=== PATIENT | female | born 1945 | race Caucasian/White ===

== ENCOUNTER → 2017-07-08 10:10 | Outpatient (CLI) | payer MEDICARE, BC, SELFPAY ==
[2017-07-08 10:52] LABS: Hemoglobin A1c 6.8 % (4.2-6.3)
[2017-07-08 10:59] LABS: Anion Gap 8 (5-15); BUN 21 mg/dL (7-18); BUN/Creat Ratio 19.8 RATIO (10-20); Calcium,Total 8.9 mg/dL (8.5-10.1); Chloride 102 mmol/L (98-107); Creatinine, Serum 1.06 mg/dL (0.55-1.02); EST Glomerular Filtration Rate 54 mL/min (>60); Est Glom Filt Rate - Afr Amer 65 mL/min (>60); Glucose 141 mg/dL (74-106); Potassium 3.8 mmol/L (3.5-5.1); Sodium Level 137 mmol/L (136-145)
== END ==
PROVIDERS: Family Provider Internal Medicine; PCP Internal Medicine; Visit Provider Internal Medicine
DX: E11.9 Type 2 diabetes mellitus without complications (principal)
CPT/HCPCS: 36415; 80048; 83036

== ENCOUNTER → 2017-08-28 11:55 | Outpatient (CLI) | payer MEDICARE, BC, SELFPAY ==
--- NOTE | 2017-08-28 11:58 | BI_ITS ---
MAMMOGRAPHY - UNILATERAL SCREENING: LEFT BREAST REASON FOR EXAM: Female, 72 years old. Routine annual screening examination (unilateral). PERTINENT HISTORY: LT STEREO BX 2006, RT MASTECTOMY 1997 WITH CHEMO TX, LT REDUCTION AND RT HX TOMOXIFEN X 5 YRS RECONSTRUCTION 7 YRS AFTER MASTECTOMY PT TO TOLERATE MUCH COMPRESSION TECHNIQUE: Digital unilateral breast leela (3D mammographic acquisition) in the CC and MLO projections. 2-D mediolateral oblique (MLO) and craniocaudad (CC) views of both breasts were obtained. CAD: Full Field Digital Mammography with Computer Added Detection was performed. COMPARISON: Aug 28 2016 1:10pm. Aug 22 2015 10:11am FINDINGS: Breast Composition: There are scattered areas of fibroglandular density. There are no dominant masses or suspicious calcifications. No other significant abnormalities are identified. BI/UNILAT LT SCRN W/CAD IMPRESSION: Stable unilateral screening mammogram. Yearly follow-up mammogram recommended. (A) ASSESSMENT CATEGORY: BIRADS Category 2: Benign. A letter regarding these results will be sent to the patient by the facility within 30 days. Approximately 10% of breast cancers are not detected by mammography. A normal mammogram should not delay biopsy of a clinically suspicious abnormality. [id number] Electronically Signed: Galina Cordon MD at 17:16 EDT Tel , Service support ,
== END ==
PROVIDERS: Family Provider Internal Medicine; PCP Internal Medicine; Visit Provider Nurse Practitioner Family
DX: Z12.31 Encounter for screening mammogram for malignant neoplasm of breast (principal)
CPT/HCPCS: 77061; 77067; G0279

== ENCOUNTER → 2017-10-16 12:22 | Outpatient (CLI) | payer MEDICARE, BC, SELFPAY ==
[2017-10-16 14:20] LABS: Hemoglobin A1c 7.2 % (4.2-6.3)
[2017-10-16 14:40] LABS: Rheumatoid Factor < 10.0 IU/mL (<15)
== END ==
PROVIDERS: Family Provider Internal Medicine; PCP Internal Medicine; Visit Provider Internal Medicine
DX: E11.9 Type 2 diabetes mellitus without complications (principal); M19.90 Unspecified osteoarthritis, unspecified site
CPT/HCPCS: 36415; 83036; 86431

== ENCOUNTER → 2018-01-06 10:36 | Outpatient (CLI) | payer MEDICARE, BC, SELFPAY ==
[2018-01-06 13:00] LABS: Hemoglobin A1c 6.6 % (4.2-6.3)
[2018-01-06 13:15] LABS: AST(SGOT) 33 U/L (15-37); Alanine Aminotransfer ALT/SGPT 59 U/L (13-56); Albumin, Serum 3.6 g/dL (3.2-5.0); Alkaline Phosphatase 106 U/L (45-117); Anion Gap 11 (5-15); BUN 21 mg/dL (7-18); BUN/Creat Ratio 20.2 RATIO (10-20); Calcium,Total 9.1 mg/dL (8.5-10.1); Chloride 104 mmol/L (98-107); Cholesterol 137 mg/dL (200); Creatinine, Serum 1.04 mg/dL (0.55-1.02); EST Glomerular Filtration Rate 55 mL/min (>60); Est Glom Filt Rate - Afr Amer 67 mL/min (>60); Globulin 3.6 g/dL (2.2-4.2); Glucose 197 mg/dL (74-106); High Density Lipoprotein 43 mg/dL; Potassium 4.1 mmol/L (3.5-5.1); Protein, Total 7.2 g/dL (6.4-8.2); Sodium Level 137 mmol/L (136-145); Triglycerides 131 mg/dL; Very Low Density Lipoprotein 26 mg/dL (5-40)
== END ==
PROVIDERS: Family Provider Internal Medicine; PCP Internal Medicine; Visit Provider Internal Medicine
DX: E11.9 Type 2 diabetes mellitus without complications (principal); E78.5 Hyperlipidemia, unspecified
CPT/HCPCS: 36415; 80053; 80061; 83036

== ENCOUNTER → 2018-01-27 15:28 | Outpatient (CLI) | payer MEDICARE, BC, SELFPAY ==
--- NOTE | 2018-01-27 15:34 | RAD_ITS ---
STUDY: X-RAY - LUMBAR SPINE REASON FOR EXAM: Female, 72 years old. Lower back pain. TECHNIQUE: 5 view(s) of the lumbar spine were obtained. COMPARISON: None FINDINGS: Normal lumbar lordosis. There is no substantial scoliosis. There is a normal alignment of the vertebrae. There is diffuse demineralization with multi-level endplate spondylosis. There is multi-level degenerative disc disease with multi-level disc space narrowing. There is atherosclerotic calcification of the abdominal aorta without a demonstrated aneurysm. RAD/L/S Spine Min 4 Views IMPRESSION: Degenerative changes of the spine, as detailed above. Atherosclerosis. Electronically Signed: Kassandra Boone MD at 16:16 EDT Tel , Service support ,
== END ==
PROVIDERS: Family Provider Internal Medicine; PCP Internal Medicine; Referring Provider Chiropractor; Visit Provider Chiropractor
DX: M51.36 Other intervertebral disc degeneration, lumbar region (principal); M48.061 Spinal stenosis, lumbar region without neurogenic claudication; M47.896 Other spondylosis, lumbar region
CPT/HCPCS: 72110

== ENCOUNTER 2018-03-13 10:14 | Emergency (ER) | payer MEDICARE, BC, SELFPAY ==
[2018-03-13 10:15] VITALS: BP 218/62; PULSE 58; RESP 16; TEMP 36.5; O2SAT 97; BMI 36.2
--- NOTE | 2018-03-13 10:31 | ED.VISSUMM ---
- ER Visit Summary Date of Service: 03/13/18 Chief Complaint: [] Slipped on ice right ankle injury History of Present Illness: The patient is a 73 F [] reports diabetes other health conditions are all stable she indicates she simply slipped on some ice today twisted her right ankle struck it against the tip of the stair has a contusion there and pain, unable to walk no other complaints specifically no head neck chest back upper or lower extremity other complaints Physical Examination: [] 160/67 General, no distress resting comfortably HEENT is generally unremarkable The neck is supple no adenopathy Cardiovascular, regular rate and rhythm Lungs, clear bilateral Abdomen, soft nontender Extremities, no clubbing cyanosis or edema, she does have a contusion over the distal right ankle, this does not appear to break the skin, she has pain and discomfort any type of dorsi or plantar flexion there is no obvious instability, the foot is not tender the toes are intact the left lower extremities unremarkable, the right tib-fib knee and hip are not tender the pelvis is stable the backs unremarkable neurologically unremarkable as below Neurologic, awake alert answering questions appropriately moving all 4 extremities Test Results: [] Emergency Department Course and Treatment: [] X-ray pain management, the x-ray shows per radiology a bimalleolar ankle fracture nondisplaced, discussed the case with the patient's orthopedic surgeon Dr. Sheriff, he has the patient placed in a long posterior splint will follow-up in his office tomorrow discussed all above with patient her family they agree, posterior splint applied a nonadherent dressing was applied over the contusion again the contusion was closely examined and again did not appear to break the skin and there is nothing to suggest this is an open fracture she understood the need to follow-up Dr. Sheriff need for surgery and other outpatient management to be determined once he seen her, Mars for pain and she will return for change in symptoms Treatment Plan: [] Disposition: [] Home stable Impression: [] Bimalleolar right ankle fracture This note was generated with SeeControl dictation software. It may contain incorrect words, spelling, and punctuation that were not noted in review of the chart prior to signing ED Disposition - Plan for ED Patient: Chief Complaint: Fall Instructions: ED Mechanical Fall Referrals: Tommy Everett MD [Primary Care Provider] -
--- NOTE | 2018-03-13 10:35 | ED.DEP ---
ED Disposition - Plan for ED Patient: Chief Complaint: Fall Instructions: ED Mechanical Fall Referrals: Tommy Everett MD [Primary Care Provider] -
--- NOTE | 2018-03-13 10:40 | RAD_ITS ---
STUDY: X-RAY - RIGHT ANKLE REASON FOR EXAM: Female, 73 years old. Pain and swelling following a fall. TECHNIQUE: 3 view(s) of the ankle. COMPARISON: None. FINDINGS: Nondisplaced oblique fracture of the distal fibula. Avulsion fracture of the medial malleolus. Asymmetry of the ankle mortise. Normal visualized talus and calcaneus. The visualized subtalar, talonavicular, calcaneocuboid and tarsal articulations are normal. Soft tissue swelling. RAD/Ankle min 3 Views IMPRESSION: Nondisplaced oblique fracture of the distal fibula as well as a nondisplaced avulsion fracture of the medial malleolus of the distal tibia with overlying soft tissue swelling. Electronically Signed: Kilo Curtis MD at 11:11 EST Tel [phone], Service support ,
--- NOTE | 2018-03-13 10:46 | RAD_ITS ---
STUDY: X-RAY - RIGHT FOOT CLINICAL: Female, 73 years old. Pain and swelling following a fall. TECHNIQUE: 3 view(s) of the foot. COMPARISON: None. FINDINGS: Nondisplaced fracture of the distal fibula with extension to the lateral malleolus as well as an avulsion fracture of the medial malleolus. There is disruption of the ankle mortise. Normal talus, calcaneus, and tarsal bones. Normal visualized subtalar, talonavicular, calcaneocuboid, tarsal and tarsometatarsal articulations. Normal metatarsi. Normal metatarsophalangeal joint of the great toe. Normal tibial and fibular sesamoid bones. Normal interphalangeal joint of the great toe. Normal phalanges of the great toe. Normal second through fifth metatarsophalangeal joints. Normal interphalangeal joints and phalanges of the lesser toes. Soft tissue swelling. RAD/Foot min 3 Views IMPRESSION: Nondisplaced avulsion fracture of the medial malleolus as well as oblique fracture of the distal fibula and lateral malleolus. Soft tissue swelling. Electronically Signed: Kilo Curtis MD at 11:13 EST Tel [phone], Service support ,
[2018-03-13] MEDS: HYDROcodone Bitartrate/Apap 5/325 Tablet PO (11:05)
--- NOTE | 2018-03-13 11:53 | ED.DEP ---
ED Disposition - Plan for ED Patient: Chief Complaint: Fall Instructions: ED Mechanical Fall, ED Fx Ankle General Prescriptions: Oxycodone HCl/Acetaminophen [Percocet 5/325] 1 tab PO Q6H PRN PRN 3 Days #12 tab PRN Reason: Pain Referrals: Tommy Everett MD [Primary Care Provider] - Jose Francisco Sheriff DO [STAFF PHYSICIAN] -
[2018-03-13 12:24] VITALS: PULSE 71; RESP 16; O2SAT 98
== END 2018-03-13 12:25 | disposition home or self-care (01) ==
LOC: ED 11:06
PROVIDERS: Emergency Provider Emergency Medicine; Family Provider Internal Medicine; PCP Internal Medicine
DX: S82.844A Nondisplaced bimalleolar fracture of right lower leg, initial encounter for closed fracture (principal); S90.01XA Contusion of right ankle, initial encounter; W00.0XXA Fall on same level due to ice and snow, initial encounter; Y93.9 Activity, unspecified; E11.9 Type 2 diabetes mellitus without complications; Z79.82 Long term (current) use of aspirin; Z79.84 Long term (current) use of oral hypoglycemic drugs; Z79.899 Other long term (current) drug therapy
CPT/HCPCS: 29505; 73610; 73630; 99283

== ENCOUNTER 2018-03-21 12:45 | Inpatient (IN) | payer MEDICARE, BC, SELFPAY ==
--- NOTE | 2018-03-14 15:30 | RAD_ITS ---
STUDY: X-RAY CHEST REASON FOR EXAM: Female, 73 years old. Preoperative clearance. TECHNIQUE: PA and lateral views of the chest. COMPARISON: [facility] upright chest x-ray May 06, 2014. FINDINGS: The lungs are clear and expanded. There is no demonstrated pleural abnormality. Normal size heart. Normal mediastinum and jeremiah. Normal visualized pulmonary arteries. There is atherosclerotic calcification of the aortic arch and descending thoracic aorta. There are stable multilevel degenerative changes of the visualized thoracic spine. There is interval mild degenerative osteoarthritis of the bilateral shoulders and acromioclavicular joints. There is no demonstrated abnormality of the visualized soft tissue structures of the upper abdomen. RAD/Chest PA and Lateral IMPRESSION: No acute cardiopulmonary disease. Electronically Signed: Juan Carlos Osborne MD at 16:31 EST , Service support ,
[2018-03-14 16:09] LABS: Absolute Lymphocyte Count 2.51 X10^3/ul (0.83-4.51); Absolute Neutrophil Count 4.3 X10^3/uL (2.0-7.7); Basophil# 0.03 X10^3/uL; Basophil% 0.4 % (0-1); Eosinophil# 0.07 X10^3/uL; Eosinophils% 0.9 % (0-5); Hematocrit 35.7 % (37-47); Hemoglobin 12.1 g/dl (12.0-15.0); Lymphocyte # 2.51 X10^3/ul (4.0); Lymphocyte % 32.4 % (19-41); Mean Corp Hgb Conc 33.9 g/gl (32-36); Mean Corpuscular Hgb 29.4 pg (27.0-32.0); Mean Corpuscular Volume 86.7 fL (81-99); Mean Platelet Vol. 11.2 fl (6.2-12.0); Monocyte# 0.83 X10^3/uL; Monocyte% 10.7 % (0-10); Neutrophil % 55.5 % (47-70); Platelet Count 295 K/mm3 (150-450); RBC Distribution Width CV 12.3 % (11.6-14.6); RBC Distribution Width SD 38.2 fl (35.1-43.9); Red Blood Count 4.12 M/mm3 (4.2-5.4); White Blood Count 7.8 K/mm3 (4.4-11.0)
[2018-03-14 16:38] LABS: ALB/GLOB Ratio 1.1 RATIO (0.9-2.4); AST(SGOT) 23 U/L (15-37); Alanine Aminotransfer ALT/SGPT 40 U/L (13-56); Albumin, Serum 3.9 g/dL (3.2-5.0); Alkaline Phosphatase 97 U/L (45-117); Anion Gap 8 (5-15); BUN 23 mg/dL (7-18); Chloride 102 mmol/L (98-107); Creatinine, Serum 1.15 mg/dL (0.55-1.02); EST Glomerular Filtration Rate 49 mL/min (>60); Est Glom Filt Rate - Afr Amer 59 mL/min (>60); Globulin 3.5 g/dL (2.2-4.2); Glucose 109 mg/dL (74-106); Potassium 3.5 mmol/L (3.5-5.1); Protein, Total 7.4 g/dL (6.4-8.2); Sodium Level 137 mmol/L (136-145)
[2018-03-14 16:40] LABS: POSITIVE COUNT NO; POSITIVE DIFFERENTIAL NO; POSITIVE MORPHOLOGY NO
[2018-03-17 11:16] LABS: Thyroid Stim Hormone (TSH) 3.78 uIU/mL (0.358-3.74)
[2018-03-21] VITALS (12 sets, daily range): BP systolic 138–190; BP diastolic 55–75; PULSE 62–82; RESP 16–20; TEMP 36.2–37.6; O2SAT 96–98; BMI 34.1
[2018-03-21] MEDS: Cefazolin 2 GM in 0.9% Normal Saline 100 ML IV (07:35)
--- NOTE | 2018-03-21 07:50 | RAD_ITS ---
STUDY: X-RAY - RIGHT ANKLE REASON FOR EXAM: Female, 73 years old. [And anatomic fixation of the fibular and tibial fractures. TECHNIQUE: 2 view(s) of the ankle were obtained intraoperatively. COMPARISON: Comparison is made with prior study dated March 13, 2018. FINDINGS: The patient is status post open reduction and internal fixation of the distal fibular fracture with screw and sideplate fixation device. There is good alignment. There is evidence of screw fixation of the medial malleolar fracture. Normal tibiotalar articulation and ankle mortise. Normal visualized talus and calcaneus. The visualized subtalar, talonavicular, calcaneocuboid and tarsal articulations are normal. The soft tissue structures are unremarkable. RAD/Ankle 2 Views IMPRESSION: Satisfactory open reduction internal fixation of the fibular and tibial fractures. Electronically Signed: Kilo Curtis MD at 10:39 EST Tel [phone], Service support ,
[2018-03-21 07:55] LABS: Bedside Glucose 161 mg/dL (70-110)
--- NOTE | 2018-03-21 10:56 | PCM.IMDPSTOP ---
Immediate Post-Op Note Date of Procedure: 03/21/18 Primary Surgeon/Physician: Janae Pierce DPM fire warden: Michelle Pandey Pre-Operative Diagnosis: Right ankle bimalleolar fx Post-Operative Diagnosis: same Surgery/Procedure Performed:: Right ankle ORIF bimalleolar fx Description of Surgical Findings:: see dictation Estimated Blood Loss: minimal Specimen's removed: none Drains: none Type of Anesthesia:: Spinal/Supplemental - Admit VTE Documentation VTE Present on Admission: No VTE Mechan Device Prophylaxis: SCD's, Knee High DANIELLE Hose VTE Pharm Prophylaxis ordered?: Yes
--- NOTE | 2018-03-21 11:01 | OP.PN_ITS ---
Immediate Post-Op Note Date of Procedure: 03/21/18 Primary Surgeon/Physician: Janae Pierce DPM slip bridge operator: Michelle Pandey Pre-Operative Diagnosis: Right ankle bimalleolar fx Post-Operative Diagnosis: same Surgery/Procedure Performed:: Right ankle ORIF bimalleolar fx Description of Surgical Findings:: see dictation Estimated Blood Loss: minimal Specimen's removed: none Drains: none Type of Anesthesia:: Spinal/Supplemental - Admit VTE Documentation VTE Present on Admission: No VTE Mechan Device Prophylaxis: SCD's, Knee High DANIELLE Hose VTE Pharm Prophylaxis ordered?: Yes
--- NOTE | 2018-03-21 11:04 | RAD_ITS ---
STUDY: X-RAY - RIGHT ANKLE REASON FOR EXAM: Female, 73 years old. Status post open reduction internal fixation. TECHNIQUE: 3 view(s) of the ankle. COMPARISON: Comparison is made with prior examination done earlier today. FINDINGS: There is satisfactory open reduction and internal fixation of the distal fibular fracture and the medial malleolar fracture. Normal tibiotalar articulation and ankle mortise. Normal visualized talus and calcaneus. The visualized subtalar, talonavicular, calcaneocuboid and tarsal articulations are normal. Postoperative soft tissue changes. RAD/Ankle min 3 Views IMPRESSION: Status post open reduction and internal fixation of distal fibula and medial malleolar fracture. There is good alignment. Postoperative soft tissue changes. Electronically Signed: Kilo Curtis MD at 11:59 EST Tel [phone], Service support ,
[2018-03-21 11:16] LABS: Bedside Glucose 168 mg/dL (70-110)
--- NOTE | 2018-03-21 12:26 | PCM.CONS.GEN ---
Reason for Consult History of Present Illness: The patient is a 73 year old F [] Past Medical History Past Medical History (Chronic Problems): Chronic Problems (Last Reviewed 01/07/18 @ 13:51 by Anna Gómez) Diverticulosis (Chronic) Anxiety (Chronic) Depression (Chronic) Hyperlipidemia (Chronic) History of colon polyps (Chronic) Gastroesophageal reflux disease (Chronic) Glaucoma (Chronic) Obesity (Chronic) History of breast cancer (Chronic) Hip pain, bilateral (Chronic) Hypersomnolence (Chronic) Hypothyroidism (Chronic) Hypertension (Chronic) Type 2 diabetes mellitus (Chronic) Osteoarthritis (Chronic) Medical History: Medical History (Last Reviewed 01/07/18 @ 13:51 by Anna Gómez) Osteoarthritis (Chronic) M19.90 Anemia D64.9 Breast cancer C50.919 Diabetes mellitus E11.9 Hearing loss H91.90 Hypothyroidism E03.9 IBS (irritable bowel syndrome) K58.9 Allergies adhesive Adverse Reaction (Severe, Verified 03/17/18 10:07) Rash sidra Allergy (Severe, Uncoded 03/17/18 10:08) Rash,itching,blisters Home Medications: Ambulatory Orders Medication Instructions Recorded Cholecalciferol (Vitamin D3) 50,000 unit PO QMONTH 07/23/16 [Decara] Latanoprost 0.005% [Xalatan 1 drp EACH EYE QHS 07/23/16 Opthalmic] brimonidine 0.1 % eye drops 1 drp OPHTHALMIC BID 04/10/17 coenzyme Q10 200 mg capsule 200 mg PO DAILY 04/10/17 dorzolamide 22.3 mg-timolol 6.8 1 drp OPHTHALMIC BID 04/10/17 mg/mL eye drops fluoxetine 20 mg capsule 20 mg PO DAILY #90 cap 05/15/17 levothyroxine 25 mcg tablet 25 mcg PO DAILY #90 tab 05/15/17 metoprolol tartrate 50 mg tablet 50 mg PO BID #180 tab 07/01/17 glimepiride 2 mg tablet 2 mg PO QAM #90 tab 10/16/17 losartan 100 1 tab PO DAILY #90 tab 01/07/18 mg-hydrochlorothiazide 12.5 mg tablet Aspirin [Aspirin, Baby] 81 mg PO DAILY@0800 03/17/18 Atorvastatin Calcium [Lipitor] 40 mg PO QHS 03/17/18 Metformin(XR) [Glucophage Xr] 1,000 mg PO QHS 03/17/18 Surgical History: Surgical History (Last Reviewed 01/07/18 @ 13:51 by Anna Gómez) H/O cervical biopsy Z98.890 H/O right mastectomy Z98.890, Z90.11 H/O tubal ligation Z98.51 History of D&C Z98.890 History of appendectomy Z98.890, Z90.49 History of carpal tunnel release Z98.890 History of carpal tunnel surgery Z92.89 History of reconstruction of right breast Z98.890 Normal colonoscopy 2013 dental implants fibroadenoma removed L breast left breast reconstruction with mastopexy right nipple reconstruction Surgical History: mastectomy, - Psychiatric History: Anxiety, Depression 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 Smoking Status: Former smoker - *Family History Maternal Family History: Family History (Last Reviewed 01/07/18 @ 13:51 by Anna Gómez) Mother Heart disease Hypertension Sister Cancer History Items: High Cholesterol, Hypertension - Physical Exam Vital Signs Temp Pulse Resp BP Pulse Ox 97.1 F L 70 18 156/55 H 96 03/21/18 12:09 03/21/18 12:09 03/21/18 12:09 03/21/18 12:09 03/21/18 12:09 Oxygen Delivery Method Room Air Weight: 186 lb 11.704 oz Body Mass Index (BMI) 34.1 Finger Stick Blood Glucose 168 Intake and Output for Last 24 Hours 03/19/18 03/20/18 03/21/18 23:59 23:59 23:59 Intake Total 1200 / 1200 Balance 1200 / 1200 POC Glucose 03/21/18 03/21/18 11:04 06:13 POC Glucose 168 H 161 H Assessment/Plan All Active Problems (Last Reviewed 01/07/18 @ 13:51 by Anna Gómez) Hypertensive urgency (Acute) Arm paresthesia, left (Acute) Hypokalemia (Acute) Breast cancer, right (Resolved) Chronic pain (Acute) Skin lesion (Acute) History of breast cancer (Resolved)
[2018-03-21] MEDS: Ketorolac 15 MG/ML Vial IV ×2 (12:30→22:10)
--- NOTE | 2018-03-21 12:43 | HP.PCM_ITS ---
History of Present Illness Date of Admission: 03/21/18 Chief Complaint: right ankle fracture The patient is a 73 year old F past medical history as listed below. She was admitted on 03/21/2018 from PACU after she came in for an elective right ankle fracture repair. She fractured her ankle about 3 weeks ago when she was out walking her dog and came in for elective surgery by podiatry. . She was admitted to be admitted to the TCU afterwards but could not be admitted there is was is been a few days on the floor before being admitted there. Hospitalist service was therefore asked to admit her for podiatry. Patient seen and examined she had no complaints and felt well. She denied any fever or chills, any cough or chest pain, any shortness of breath, abdominal pain, any diarrhea vomiting. Pain in right ankle is well controlled. Labs and vitals reviewed. Medications reviewed and reconciled. [] Past Medical History Past Medical History (Chronic Problems): Chronic Problems (Last Reviewed 01/07/18 @ 13:51 by Anna Gómez) Diverticulosis (Chronic) Anxiety (Chronic) Depression (Chronic) Hyperlipidemia (Chronic) History of colon polyps (Chronic) Gastroesophageal reflux disease (Chronic) Glaucoma (Chronic) Obesity (Chronic) History of breast cancer (Chronic) Hip pain, bilateral (Chronic) Hypersomnolence (Chronic) Hypothyroidism (Chronic) Hypertension (Chronic) Type 2 diabetes mellitus (Chronic) Osteoarthritis (Chronic) Medical History: Medical History (Last Reviewed 01/07/18 @ 13:51 by Anna Gómez) Osteoarthritis (Chronic) M19.90 Anemia D64.9 Breast cancer C50.919 Diabetes mellitus E11.9 Hearing loss H91.90 Hypothyroidism E03.9 IBS (irritable bowel syndrome) K58.9 Allergies adhesive Adverse Reaction (Severe, Verified 03/17/18 10:07) Rash sidra Allergy (Severe, Uncoded 03/17/18 10:08) Rash,itching,blisters Home Medications: Ambulatory Orders Medication Instructions Recorded Cholecalciferol (Vitamin D3) 50,000 unit PO QMONTH 07/23/16 [Decara] Latanoprost 0.005% [Xalatan 1 drp EACH EYE QHS 07/23/16 Opthalmic] brimonidine 0.1 % eye drops 1 drp OPHTHALMIC BID 04/10/17 coenzyme Q10 200 mg capsule 200 mg PO DAILY 04/10/17 dorzolamide 22.3 mg-timolol 6.8 1 drp OPHTHALMIC BID 04/10/17 mg/mL eye drops fluoxetine 20 mg capsule 20 mg PO DAILY #90 cap 05/15/17 levothyroxine 25 mcg tablet 25 mcg PO DAILY #90 tab 05/15/17 metoprolol tartrate 50 mg tablet 50 mg PO BID #180 tab 07/01/17 glimepiride 2 mg tablet 2 mg PO QAM #90 tab 10/16/17 losartan 100 1 tab PO DAILY #90 tab 01/07/18 mg-hydrochlorothiazide 12.5 mg tablet Aspirin [Aspirin, Baby] 81 mg PO DAILY@0800 03/17/18 Atorvastatin Calcium [Lipitor] 40 mg PO QHS 03/17/18 Metformin(XR) [Glucophage Xr] 1,000 mg PO QHS 03/17/18 Surgical History: Surgical History (Last Reviewed 01/07/18 @ 13:51 by Anna Gómez) H/O cervical biopsy Z98.890 H/O right mastectomy Z98.890, Z90.11 H/O tubal ligation Z98.51 History of D&C Z98.890 History of appendectomy Z98.890, Z90.49 History of carpal tunnel release Z98.890 History of carpal tunnel surgery Z92.89 History of reconstruction of right breast Z98.890 Normal colonoscopy 2013 dental implants fibroadenoma removed L breast left breast reconstruction with mastopexy right nipple reconstruction Surgical History: mastectomy, - Psychiatric History: Anxiety, Depression COUNTER HAND History: No pertinent COUNTER HAND history Smoking Status: Former smoker Tobacco Use: Non-smoker Alcohol: Occasional - *Family History Maternal Family History: Family History (Last Reviewed 01/07/18 @ 13:51 by Anna Gómez) Mother Heart disease Hypertension Sister Cancer History Items: High Cholesterol, Hypertension Review of Systems Constitutional: Denies: Chills, Fever, Weight Change Eyes: Denies: Blurred vision HEENT: Denies: Head Aches, Sinus Congestion, Sinus Drainage Cardiovascular: Denies: Chest Pain, Chest Pressure, Chest Tightness, Orthopnea, Palpitations, Paroxysmal Noc. Dyspnea Respiratory: Denies: Cough, Shortness of Breath, Shortness of breath at rest, Shortness of breath upon exertion, Sputum production Gastrointestinal: Denies: Abdominal Pain, Nausea, Vomiting Genitourinary: Denies: Dysuria Musculoskeletal: Denies: Joint Pain, Joint Tenderness Skin: Denies: Rash, Wounds Neurological: Denies: Numbness, Tingling, Focal weakness Psychiatric: Denies: Anxiety, Depression, Homicidal Ideations, Suicidal Ideations Hematologic/ Lymphatic: Denies: Easy Bruising, Easy Bleeding VTE Information - Inpt Only VTE Present on Admission: No VTE Pharm Prophylaxis ordered?: Yes - Physical Exam General: Alert, Oriented x3, Cooperative, No apparent distress HEENT: Atraumatic, PERRLA, EOMI, Normocephalic Oral: Moist Mucosa Neck: Supple, No JVD, Negative Carotid Bruits Lungs: Clear to auscultation, Normal air movement, No rhonchi, No wheeze, No rales Cardiovascular: Regular rate, Regular Rhythm, Normal S1, Normal S2, No murmurs Abdomen: Bowel Sounds Present, Soft, Non Tender Extremities: - - RLE wrapped in JARRED bandage after surgery. Skin: No rashes Musculoskeletal: No Tenderness to Palpation of Joints or Extremities Lymphatic: No Cervical, Supraclavicular, or Inguinal Adenopathy Neurological: Cranial nerves II-XII grossly intact, Neuro grossly intact Psych/Mental Status: Normal Affect, Appropriate, Alert and oriented to time, place, person, mood and affect Vital Signs Temp Pulse Resp BP Pulse Ox 97.1 F L 70 18 156/55 H 96 03/21/18 12:09 03/21/18 12:09 03/21/18 12:09 03/21/18 12:09 03/21/18 12:09 Oxygen Delivery Method Room Air Weight: 186 lb 11.704 oz Body Mass Index (BMI) 34.1 Finger Stick Blood Glucose 168 Intake and Output for Last 24 Hours 03/19/18 03/20/18 03/21/18 23:59 23:59 23:59 Intake Total 1200 / 1200 Balance 1200 / 1200 POC Glucose 03/21/18 03/21/18 11:04 06:13 POC Glucose 168 H 161 H Assessment/Plan All Active Problems (Last Reviewed 01/07/18 @ 13:51 by Anna Gómez) Hypertensive urgency (Acute) Arm paresthesia, left (Acute) Hypokalemia (Acute) Breast cancer, right (Resolved) Chronic pain (Acute) Skin lesion (Acute) History of breast cancer (Resolved) 1. Right ankle fracture s/p ORIF of bimalleolar fracture * today is POD 1 * admitted by hospitalist service because she needs to be in the hospital for a few days before she can be admitted to the TCU * pain currently well controlled * Pain management as per podiatry * will consult podiatry. * consult case management for placement * 2. hypertension * on losartan and metoprolol. Will resume. IV hydralazine prn * 3. Diabetes mellitus: on glimepiride 2mg daily and metformin 1000mg bid. Accuchecks ACHS. ISS 4. Hypothyroidism: On Synthroid. 5. Depression: On fluoxetine DVT prophylaxis: as per podiatry. SCDs for today, and to start DVT prophylaxis tomorrow, as discussed with Dr Pierce. Code Visit Inpatient E&M: 12847 Subs Hosp L2
--- NOTE | 2018-03-21 13:09 | CASEMGMT ---
Social Work Note RN, Javi Her, updated that per report the pt was wanting to go to TCU at discharge. Placed call to [facility], who confirms they have her on the list for admission on Saturday. Transfer to [facility] summary placed on chart for physician to complete. PLAN: TCU on Saturday, 03/24. SURYA iJ, DRYWALL HANGER HELPER
[2018-03-21] MEDS: hydroCHLOROthiazide 12.5mg 12.5 MG PO (14:36)
[2018-03-21] MEDS: Losartan Potassium 100 MG Tablet PO (14:36)
[2018-03-21] MEDS: HYDROcodone Bitartrate/Apap 5/325 Tablet PO ×3 (15:15→21:25)
[2018-03-21] MEDS: hydrALAZINE 20 MG/ML Vial 10 MG IV (16:23)
[2018-03-21] MEDS: 0.9% NaCl Peripheral Flush Adult/Peds IV ×2 (16:23→18:49)
[2018-03-21] MEDS: Morphine 2 MG/ML Syringe 1 MG IV (18:49)
[2018-03-21] MEDS: Latanoprost 0.005% 1 Bottle 1 DRP EACH EYE (21:29)
[2018-03-21] MEDS: Dorzolamide HCL/Timolol 10 ml Bottle 1 DRP OPHTHALMIC (21:30)
[2018-03-21] MEDS: Atorvastatin Calcium 40 MG Tablet PO (21:31)
[2018-03-21] MEDS: Metoprolol Tartrate 50 MG Tablet PO (21:32)
[2018-03-21] MEDS: Docusate Sodium 100 MG Capsule PO (21:34)
[2018-03-21] MEDS: LORazepam 2 MG/ML Syringe 0.5 MG IV (23:17)
[2018-03-22 03:25] VITALS: BP 158/70; PULSE 66; RESP 16; TEMP 36.6; O2SAT 99
[2018-03-22] MEDS: HYDROcodone Bitartrate/Apap 5/325 Tablet PO ×3 (05:27→16:37)
[2018-03-22] MEDS: Levothyroxine 25 MCG TABLET PO (05:28)
[2018-03-22] MEDS: LORazepam 2 MG/ML Syringe 0.5 MG IV ×2 (07:36→19:34)
[2018-03-22 08:08] LABS: Absolute Lymphocyte Count 1.99 X10^3/ul (0.83-4.51); Absolute Neutrophil Count 4.8 X10^3/uL (2.0-7.7); Basophil# 0.01 X10^3/uL; Basophil% 0.1 % (0-1); Eosinophil# 0.02 X10^3/uL; Eosinophils% 0.3 % (0-5); Hematocrit 30.5 % (37-47); Hemoglobin 10.2 g/dl (12.0-15.0); Lymphocyte # 1.99 X10^3/ul (4.0); Lymphocyte % 26.1 % (19-41); Mean Corp Hgb Conc 33.4 g/gl (32-36); Mean Corpuscular Hgb 29.1 pg (27.0-32.0); Mean Corpuscular Volume 86.9 fL (81-99); Mean Platelet Vol. 11.3 fl (6.2-12.0); Monocyte# 0.79 X10^3/uL; Monocyte% 10.4 % (0-10); POSITIVE COUNT NO; POSITIVE DIFFERENTIAL NO; POSITIVE MORPHOLOGY NO; Platelet Count 266 K/mm3 (150-450); RBC Distribution Width SD 36.9 fl (35.1-43.9); Red Blood Count 3.51 M/mm3 (4.2-5.4); White Blood Count 7.6 K/mm3 (4.4-11.0)
[2018-03-22 08:45] LABS: Anion Gap 8 (5-15); BUN 32 mg/dL (7-18); BUN/Creat Ratio 32.1 RATIO (10-20); Calcium,Total 8.8 mg/dL (8.5-10.1); Chloride 102 mmol/L (98-107); EST Glomerular Filtration Rate 58 mL/min (>60); Est Glom Filt Rate - Afr Amer 70 mL/min (>60); Estimated Creatinine Clearance 39.04 ml/min; Glucose 134 mg/dL (74-106); Potassium 4.2 mmol/L (3.5-5.1); Sodium Level 136 mmol/L (136-145)
[2018-03-22] MEDS: Glimepiride 2 MG Tablet PO (08:45)
[2018-03-22] MEDS: Aspirin 81 MG TAB.CHEW PO (08:45)
[2018-03-22 10:59] VITALS: BP 149/56; PULSE 66; RESP 18; TEMP 36.8; O2SAT 95
[2018-03-22] MEDS: Dorzolamide HCL/Timolol 10 ml Bottle 1 DRP OPHTHALMIC ×2 (11:01→21:58)
[2018-03-22] MEDS: Losartan Potassium 100 MG Tablet PO (11:02)
[2018-03-22 11:03] VITALS: PULSE 66
[2018-03-22] MEDS: Metoprolol Tartrate 50 MG Tablet PO ×2 (11:03→21:57)
[2018-03-22] MEDS: hydroCHLOROthiazide 12.5mg 12.5 MG PO (11:03)
[2018-03-22] MEDS: FLUoxetine 20 MG Capsule PO (11:08)
[2018-03-22] MEDS: Enoxaparin 40 MG/0.4 ML Syringe SC (11:14)
[2018-03-22 16:42] VITALS: BP 144/52; PULSE 66; RESP 18; TEMP 36.7; O2SAT 95
[2018-03-22 17:05] LABS: Bedside Glucose 113 mg/dL (70-110)
[2018-03-22] MEDS: 0.9% NaCl Peripheral Flush Adult/Peds IV ×2 (19:34→19:48)
[2018-03-22 20:31] VITALS: BP 149/55; PULSE 62; RESP 16; TEMP 36.9; O2SAT 94
[2018-03-22] MEDS: Atorvastatin Calcium 40 MG Tablet PO (21:56)
[2018-03-22 21:57] VITALS: PULSE 62
[2018-03-22] MEDS: Latanoprost 0.005% 1 Bottle 1 DRP EACH EYE (21:57)
[2018-03-22] MEDS: Docusate Sodium 100 MG Capsule PO (22:02)
[2018-03-23] VITALS (8 sets, daily range): BP systolic 151–190; BP diastolic 60–78; PULSE 62–70; RESP 16–18; TEMP 36.5–36.7; O2SAT 97–98
[2018-03-23] MEDS: HYDROcodone Bitartrate/Apap 5/325 Tablet PO ×4 (03:33→21:34)
[2018-03-23] MEDS: Levothyroxine 25 MCG TABLET PO (05:09)
[2018-03-23] MEDS: Glimepiride 2 MG Tablet PO (08:38)
[2018-03-23] MEDS: Aspirin 81 MG TAB.CHEW PO (08:38)
[2018-03-23] MEDS: Docusate Sodium 100 MG Capsule PO (08:38)
[2018-03-23] MEDS: Enoxaparin 40 MG/0.4 ML Syringe SC (08:39)
[2018-03-23] MEDS: FLUoxetine 20 MG Capsule PO (08:39)
[2018-03-23] MEDS: Losartan Potassium 100 MG Tablet PO (08:40)
[2018-03-23] MEDS: hydroCHLOROthiazide 12.5mg 12.5 MG PO (08:40)
[2018-03-23] MEDS: Dorzolamide HCL/Timolol 10 ml Bottle 1 DRP OPHTHALMIC ×2 (08:40→21:35)
[2018-03-23] MEDS: Metoprolol Tartrate 50 MG Tablet PO ×2 (08:41→21:36)
[2018-03-23] MEDS: LORazepam 2 MG/ML Syringe 0.5 MG IV (12:52)
[2018-03-23] MEDS: 0.9% NaCl Peripheral Flush Adult/Peds IV ×2 (12:52→16:49)
--- NOTE | 2018-03-23 12:52 | OP.PCM_ITS ---
Report of Operation Date of Procedure: 03/21/18 Pre-Operative Diagnosis: Right ankle bimalleolar fx Post-Operative Diagnosis: same Surgery/Procedure Performed:: Right ankle ORIF bimalleolar fx Description of Surgical Findings:: see dictation director of assisted living: Michelle Pandey Type of Anesthesia:: Spinal/Supplemental Specimen's removed: none Drains: none Estimated Blood Loss (mL): minimal Description of Procedure: Indications: Pt is a 73 yo F who fell on the ice on 03/13/2018. She was seen in the [facility] ER that day and radiographs revealed a Right bimalleolar ankle fracture. She presented the next day to my clinic for evaluation. Her daughter was present for that appointment. Given the instability of her fracture I recommended ORIF of the Right ankle. She had concerns about being able to stay NWB RLE prior to and after surgery. we discussed that she may need physical therapy and placement post operatively for her well being and safety. All risks, complications, and alternatives were discussed with the patient, and the patient signed an informed consent. No guarantees were given. Procedure: On 03/21/2018, Susan Beauchamp was visually and verbally identified in the preoperative holding area. The consent form was again reviewed with the patient, as were all risks, complications, and alternatives and the patient wished to proceed with the proposed surgery. The right ankle was marked as the correct operative extremity. The patient was brought to the operating room. Sp inal anesthesia was administered by the anesthesia team. She was then positioned on the operating room table in the normal lazy lateral position. A time out was performed and present were in agreement. a pneumatic thigh tourniquet was then placed. At this time the right lower extremity was prepped and draped in the usual sterile fashion. after exsanguination with an esmarch the tourniquet was inflated to 300 mmHg. At this time attention was directed to the right lateral distal ankle. Edema was noted to be largely resolved about the ankle from the clinical appointment. Ecchymosis was still visible with an abrasion noted proximal and anterior to the medial malleolus. Using intraoperative fluoroscopy, the distal fibula fracture was identified. Using a #15 blade a curvilinear incision was made over the the distal fibula fracture. The incision was bluntly carried deep through the subcutaneous tissues with careful attention paid to all bleeders, which were clamped and tied or bovied as necessary. All vital neurovascular structures were retracted. The peroneal tendons were retracted. The fracture of the distal fibula was noted to be oblique with a fracture fragment in the anterior medial portion of the fibula at the level of the ankle joint. Using a curette and #15 blade the fracture was debrided and all soft tissue impingements were removed. Using a series of bone reduction clamps and a 0.062 k wire the distal fibula fracture was reduced. This was confirmed both with intraoperative fluoroscopy and direct visualization. The anterior fracture fragment was reduced and a 0.045 k wire was placed to secure this piece. The 0.045 k wire was bent and cut with no sharp prominence noted. Utilizing AO technique and intraoperative fluoroscopy, an interfragmentary screw was placed nearly perpendicular to the fracture. The bone was noted to be brittle as this screw was placed. The temporary 0.062 k wire was removed. A Chester Variax lateral distal fibula plate was then placed utilizing a combination of locking and nonlocking screws for stabilization. Plate placement and screw placement and length was confirmed by intraoperative fluoroscopy. The external rotation and cotton hook tests were then performed under intraoperative fluoroscopy to examine the syndesmosis and medial clear space. They appeared stable, with no increased widening, and no syndesmotic screw fixation was placed. Attention was then turned to the medial malleolus which had an avulsion fracture. Under intraoperative fluoroscopic guidance two guide wires were placed percutaneously. Two 4.0 cannulated screws, per AO technique, were then placed percutaneously with reduction of the medial malleolar fracture noted on intraoperative fluoroscopy. Appropriate screw length and placement were confirmed on fluoroscopy. The incisions were flushed with copious amounts of normal sterile saline. Closure was initiated with 2.0 vicryl for deep layers, 3.0 vicryl for subcutaneous layers and 3.0 prolene for skin. Betadine soaked adaptic and dry sterile dressings were applied. A multi layer compression dressing and well padded posterior splint were then applied. Total tourniquet time was 120 minutes with immediate capillary refill noted to all digits upon deflation. Intra operative fluoroscopy was utilized throughout the case, > 1 hour, to aid in visualization and confirmation of fracture reduction and screw and plate fixations. Interpretation of the images was vital to my decision making process. The patient tolerated the procedure and anesthesia well. The patient was then transported to the postanesthesia care unit by a member of the anesthesia team and myself with all vital signs stable and neurovascular status of the right lower extremity equal to pre-operative levels. Anesthesia will perform a RLE lower sciatic block in the PACU. Pt will be admitted to inpatient services for physical therapy evaluation, fall risk and s/p ORIF R ankle fracture. At the end of the case all sponge, needle and instrument counts were found to be correct. Grafts/Implants Used: Mellissa Variax plate and screws - Complications none - Admit VTE Documentation VTE Present on Admission: No VTE Mechan Device Prophylaxis: SCD's, Knee High DANIELLE Hose VTE Pharm Prophylaxis ordered?: Yes
[2018-03-23] MEDS: BRIMONIDINE 0.15% 5 ML Bottle 1 DRP OPHTHALMIC ×2 (12:56→21:35)
--- NOTE | 2018-03-23 15:49 | PCM.PN.HOSP ---
Subjective: Patient seen and examined. Blood pressure noted to be running high. Pain is well controlled. She denies any fever, chills, cough, chest pain, SOB, abdominal pain, diarrhea or vomiting. Review of systems otherwise negative. Labs and vitals reviewed. Vitals/I&O's: Vital Signs Temp Pulse Resp BP Pulse Ox 97.7 F L 62 16 190/66 H 98 03/23/18 15:25 03/23/18 15:25 03/23/18 15:25 03/23/18 15:25 03/23/18 15:25 Oxygen Delivery Method Room Air Weight: 186 lb 11.704 oz Body Mass Index (BMI) 34.1 Finger Stick Blood Glucose 168 Intake and Output for Last 24 Hours 03/21/18 03/22/18 03/23/18 23:59 23:59 23:59 Intake Total 2175 / 2175 1515.8 / 1515.8 470 / 470 Output Total 700 / 700 1450 / 1450 600 / 600 Balance 1475 / 1475 65.8 / 65.8 -130 / -130 General: Alert, Oriented x3, Cooperative HEENT: Atraumatic, PERRLA, EOMI, Normocephalic Oral: Moist Mucosa Neck: Supple, No JVD, Negative Carotid Bruits Lungs: Clear to auscultation, Normal air movement, No rhonchi, No wheeze, No rales Cardiovascular: Regular rate, Regular Rhythm, Normal S1, Normal S2, No murmurs Abdomen: Bowel Sounds Present, Soft, Non Tender, Non-Distended, No Hepato-splenomegaly Extremities: No edema, Capillary Refill Less than 3 Seconds, - - RLE in bandage. able to wiggle toes Skin: No rashes, No breakdown Musculoskeletal: No Tenderness to Palpation of Joints or Extremities Lymphatic: No Cervical, Supraclavicular, or Inguinal Adenopathy Neurological: Cranial nerves II-XII grossly intact Psych/Mental Status: Normal Affect, Appropriate, Alert and oriented to time, place, person, mood and affect Laboratory Results 03/22/18 16:34: POC Glucose 113 H Current Medications Hydrocodone Bitart/Acetaminophen (Ackerman 5mg-325mg) 1 - 2 tablet PO Q4H PRN PRN PRN Reason: SEVERE PAIN (6-10) Last Admin: 03/23/18 12:52 Dose: 2 tablet Aspirin (Aspirin, Baby) 81 mg PO DAILY@0800 [facility] Last Admin: 03/23/18 08:38 Dose: 81 mg Atorvastatin Calcium (Lipitor) 40 mg PO QHS [facility] Last Admin: 03/22/18 21:56 Dose: 40 mg Brimonidine Tartrate (Alphagan P 0.15%) 1 drop OPHTHALMIC BID [facility] Last Admin: 03/23/18 12:56 Dose: 1 drop Docusate Sodium (Colace) 100 mg PO BID [facility] Last Admin: 03/23/18 08:38 Dose: 100 mg Dorzolamide/Timolol (Cosopt Opth Drops) 1 drop OPHTHALMIC BID [facility] Last Admin: 03/23/18 08:40 Dose: 1 drop Enoxaparin Sodium (Lovenox) 40 mg SC DAILY@1000 [facility] Last Admin: 03/23/18 08:39 Dose: 40 mg Ergocalciferol (Vitamin D) 50,000 unit PO QMONTH [facility] Fluoxetine HCl (Prozac) 20 mg PO DAILY [facility] Last Admin: 03/23/18 08:39 Dose: 20 mg Glimepiride (Amaryl) 2 mg PO QAM@0800 [facility] Last Admin: 03/23/18 08:38 Dose: 2 mg Hydrochlorothiazide (Hydrochlorothiazide) 12.5 mg PO DAILY [facility] Last Admin: 03/23/18 08:40 Dose: 12.5 mg Ketorolac Tromethamine (Toradol) 15 mg IV Q6H PRN PRN Reason: PAIN Stop: 03/26/18 15:45 Last Admin: 03/21/18 22:10 Dose: 15 mg Latanoprost (Xalatan Opthalmic) 1 drop EACH EYE QHS [facility] Last Admin: 03/22/18 21:57 Dose: 1 drop Levothyroxine Sodium (Synthroid) 25 mcg PO DAILY@0600 [facility] Last Admin: 03/23/18 05:09 Dose: 25 mcg Lorazepam (Ativan) 0.5 mg IV Q4H PRN PRN PRN Reason: severe muscle spasms Last Admin: 03/23/18 12:52 Dose: 0.5 mg Losartan Potassium (Cozaar) 100 mg PO DAILY [facility] Last Admin: 03/23/18 08:40 Dose: 100 mg Magnesium Hydroxide (Milk Of Magnesia) 30 ml PO DAILY PRN PRN PRN Reason: Constipation Metformin HCl (Glucophage Xr) 1,000 mg PO DAILY@1700 [facility] Last Admin: 03/22/18 16:40 Dose: 1,000 mg Metoprolol Tartrate (Lopressor (Beta Gilson)) 50 mg PO BID [facility] Last Admin: 03/23/18 08:41 Dose: 50 mg Morphine Sulfate () 1 mg IV Q4H PRN PRN PRN Reason: SEVERE PAIN (6-10/10) Last Admin: 03/21/18 18:49 Dose: 1 mg Ondansetron HCl (Zofran) 4 mg IV Q8H PRN PRN PRN Reason: Nausea Sodium Chloride () 5 - 30 ml IV UD PRN PRN Reason: SALINE FLUSH Last Admin: 03/23/18 12:52 Dose: 10 ml Medical Necessity - Tobacco Use Smoking Status: Former smoker Tobacco Use: Non-smoker Assessment/Plan All Active Problems (Last Reviewed 01/07/18 @ 13:51 by Anna Gómez) Hypertensive urgency (Acute) Arm paresthesia, left (Acute) Hypokalemia (Acute) Breast cancer, right (Resolved) Chronic pain (Acute) Skin lesion (Acute) History of breast cancer (Resolved) 1. Right ankle fracture s/p ORIF of bimalleolar fracture today is POD 3 pain well controlled. pain management as per podiatry awaiting placement in TCU 2. hypertension on losartan and metoprolol. BP in 190s systolic;IV hydalazine prn 3. Diabetes mellitus: on glimepiride 2mg daily and metformin 1000mg bid. Accuchecks ACHS. ISS 4. Hypothyroidism: On Synthroid. 5. Depression: On fluoxetine DVT prophylaxis:on SC lovenox. Disposition: awaiting placement in TCU Code Visit Inpatient E&M: 49117 Subs Hosp L2
[2018-03-23] MEDS: hydrALAZINE 20 MG/ML Vial 10 MG IV (16:49)
[2018-03-23] MEDS: Latanoprost 0.005% 1 Bottle 1 DRP EACH EYE (21:35)
[2018-03-23] MEDS: Atorvastatin Calcium 40 MG Tablet PO (21:36)
[2018-03-24 02:20] VITALS: BP 152/67; PULSE 72; RESP 18; TEMP 36.7; O2SAT 96
[2018-03-24] MEDS: Levothyroxine 25 MCG TABLET PO (05:51)
[2018-03-24 06:19] LABS: Absolute Lymphocyte Count 2.12 X10^3/ul (0.83-4.51); Absolute Neutrophil Count 3.9 X10^3/uL (2.0-7.7); Basophil# 0.04 X10^3/uL; Basophil% 0.6 % (0-1); Eosinophil# 0.14 X10^3/uL; Hematocrit 33.7 % (37-47); Hemoglobin 11.2 g/dl (12.0-15.0); Lymphocyte # 2.12 X10^3/ul (4.0); Lymphocyte % 30.2 % (19-41); Mean Corp Hgb Conc 33.2 g/gl (32-36); Mean Corpuscular Hgb 28.3 pg (27.0-32.0); Mean Corpuscular Volume 85.1 fL (81-99); Mean Platelet Vol. 10.9 fl (6.2-12.0); Monocyte# 0.78 X10^3/uL; Monocyte% 11.1 % (0-10); Neutrophil # 3.93 X10^3/uL (2.7-7.7); Platelet Count 277 K/mm3 (150-450); RBC Distribution Width CV 12.4 % (11.6-14.6); RBC Distribution Width SD 38.4 fl (35.1-43.9); Red Blood Count 3.96 M/mm3 (4.2-5.4)
[2018-03-24 06:40] LABS: POSITIVE COUNT NO; POSITIVE DIFFERENTIAL NO; POSITIVE MORPHOLOGY NO
[2018-03-24 06:43] LABS: Anion Gap 9 (5-15); BUN 21 mg/dL (7-18); BUN/Creat Ratio 27.9 RATIO (10-20); Calcium,Total 8.9 mg/dL (8.5-10.1); Chloride 104 mmol/L (98-107); Creatinine, Serum 0.75 mg/dL (0.55-1.02); EST Glomerular Filtration Rate 80 mL/min (>60); Est Glom Filt Rate - Afr Amer 97 mL/min (>60); Estimated Creatinine Clearance 39.04 ml/min; Glucose 118 mg/dL (74-106); Potassium 4.5 mmol/L (3.5-5.1); Sodium Level 135 mmol/L (136-145)
[2018-03-24] MEDS: HYDROcodone Bitartrate/Apap 5/325 Tablet PO ×2 (07:59→15:00)
[2018-03-24] MEDS: FLUoxetine 20 MG Capsule PO (08:01)
[2018-03-24] MEDS: Aspirin 81 MG TAB.CHEW PO (08:01)
[2018-03-24] MEDS: Glimepiride 2 MG Tablet PO (08:01)
[2018-03-24] MEDS: Docusate Sodium 100 MG Capsule PO (08:02)
[2018-03-24 09:45] VITALS: BP 130/39; PULSE 66; RESP 18; TEMP 36.5; O2SAT 97
--- NOTE | 2018-03-24 09:45 | CASEMGMT ---
Social Work Note SW met with pt to confirm discharge plans. SW introduced self and role at [facility]. Pt is alert and orientated x4. Pt confirms that she wishes to discharge to TCU. SW explained that TCU has a bed for pt and pt is able to discharge today. Pt states understanding. Plan: Discharge to TCU today Mercedes Veloz [employer], CLINICAL MOLECULAR GENETICIST
[2018-03-24 09:47] VITALS: PULSE 66
[2018-03-24] MEDS: BRIMONIDINE 0.15% 5 ML Bottle 1 DRP OPHTHALMIC (09:47)
[2018-03-24] MEDS: Dorzolamide HCL/Timolol 10 ml Bottle 1 DRP OPHTHALMIC (09:47)
[2018-03-24] MEDS: Metoprolol Tartrate 50 MG Tablet PO (09:47)
[2018-03-24] MEDS: Losartan Potassium 100 MG Tablet PO (09:48)
[2018-03-24] MEDS: hydroCHLOROthiazide 25 MG Tablet PO (09:49)
[2018-03-24] MEDS: Enoxaparin 40 MG/0.4 ML Syringe SC (09:56)
--- NOTE | 2018-03-24 14:45 | PCM.TXEXTCAR ---
- Diet 03/21/18 12:46 Diet: Cardiac/Low Cholesterol Food consistency:: Regular Liquid Consistency:: Regular/Thin Type of Dietary Supplement:: Glucerna Shake Is pt able to select menu?: Yes - Wound(s) RIGHT ANKLE Wound Type: Surgical Incision Dressing Change: Dry Sterile Dressing - Therapies Weight Bearing: Non weight bearing - Allergies/Procedures Done in Hospital Allergies/Adverse Reactions: Allergies adhesive Adverse Reaction (Severe, Verified 03/17/18 10:07) Rash sidra Allergy (Severe, Uncoded 03/17/18 10:08) Rash,itching,blisters - Type of Care/Length of Stay Estimated LOS: Convalescent Care Less Than 30 days Type of Care Needed: Skilled Rehab Potential: Good Prognosis: Good - Additional Orders/Day of Discharge Day of Discharge: 03/24/18 - Dietary and Speech Recommendations Dietitian Recommendations/Changes: Suggest diet change to 1800 calorie/cardiac/no added salt. Suggest d/c glucerna shake with meals as ordered due to good PO at meals & BMI 34.2. - Follow Up Care Primary Care Physician: Tommy Everett MD [Primary Care Provider] - Please follow up with your Primary Care Physician in: [place] 3-5 Days
--- NOTE | 2018-03-24 14:47 | PCM.DC.SUM ---
Discharge Date and Diagnosis Date of Admission: 03/21/18 Date of Discharge: 03/24/18 - Secondary Discharge Diagnosis Chronic Problems (Last Reviewed 01/07/18 @ 13:51 by Anna Gómez) Diverticulosis (Chronic) Anxiety (Chronic) Depression (Chronic) Hyperlipidemia (Chronic) History of colon polyps (Chronic) Gastroesophageal reflux disease (Chronic) Glaucoma (Chronic) Obesity (Chronic) History of breast cancer (Chronic) Hip pain, bilateral (Chronic) Hypersomnolence (Chronic) Hypothyroidism (Chronic) Hypertension (Chronic) Type 2 diabetes mellitus (Chronic) Osteoarthritis (Chronic) Hospital Course and Treatment Imaging Results: CXR: IMPRESSION: No acute cardiopulmonary disease. Ankle Xray: IMPRESSION: Satisfactory open reduction internal fixation of the fibular and tibial fractures. Consults: Podiatry Operations: - - ORIF Right Ankle Procedures: None Summary of Care Provided: Per HPI: The patient is a 73 year old F past medical history as listed below. She was admitted on 03/21/2018 from PACU after she came in for an elective right ankle fracture repair. She fractured her ankle about 3 weeks ago when she was out walking her dog and came in for elective surgery by podiatry. . She was admitted to be admitted to the TCU afterwards but could not be admitted there is was is been a few days on the floor before being admitted there. Hospitalist service was therefore asked to admit her for podiatry. Patient seen and examined she had no complaints and felt well. She denied any fever or chills, any cough or chest pain, any shortness of breath, abdominal pain, any diarrhea vomiting. Pain in right ankle is well controlled. Labs and vitals reviewed. Medications reviewed and reconciled. Vital Signs - 24 hr Temp Pulse Resp BP BP Pulse Ox 03/24/18 14:57 97.7 F L 63 18 154/61 H 99 03/24/18 09:47 66 03/24/18 09:45 97.7 F L 66 18 130/39 H 97 03/24/18 02:20 98.0 F 72 18 152/67 H 96 03/23/18 21:36 69 03/23/18 20:14 98.1 F 69 18 155/63 H 98 03/23/18 18:00 151/60 H 03/23/18 16:49 62 03/23/18 15:25 97.7 F L 62 16 190/66 H 98 General: Alert, Oriented x3, Cooperative, No apparent distress HEENT: Atraumatic, PERRLA, EOMI, Normocephalic Oral: Moist Mucosa Neck: Supple, No JVD Lungs: Clear to auscultation, Normal air movement, No rhonchi, No wheeze, No rales Cardiovascular: Regular rate, Regular Rhythm, Normal S1, Normal S2, No murmurs Abdomen: Soft, Non Tender, Non-Distended, No Hepato-splenomegaly Extremities: No edema, Capillary Refill Less than 3 Seconds Skin: No rashes, No breakdown Musculoskeletal: Right Ankle in cast and wrapped Hospital Course: 1. Right Ankle fracture POD 3 ORIF/HTN - She fell down the stairs at her trailer which led to this fracture. The fall was mechanical. She is continuing to have pain, but the narcotics help. Will continue her on narcotics as well as a bowel regimen. She is stable for discharge to TCU for further therapy. While here she had some difficulty with her blood pressure being high which is felt to be d/t her pain after surgery. On discharge her SBP was in the 130's. She is to continue her home medications of HCTZ/Losartan and metoprolol. 2. Her other diagnoses were evaluated and her home medications were continued where appropriate - Physical Exam Vital Signs Temp Pulse Resp BP Pulse Ox 97.7 F L 66 18 130/39 H 97 03/24/18 09:45 03/24/18 09:47 03/24/18 09:45 03/24/18 09:45 03/24/18 09:45 Oxygen Delivery Method Room Air Weight: 186 lb 11.704 oz Body Mass Index (BMI) 34.1 Finger Stick Blood Glucose 168 Intake and Output for Last 24 Hours 03/22/18 03/23/18 03/24/18 23:59 23:59 23:59 Intake Total 1515.8 / 1515.8 470 / 470 Output Total 1450 / 1450 600 / 600 1500 / 1500 Balance 65.8 / 65.8 -130 / -130 -1500 / -1500 Laboratory Tests Past 24 Hrs 03/24/18 03/24/18 05:42 05:42 WBC 7.0 RBC 3.96 L Hgb 11.2 L Hct 33.7 L MCV 85.1 MCH 28.3 MCHC 33.2 RDW 12.4 RDW Differential 38.4 Plt Count 277 MPV 10.9 Immature Gran % (Auto) 0.100 Neut % (Auto) 56.0 Lymph % (Auto) 30.2 [place] % (Auto) 11.1 H Eos % (Auto) 2.0 Baso % (Auto) 0.6 Absolute Neuts (auto) 3.9 Absolute Lymphs (auto) 2.12 Total Counted Not Reportable Sodium 135 L Potassium 4.5 Chloride 104 Carbon Dioxide 22.0 Anion Gap 9 BUN 21 H Creatinine 0.75 Estim Creat Clear Calc 39.04 Est GFR (MDRD) Af Amer 97 Est GFR (MDRD) Non-Af 80 BUN/Creatinine Ratio 27.9 H Glucose 118 H Calcium 8.9 Call your doctor if your incision/area has: Sudden Increased Bleeding, Increased Pain/ Swelling, Increased Redness, Foul Smelling Discharge, Swelling at the incision site Call your doctor if you observe: Fever of 101 or Higher, Numbness or Tingling, Shortness of breath, Chest pain Home Medications: Medications to take at Discharge Cholecalciferol (Vitamin D3) [Decara] 50,000 unit PO QMONTH 07/23/16 Latanoprost 0.005% [Xalatan Opthalmic] 1 drp EACH EYE QHS 07/23/16 brimonidine 0.1 % eye drops 1 drp OPHTHALMIC BID 04/10/17 coenzyme Q10 200 mg capsule 200 mg PO DAILY 04/10/17 dorzolamide 22.3 mg-timolol 6.8 mg/mL eye drops 1 drp OPHTHALMIC BID 04/10/17 fluoxetine 20 mg capsule 20 mg PO DAILY #90 cap 05/15/17 levothyroxine 25 mcg tablet 25 mcg PO DAILY #90 tab 05/15/17 metoprolol tartrate 50 mg tablet 50 mg PO BID #180 tab 07/01/17 glimepiride 2 mg tablet 2 mg PO QAM #90 tab 10/16/17 losartan 100 mg-hydrochlorothiazide 12.5 mg tablet 1 tab PO DAILY #90 tab 01/07/18 Aspirin [Aspirin, Baby] 81 mg PO DAILY@0800 03/17/18 Atorvastatin Calcium [Lipitor] 40 mg PO QHS 03/17/18 Metformin(XR) [Glucophage Xr] 1,000 mg PO QHS 03/17/18 Docusate Sodium [Colace] 100 mg PO BID capsule 03/24/18 Hydrocodone Bitart/Apap 5-325 [[place] 5/325] 1 - 2 tablet PO Q4H PRN PRN 3 Days #15 tablet 03/24/18 Other Amb Orders: Thyroid Stim Hormone (TSH) Time Frame: 03/17/18, Location: Laboratory Primary Care Physician: Tommy Everett MD [Primary Care Provider] - Please follow up with your Primary Care Physician in: [place] 3-5 Days Please Follow Up With: Janae Pierce DPM When: in 3-5 days Disposition: Alf facility Minutes spent on discharge:: 35 Patient Condition:: Good Medical Necessity - Tobacco Use Smoking Status: Former smoker Tobacco Use: Non-smoker Meaningful Use Info Meaningful Use Diagnoses (Choose all that apply): None applicable Code Visit Inpatient E&M: 09404 Disch Hosp
[2018-03-24 14:57] VITALS: BP 154/61; PULSE 63; RESP 18; TEMP 36.5; O2SAT 99
== END 2018-03-24 18:20 | disposition skilled nursing facility (03) | DRG 494 ==
LOC: SDC 12:52
PROVIDERS: Nurse Practitioner Family; Podiatrist Foot & Ankle Surgery; Admitting Provider Student in an Organized Health Care Education/Training Program; Family Provider Internal Medicine; PCP Internal Medicine; Referring Provider Student in an Organized Health Care Education/Training Program; Visit Provider Family Medicine
PROC: 0QSJ04Z Reposition Right Fibula with Internal Fixation Device, Open Approach (ICD-10-PCS; principal; 2018-03-21 06:55)
DX: S82.841A Displaced bimalleolar fracture of right lower leg, initial encounter for closed fracture (principal); W00.0XXA Fall on same level due to ice and snow, initial encounter; I10 Essential (primary) hypertension; E03.9 Hypothyroidism, unspecified; F32.9 Major depressive disorder, single episode, unspecified; E11.9 Type 2 diabetes mellitus without complications; Z79.899 Other long term (current) drug therapy; Z79.84 Long term (current) use of oral hypoglycemic drugs; Z85.3 Personal history of malignant neoplasm of breast; M19.90 Unspecified osteoarthritis, unspecified site; H40.9 Unspecified glaucoma; E66.9 Obesity, unspecified; F41.9 Anxiety disorder, unspecified; E78.5 Hyperlipidemia, unspecified; K57.90 Diverticulosis of intestine, part unspecified, without perforation or abscess without bleeding; K21.9 Gastro-esophageal reflux disease without esophagitis; Z86.010 Personal history of colon polyps; Z87.891 Personal history of nicotine dependence; Z90.11 Acquired absence of right breast and nipple; Z68.34 Body mass index [BMI] 34.0-34.9, adult
CPT/HCPCS: 36415; 71046; 73600; 73610; 76000; 80048; 80053; 82962; 84439; 84443; 85025; 93005; 97110; 97162; 97166; 97530; 97535; 97802; C1713; J7120; A4216; J2405

== ENCOUNTER 2018-03-24 20:22 | Inpatient (IN) | payer MEDICARE, BC, SELFPAY ==
[2018-03-21 12:09] VITALS: BMI 34.1
[2018-03-24 20:03] VITALS: BP 157/78; PULSE 64; RESP 20; TEMP 36.5; O2SAT 98; BMI 34.8
--- NOTE | 2018-03-24 20:03 | NURSING ---
Pt arrived from [facility] at 1930.
[2018-03-24 20:22] VITALS: PULSE 62
--- NOTE | 2018-03-24 20:28 | PCM.HP.STD ---
Problem List (1) Fracture of ankle, bimalleolar, right, closed Status: Acute (2) Diverticulosis Status: Chronic (3) Anxiety Status: Chronic (4) Depression Status: Chronic (5) Hyperlipidemia Status: Chronic (6) Gastroesophageal reflux disease Status: Chronic (7) Glaucoma Status: Chronic (8) Hypothyroidism Status: Chronic (9) Hypertension Status: Chronic (10) Type 2 diabetes mellitus Status: Chronic (11) Osteoarthritis Status: Chronic History of Present Illness Date of Admission: 03/24/18 Chief Complaint: Here for rehabilitation, strengthening, prior to discharge home alone. The patient is a 73 year old Female with below past medical history with followin03/21/2018 Admit to Hospital. 03/21/2018 Dr. Pierce performed right ankle ORIF bimalleolar fracture. 03/21/2018 X-ray right ankle status post ORIF distal fibula with medial malleolar fracture. Good alignment. 03/21/2018 Admit to Hospital. IV hydralazine PRN uncontrolled hypertension. SCD, DVT prophylaxis. Narcotics for pain control. Bowel regiment for presumptive constipation. Blood pressure improved. 03/24/2018 Admit to TCU with debility, here for rehabilitation, strengthening, prior to discharge home alone. Past Medical History Past Medical History (Chronic Problems): Chronic Problems (Last Reviewed 01/07/18 @ 13:51 by Anna Gmóez) Diverticulosis (Chronic) Anxiety (Chronic) Depression (Chronic) Hyperlipidemia (Chronic) History of colon polyps (Chronic) Gastroesophageal reflux disease (Chronic) Glaucoma (Chronic) Obesity (Chronic) History of breast cancer (Chronic) Hip pain, bilateral (Chronic) Hypersomnolence (Chronic) Hypothyroidism (Chronic) Hypertension (Chronic) Type 2 diabetes mellitus (Chronic) Osteoarthritis (Chronic) Medical History: Medical History (Last Reviewed 01/07/18 @ 13:51 by Anna Gómez) Osteoarthritis (Chronic) M19.90 Anemia D64.9 Breast cancer C50.919 Diabetes mellitus E11.9 Hearing loss H91.90 Hypothyroidism E03.9 IBS (irritable bowel syndrome) K58.9 Allergies adhesive Adverse Reaction (Severe, Verified 03/17/18 10:07) Rash sidra Allergy (Severe, Uncoded 03/17/18 10:08) Rash,itching,blisters Home Medications: Ambulatory Orders Medication Instructions Recorded Cholecalciferol (Vitamin D3) 50,000 unit PO QMONTH 07/23/16 [Decara] Latanoprost 0.005% [Xalatan 1 drp EACH EYE QHS 07/23/16 Opthalmic] brimonidine 0.1 % eye drops 1 drp OPHTHALMIC BID@1000,2200 04/10/17 coenzyme Q10 200 mg capsule 200 mg PO DAILY 04/10/17 dorzolamide 22.3 mg-timolol 6.8 1 drp OPHTHALMIC BID@1000,2200 04/10/17 mg/mL eye drops Aspirin [Aspirin, Baby] 81 mg PO DAILY@0800 03/17/18 Atorvastatin Calcium [Lipitor] 40 mg PO QHS 03/17/18 Metformin(XR) [Glucophage Xr] 1,000 mg PO DAILY@1800 03/17/18 Docusate Sodium [Colace] 100 mg PO BID 03/24/18 Fluoxetine [Prozac] 20 mg PO DAILY 03/24/18 Glimepiride [Amaryl] 2 mg PO DAILY@0800 03/24/18 Hydrocodone Bitart/Apap 5-325 1 - 2 tablet PO Q4H PRN PRN 3 Days 03/24/18 [Barnhart 5/325] #15 tablet Levothyroxine [Synthroid] 25 mcg PO DAILY 03/24/18 Losartan/Hydrochlorothiazide 1 tab PO DAILY 03/24/18 [Hyzaar 100-12.5 Tablet] Metoprolol Tartrate [Lopressor 50 mg PO BID 03/24/18 (beta devante)] Surgical History: Surgical History (Last Reviewed 01/07/18 @ 13:51 by Anan Gómez) H/O cervical biopsy Z98.890 H/O right mastectomy Z98.890, Z90.11 H/O tubal ligation Z98.51 History of D&C Z98.890 History of appendectomy Z98.890, Z90.49 History of carpal tunnel release Z98.890 History of carpal tunnel surgery Z92.89 History of reconstruction of right breast Z98.890 Normal colonoscopy 2013 dental implants fibroadenoma removed L breast left breast reconstruction with mastopexy right nipple reconstruction Surgical History: appendectomy, mastectomy - Right., - - Right ankle ORIF bimalleolar fracture, Tubal ligation, dilation & currettage, carpal tunnel release. 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 Lives: Alone Smoking Status: Former smoker Tobacco Use: Non-smoker Alcohol: Occasional Drugs: None - *Family History Maternal Family History: Family History (Last Reviewed 01/07/18 @ 13:51 by Anna Gómez) Mother Heart disease Hypertension Sister Cancer History Items: High Cholesterol, Hypertension Review of Systems Constitutional: Denies: Chills, Fever, Weight Change HEENT: Denies: Head Aches, Sinus Congestion, Sinus Drainage Cardiovascular: Denies: Chest Pain, Palpitations Respiratory: Denies: Cough, Shortness of breath at rest, Sputum production Gastrointestinal: Denies: Abdominal Pain, Nausea, Vomiting Genitourinary: Denies: Dysuria Musculoskeletal: Denies: Joint Pain, Joint Tenderness Skin: Denies: Rash, Wounds Neurological: Denies: Numbness, Tingling, Focal weakness Psychiatric: Denies: Anxiety, Depression, Homicidal Ideations, Suicidal Ideations Hematologic/ Lymphatic: Denies: Easy Bruising, Easy Bleeding VTE Information - Inpt Only VTE Present on Admission: No VTE Mechan Device Prophylaxis: Knee High DANIELLE Hose VTE Pharm Prophylaxis ordered?: Yes Patient Problems: Active and Suspected Problems (Last Reviewed 01/07/18 @ 13:51 by Anna Gómez) Fracture of ankle, bimalleolar, right, closed (Acute) - Physical Exam General: Alert, Oriented x3, Cooperative HEENT: Atraumatic, PERRLA, EOMI, Normocephalic Neck: Supple, No JVD, Negative Carotid Bruits Lungs: Clear to auscultation, Normal air movement Cardiovascular: Regular rate, No murmurs Abdomen: Bowel Sounds Present, Soft, Non Tender Extremities: No edema, Capillary Refill Less than 3 Seconds, - - Right lower extremity dressed. Skin: No rashes, No breakdown Musculoskeletal: No Tenderness to Palpation of Joints or Extremities Neurological: Cranial nerves II-XII grossly intact Psych/Mental Status: Normal Affect, Appropriate Vital Signs Temp Pulse Resp BP Pulse Ox 97.7 F L 64 20 H 157/78 H 98 03/24/18 20:03 03/24/18 20:03 03/24/18 20:03 03/24/18 20:03 03/24/18 20:03 Oxygen Delivery Method Room Air Weight: 86.319 kg Body Mass Index (BMI) 34.8 Finger Stick Blood Glucose 168 Assessment/Plan All Active Problems (Last Reviewed 01/07/18 @ 13:51 by Anna Gómez) Hypertensive urgency (Acute) Arm paresthesia, left (Acute) Hypokalemia (Acute) Breast cancer, right (Resolved) Chronic pain (Acute) Skin lesion (Acute) Fracture of ankle, bimalleolar, right, closed (Acute) History of breast cancer (Resolved) 73 year old female with below past medical history status post ORIF right ankle bimalleolar fracture, admitted to TCU with debility, here for rehabilitation, strengthening, prior to discharge home alone. Debility - PT/OT. Pain - Barnhart 5/325MG 2 tablets Q4H PRN moderate pain. Bowel - Miralax 17GM daily, Senna/colace 2 tablets BID, Dulcolax 10MG PO daily PRN. Pneumonia vaccination - Administer Prevnar 13 and/or Pneumovax 23 as necessary. DVT prophylaxis - Lovenox 40MG SC daily. CV prophylaxis - Aspirin 81MG daily. Hyperlipidemia - Atorvastatin 40MG QHS. Glaucoma - Brimonidine 1GTT OU BID, Cosopt 1GTT OU BID, Xalatan 1GTT OU BID. Vitamin D deficiency - D2 50,000 units per month. Depression - Fluoxetine 20MG daily, doing well with chronic assisted use, GDR clinically contraindicated. Diabetes Mellitus II - Glimepiride 2MG daily, Metformin XR 1000MG daily. Hypothyroidism - Levothyroxine 25MCG daily. Hypertension - Metoprolol 50MG BID, Losartan HCT 100/12.5MG daily. Post-operative anemia - Ferrex 150MG daily.
--- NOTE | 2018-03-24 20:32 | HP.PCM_ITS ---
Problem List (1) Fracture of ankle, bimalleolar, right, closed Status: Acute (2) Diverticulosis Status: Chronic (3) Anxiety Status: Chronic (4) Depression Status: Chronic (5) Hyperlipidemia Status: Chronic (6) Gastroesophageal reflux disease Status: Chronic (7) Glaucoma Status: Chronic (8) Hypothyroidism Status: Chronic (9) Hypertension Status: Chronic (10) Type 2 diabetes mellitus Status: Chronic (11) Osteoarthritis Status: Chronic History of Present Illness Date of Admission: 03/24/18 Chief Complaint: Here for rehabilitation, strengthening, prior to discharge home alone. The patient is a 73 year old Female with below past medical history with followin03/21/2018 Admit to Hospital. 03/21/2018 Dr. Pierce performed right ankle ORIF bimalleolar fracture. 03/21/2018 X-ray right ankle status post ORIF distal fibula with medial malleolar fracture. Good alignment. 03/21/2018 Admit to Hospital. IV hydralazine PRN uncontrolled hypertension. SCD, DVT prophylaxis. Narcotics for pain control. Bowel regiment for presumptive constipation. Blood pressure improved. 03/24/2018 Admit to TCU with debility, here for rehabilitation, strengthening, prior to discharge home alone. Past Medical History Past Medical History (Chronic Problems): Chronic Problems (Last Reviewed 01/07/18 @ 13:51 by Anna Gómez) Diverticulosis (Chronic) Anxiety (Chronic) Depression (Chronic) Hyperlipidemia (Chronic) History of colon polyps (Chronic) Gastroesophageal reflux disease (Chronic) Glaucoma (Chronic) Obesity (Chronic) History of breast cancer (Chronic) Hip pain, bilateral (Chronic) Hypersomnolence (Chronic) Hypothyroidism (Chronic) Hypertension (Chronic) Type 2 diabetes mellitus (Chronic) Osteoarthritis (Chronic) Medical History: Medical History (Last Reviewed 01/07/18 @ 13:51 by Anna Gómez) Osteoarthritis (Chronic) M19.90 Anemia D64.9 Breast cancer C50.919 Diabetes mellitus E11.9 Hearing loss H91.90 Hypothyroidism E03.9 IBS (irritable bowel syndrome) K58.9 Allergies adhesive Adverse Reaction (Severe, Verified 03/17/18 10:07) Rash sidra Allergy (Severe, Uncoded 03/17/18 10:08) Rash,itching,blisters Home Medications: Ambulatory Orders Medication Instructions Recorded Cholecalciferol (Vitamin D3) 50,000 unit PO QMONTH 07/23/16 [Decara] Latanoprost 0.005% [Xalatan 1 drp EACH EYE QHS 07/23/16 Opthalmic] brimonidine 0.1 % eye drops 1 drp OPHTHALMIC BID@1000,2200 04/10/17 coenzyme Q10 200 mg capsule 200 mg PO DAILY 04/10/17 dorzolamide 22.3 mg-timolol 6.8 1 drp OPHTHALMIC BID@1000,2200 04/10/17 mg/mL eye drops Aspirin [Aspirin, Baby] 81 mg PO DAILY@0800 03/17/18 Atorvastatin Calcium [Lipitor] 40 mg PO QHS 03/17/18 Metformin(XR) [Glucophage Xr] 1,000 mg PO DAILY@1800 03/17/18 Docusate Sodium [Colace] 100 mg PO BID 03/24/18 Fluoxetine [Prozac] 20 mg PO DAILY 03/24/18 Glimepiride [Amaryl] 2 mg PO DAILY@0800 03/24/18 Hydrocodone Bitart/Apap 5-325 1 - 2 tablet PO Q4H PRN PRN 3 Days 03/24/18 [[place]vere 5/325] #15 tablet Levothyroxine [Synthroid] 25 mcg PO DAILY 03/24/18 Losartan/Hydrochlorothiazide 1 tab PO DAILY 03/24/18 [Hyzaar 100-12.5 Tablet] Metoprolol Tartrate [Lopressor 50 mg PO BID 03/24/18 (beta devante)] Surgical History: Surgical History (Last Reviewed 01/07/18 @ 13:51 by Anna Gómez) H/O cervical biopsy Z98.890 H/O right mastectomy Z98.890, Z90.11 H/O tubal ligation Z98.51 History of D&C Z98.890 History of appendectomy Z98.890, Z90.49 History of carpal tunnel release Z98.890 History of carpal tunnel surgery Z92.89 History of reconstruction of right breast Z98.890 Normal colonoscopy 2013 dental implants fibroadenoma removed L breast left breast reconstruction with mastopexy right nipple reconstruction Surgical History: appendectomy, mastectomy - Right., - - Right ankle ORIF bimalleolar fracture, Tubal ligation, dilation & currettage, carpal tunnel release. 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 Smoking Status: Former smoker Tobacco Use: Non-smoker Alcohol: Occasional Drugs: None - *Family History Maternal Family History: Family History (Last Reviewed 01/07/18 @ 13:51 by Anna Gómez) Mother Heart disease Hypertension Sister Cancer History Items: High Cholesterol, Hypertension Review of Systems Constitutional: Denies: Chills, Fever, Weight Change HEENT: Denies: Head Aches, Sinus Congestion, Sinus Drainage Cardiovascular: Denies: Chest Pain, Palpitations Respiratory: Denies: Cough, Shortness of breath at rest, Sputum production Gastrointestinal: Denies: Abdominal Pain, Nausea, Vomiting Genitourinary: Denies: Dysuria Musculoskeletal: Denies: Joint Pain, Joint Tenderness Skin: Denies: Rash, Wounds Neurological: Denies: Numbness, Tingling, Focal weakness Psychiatric: Denies: Anxiety, Depression, Homicidal Ideations, Suicidal Pratik ations Hematologic/ Lymphatic: Denies: Easy Bruising, Easy Bleeding VTE Information - Inpt Only VTE Present on Admission: No VTE Mechan Device Prophylaxis: Knee High DANIELLE Hose VTE Pharm Prophylaxis ordered?: Yes Patient Problems: Active and Suspected Problems (Last Reviewed 01/07/18 @ 13:51 by Anna Gómez) Fracture of ankle, bimalleolar, right, closed (Acute) - Physical Exam General: Alert, Oriented x3, Cooperative HEENT: Atraumatic, PERRLA, EOMI, Normocephalic Neck: Supple, No JVD, Negative Carotid Bruits Lungs: Clear to auscultation, Normal air movement Cardiovascular: Regular rate, No murmurs Abdomen: Bowel Sounds Present, Soft, Non Tender Extremities: No edema, Capillary Refill Less than 3 Seconds, - - Right lower extremity dressed. Skin: No rashes, No breakdown Musculoskeletal: No Tenderness to Palpation of Joints or Extremities Neurological: Cranial nerves II-XII grossly intact Psych/Mental Status: Normal Affect, Appropriate Vital Signs Temp Pulse Resp BP Pulse Ox 97.7 F L 64 20 H 157/78 H 98 03/24/18 20:03 03/24/18 20:03 03/24/18 20:03 03/24/18 20:03 03/24/18 20:03 Oxygen Delivery Method Room Air Weight: 86.319 kg Body Mass Index (BMI) 34.8 Finger Stick Blood Glucose 168 Assessment/Plan All Active Problems (Last Reviewed 01/07/18 @ 13:51 by Anna Gómez) Hypertensive urgency (Acute) Arm paresthesia, left (Acute) Hypokalemia (Acute) Breast cancer, right (Resolved) Chronic pain (Acute) Skin lesion (Acute) Fracture of ankle, bimalleolar, right, closed (Acute) History of breast cancer (Resolved) 73 year old female with below past medical history status post ORIF right ankle bimalleolar fracture, admitted to TCU with debility, here for rehabilitation, strengthening, prior to discharge home alone. * Debility - PT/OT. * Pain - [place]vere 5/325MG 2 tablets Q4H PRN moderate pain. * Bowel - Miralax 17GM daily, Senna/colace 2 tablets BID, Dulcolax 10MG PO daily PRN. * Pneumonia vaccination - Administer Prevnar 13 and/or Pneumovax 23 as necessary. * DVT prophylaxis - Lovenox 40MG SC daily. * CV prophylaxis - Aspirin 81MG daily. * Hyperlipidemia - Atorvastatin 40MG QHS. * Glaucoma - Brimonidine 1GTT OU BID, Cosopt 1GTT OU BID, Xalatan 1GTT OU BID. * Vitamin D deficiency - D2 50,000 units per month. * Depression - Fluoxetine 20MG daily, doing well with chronic ferry terminal agent use, GDR clinically contraindicated. * Diabetes Mellitus II - Glimepiride 2MG daily, Metformin XR 1000MG daily. * Hypothyroidism - Levothyroxine 25MCG daily. * Hypertension - Metoprolol 50MG BID, Losartan HCT 100/12.5MG daily. * Post-operative anemia - Ferrex 150MG daily.
[2018-03-24 21:20] LABS: Bedside Glucose 95 mg/dL (70-110)
[2018-03-24] MEDS: oxyCODONE 5 MG Tablet PO (22:26)
[2018-03-24] MEDS: Acetaminophen 500 MG Tablet 1000 MG PO (22:27)
[2018-03-24] MEDS: Atorvastatin Calcium 40 MG Tablet PO (22:28)
[2018-03-24 22:35] VITALS: BP 142/69; PULSE 65
[2018-03-24] MEDS: Metoprolol Tartrate 50 MG Tablet PO (22:35)
[2018-03-24] MEDS: Latanoprost 0.005% 1 Bottle 1 DRP EACH EYE (22:38)
[2018-03-24] MEDS: Dorzolamide HCL/Timolol 10 ml Bottle 1 DRP OPHTHALMIC (22:40)
[2018-03-24] MEDS: BRIMONIDINE 0.15% 5 ML Bottle 1 DRP OPHTHALMIC (22:42)
[2018-03-25 06:10] LABS: Absolute Lymphocyte Count 1.89 X10^3/ul (0.83-4.51); Basophil# 0.02 X10^3/uL; Basophil% 0.4 % (0-1); Eosinophil# 0.12 X10^3/uL; Eosinophils% 2.2 % (0-5); Hematocrit 30.8 % (37-47); Hemoglobin 10.5 g/dl (12.0-15.0); Lymphocyte # 1.89 X10^3/ul (4.0); Lymphocyte % 33.9 % (19-41); Mean Corp Hgb Conc 34.1 g/gl (32-36); Mean Corpuscular Hgb 29.4 pg (27.0-32.0); Mean Corpuscular Volume 86.3 fL (81-99); Mean Platelet Vol. 11.3 fl (6.2-12.0); Monocyte# 0.56 X10^3/uL; Monocyte% 10.1 % (0-10); Neutrophil # 2.97 X10^3/uL (2.7-7.7); Neutrophil % 53.2 % (47-70); Platelet Count 303 K/mm3 (150-450); RBC Distribution Width CV 12.1 % (11.6-14.6); RBC Distribution Width SD 36.6 fl (35.1-43.9); Red Blood Count 3.57 M/mm3 (4.2-5.4); White Blood Count 5.6 K/mm3 (4.4-11.0)
[2018-03-25 06:17] LABS: POSITIVE COUNT NO; POSITIVE DIFFERENTIAL NO; POSITIVE MORPHOLOGY NO
[2018-03-25 06:29] LABS: Anion Gap 12 (5-15); BUN 23 mg/dL (7-18); BUN/Creat Ratio 28.8 RATIO (10-20); Calcium,Total 9.3 mg/dL (8.5-10.1); Chloride 102 mmol/L (98-107); EST Glomerular Filtration Rate 75 mL/min (>60); Est Glom Filt Rate - Afr Amer 90 mL/min (>60); Glucose 129 mg/dL (74-106); Potassium 4.3 mmol/L (3.5-5.1); Sodium Level 138 mmol/L (136-145)
[2018-03-25 06:31] LABS: Bedside Glucose 128 mg/dL (70-110)
[2018-03-25] MEDS: Nystatin Powder 15gm Bottle 1 APPLIC TOPICAL ×2 (07:12→20:04)
[2018-03-25] MEDS: FLUoxetine 20 MG Capsule PO (07:14)
[2018-03-25] MEDS: Levothyroxine 25 MCG TABLET PO (07:14)
[2018-03-25] MEDS: hydroCHLOROthiazide 12.5mg 12.5 MG PO (07:14)
[2018-03-25] MEDS: Losartan Potassium 100 MG Tablet PO (07:14)
[2018-03-25 07:15] VITALS: BP 142/69; PULSE 65
[2018-03-25] MEDS: Metoprolol Tartrate 50 MG Tablet PO ×2 (07:15→17:16)
[2018-03-25] MEDS: Enoxaparin 40 MG/0.4 ML Syringe SC (07:23)
[2018-03-25] MEDS: Aspirin 81 MG TAB.CHEW PO (08:19)
[2018-03-25] MEDS: Glimepiride 2 MG Tablet PO (08:19)
[2018-03-25] MEDS: HYDROcodone Bitartrate/Apap 5/325 Tablet PO ×3 (08:32→23:43)
[2018-03-25] MEDS: BRIMONIDINE 0.15% 5 ML Bottle 1 DRP OPHTHALMIC ×2 (10:45→21:01)
[2018-03-25] MEDS: Dorzolamide HCL/Timolol 10 ml Bottle 1 DRP OPHTHALMIC ×2 (10:47→21:48)
[2018-03-25 11:26] LABS: Bedside Glucose 102 mg/dL (70-110)
[2018-03-25] MEDS: Tuberculin,Purif.prot.deriv. 50 TU/ML Vial 5 ML ID (12:43)
[2018-03-25 15:35] VITALS: BP 128/47; PULSE 61; RESP 14; TEMP 36.3; O2SAT 96
[2018-03-25 17:15] LABS: Bedside Glucose 66 mg/dL (70-110)
[2018-03-25 17:16] VITALS: BP 128/47; PULSE 61
[2018-03-25] MEDS: Senna/Docusate Sodium 1 Tablet 2 TABLET PO (17:17)
--- NOTE | 2018-03-25 18:10 | PCM.PN.ORT ---
Patient Problems: Active and Suspected Problems (Last Reviewed 01/07/18 @ 13:51 by Anna Gómez) Fracture of ankle, bimalleolar, right, closed (Acute) Subjective: Pt is s/p R ORIF bimalleloar fx, DOS 03/21/2018. Pt evaluated at bedside. Feeling well. Some pain, especially after physical therapy. Feels she is doing well with physical therapy however is concerned about remaining NWB RLE if she has to go home. Fears she wont do well with stairs and with being able to take her dog outside. Denies f/c/n/v/cp/sob/calf pain. Objective: RLE exam: Vasc: crf < 3 seconds Neuro: light touch sensation intact Ms: posterior splint in place, no strikethrough noted Derm: deferred 2/2 surgical dressings intact Radiographs: 3 views of the right ankle good surgical corrections with hardware intact and appropriate alignment noted - Physical Exam General: Alert, Cooperative Vital Signs Temp Pulse Resp BP Pulse Ox 97.4 F L 61 14 128/47 H 96 03/25/18 15:35 03/25/18 17:16 03/25/18 15:35 03/25/18 17:16 03/25/18 15:35 Oxygen Delivery Method Room Air Weight: 187 lb 9.602 oz Body Mass Index (BMI) 34.8 Finger Stick Blood Glucose 168 Intake and Output for Last 24 Hours 03/23/18 03/24/18 03/25/18 23:59 23:59 23:59 Intake Total 120 / 120 960 / 960 Balance 120 / 120 960 / 960 Laboratory Tests Past 24 Hrs 03/25/18 03/25/18 05:05 05:05 WBC 5.6 RBC 3.57 L Hgb 10.5 L Hct 30.8 L MCV 86.3 MCH 29.4 MCHC 34.1 RDW 12.1 RDW Differential 36.6 Plt Count 303 MPV 11.3 Immature Gran % (Auto) 0.200 Neut % (Auto) 53.2 Lymph % (Auto) 33.9 [place] % (Auto) 10.1 H Eos % (Auto) 2.2 Baso % (Auto) 0.4 Absolute Neuts (auto) 3.0 Absolute Lymphs (auto) 1.89 Total Counted Not Reportable Sodium 138 Potassium 4.3 Chloride 102 Carbon Dioxide 24.0 Anion Gap 12 BUN 23 H Creatinine 0.80 Estim Creat Clear Calc 48.80 Est GFR (MDRD) Af Amer 90 Est GFR (MDRD) Non-Af 75 BUN/Creatinine Ratio 28.8 H Glucose 129 H Calcium 9.3 POC Glucose 03/25/18 03/25/18 03/25/18 16:57 11:17 06:27 POC Glucose 66 L 102 128 H 03/24/18 21:13 POC Glucose 95 Medical Necessity - Tobacco Use Smoking Status: Former smoker Tobacco Use: Non-smoker Assessment/Plan All Active Problems (Last Reviewed 01/07/18 @ 13:51 by Anna Gómez) Hypertensive urgency (Acute) Arm paresthesia, left (Acute) Hypokalemia (Acute) Breast cancer, right (Resolved) Chronic pain (Acute) Skin lesion (Acute) Fracture of ankle, bimalleolar, right, closed (Acute) History of breast cancer (Resolved) 73 yo F s/p ORIF R bimalleolar fx DOS 03/21/2018 -Pt evaluated at bedside -labs and studies reviewed -Continue strict NWB RLE, keep dressing and posterior splint c/d/i -Continue dvt prophylaxis per medicine while immobilized -Continue physical therapy -Elevate RLE when in bed/recliner -pain and home meds per medicine -Please call with questions. If patient is here Saturday/this I will see her to exam incision. If she is d/c or goes to another SNF I can see her in in 1-2 weeks from DOS in my office. She will need to move her appointment that is scheduled for this coming Saturday.
[2018-03-25 19:30] VITALS: PULSE 64; RESP 18; O2SAT 93
[2018-03-25] MEDS: Latanoprost 0.005% 1 Bottle 1 DRP EACH EYE (20:02)
[2018-03-25] MEDS: Menthol/Lanolin/Calamine/Znox 113 GM Tube 1 APPLIC TOPICAL (20:05)
[2018-03-25] MEDS: Atorvastatin Calcium 40 MG Tablet PO (20:07)
[2018-03-25 21:00] LABS: Bedside Glucose 104 mg/dL (70-110)
--- NOTE | 2018-03-26 05:38 | PCM.PN.RX ---
<LaurentPetar coughlin D - Last Filed: 03/26/18 05:38> Progress Note - Pharmacy Subjective: TCU Admission Objective: Allergies adhesive Adverse Reaction (Severe, Verified 03/17/18 10:07) Rash sidra Allergy (Severe, Uncoded 03/17/18 10:08) Rash,itching,blisters Current Medications Generic Name Dose Route Start Last Admin Trade Name Freq PRN Reason Stop Dose Admin Hydrocodone Bitart/Acetaminophen 2 tablet 03/25/18 08:12 03/25/18 23:43 Patterson 5mg-325mg PO 2 tablet Q4H PRN PRN Administration MILD PAIN (1-310) Aspirin 81 mg 03/25/18 08:00 03/25/18 08:19 Aspirin, Baby PO 81 mg DAILY@0800 [facility] Administration Atorvastatin Calcium 40 mg 03/24/18 22:00 03/25/18 20:07 Lipitor PO 40 mg QHS [facility] Administration Bisacodyl 10 mg 03/24/18 20:43 Dulcolax PO DAILY PRN Constipation Brimonidine Tartrate 1 drop 03/24/18 22:00 03/25/18 21:01 Alphagan P 0.15% OPHTHALMIC 1 drop BID@1000,2200 [facility] Administration Calamine/Phenol 1 applic 03/25/18 06:00 03/25/18 20:05 Calmoseptine Ointment TOPICAL 1 applicatio 0600,2200 [facility] Administration Protocol Dorzolamide/Timolol 1 drop 03/24/18 22:00 03/25/18 21:48 Cosopt Opth Drops OPHTHALMIC 1 drop BID@1000,2200 [facility] Administration Enoxaparin Sodium 40 mg 03/25/18 06:00 03/25/18 07:23 Lovenox SC 40 mg DAILY@0600 [facility] Administration Ergocalciferol 50,000 unit 03/31/18 10:00 Vitamin D PO QMONTH [facility] Fluoxetine HCl 20 mg 03/25/18 06:00 03/25/18 07:14 Prozac PO 20 mg DAILY [facility] Administration Glimepiride 2 mg 03/25/18 08:00 03/25/18 08:19 Amaryl PO 2 mg DAILY@0800 [facility] Administration Hydrochlorothiazide 12.5 mg 03/25/18 06:00 03/25/18 07:14 Hydrochlorothiazide PO 12.5 mg DAILY [facility] Administration Latanoprost 1 drop 03/24/18 22:00 03/25/18 20:02 Xalatan Opthalmic EACH EYE 1 drop QHS [facility] Administration Levothyroxine Sodium 25 mcg 03/25/18 06:00 03/25/18 07:14 Synthroid PO 25 mcg DAILY@0600 [facility] Administration Losartan Potassium 100 mg 03/25/18 06:00 03/25/18 07:14 Cozaar PO 100 mg DAILY [facility] Administration Metformin HCl 1,000 mg 03/25/18 18:00 03/25/18 17:16 Glucophage Xr PO 1,000 mg DAILY@1800 [facility] Administration Metoprolol Tartrate 50 mg 03/24/18 22:00 03/25/18 17:16 Lopressor (Beta Gilson) PO 50 mg BID [facility] Administration Multi-Ingredient Cream 1 applic 03/25/18 22:00 03/25/18 21:52 Eucerin TOPICAL Not Given 2199 [facility] Protocol Nutritional Formula (Lactose Free) 120 ml 03/25/18 07:45 03/25/18 17:16 Glucerna Shake PO Not Given TIDCM [facility] Nystatin 1 applic 03/25/18 06:00 03/25/18 20:04 Mycostatin Powder TOPICAL 1 applicatio 0600,2200 [facility] Administration Protocol Polyethylene Glycol 17 gm 03/25/18 06:00 03/25/18 07:15 Miralax PO Not Given DAILY [facility] Polysaccharide Iron Complex 150 mg 03/26/18 08:00 [facility] Senna/Docusate Sodium 2 tablet 03/25/18 06:00 03/25/18 17:17 Senokot-S, Emiliana-Colace PO 1 tablet BID [facility] Administration Tuberculin PPD 5 tu 04/01/18 10:00 Tubersol, Aplisol, Ppd ID 04/01/18 10:01 X1 ONE Problem List (Last Reviewed 01/07/18 @ 13:51 by Anna Gómez) Fracture of ankle, bimalleolar, right, closed (Acute) Vital Signs Temp Pulse Resp BP Pulse Ox 97.4 F L 64 18 128/47 H 93 03/25/18 15:35 03/25/18 19:30 03/25/18 19:30 03/25/18 17:16 03/25/18 19:30 Oxygen Delivery Method Room Air Weight: 85.094 kg Body Mass Index (BMI) 34.8 Finger Stick Blood Glucose 168 Sodium 138 mmol/L (136-145) 03/25/18 05:05 Potassium 4.3 mmol/L (3.5-5.1) 03/25/18 05:05 Chloride 102 mmol/L (98-107) 03/25/18 05:05 Carbon Dioxide 24.0 mmol/L (21.0-32.0) 03/25/18 05:05 Anion Gap 12 (5-15) 03/25/18 05:05 BUN 23 mg/dL (7-18) H 03/25/18 05:05 Creatinine 0.80 mg/dL (0.55-1.02) 03/25/18 05:05 Est GFR (MDRD) Af Amer 90 mL/min (>60) 03/25/18 05:05 Est GFR (MDRD) Non-Af 75 mL/min (>60) 03/25/18 05:05 BUN/Creatinine Ratio 28.8 RATIO (10-20) H 03/25/18 05:05 Glucose 129 mg/dL (74-106) H 03/25/18 05:05 Assessment/Plan: 1) Pain Hydrocodone/APAP for mild pain. Continue to monitor daily pain scores, prn medication use. 2) HTN Metoprolol, HCTZ, losartan. Continue to monitor BP/HR, renal function, electrolytes. 3) Hypothyroidism Levothyroxine daily. Continue to monitor s/s hyper/hypoglycemia. 4) DM2 Metformin, glimepiride, ASA, atorvastatin. Continue to monitor BGT, s/s hyper/hypoglycemia, lipids. 5) DVT PPx Enoxaparin daily. Continue to monitor for bleeding/clot Psychotropic Medications: 6) Depression Fluoxetine daily. Continue to monitor for depression. GDR addressed by primary physician. Unnecessary Medications: None Bowel Regimen: 7) Senna/s, PEG, prn bisacodyl. Continue to monitor prn medication use, for constipation/diarrhea. Date of Note:: 03/26/18 - Provider Comments Provider responsibility: Provider responsible to enter orders to implement recommendations <Rafiq Galdamez Chi - Last Filed: 03/26/18 08:08> Progress Note - Pharmacy Subjective: [] Objective: Allergies adhesive Adverse Reaction (Severe, Verified 03/17/18 10:07) Rash sidra Allergy (Severe, Uncoded 03/17/18 10:08) Rash,itching,blisters Current Medications Generic Name Dose Route Start Last Admin Trade Name Carlos PRN Reason Stop Dose Admin Hydrocodone Bitart/Acetaminophen 2 tablet 03/25/18 08:12 03/26/18 06:45 Patterson 5mg-325mg PO 2 tablet Q4H PRN PRN Administration MILD PAIN (1-3/10) Aspirin 81 mg 03/25/18 08:00 03/26/18 07:47 Aspirin, Baby PO 81 mg DAILY@0800 [facility] Administration Atorvastatin Calcium 40 mg 03/24/18 22:00 03/25/18 20:07 Lipitor PO 40 mg QHS [facility] Administration Bisacodyl 10 mg 03/24/18 20:43 Dulcolax PO DAILY PRN Constipation Brimonidine Tartrate 1 drop 03/24/18 22:00 03/25/18 21:01 Alphagan P 0.15% OPHTHALMIC 1 drop BID@1000,2200 [facility] Administration Calamine/Phenol 1 applic 03/25/18 06:00 03/26/18 06:48 Calmoseptine Ointment TOPICAL 1 applicatio 0600,2200 [facility] Administration Protocol Dorzolamide/Timolol 1 drop 03/24/18 22:00 03/25/18 21:48 Cosopt Opth Drops OPHTHALMIC 1 drop BID@1000,2200 [facility] Administration Enoxaparin Sodium 40 mg 03/25/18 06:00 03/26/18 06:56 Lovenox SC 40 mg DAILY@0600 [facility] Administration Ergocalciferol 50,000 unit 03/31/18 10:00 Vitamin D PO QMONTH [facility] Fluoxetine HCl 20 mg 03/25/18 06:00 03/26/18 06:47 Prozac PO 20 mg DAILY [facility] Administration Glimepiride 2 mg 03/25/18 08:00 03/26/18 07:48 Amaryl PO 2 mg DAILY@0800 [facility] Administration Hydrochlorothiazide 12.5 mg 03/25/18 06:00 03/26/18 06:47 Hydrochlorothiazide PO 12.5 mg DAILY [facility] Administration Latanoprost 1 drop 03/24/18 22:00 03/25/18 20:02 Xalatan Opthalmic EACH EYE 1 drop QHS [facility] Administration Levothyroxine Sodium 25 mcg 03/25/18 06:00 03/26/18 06:47 Synthroid PO 25 mcg DAILY@0600 [facility] Administration Losartan Potassium 100 mg 03/25/18 06:00 03/26/18 06:46 Cozaar PO 100 mg DAILY [facility] Administration Metformin HCl 1,000 mg 03/25/18 18:00 03/25/18 17:16 Glucophage Xr PO 1,000 mg DAILY@1800 [facility] Administration Metoprolol Tartrate 50 mg 03/24/18 22:00 03/26/18 06:47 Lopressor (Beta Gilson) PO 50 mg BID [facility] Administration Multi-Ingredient Cream 1 applic 03/25/18 22:00 03/25/18 21:52 Eucerin TOPICAL Not Given 2199 [facility] Protocol Nystatin 1 applic 03/25/18 06:00 03/26/18 06:48 Mycostatin Powder TOPICAL 1 applicatio 0600,2200 [facility] Administration Protocol Polyethylene Glycol 17 gm 03/25/18 06:00 03/26/18 06:48 Miralax PO Not Given DAILY [facility] Polysaccharide Iron Complex 150 mg 03/26/18 08:00 03/26/18 07:48 [facility] Senna/Docusate Sodium 2 tablet 03/25/18 06:00 03/26/18 06:49 Senokot-S, Emiliana-Colace PO Not Given BID [facility] Tuberculin PPD 5 tu 04/01/18 10:00 Tubersol, Aplisol, Ppd ID 04/01/18 10:01 X1 ONE Problem List (Last Reviewed 01/07/18 @ 13:51 by Anna Gómez) Fracture of ankle, bimalleolar, right, closed (Acute) Vital Signs Temp Pulse Resp BP Pulse Ox 97.4 F L 64 18 156/57 H 93 03/25/18 15:35 03/26/18 06:47 03/25/18 19:30 03/26/18 06:47 03/25/18 19:30 Oxygen Delivery Method Room Air Weight: 85.094 kg Body Mass Index (BMI) 34.8 Finger Stick Blood Glucose 168 Sodium 138 mmol/L (136-145) 03/25/18 05:05 Potassium 4.3 mmol/L (3.5-5.1) 03/25/18 05:05 Chloride 102 mmol/L (98-107) 03/25/18 05:05 Carbon Dioxide 24.0 mmol/L (21.0-32.0) 03/25/18 05:05 Anion Gap 12 (5-15) 03/25/18 05:05 BUN 23 mg/dL (7-18) H 03/25/18 05:05 Creatinine 0.80 mg/dL (0.55-1.02) 03/25/18 05:05 Est GFR (MDRD) Af Amer 90 mL/min (>60) 03/25/18 05:05 Est GFR (MDRD) Non-Af 75 mL/min (>60) 03/25/18 05:05 BUN/Creatinine Ratio 28.8 RATIO (10-20) H 03/25/18 05:05 Glucose 129 mg/dL (74-106) H 03/25/18 05:05 Assessment/Plan: Psychotropic Medications: Unnecessary Medications: Bowel Regimen: - Provider Comments Provider responsibility: Provider responsible to enter orders to implement recommendations Provider Comments to Recommendations by Pharmacy: Agree
--- NOTE | 2018-03-26 05:43 | PHA.CONS_ITS ---
<LaurentPetar coughlin D - Last Filed: 03/26/18 05:38> Progress Note - Pharmacy Subjective: TCU Admission Objective: Allergies adhesive Adverse Reaction (Severe, Verified 03/17/18 10:07) Rash sidra Allergy (Severe, Uncoded 03/17/18 10:08) Rash,itching,blisters Current Medications Generic Name Dose Route Start Last Admin Trade Name Freq PRN Reason Stop Dose Admin Hydrocodone Bitart/Acetaminophen 2 tablet 03/25/18 08:12 03/25/18 23:43 [place] 5mg-325mg PO 2 tablet Q4H PRN PRN Administration MILD PAIN (1-310) Aspirin 81 mg 03/25/18 08:00 03/25/18 08:19 Aspirin, Baby PO 81 mg DAILY@0800 [facility] Administration Atorvastatin Calcium 40 mg 03/24/18 22:00 03/25/18 20:07 Lipitor PO 40 mg QHS [facility] Administration Bisacodyl 10 mg 03/24/18 20:43 Dulcolax PO DAILY PRN Constipation Brimonidine Tartrate 1 drop 03/24/18 22:00 03/25/18 21:01 Alphagan P 0.15% OPHTHALMIC 1 drop BID@1000,2200 [facility] Administration Calamine/Phenol 1 applic 03/25/18 06:00 03/25/18 20:05 Calmoseptine Ointment TOPICAL 1 applicatio 0600,2200 [facility] Administration Protocol Dorzolamide/Timolol 1 drop 03/24/18 22:00 03/25/18 21:48 Cosopt Opth Drops OPHTHALMIC 1 drop BID@1000,2200 [facility] Administration Enoxaparin Sodium 40 mg 03/25/18 06:00 03/25/18 07:23 Lovenox SC 40 mg DAILY@0600 [facility] Administration Ergocalciferol 50,000 unit 03/31/18 10:00 Vitamin D PO QMONTH [facility] Fluoxetine HCl 20 mg 03/25/18 06:00 03/25/18 07:14 Prozac PO 20 mg DAILY [facility] Administration Glimepiride 2 mg 03/25/18 08:00 03/25/18 08:19 Amaryl PO 2 mg DAILY@0800 [facility] Administration Hydrochlorothiazide 12.5 mg 03/25/18 06:00 03/25/18 07:14 Hydrochlorothiazide PO 12.5 mg DAILY [facility] Administration Latanoprost 1 drop 03/24/18 22:00 03/25/18 20:02 Xalatan Opthalmic EACH EYE 1 drop QHS [facility] Administration Levothyroxine Sodium 25 mcg 03/25/18 06:00 03/25/18 07:14 Synthroid PO 25 mcg DAILY@0600 [facility] Administration Losartan Potassium 100 mg 03/25/18 06:00 03/25/18 07:14 Cozaar PO 100 mg DAILY [facility] Administration Metformin HCl 1,000 mg 03/25/18 18:00 03/25/18 17:16 Glucophage Xr PO 1,000 mg DAILY@1800 [facility] Administration Metoprolol Tartrate 50 mg 03/24/18 22:00 03/25/18 17:16 Lopressor (Beta Gilson) PO 50 mg BID [facility] Administration Multi-Ingredient Cream 1 applic 03/25/18 22:00 03/25/18 21:52 Eucerin TOPICAL Not Given 2199 [facility] Protocol Nutritional Formula (Lactose Free) 120 ml 03/25/18 07:45 03/25/18 17:16 Glucerna Shake PO Not Given TIDCM [facility] Nystatin 1 applic 03/25/18 06:00 03/25/18 20:04 Mycostatin Powder TOPICAL 1 applicatio 0600,2200 [facility] Administration Protocol Polyethylene Glycol 17 gm 03/25/18 06:00 03/25/18 07:15 Miralax PO Not Given DAILY [facility] Polysaccharide Iron Complex 150 mg 03/26/18 08:00 [facility] Senna/Docusate Sodium 2 tablet 03/25/18 06:00 03/25/18 17:17 Senokot-S, Emiliana-Colace PO 1 tablet BID [facility] Administration Tuberculin PPD 5 tu 04/01/18 10:00 Tubersol, Aplisol, Ppd ID 04/01/18 10:01 X1 ONE Problem List (Last Reviewed 01/07/18 @ 13:51 by Anna Gómez) Fracture of ankle, bimalleolar, right, closed (Acute) Vital Signs Temp Pulse Resp BP Pulse Ox 97.4 F L 64 18 128/47 H 93 03/25/18 15:35 03/25/18 19:30 03/25/18 19:30 03/25/18 17:16 03/25/18 19:30 Oxygen Delivery Method Room Air Weight: 85.094 kg Body Mass Index (BMI) 34.8 Finger Stick Blood Glucose 168 Sodium 138 mmol/L (136-145) 03/25/18 05:05 Potassium 4.3 mmol/L (3.5-5.1) 03/25/18 05:05 Chloride 102 mmol/L (98-107) 03/25/18 05:05 Carbon Dioxide 24.0 mmol/L (21.0-32.0) 03/25/18 05:05 Anion Gap 12 (5-15) 03/25/18 05:05 BUN 23 mg/dL (7-18) H 03/25/18 05:05 Creatinine 0.80 mg/dL (0.55-1.02) 03/25/18 05:05 Est GFR (MDRD) Af Amer 90 mL/min (>60) 03/25/18 05:05 Est GFR (MDRD) Non-Af 75 mL/min (>60) 03/25/18 05:05 BUN/Creatinine Ratio 28.8 RATIO (10-20) H 03/25/18 05:05 Glucose 129 mg/dL (74-106) H 03/25/18 05:05 Assessment/Plan: 1) Pain Hydrocodone/APAP for mild pain. Continue to monitor daily pain scores, prn medication use. 2) HTN Metoprolol, HCTZ, losartan. Continue to monitor BP/HR, renal function, electrolytes. 3) Hypothyroidism Levothyroxine daily. Continue to monitor s/s hyper/hypoglycemia. 4) DM2 Metformin, glimepiride, ASA, atorvastatin. Continue to monitor BGT, s/s hyper/hypoglycemia, lipids. 5) DVT PPx Enoxaparin daily. Continue to monitor for bleeding/clot Psychotropic Medications: 6) Depression Fluoxetine daily. Continue to monitor for depression. GDR addressed by primary physician. Unnecessary Medications: None Bowel Regimen: 7) Senna/s, PEG, prn bisacodyl. Continue to monitor prn medication use, for constipation/diarrhea. Date of Note:: 03/26/18 - Provider Comments Provider responsibility: Provider responsible to enter orders to implement recommendations <Rafiq Galdamez Chi - Last Filed: 03/26/18 08:08> Progress Note - Pharmacy Subjective: [] Objective: Allergies adhesive Adverse Reaction (Severe, Verified 03/17/18 10:07) Rash sidra Allergy (Severe, Uncoded 03/17/18 10:08) Rash,itching,blisters Current Medications Generic Name Dose Route Start Last Admin Trade Name Carlos PRN Reason Stop Dose Admin Hydrocodone Bitart/Acetaminophen 2 tablet 03/25/18 08:12 03/26/18 06:45 [place] 5mg-325mg PO 2 tablet Q4H PRN PRN Administration MILD PAIN (1-3/10) Aspirin 81 mg 03/25/18 08:00 03/26/18 07:47 Aspirin, Baby PO 81 mg DAILY@0800 [facility] Administration Atorvastatin Calcium 40 mg 03/24/18 22:00 03/25/18 20:07 Lipitor PO 40 mg QHS [facility] Administration Bisacodyl 10 mg 03/24/18 20:43 Dulcolax PO DAILY PRN Constipation Brimonidine Tartrate 1 drop 03/24/18 22:00 03/25/18 21:01 Alphagan P 0.15% OPHTHALMIC 1 drop BID@1000,2200 [facility] Administration Calamine/Phenol 1 applic 03/25/18 06:00 03/26/18 06:48 Calmoseptine Ointment TOPICAL 1 applicatio 0600,2200 [facility] Administration Protocol Dorzolamide/Timolol 1 drop 03/24/18 22:00 03/25/18 21:48 Cosopt Opth Drops OPHTHALMIC 1 drop BID@1000,2200 [facility] Administration Enoxaparin Sodium 40 mg 03/25/18 06:00 03/26/18 06:56 Lovenox SC 40 mg DAILY@0600 [facility] Administration Ergocalciferol 50,000 unit 03/31/18 10:00 Vitamin D PO QMONTH [facility] Fluoxetine HCl 20 mg 03/25/18 06:00 03/26/18 06:47 Prozac PO 20 mg DAILY [facility] Administration Glimepiride 2 mg 03/25/18 08:00 03/26/18 07:48 Amaryl PO 2 mg DAILY@0800 [facility] Administration Hydrochlorothiazide 12.5 mg 03/25/18 06:00 03/26/18 06:47 Hydrochlorothiazide PO 12.5 mg DAILY [facility] Administration Latanoprost 1 drop 03/24/18 22:00 03/25/18 20:02 Xalatan Opthalmic EACH EYE 1 drop QHS [facility] Administration Levothyroxine Sodium 25 mcg 03/25/18 06:00 03/26/18 06:47 Synthroid PO 25 mcg DAILY@0600 [facility] Administration Losartan Potassium 100 mg 03/25/18 06:00 03/26/18 06:46 Cozaar PO 100 mg DAILY [facility] Administration Metformin HCl 1,000 mg 03/25/18 18:00 03/25/18 17:16 Glucophage Xr PO 1,000 mg DAILY@1800 [facility] Administration Metoprolol Tartrate 50 mg 03/24/18 22:00 03/26/18 06:47 Lopressor (Beta Gilson) PO 50 mg BID [facility] Administration Multi-Ingredient Cream 1 applic 03/25/18 22:00 03/25/18 21:52 Eucerin TOPICAL Not Given 2199 [facility] Protocol Nystatin 1 applic 03/25/18 06:00 03/26/18 06:48 Mycostatin Powder TOPICAL 1 applicatio 0600,2200 [facility] Administration Protocol Polyethylene Glycol 17 gm 03/25/18 06:00 03/26/18 06:48 Miralax PO Not Given DAILY [facility] Polysaccharide Iron Complex 150 mg 03/26/18 08:00 03/26/18 07:48 Ferrex 150 [facility] Administration Senna/Docusate Sodium 2 tablet 03/25/18 06:00 03/26/18 06:49 Senokot-S, Emiliana-Colace PO Not Given BID [facility] Tuberculin PPD 5 tu 04/01/18 10:00 Tubersol, Aplisol, Ppd ID 04/01/18 10:01 X1 ONE Problem List (Last Reviewed 01/07/18 @ 13:51 by Anna Gómez) Fracture of ankle, bimalleolar, right, closed (Acute) Vital Signs Temp Pulse Resp BP Pulse Ox 97.4 F L 64 18 156/57 H 93 03/25/18 15:35 03/26/18 06:47 03/25/18 19:30 03/26/18 06:47 03/25/18 19:30 Oxygen Delivery Method Room Air Weight: 85.094 kg Body Mass Index (BMI) 34.8 Finger Stick Blood Glucose 168 Sodium 138 mmol/L (136-145) 03/25/18 05:05 Potassium 4.3 mmol/L (3.5-5.1) 03/25/18 05:05 Chloride 102 mmol/L (98-107) 03/25/18 05:05 Carbon Dioxide 24.0 mmol/L (21.0-32.0) 03/25/18 05:05 Anion Gap 12 (5-15) 03/25/18 05:05 BUN 23 mg/dL (7-18) H 03/25/18 05:05 Creatinine 0.80 mg/dL (0.55-1.02) 03/25/18 05:05 Est GFR (MDRD) Af Amer 90 mL/min (>60) 03/25/18 05:05 Est GFR (MDRD) Non-Af 75 mL/min (>60) 03/25/18 05:05 BUN/Creatinine Ratio 28.8 RATIO (10-20) H 03/25/18 05:05 Glucose 129 mg/dL (74-106) H 03/25/18 05:05 Assessment/Plan: Psychotropic Medications: Unnecessary Medications: Bowel Regimen: - Provider Comments Provider responsibility: Provider responsible to enter orders to implement recommendations Provider Comments to Recommendations by Pharmacy: Agree
[2018-03-26] MEDS: HYDROcodone Bitartrate/Apap 5/325 Tablet PO ×3 (06:45→15:19)
[2018-03-26] MEDS: Losartan Potassium 100 MG Tablet PO (06:46)
[2018-03-26 06:47] VITALS: BP 156/57; PULSE 64
[2018-03-26] MEDS: Levothyroxine 25 MCG TABLET PO (06:47)
[2018-03-26] MEDS: hydroCHLOROthiazide 12.5mg 12.5 MG PO (06:47)
[2018-03-26] MEDS: Metoprolol Tartrate 50 MG Tablet PO ×2 (06:47→17:06)
[2018-03-26] MEDS: FLUoxetine 20 MG Capsule PO (06:47)
[2018-03-26] MEDS: Menthol/Lanolin/Calamine/Znox 113 GM Tube 1 APPLIC TOPICAL ×2 (06:48→20:44)
[2018-03-26] MEDS: Nystatin Powder 15gm Bottle 1 APPLIC TOPICAL ×2 (06:48→20:44)
[2018-03-26] MEDS: Enoxaparin 40 MG/0.4 ML Syringe SC (06:56)
[2018-03-26 07:01] LABS: Bedside Glucose 128 mg/dL (70-110)
[2018-03-26] MEDS: Aspirin 81 MG TAB.CHEW PO (07:47)
[2018-03-26] MEDS: Iron Polysaccharide Complex 150 MG CAPSULE PO (07:48)
[2018-03-26] MEDS: Glimepiride 2 MG Tablet PO (07:48)
[2018-03-26] MEDS: Dorzolamide HCL/Timolol 10 ml Bottle 1 DRP OPHTHALMIC ×2 (09:33→20:44)
[2018-03-26] MEDS: BRIMONIDINE 0.15% 5 ML Bottle 1 DRP OPHTHALMIC ×2 (09:33→20:45)
[2018-03-26 10:15] VITALS: PULSE 58; RESP 18; O2SAT 97
[2018-03-26 11:56] LABS: Bedside Glucose 80 mg/dL (70-110)
[2018-03-26 16:00] VITALS: BP 146/56; PULSE 60; RESP 20; TEMP 35.7; O2SAT 99
[2018-03-26 17:06] VITALS: BP 146/56; PULSE 60
[2018-03-26 17:10] LABS: Bedside Glucose 79 mg/dL (70-110)
--- NOTE | 2018-03-26 18:46 | NURSING ---
NO for hydrocort cream 2.5% to nose BID.
[2018-03-26] MEDS: Latanoprost 0.005% 1 Bottle 1 DRP EACH EYE ×2 (20:43→20:45)
[2018-03-26] MEDS: Atorvastatin Calcium 40 MG Tablet PO (20:49)
[2018-03-26 21:31] LABS: Bedside Glucose 130 mg/dL (70-110)
[2018-03-27] MEDS: HYDROcodone Bitartrate/Apap 5/325 Tablet PO ×4 (00:49→21:43)
[2018-03-27] MEDS: Losartan Potassium 100 MG Tablet PO (06:37)
[2018-03-27] MEDS: hydroCHLOROthiazide 12.5mg 12.5 MG PO (06:37)
[2018-03-27] MEDS: Menthol/Lanolin/Calamine/Znox 113 GM Tube 1 APPLIC TOPICAL ×2 (06:37→19:58)
[2018-03-27] MEDS: Levothyroxine 25 MCG TABLET PO (06:38)
[2018-03-27 06:39] VITALS: PULSE 87
[2018-03-27] MEDS: Nystatin Powder 15gm Bottle 1 APPLIC TOPICAL ×2 (06:39→19:58)
[2018-03-27] MEDS: Senna/Docusate Sodium 1 Tablet 2 TABLET PO (06:39)
[2018-03-27] MEDS: Metoprolol Tartrate 50 MG Tablet PO ×2 (06:39→17:49)
[2018-03-27] MEDS: Enoxaparin 40 MG/0.4 ML Syringe SC (06:40)
[2018-03-27] MEDS: FLUoxetine 20 MG Capsule PO (06:41)
[2018-03-27 06:51] LABS: Bedside Glucose 117 mg/dL (70-110)
[2018-03-27] MEDS: Aspirin 81 MG TAB.CHEW PO (07:45)
[2018-03-27] MEDS: Glimepiride 2 MG Tablet PO (07:45)
[2018-03-27] MEDS: Iron Polysaccharide Complex 150 MG CAPSULE PO (07:45)
[2018-03-27] MEDS: BRIMONIDINE 0.15% 5 ML Bottle 1 DRP OPHTHALMIC ×2 (07:45→20:05)
[2018-03-27] MEDS: Dorzolamide HCL/Timolol 10 ml Bottle 1 DRP OPHTHALMIC ×2 (07:46→20:00)
[2018-03-27 10:46] LABS: Bedside Glucose 101 mg/dL (70-110)
--- NOTE | 2018-03-27 10:52 | CASEMGMT ---
Brief interview for mental status (BIMS) and resident mood interview (PHQ-9) completed on this day. BIMS score 13/15. PHQ-9 score 08/23
--- NOTE | 2018-03-27 10:52 | CASEMGMT ---
Social Work Collaborating with resident in room on discharge plan and possible supports. Resident reporting to have a friend that has a ramp that resident might be able to use and is currently working on finding someone to set up the ramp for resident. Resident also reporting to possibly need more assistance within the home. This social director exploring the option of private duty aides to assist resident within the home. Resident voicing to be agreeable to having aides in the home and is interested in this social director providing resident with a list of clerical aide teacher agencies within the area, list provided. Resident thanked this social director. Resident plans to discharge to home alone at time of discharge. Support given. Will continue to follow. Vanessa Frias, [employer], [employer]
[2018-03-27] MEDS: Hydrocortisone 2.5% Crm 1 APPLIC TOPICAL (14:21)
[2018-03-27 14:51] VITALS: BP 136/44; PULSE 58; RESP 18; TEMP 36.5; O2SAT 98
[2018-03-27 16:51] LABS: Bedside Glucose 95 mg/dL (70-110)
[2018-03-27 17:49] VITALS: BP 136/44; PULSE 68
[2018-03-27] MEDS: Atorvastatin Calcium 40 MG Tablet PO (19:54)
[2018-03-27 21:16] LABS: Bedside Glucose 131 mg/dL (70-110)
[2018-03-27] MEDS: Latanoprost 0.005% 1 Bottle 1 DRP EACH EYE (22:10)
[2018-03-28] MEDS: Enoxaparin 40 MG/0.4 ML Syringe SC (06:42)
[2018-03-28] MEDS: hydroCHLOROthiazide 12.5mg 12.5 MG PO (06:43)
[2018-03-28] MEDS: Losartan Potassium 100 MG Tablet PO (06:43)
[2018-03-28] MEDS: FLUoxetine 20 MG Capsule PO (06:43)
[2018-03-28] MEDS: Levothyroxine 25 MCG TABLET PO (06:43)
[2018-03-28 06:46] VITALS: BP 131/65; PULSE 62
[2018-03-28] MEDS: Metoprolol Tartrate 50 MG Tablet PO ×2 (06:46→17:20)
[2018-03-28] MEDS: Nystatin Powder 15gm Bottle 1 APPLIC TOPICAL ×2 (06:48→20:13)
[2018-03-28] MEDS: Menthol/Lanolin/Calamine/Znox 113 GM Tube 1 APPLIC TOPICAL ×2 (06:48→20:13)
[2018-03-28 06:55] LABS: Bedside Glucose 127 mg/dL (70-110)
[2018-03-28] MEDS: Aspirin 81 MG TAB.CHEW PO (08:11)
[2018-03-28] MEDS: Hydrocortisone 2.5% Crm 1 APPLIC TOPICAL (08:11)
[2018-03-28] MEDS: Glimepiride 2 MG Tablet PO (08:11)
[2018-03-28] MEDS: BRIMONIDINE 0.15% 5 ML Bottle 1 DRP OPHTHALMIC ×2 (08:12→20:15)
[2018-03-28] MEDS: Dorzolamide HCL/Timolol 10 ml Bottle 1 DRP OPHTHALMIC ×2 (08:13→20:49)
[2018-03-28] MEDS: HYDROcodone Bitartrate/Apap 5/325 Tablet PO ×2 (08:16→20:12)
--- NOTE | 2018-03-28 11:08 | NURSING ---
offered prevnar 13 per orders. per pt she has already had. states that she had one and then at pcp recieved a second one.
--- NOTE | 2018-03-28 14:55 | RAD_ITS ---
STUDY: X-RAY - RIGHT SHOULDER REASON FOR EXAM: Female, 73 years old. Pain. TECHNIQUE: 3 view(s) of the shoulder. COMPARISON: None. FINDINGS: There is moderate degenerative arthrosis of the glenohumeral articulation. There is hypertrophic osteoarthrosis of the acromioclavicular joint with inferior osseous spur formation. Normal acromion. Normal humeral head and visualized proximal humerus. The soft tissue structures are unremarkable. Normal visualized pulmonary apex. RAD/Shoulder min 2 Views IMPRESSION: Degenerative changes. Electronically Signed: Kilo Curtis MD at 15:28 EST Tel [phone], Service support ,
[2018-03-28 15:41] VITALS: BP 134/60; PULSE 58; RESP 14; TEMP 36.8; O2SAT 98
[2018-03-28 16:55] LABS: Bedside Glucose 65 mg/dL (70-110)
[2018-03-28 17:20] VITALS: BP 134/60; PULSE 57
[2018-03-28 17:45] LABS: Bedside Glucose 93 mg/dL (70-110)
[2018-03-28] MEDS: Atorvastatin Calcium 40 MG Tablet PO (20:13)
[2018-03-28 20:25] VITALS: PULSE 63; RESP 18; O2SAT 98
[2018-03-28] MEDS: Latanoprost 0.005% 1 Bottle 1 DRP EACH EYE (20:54)
[2018-03-28 20:56] LABS: Bedside Glucose 122 mg/dL (70-110)
[2018-03-29 06:37] VITALS: BP 164/74; PULSE 68
[2018-03-29] MEDS: Menthol/Lanolin/Calamine/Znox 113 GM Tube 1 APPLIC TOPICAL ×2 (06:37→20:52)
[2018-03-29] MEDS: FLUoxetine 20 MG Capsule PO (06:37)
[2018-03-29] MEDS: Metoprolol Tartrate 50 MG Tablet PO ×2 (06:37→17:38)
[2018-03-29] MEDS: Losartan Potassium 100 MG Tablet PO (06:39)
[2018-03-29] MEDS: Levothyroxine 25 MCG TABLET PO (06:39)
[2018-03-29] MEDS: Enoxaparin 40 MG/0.4 ML Syringe SC (06:40)
[2018-03-29] MEDS: Nystatin Powder 15gm Bottle 1 APPLIC TOPICAL ×2 (06:40→20:55)
[2018-03-29] MEDS: hydroCHLOROthiazide 12.5mg 12.5 MG PO (06:41)
[2018-03-29 07:00] VITALS: PULSE 68; RESP 18; O2SAT 97
[2018-03-29] MEDS: HYDROcodone Bitartrate/Apap 5/325 Tablet PO ×3 (07:00→20:58)
[2018-03-29 07:06] LABS: Bedside Glucose 111 mg/dL (70-110)
[2018-03-29] MEDS: Aspirin 81 MG TAB.CHEW PO (08:53)
[2018-03-29] MEDS: Glimepiride 2 MG Tablet PO (08:53)
[2018-03-29] MEDS: Dorzolamide HCL/Timolol 10 ml Bottle 1 DRP OPHTHALMIC ×2 (11:38→20:51)
[2018-03-29] MEDS: BRIMONIDINE 0.15% 5 ML Bottle 1 DRP OPHTHALMIC ×2 (11:38→20:51)
[2018-03-29 11:56] LABS: Bedside Glucose 74 mg/dL (70-110)
[2018-03-29 15:39] VITALS: BP 143/44; PULSE 59; RESP 16; TEMP 36.3; O2SAT 98
[2018-03-29 17:11] LABS: Bedside Glucose 75 mg/dL (70-110)
[2018-03-29 17:38] VITALS: BP 143/44; PULSE 59
--- NOTE | 2018-03-29 17:41 | PN.ORTHO_ITS ---
Patient Problems: Active and Suspected Problems (Last Reviewed 01/07/18 @ 13:51 by Anna Gómez) Fracture of ankle, bimalleolar, right, closed (Acute) Localized edema (Acute) Other specified noninfective disorders of lymphatic vessels and lymph nodes (Acute) Subjective: Pt evaluated at bedside with family in room. She reports she is feeling well, she has been doing well with the walker in physical therapy to remain NWB RLE. States she will need to have a ramp placed if she is to return to her home safely. Has been elevating while in bed or the recliner. denies f/c/n/v/cp/sob/calf pain. Objective: RLE Exam: Vasc: CRF < 3 seconds, moderate edema of ankle, nontender with calf compression, warm to warm Neuro: light touch sensation intact MS: able to wiggle digits Derm: sutures intact with skin edges well approximated, no SOI. Medial anterior ankle abrasion still present from fall with no SOI, stable - Physical Exam General: Alert, Cooperative Vital Signs Temp Pulse Resp BP Pulse Ox 97.4 F L 59 L 16 143/44 H 98 03/29/18 15:39 03/29/18 15:39 03/29/18 15:39 03/29/18 15:39 03/29/18 15:39 Oxygen Delivery Method Room Air Weight: 187 lb 9.602 oz Body Mass Index (BMI) 34.8 Finger Stick Blood Glucose 168 Intake and Output for Last 24 Hours 03/27/18 03/28/18 03/29/18 23:59 23:59 23:59 Intake Total 840 / 840 763 / 763 460 / 460 Balance 840 / 840 763 / 763 460 / 460 POC Glucose 03/29/18 03/29/18 03/29/18 16:57 11:52 06:38 POC Glucose 75 74 111 H 03/28/18 03/28/18 20:42 17:38 POC Glucose 122 H 93 Medical Necessity - Tobacco Use Smoking Status: Former smoker Tobacco Use: Non-smoker Assessment/Plan All Active Problems (Last Reviewed 01/07/18 @ 13:51 by Anna Gómez) Hypertensive urgency (Acute) Arm paresthesia, left (Acute) Hypokalemia (Acute) Breast cancer, right (Resolved) Chronic pain (Acute) Skin lesion (Acute) Fracture of ankle, bimalleolar, right, closed (Acute) Localized edema (Acute) Other specified noninfective disorders of lymphatic vessels and lymph nodes (Acute) History of breast cancer (Resolved) 73 yo F s/p R ORIF ankle fx DOS 03/21/18 -Pt evaluated in her recliner -labs, studies and notes reviewed -Adaptic, DSD applied to surgical sites, a multi layer compression dressing was then applied to aid in stability and edema reduction, a well padded posterior splint was then reapplied -Continue PT for NWB RLE -pain medication, dvt prophylaxis and bowel regimen per medicine -Plan for new xrays and suture removal in 3 weeks, if patient is still here will see her on floor, if not she will need a f/u appt with me at [facility]. Will likely start ROM exercises pending those radiographs -please call with questions or concerns.
--- NOTE | 2018-03-29 19:35 | NURSING ---
Dr. Pierce in to see patient today, dressing changed.
[2018-03-29] MEDS: Atorvastatin Calcium 40 MG Tablet PO (20:55)
[2018-03-29] MEDS: Latanoprost 0.005% 1 Bottle 1 DRP EACH EYE (20:55)
[2018-03-29 21:21] LABS: Bedside Glucose 128 mg/dL (70-110)
--- NOTE | 2018-03-30 01:32 | NURSING ---
Pt not wanting to get washed up evening of 03/29/18.
[2018-03-30] MEDS: HYDROcodone Bitartrate/Apap 5/325 Tablet PO ×3 (06:47→22:00)
[2018-03-30] MEDS: Nystatin Powder 15gm Bottle 1 APPLIC TOPICAL ×2 (06:48→20:36)
[2018-03-30] MEDS: Enoxaparin 40 MG/0.4 ML Syringe SC (06:48)
[2018-03-30] MEDS: FLUoxetine 20 MG Capsule PO (06:48)
[2018-03-30 06:49] VITALS: PULSE 70
[2018-03-30] MEDS: Metoprolol Tartrate 50 MG Tablet PO ×2 (06:49→17:45)
[2018-03-30] MEDS: Menthol/Lanolin/Calamine/Znox 113 GM Tube 1 APPLIC TOPICAL ×2 (06:49→20:35)
[2018-03-30] MEDS: Losartan Potassium 100 MG Tablet PO (06:49)
[2018-03-30] MEDS: hydroCHLOROthiazide 12.5mg 12.5 MG PO (06:49)
[2018-03-30] MEDS: Levothyroxine 25 MCG TABLET PO (06:50)
[2018-03-30] MEDS: Hydrocortisone 2.5% Crm 1 APPLIC TOPICAL (06:53)
[2018-03-30 07:56] LABS: Bedside Glucose 143 mg/dL (70-110)
[2018-03-30] MEDS: Aspirin 81 MG TAB.CHEW PO (08:23)
[2018-03-30] MEDS: Glimepiride 2 MG Tablet PO (08:23)
[2018-03-30] MEDS: BRIMONIDINE 0.15% 5 ML Bottle 1 DRP OPHTHALMIC ×2 (11:25→20:37)
[2018-03-30] MEDS: Dorzolamide HCL/Timolol 10 ml Bottle 1 DRP OPHTHALMIC ×2 (11:26→20:37)
[2018-03-30 11:55] LABS: Bedside Glucose 122 mg/dL (70-110)
[2018-03-30 15:42] VITALS: BP 134/41; PULSE 54; RESP 16; TEMP 36.4; O2SAT 97
[2018-03-30 16:55] LABS: Bedside Glucose 73 mg/dL (70-110)
[2018-03-30 17:45] VITALS: BP 134/41; PULSE 54
[2018-03-30 20:00] VITALS: PULSE 78; RESP 18; O2SAT 95
[2018-03-30] MEDS: Latanoprost 0.005% 1 Bottle 1 DRP EACH EYE (20:36)
[2018-03-30] MEDS: Atorvastatin Calcium 40 MG Tablet PO (20:37)
[2018-03-30 21:15] LABS: Bedside Glucose 163 mg/dL (70-110)
[2018-03-31] MEDS: HYDROcodone Bitartrate/Apap 5/325 Tablet PO ×4 (02:08→21:51)
[2018-03-31] MEDS: Menthol/Lanolin/Calamine/Znox 113 GM Tube 1 APPLIC TOPICAL ×2 (06:19→21:52)
[2018-03-31] MEDS: hydroCHLOROthiazide 12.5mg 12.5 MG PO (06:20)
[2018-03-31] MEDS: Losartan Potassium 100 MG Tablet PO (06:20)
[2018-03-31 06:21] VITALS: PULSE 78
[2018-03-31] MEDS: Nystatin Powder 15gm Bottle 1 APPLIC TOPICAL ×2 (06:21→21:54)
[2018-03-31] MEDS: FLUoxetine 20 MG Capsule PO (06:21)
[2018-03-31] MEDS: Enoxaparin 40 MG/0.4 ML Syringe SC (06:21)
[2018-03-31] MEDS: Metoprolol Tartrate 50 MG Tablet PO ×2 (06:21→17:58)
[2018-03-31] MEDS: Levothyroxine 25 MCG TABLET PO (06:22)
[2018-03-31 06:46] LABS: Bedside Glucose 128 mg/dL (70-110)
[2018-03-31] MEDS: Aspirin 81 MG TAB.CHEW PO (07:54)
[2018-03-31] MEDS: Glimepiride 2 MG Tablet PO (07:54)
[2018-03-31] MEDS: BRIMONIDINE 0.15% 5 ML Bottle 1 DRP OPHTHALMIC ×2 (09:31→21:47)
[2018-03-31] MEDS: Dorzolamide HCL/Timolol 10 ml Bottle 1 DRP OPHTHALMIC ×2 (09:32→21:48)
[2018-03-31 10:51] LABS: Bedside Glucose 137 mg/dL (70-110)
[2018-03-31 15:29] VITALS: BP 136/46; PULSE 54; RESP 16; TEMP 36.7; O2SAT 95
[2018-03-31 17:07] LABS: Bedside Glucose 103 mg/dL (70-110)
[2018-03-31 17:58] VITALS: PULSE 54
--- NOTE | 2018-03-31 17:59 | NURSING ---
reviewed blood sugars with dr bustamante, new order to decrease amaryl to 1mg and glucophage to 500mg. pt updated on all.
[2018-03-31 21:15] LABS: Bedside Glucose 134 mg/dL (70-110)
[2018-03-31] MEDS: Atorvastatin Calcium 40 MG Tablet PO (21:45)
[2018-03-31] MEDS: Latanoprost 0.005% 1 Bottle 1 DRP EACH EYE (21:46)
[2018-03-31 21:57] VITALS: PULSE 57; RESP 16; O2SAT 97
[2018-04-01] MEDS: hydroCHLOROthiazide 12.5mg 12.5 MG PO (05:19)
[2018-04-01] MEDS: Menthol/Lanolin/Calamine/Znox 113 GM Tube 1 APPLIC TOPICAL ×2 (05:19→20:06)
[2018-04-01] MEDS: FLUoxetine 20 MG Capsule PO (05:20)
[2018-04-01] MEDS: Levothyroxine 25 MCG TABLET PO (05:20)
[2018-04-01] MEDS: Losartan Potassium 100 MG Tablet PO (05:20)
[2018-04-01] MEDS: Nystatin Powder 15gm Bottle 1 APPLIC TOPICAL ×2 (05:22→20:06)
[2018-04-01] MEDS: Enoxaparin 40 MG/0.4 ML Syringe SC (05:23)
[2018-04-01 05:57] LABS: Absolute Lymphocyte Count 1.96 X10^3/ul (0.83-4.51); Absolute Neutrophil Count 2.7 X10^3/uL (2.0-7.7); Basophil# 0.03 X10^3/uL; Basophil% 0.6 % (0-1); Eosinophil# 0.13 X10^3/uL; Eosinophils% 2.4 % (0-5); Hemoglobin 10.8 g/dl (12.0-15.0); Lymphocyte # 1.96 X10^3/ul (4.0); Lymphocyte % 36.4 % (19-41); Mean Corp Hgb Conc 33.8 g/gl (32-36); Mean Corpuscular Hgb 29.3 pg (27.0-32.0); Mean Platelet Vol. 10.8 fl (6.2-12.0); Monocyte% 11.1 % (0-10); Neutrophil # 2.67 X10^3/uL (2.7-7.7); Neutrophil % 49.5 % (47-70); Platelet Count 383 K/mm3 (150-450); RBC Distribution Width CV 12.2 % (11.6-14.6); RBC Distribution Width SD 37.3 fl (35.1-43.9); Red Blood Count 3.68 M/mm3 (4.2-5.4); White Blood Count 5.4 K/mm3 (4.4-11.0)
[2018-04-01 06:07] LABS: POSITIVE COUNT NO; POSITIVE DIFFERENTIAL NO; POSITIVE MORPHOLOGY NO
[2018-04-01 06:11] LABS: Anion Gap 11 (5-15); BUN 24 mg/dL (7-18); BUN/Creat Ratio 26.3 RATIO (10-20); Calcium,Total 9.3 mg/dL (8.5-10.1); Chloride 104 mmol/L (98-107); Creatinine, Serum 0.91 mg/dL (0.55-1.02); EST Glomerular Filtration Rate 64 mL/min (>60); Est Glom Filt Rate - Afr Amer 77 mL/min (>60); Glucose 108 mg/dL (74-106); Potassium 4.4 mmol/L (3.5-5.1); Sodium Level 139 mmol/L (136-145)
[2018-04-01 06:46] LABS: Bedside Glucose 129 mg/dL (70-110)
[2018-04-01 07:15] VITALS: BP 145/65; PULSE 70
[2018-04-01] MEDS: Metoprolol Tartrate 50 MG Tablet PO ×2 (07:15→17:10)
[2018-04-01] MEDS: Glimepiride 1 MG Tablet PO (07:45)
[2018-04-01] MEDS: Aspirin 81 MG TAB.CHEW PO (07:45)
[2018-04-01] MEDS: Dorzolamide HCL/Timolol 10 ml Bottle 1 DRP OPHTHALMIC ×2 (09:16→20:08)
[2018-04-01] MEDS: BRIMONIDINE 0.15% 5 ML Bottle 1 DRP OPHTHALMIC ×2 (09:17→20:05)
[2018-04-01] MEDS: Tuberculin,Purif.prot.deriv. 50 TU/ML Vial 5 ML ID (10:19)
[2018-04-01] MEDS: HYDROcodone Bitartrate/Apap 5/325 Tablet PO ×2 (10:32→21:47)
[2018-04-01 11:40] LABS: Bedside Glucose 94 mg/dL (70-110)
[2018-04-01 16:00] VITALS: BP 179/54; PULSE 62; RESP 16; TEMP 36.4; O2SAT 97
[2018-04-01 16:46] LABS: Bedside Glucose 90 mg/dL (70-110)
[2018-04-01 17:10] VITALS: PULSE 62
[2018-04-01] MEDS: Senna/Docusate Sodium 1 Tablet 2 TABLET PO (17:11)
[2018-04-01] MEDS: Atorvastatin Calcium 40 MG Tablet PO (20:05)
[2018-04-01] MEDS: Latanoprost 0.005% 1 Bottle 1 DRP EACH EYE (20:09)
[2018-04-01 20:40] LABS: Bedside Glucose 122 mg/dL (70-110)
[2018-04-02] MEDS: Nystatin Powder 15gm Bottle 1 APPLIC TOPICAL ×2 (06:41→20:20)
[2018-04-02] MEDS: Levothyroxine 25 MCG TABLET PO (06:41)
[2018-04-02] MEDS: Menthol/Lanolin/Calamine/Znox 113 GM Tube 1 APPLIC TOPICAL ×2 (06:41→20:18)
[2018-04-02 06:42] VITALS: BP 156/61; PULSE 60
[2018-04-02] MEDS: Metoprolol Tartrate 50 MG Tablet PO ×2 (06:42→17:21)
[2018-04-02] MEDS: FLUoxetine 20 MG Capsule PO (06:42)
[2018-04-02] MEDS: Losartan Potassium 100 MG Tablet PO (06:42)
[2018-04-02] MEDS: hydroCHLOROthiazide 12.5mg 12.5 MG PO (06:43)
[2018-04-02] MEDS: Enoxaparin 40 MG/0.4 ML Syringe SC (06:44)
[2018-04-02 06:55] LABS: Bedside Glucose 115 mg/dL (70-110)
[2018-04-02] MEDS: Glimepiride 1 MG Tablet PO (08:13)
[2018-04-02] MEDS: Aspirin 81 MG TAB.CHEW PO (08:13)
[2018-04-02] MEDS: HYDROcodone Bitartrate/Apap 5/325 Tablet PO (10:32)
[2018-04-02] MEDS: BRIMONIDINE 0.15% 5 ML Bottle 1 DRP OPHTHALMIC ×2 (10:33→20:16)
[2018-04-02] MEDS: Dorzolamide HCL/Timolol 10 ml Bottle 1 DRP OPHTHALMIC ×2 (10:33→20:30)
[2018-04-02 11:30] LABS: Bedside Glucose 87 mg/dL (70-110)
[2018-04-02 16:00] VITALS: BP 153/62; PULSE 65; RESP 18; TEMP 36.7; O2SAT 98
--- NOTE | 2018-04-02 16:21 | CASEMGMT ---
Team meeting held with pt in attendance. Pt is progressing with therapy. No d/c date set at this time. Pt will be returning to her home at time of d/c however needs a ramp into trailer before she can return there. Pt is currently working on obtaining a ramp. She is in contact with a contractor to build one and will notify staff as soon as ramp is installed. Therapy is recommending home PT for and environmental survey as pt will be d/c to a new home she has not lived in yet. Pt will need wheeled walker upon d/c. Treatment plan will continue at this time. LISETTE Foote
--- NOTE | 2018-04-02 16:22 | CHAPLAIN ---
Type of Pastoral Visit _x__ Initial Visit ___ Follow-up Visit ___ On-call Visit ___ General Patient Visit ___ Spiritual Assessment ___ Family Conference ___ Bereavement ___ Rapid Response ___ Code Blue ___ Other (describe below) Pastoral Care Referral From _x__ Patient ___ Family ___ Nurse ___ Physician ___ Spot Worker ___ Load Out Person ___ Other (describe below) Sacrament/Intervention _x__ Active listening ___ Anointing ___ Anabaptist ___ Bereavement ___ Communion ___ Suki exploration ___ ___ Life review ___ Prayer ___ Reconciliation ___ Sacrament of Sick ___ Supportive presence ___ Wedding ___ Other (describe below) Pastoral Comments patient expresses concern about getting a ramp built for her home and is not confident that [employer] will follow through with her requests to build one; pt is missing her dog and she is anxious to go home; pt lives alone and apparently does not have much support
[2018-04-02 16:50] LABS: Bedside Glucose 106 mg/dL (70-110)
[2018-04-02 17:21] VITALS: PULSE 66
[2018-04-02 20:00] VITALS: PULSE 60; RESP 15; O2SAT 96
[2018-04-02] MEDS: Atorvastatin Calcium 40 MG Tablet PO (20:19)
[2018-04-02] MEDS: Latanoprost 0.005% 1 Bottle 1 DRP EACH EYE (20:44)
[2018-04-03 06:44] VITALS: BP 128/54; PULSE 56
[2018-04-03] MEDS: FLUoxetine 20 MG Capsule PO (06:44)
[2018-04-03] MEDS: Losartan Potassium 100 MG Tablet PO (06:44)
[2018-04-03] MEDS: Metoprolol Tartrate 50 MG Tablet PO ×2 (06:44→17:28)
[2018-04-03] MEDS: Senna/Docusate Sodium 1 Tablet 2 TABLET PO (06:45)
[2018-04-03] MEDS: Levothyroxine 25 MCG TABLET PO (06:45)
[2018-04-03 06:46] LABS: Bedside Glucose 136 mg/dL (70-110)
[2018-04-03] MEDS: Enoxaparin 40 MG/0.4 ML Syringe SC (06:46)
[2018-04-03] MEDS: hydroCHLOROthiazide 12.5mg 12.5 MG PO (06:47)
[2018-04-03] MEDS: Glimepiride 1 MG Tablet PO (08:54)
[2018-04-03] MEDS: Aspirin 81 MG TAB.CHEW PO (08:54)
[2018-04-03] MEDS: BRIMONIDINE 0.15% 5 ML Bottle 1 DRP OPHTHALMIC ×2 (08:55→21:28)
[2018-04-03] MEDS: Dorzolamide HCL/Timolol 10 ml Bottle 1 DRP OPHTHALMIC ×2 (08:55→21:29)
[2018-04-03 10:00] VITALS: PULSE 55; RESP 18; O2SAT 92
[2018-04-03] MEDS: HYDROcodone Bitartrate/Apap 5/325 Tablet PO ×2 (10:00→21:27)
--- NOTE | 2018-04-03 10:08 | MDS.RN ---
Information for the mds was obtained from review of the clinical record, interview of resident, staff, and direct observation of resident's care.
[2018-04-03 16:00] VITALS: BP 137/73; PULSE 57; RESP 18; TEMP 36.3; O2SAT 97
[2018-04-03 17:28] VITALS: BP 137/73; PULSE 57
[2018-04-03] MEDS: Hydrocortisone 2.5% Crm 1 APPLIC TOPICAL (17:28)
[2018-04-03] MEDS: Latanoprost 0.005% 1 Bottle 1 DRP EACH EYE (21:27)
[2018-04-03] MEDS: Nystatin Powder 15gm Bottle 1 APPLIC TOPICAL (21:27)
[2018-04-03] MEDS: Menthol/Lanolin/Calamine/Znox 113 GM Tube 1 APPLIC TOPICAL (21:28)
[2018-04-03] MEDS: Atorvastatin Calcium 40 MG Tablet PO (21:29)
[2018-04-04] MEDS: HYDROcodone Bitartrate/Apap 5/325 Tablet PO ×2 (03:48→08:02)
[2018-04-04] MEDS: Menthol/Lanolin/Calamine/Znox 113 GM Tube 1 APPLIC TOPICAL ×2 (06:45→20:18)
[2018-04-04 06:46] VITALS: PULSE 78
[2018-04-04] MEDS: Metoprolol Tartrate 50 MG Tablet PO ×2 (06:46→17:10)
[2018-04-04] MEDS: hydroCHLOROthiazide 12.5mg 12.5 MG PO (06:46)
[2018-04-04] MEDS: Losartan Potassium 100 MG Tablet PO (06:46)
[2018-04-04] MEDS: Enoxaparin 40 MG/0.4 ML Syringe SC (06:46)
[2018-04-04] MEDS: Polyethylene Glycol 3350 17 GM PACKET PO (06:46)
[2018-04-04] MEDS: FLUoxetine 20 MG Capsule PO (06:47)
[2018-04-04] MEDS: Nystatin Powder 15gm Bottle 1 APPLIC TOPICAL ×2 (06:47→20:21)
[2018-04-04] MEDS: Levothyroxine 25 MCG TABLET PO (06:47)
[2018-04-04 07:00] LABS: Bedside Glucose 112 mg/dL (70-110)
[2018-04-04] MEDS: Glimepiride 1 MG Tablet PO (08:03)
[2018-04-04] MEDS: Aspirin 81 MG TAB.CHEW PO (08:03)
[2018-04-04] MEDS: BRIMONIDINE 0.15% 5 ML Bottle 1 DRP OPHTHALMIC ×2 (09:58→20:18)
[2018-04-04] MEDS: Dorzolamide HCL/Timolol 10 ml Bottle 1 DRP OPHTHALMIC ×2 (09:59→20:18)
--- NOTE | 2018-04-04 13:53 | CASEMGMT ---
Social Work Pt met with pt in room. Pt states that she has found a ramp and someone to install it. Ramp will be installed on Saturday and pt dgt will plan on picking pt up for d/c on Saturday04/07/18. Pt will need a wheeled walker. SW inquired about a wheelchair and she states if she feels she needs one when she gets home her dgt will rent one for her. Pt discussed option of home health PT in light of pt being d/c to her new home in which she has not lived previously. Home PT to assess home situation. Pt declining at this time as she does not feel necessary. Phone call to [place]atta at [facility] and wheeled walker ordered. [place] will fax order when obtained and [facility] to deliver today. No other needs at this time. Plan: d/c Saturday04/07/18 to her home. LISETTE Foote
--- NOTE | 2018-04-04 14:24 | PCM.DC ---
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 Call your doctor if you observe: Fever of 101 or Higher, Inability to urinate, Inability to have a bowel movement, Shortness of breath, Chest pain, Uncontrolled pain Allergies/Adverse Reactions: Allergies adhesive Adverse Reaction (Severe, Verified 03/17/18 10:07) Rash sidra Allergy (Severe, Uncoded 03/17/18 10:08) Rash,itching,blisters Medications to take at Discharge Cholecalciferol (Vitamin D3) [Decara] 50,000 unit PO QMONTH 07/23/16 Latanoprost 0.005% [Xalatan Opthalmic] 1 drp EACH EYE QHS 07/23/16 brimonidine 0.1 % eye drops 1 drp OPHTHALMIC BID@1000,2200 04/10/17 coenzyme Q10 200 mg capsule 200 mg PO DAILY 04/10/17 dorzolamide 22.3 mg-timolol 6.8 mg/mL eye drops 1 drp OPHTHALMIC BID@1000,2200 04/10/17 Aspirin [Aspirin, Baby] 81 mg PO DAILY@0800 03/17/18 Atorvastatin Calcium [Lipitor] 40 mg PO QHS 03/17/18 Metformin(XR) [Glucophage Xr] 1,000 mg PO DAILY@1800 03/17/18 Fluoxetine [Prozac] 20 mg PO DAILY 03/24/18 Glimepiride [Amaryl] 2 mg PO DAILY@0800 03/24/18 Levothyroxine [Synthroid] 25 mcg PO DAILY 03/24/18 Losartan/Hydrochlorothiazide [Hyzaar 100-12.5 Tablet] 1 tab PO DAILY 03/24/18 Metoprolol Tartrate [Lopressor (beta devante)] 50 mg PO BID 03/24/18 Baclofen [Lioresal] 10 mg PO TID PRN #30 tablet 04/04/18 Hydrocodone Bitart/Apap 5-325 [[place] 5/325] 2 tab PO Q4H PRN PRN 5 Days #30 tab 04/04/18 Hydrocortisone 2.5% Crm [Hytone] 1 applic TOPICAL BID PRN #1 tube 04/04/18 Menthol/Lanolin/Calamine/Znox [Calmoseptine Ointment] 1 applic TOPICAL 0600,2200 tube 04/04/18 Mineral Oil/Petrolatum,White [Eucerin] 1 applic TOPICAL 2200 jar 04/04/18 Nystatin Powder [Mycostatin Powder] 1 applic TOPICAL 0600,2200 bottle 04/04/18 Polyethylene Glycol 3350 [Miralax] 17 gm PO DAILY #30 packet 04/04/18 Senna/Docusate Sodium [Senokot-S] 2 tablet PO BID #60 tablet 04/04/18 The following prescriptions were given: Hydrocodone Bitart/Apap 5-325 [[place] 5/325] 2 tab PO Q4H PRN PRN 5 Days #30 tab PRN Reason: Mild Pain (1-07/06) Hydrocortisone 2.5% Crm [Hytone] 1 applic TOPICAL BID PRN #1 tube Polyethylene Glycol 3350 [Miralax] 17 gm PO DAILY #30 packet Senna/Docusate Sodium [Senokot-S] 2 tablet PO BID #60 tablet Baclofen [Lioresal] 10 mg PO TID PRN #30 tablet PRN Reason: SPASMS Primary Care Physician: Tommy Everett MD [Primary Care Provider] - Please follow up with your Primary Care Physician in: 1 week. Test Results: Test results from this visit will be discussed in further detail at your follow-up appointment, if applicable. Please Follow Up With: Janae Pierce DPM When: 1 week. Proposed Discharge Date: 04/07/18
--- NOTE | 2018-04-04 14:28 | DCINST_ITS ---
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 Call your doctor if you observe: Fever of 101 or Higher, Inability to urinate, Inability to have a bowel movement, Shortness of breath, Chest pain, Uncontrolled pain Allergies/Adverse Reactions: Allergies adhesive Adverse Reaction (Severe, Verified 03/17/18 10:07) Rash sidra Allergy (Severe, Uncoded 03/17/18 10:08) Rash,itching,blisters Medications to take at Discharge Cholecalciferol (Vitamin D3) [Decara] 50,000 unit PO QMONTH 07/23/16 Latanoprost 0.005% [Xalatan Opthalmic] 1 drp EACH EYE QHS 07/23/16 brimonidine 0.1 % eye drops 1 drp OPHTHALMIC BID@1000,2200 04/10/17 coenzyme Q10 200 mg capsule 200 mg PO DAILY 04/10/17 dorzolamide 22.3 mg-timolol 6.8 mg/mL eye drops 1 drp OPHTHALMIC BID@1000,2200 04/10/17 Aspirin [Aspirin, Baby] 81 mg PO DAILY@0800 03/17/18 Atorvastatin Calcium [Lipitor] 40 mg PO QHS 03/17/18 Metformin(XR) [Glucophage Xr] 1,000 mg PO DAILY@1800 03/17/18 Fluoxetine [Prozac] 20 mg PO DAILY 03/24/18 Glimepiride [Amaryl] 2 mg PO DAILY@0800 03/24/18 Levothyroxine [Synthroid] 25 mcg PO DAILY 03/24/18 Losartan/Hydrochlorothiazide [Hyzaar 100-12.5 Tablet] 1 tab PO DAILY 03/24/18 Metoprolol Tartrate [Lopressor (beta devante)] 50 mg PO BID 03/24/18 Baclofen [Lioresal] 10 mg PO TID PRN #30 tablet 04/04/18 Hydrocodone Bitart/Apap 5-325 [[place] 5/325] 2 tab PO Q4H PRN PRN 5 Days #30 tab 04/04/18 Hydrocortisone 2.5% Crm [Hytone] 1 applic TOPICAL BID PRN #1 tube 04/04/18 Menthol/Lanolin/Calamine/Znox [Calmoseptine Ointment] 1 applic TOPICAL 0600,2200 tube 04/04/18 Mineral Oil/Petrolatum,White [Eucerin] 1 applic TOPICAL 2200 jar 04/04/18 Nystatin Powder [Mycostatin Powder] 1 applic TOPICAL 0600,2200 bottle 04/04/18 Polyethylene Glycol 3350 [Miralax] 17 gm PO DAILY #30 packet 04/04/18 Senna/Docusate Sodium [Senokot-S] 2 tablet PO BID #60 tablet 04/04/18 The following prescriptions were given: Hydrocodone Bitart/Apap 5-325 [[place] 5/325] 2 tab PO Q4H PRN PRN 5 Days #30 tab PRN Reason: Mild Pain (1-07/06) Hydrocortisone 2.5% Crm [Hytone] 1 applic TOPICAL BID PRN #1 tube Polyethylene Glycol 3350 [Miralax] 17 gm PO DAILY #30 packet Senna/Docusate Sodium [Senokot-S] 2 tablet PO BID #60 tablet Baclofen [Lioresal] 10 mg PO TID PRN #30 tablet PRN Reason: SPASMS Primary Care Physician: Tommy Everett MD [Primary Care Provider] - Please follow up with your Primary Care Physician in: 1 week. Test Results: Test results from this visit will be discussed in further detail at your follow- up appointment, if applicable. Please Follow Up With: Janae Pierce DPM When: 1 week. Proposed Discharge Date: 04/07/18
--- NOTE | 2018-04-04 14:30 | DS.PCM_ITS ---
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 (Acute) Localized edema (Acute) Fracture of ankle, bimalleolar, right, closed (Acute) - Secondary Discharge Diagnosis Chronic Problems (Last Reviewed 01/07/18 @ 13:51 by Anna Gómez) Diverticulosis (Chronic) Anxiety (Chronic) Depression (Chronic) Hyperlipidemia (Chronic) History of colon polyps (Chronic) Gastroesophageal reflux disease (Chronic) Glaucoma (Chronic) Obesity (Chronic) History of breast cancer (Chronic) Hip pain, bilateral (Chronic) Hypersomnolence (Chronic) Hypothyroidism (Chronic) Hypertension (Chronic) Type 2 diabetes mellitus (Chronic) Osteoarthritis (Chronic) Hospital Course and Treatment Imaging Results: 03/25/18 11:31 Diet: Cardiac: Calorie-Controlled Type of Dietary Supplement:: Glucerna Shake Is pt able to select menu?: Yes Diet Comments: no added salt How many daily calories?: 1800 calorie Clinical Impression(s) from Imaging Studies Shoulder X-Ray 03/28/18 14:55 IMPRESSION: Degenerative changes. Electronically Signed: Kilo Curtis MD at 15:28 EST Tel [phone], Service support , Labs (Last 48 Hours) 04/02/18 04/03/18 04/04/18 16:46 06:24 06:44 POC Glucose 106 136 H 112 H Operations: None, - - ORIF Right Ankle Procedures: None Summary of Care Provided: The patient is a 73 year old Female with below past medical history status post ORIF right ankle bimalleolar fracture, admitted to TCU with debility, here for rehabilitation, strengthening, prior to discharge home alone. Discharge home alone. 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 (Acute) Localized edema (Acute) Fracture of ankle, bimalleolar, right, closed (Acute) - Physical Exam Vital Signs Temp Pulse Resp BP Pulse Ox 97.3 F L 78 18 137/73 H 97 04/03/18 16:00 04/04/18 06:46 04/03/18 16:00 04/03/18 17:28 04/03/18 16:00 Oxygen Delivery Method Room Air Weight: 84.822 kg Body Mass Index (BMI) 34.8 Finger Stick Blood Glucose 168 Intake and Output for Last 24 Hours 04/02/18 04/03/18 04/04/18 23:59 23:59 23:59 Intake Total 1260 / 1260 720 / 720 480 / 480 Balance 1260 / 1260 720 / 720 480 / 480 POC Glucose 04/04/18 06:44 POC Glucose 112 H Discharge Diet: No Restrictions Discharge Activity: Return to Normal Activity Weight Bearing Status: No weight bearing - Right lower extremity. Call your doctor if you observe: Fever of 101 or Higher, Inability to urinate, Inability to have a bowel movement, Shortness of breath, Chest pain, Uncontrolled pain Home Medications: Medications to take at Discharge Cholecalciferol (Vitamin D3) [Decara] 50,000 unit PO QMONTH 07/23/16 Latanoprost 0.005% [Xalatan Opthalmic] 1 drp EACH EYE QHS 07/23/16 brimonidine 0.1 % eye drops 1 drp OPHTHALMIC BID@1000,2200 04/10/17 coenzyme Q10 200 mg capsule 200 mg PO DAILY 04/10/17 dorzolamide 22.3 mg-timolol 6.8 mg/mL eye drops 1 drp OPHTHALMIC BID@1000,2200 04/10/17 Aspirin [Aspirin, Baby] 81 mg PO DAILY@0800 03/17/18 Atorvastatin Calcium [Lipitor] 40 mg PO QHS 03/17/18 Metformin(XR) [Glucophage Xr] 1,000 mg PO DAILY@1800 03/17/18 Fluoxetine [Prozac] 20 mg PO DAILY 03/24/18 Glimepiride [Amaryl] 2 mg PO DAILY@0800 03/24/18 Levothyroxine [Synthroid] 25 mcg PO DAILY 03/24/18 Losartan/Hydrochlorothiazide [Hyzaar 100-12.5 Tablet] 1 tab PO DAILY 03/24/18 Metoprolol Tartrate [Lopressor (beta devante)] 50 mg PO BID 03/24/18 Baclofen [Lioresal] 10 mg PO TID PRN #30 tablet 04/04/18 Hydrocodone Bitart/Apap 5-325 [[place] 5/325] 2 tab PO Q4H PRN PRN 5 Days #30 tab 04/04/18 Hydrocortisone 2.5% Crm [Hytone] 1 applic TOPICAL BID PRN #1 tube 04/04/18 Menthol/Lanolin/Calamine/Znox [Calmoseptine Ointment] 1 applic TOPICAL 0600,2200 tube 04/04/18 Mineral Oil/Petrolatum,White [Eucerin] 1 applic TOPICAL 2200 jar 04/04/18 Nystatin Powder [Mycostatin Powder] 1 applic TOPICAL 0600,2200 bottle 04/04/18 Polyethylene Glycol 3350 [Miralax] 17 gm PO DAILY #30 packet 04/04/18 Senna/Docusate Sodium [Senokot-S] 2 tablet PO BID #60 tablet 04/04/18 Following Prescrptions Were Given to Patient: Hydrocodone Bitart/Apap 5-325 [[place] 5/325] 2 tab PO Q4H PRN PRN 5 Days #30 tab PRN Reason: Mild Pain (1-310) Hydrocortisone 2.5% Crm [Hytone] 1 applic TOPICAL BID PRN #1 tube Polyethylene Glycol 3350 [Miralax] 17 gm PO DAILY #30 packet Senna/Docusate Sodium [Senokot-S] 2 tablet PO BID #60 tablet Baclofen [Lioresal] 10 mg PO TID PRN #30 tablet PRN Reason: SPASMS Primary Care Physician: Tommy Everett MD [Primary Care Provider] - Please follow up with your Primary Care Physician in: 1 week. Please Follow Up With: Janae Pierce DPM When: 1 week. Disposition: Home Minutes spent on discharge:: 30 Patient Condition:: Stable Medical Necessity - Tobacco Use Smoking Status: Former smoker Tobacco Use: Non-smoker Meaningful Use Info Meaningful Use Diagnoses (Choose all that apply): None applicable
--- NOTE | 2018-04-04 14:51 | CASEMGMT ---
BIMS and PHQ9 interview completed on this date for MDS assessment. BIMS score , PHQ9 score 11/22. LISETTE Foote
[2018-04-04 16:00] VITALS: BP 141/68; PULSE 65; RESP 16; TEMP 36.7; O2SAT 96
[2018-04-04 17:10] VITALS: BP 141/68; PULSE 65
[2018-04-04] MEDS: Latanoprost 0.005% 1 Bottle 1 DRP EACH EYE (20:19)
[2018-04-04] MEDS: Atorvastatin Calcium 40 MG Tablet PO (20:19)
[2018-04-04 22:23] VITALS: PULSE 72; RESP 22; O2SAT 96
[2018-04-05 06:28] VITALS: BP 144/42; PULSE 63
[2018-04-05] MEDS: Levothyroxine 25 MCG TABLET PO (06:28)
[2018-04-05] MEDS: Metoprolol Tartrate 50 MG Tablet PO ×2 (06:28→16:22)
[2018-04-05] MEDS: hydroCHLOROthiazide 12.5mg 12.5 MG PO (06:29)
[2018-04-05] MEDS: Losartan Potassium 100 MG Tablet PO (06:29)
[2018-04-05] MEDS: Nystatin Powder 15gm Bottle 1 APPLIC TOPICAL (06:30)
[2018-04-05] MEDS: Menthol/Lanolin/Calamine/Znox 113 GM Tube 1 APPLIC TOPICAL (06:30)
[2018-04-05] MEDS: FLUoxetine 20 MG Capsule PO (06:31)
[2018-04-05 06:37] VITALS: BP 144/42; PULSE 63; RESP 22; O2SAT 97
[2018-04-05] MEDS: HYDROcodone Bitartrate/Apap 5/325 Tablet PO ×2 (06:40→20:32)
[2018-04-05 06:51] LABS: Bedside Glucose 125 mg/dL (70-110)
[2018-04-05] MEDS: Dorzolamide HCL/Timolol 10 ml Bottle 1 DRP OPHTHALMIC ×2 (08:20→19:57)
[2018-04-05] MEDS: BRIMONIDINE 0.15% 5 ML Bottle 1 DRP OPHTHALMIC ×2 (08:20→20:10)
[2018-04-05] MEDS: Glimepiride 1 MG Tablet PO (08:21)
[2018-04-05] MEDS: Aspirin 81 MG TAB.CHEW PO (08:21)
[2018-04-05 15:14] VITALS: BP 148/58; PULSE 58; RESP 16; TEMP 36.7; O2SAT 98
[2018-04-05 16:22] VITALS: BP 148/58; PULSE 83
[2018-04-05] MEDS: Atorvastatin Calcium 40 MG Tablet PO (20:00)
[2018-04-05] MEDS: Latanoprost 0.005% 1 Bottle 1 DRP EACH EYE (20:33)
[2018-04-05 20:35] VITALS: PULSE 76; RESP 18; O2SAT 93
[2018-04-06] MEDS: HYDROcodone Bitartrate/Apap 5/325 Tablet PO ×3 (01:10→21:39)
[2018-04-06 06:39] VITALS: BP 141/70; PULSE 73
[2018-04-06] MEDS: hydroCHLOROthiazide 12.5mg 12.5 MG PO (06:39)
[2018-04-06] MEDS: Levothyroxine 25 MCG TABLET PO (06:39)
[2018-04-06] MEDS: Metoprolol Tartrate 50 MG Tablet PO (06:39)
[2018-04-06] MEDS: FLUoxetine 20 MG Capsule PO (06:39)
[2018-04-06] MEDS: Losartan Potassium 100 MG Tablet PO (06:41)
[2018-04-06 06:50] VITALS: PULSE 73; RESP 16; O2SAT 93
[2018-04-06 06:51] LABS: Bedside Glucose 102 mg/dL (70-110)
[2018-04-06] MEDS: Dorzolamide HCL/Timolol 10 ml Bottle 1 DRP OPHTHALMIC ×2 (07:59→20:08)
[2018-04-06] MEDS: BRIMONIDINE 0.15% 5 ML Bottle 1 DRP OPHTHALMIC ×2 (07:59→20:04)
[2018-04-06] MEDS: Aspirin 81 MG TAB.CHEW PO (07:59)
[2018-04-06] MEDS: Glimepiride 1 MG Tablet PO (07:59)
[2018-04-06 15:32] VITALS: BP 133/47; PULSE 53; RESP 18; TEMP 36.8; O2SAT 97
[2018-04-06] MEDS: Senna/Docusate Sodium 1 Tablet 2 TABLET PO (16:15)
[2018-04-06] MEDS: Atorvastatin Calcium 40 MG Tablet PO (20:06)
[2018-04-06] MEDS: Latanoprost 0.005% 1 Bottle 1 DRP EACH EYE (20:12)
[2018-04-07 06:46] LABS: Bedside Glucose 105 mg/dL (70-110)
[2018-04-07] MEDS: hydroCHLOROthiazide 12.5mg 12.5 MG PO (06:47)
[2018-04-07] MEDS: FLUoxetine 20 MG Capsule PO (06:48)
[2018-04-07] MEDS: Levothyroxine 25 MCG TABLET PO (06:49)
[2018-04-07 07:00] VITALS: PULSE 60; RESP 18; O2SAT 95
[2018-04-07 07:30] VITALS: BP 132/53; PULSE 60
[2018-04-07] MEDS: Metoprolol Tartrate 50 MG Tablet PO (07:30)
[2018-04-07] MEDS: Losartan Potassium 100 MG Tablet PO (07:31)
[2018-04-07] MEDS: Glimepiride 1 MG Tablet PO (08:28)
[2018-04-07] MEDS: Aspirin 81 MG TAB.CHEW PO (08:28)
[2018-04-07] MEDS: BRIMONIDINE 0.15% 5 ML Bottle 1 DRP OPHTHALMIC (08:31)
[2018-04-07] MEDS: Dorzolamide HCL/Timolol 10 ml Bottle 1 DRP OPHTHALMIC (08:31)
[2018-04-07 10:45] VITALS: BP 135/62; PULSE 82; RESP 18; TEMP 36.4
--- OUTSIDE RECORDS SUMMARY | 2018-05-06 17:03 | XMS RPT_ITS ---
:1945 Author Organization [place] Support Name Relationship Address Phone GASSBARE, BRIGITTE Unavailable [address] + [place] [address] R Unavailable Unavailable Unavailable GASSBARE, BRIGITET Unavailable [address] + [place] [address] R Unavailable Unavailable Unavailable GASSBARE, BRIGITTE Unavailable [address] + [place] [address] R Unavailable Unavailable Unavailable GASSBARE, BRIGITTE Unavailable [address] + [place] [address] R Unavailable Unavailable Unavailable GASSBARE, BRIGITTE Unavailable [address] + [place] [address] R Unavailable Unavailable Unavailable GASSBARE, BRIGITTE Unavailable [address] + [place] [address] R Unavailable Unavailable Unavailable GASSBARE, BRIGITTE Unavailable [address] + [place] [address] R Unavailable Unavailable Unavailable GASSBARE, BRIGITTE Unavailable [address] + [place] [address] R Unavailable Unavailable Unavailable GASSBARE, BRIGITTE Unavailable [address] + [place] [address] R Unavailable Unavailable Unavailable GASSBARE, BRIGITTE Unavailable [address] [place] [address] RD + [place] [address] R Unavailable Unavailable Unavailable GASSBARE, BRIGITTE Unavailable [address] [place] [address] RD + [place] [address] R Unavailable Unavailable Unavailable GASSBARE, BRIGITTE Unavailable [address] [place] [address] RD + [place] [address] R Unavailable Unavailable Unavailable GASSBARE, BRIGITTE Unavailable Unavailable + R Unavailable Unavailable Unavailable GASSBARE, BRIGITTE Unavailable [address] + [place] [address] R Unavailable Unavailable Unavailable GASSBARE, BRIGITTE Unavailable [address] + [place] [address] R Unavailable Unavailable Unavailable GASSBARE, BRIGITTE Unavailable Unavailable + R Unavailable Unavailable Unavailable R Unavailable Unavailable Unavailable GASSBARE, BRIGITTE Unavailable Unavailable + R Unavailable Unavailable Unavailable GASSBARE, BRIGITTE Unavailable Unavailable + R Unavailable Unavailable Unavailable R Unavailable Unavailable Unavailable R Unavailable Unavailable Unavailable R Unavailable Unavailable Unavailable R Unavailable Unavailable Unavailable Care Team Providers Name Role Phone Shu Garcia Attending Unavailable Rudolph, Rafiq Chi Referring Unavailable Oleghe, Efewongbe Primary Care Unavailable Oleghe, Efewongbe Attending Unavailable Oleghe, Efewongbe Primary Care Unavailable Deepika Devries Attending Unavailable Oleghe, Efewongbe Referring Unavailable Oleghe, Efewongbe Attending Unavailable Oleghe, Efewongbe Referring Unavailable Oleghe, Efewongbe Primary Care Unavailable Oleghe, Efewongbe Attending Unavailable Oleghe, Efewongbe Referring Unavailable Oleghe, Efewongbe Primary Care Unavailable Oleghe, Efewongbe Attending Unavailable Oleghe, Efewongbe Referring Unavailable Radha, Tyra Attending Unavailable Oleghe, Efewongbe Primary Care Unavailable Shu Garcia Attending Unavailable Rudolph, Rafiq Chi Referring Unavailable Oleghe, Efewongbe Primary Care Unavailable Radha, Shu Consulting Unavailable Oleghe, Efewongbe Attending Unavailable Oleghe, Efewongbe Referring Unavailable Oleghe, Efewongbe Primary Care Unavailable Oleghe, Efewongbe Attending Unavailable Oleghe, Efewongbe Referring Unavailable Oleghe, Efewongbe Primary Care Unavailable Monique Medina Attending Unavailable Oleghe, Efewongbe Referring Unavailable Oleghe, Efewongbe Attending Unavailable Oleghe, Efewongbe Referring Unavailable Oleghe, Efewongbe Primary Care Unavailable Oleghe, Efewongbe Attending Unavailable Oleghe, Efewongbe Referring Unavailable Oleghe, Efewongbe Primary Care Unavailable Richard, Edward Attending Unavailable Richard, Edward Referring Unavailable Oleghe, Efewongbe Primary Care Unavailable Oleghe, Efewongbe Primary Care Unavailable Sita Webster Attending Unavailable Soto Ann MEDICAL DOCTOR MD/MEDICAL DIRECTOR-C Attending Unavailable Oleghe, Efewongbe Referring Unavailable Oleghe, Efewongbe Primary Care Unavailable Soto Ann MEDICAL DOCTOR MD/MEDICAL DIRECTOR-C Consulting Unavailable Koram, Rachel Jeanette Admitting Unavailable Koram, Rachel Jeanette Referring Unavailable [place]on Del [place] Attending Unavailable Mychak, Janae Consulting Unavailable Mychak, Janae Admitting Unavailable Koram, Rachel Jeanette Attending Unavailable Mychak, Janae Referring Unavailable Oleghe, Efewongbe Primary Care Unavailable [place] Ann MEDICAL DOCTOR MD/MEDICAL DIRECTOR-C Consulting Unavailable Mychak, Janae Consulting Unavailable Koram, Rachel Jeanette Admitting Unavailable Koram, Rachel Jeanette Attending Unavailable Koram, Rachel Jeanette Referring Unavailable Oleghe, Efewongbe Primary Care Unavailable [place] Ann MEDICAL DOCTOR MD/MEDICAL DIRECTOR-C Consulting Unavailable Mychak, Janae Consulting Unavailable Koram, Rachel Jeanette Consulting Unavailable Koram, Rachel Jeanette Admitting Unavailable [place]on Del [place] Attending Unavailable Koram, Rachel Jeanette Referring Unavailable Oleghe, Efewongbe Primary Care Unavailable [place] Ann MEDICAL DOCTOR MD/MEDICAL DIRECTOR-C Consulting Unavailable Mychak, Janae Consulting Unavailable Trenton Del Rio F Consulting Unavailable Rudolph, Rafiq Chi Admitting Unavailable Rudolph, Rafiq Chi Attending Unavailable Oleghe, Efewongbe Primary Care Unavailable Mychak, Janae Consulting Unavailable Sherri, Vikas Attending Unavailable Mychak, Janae Referring Unavailable PROBLEMS PROBLEMS DATE TYPE CONDITION / CODE ATTENDING STATUS SOURCE 04/07/2018 Unknown S82.841D - Displaced Rudolph, Rafiq Chi Active [place] bimalleolar fracture Community of right lower leg, Hospital subsequent encounter Repository for closed fracture with routine healing / S82.841D(ICD-10) 04/07/2018 Unknown S82.841A - Displaced Rudolph, Rafiq Chi Active [place] bimalleolar fracture Community of right lower leg, Hospital initial encounter for Repository closed fracture / S82.841A(ICD-10) 03/24/2018 Unknown I16.0 - Hypertensive Kotsonis, Active [place] urgency / [place] [facility] I16.0(ICD-10) Hospital Repository 03/24/2018 Unknown Z01.818 - Encounter Kotsonis, Active [place] for other [place] preprocedural Hospital examination / Repository Z01.818(ICD-10) 03/24/2018 Unknown R79.89 - Other Kotsonis, Active [place] specified abnormal [facility] findings of blood Hospital chemistry / Repository R79.89(ICD-10) 03/31/2018 Unknown R94.31 - Abnormal Sherri, Vikas Active [place] electrocardiogram Community [ECG] [EKG] / Hospital R94.31(ICD-10) Repository 03/31/2018 Unknown R00.1 - Bradycardia, Sherri, Vikas Active [place] unspecified / Community R00.1(ICD-10) Hospital Repository 03/13/2018 Unknown R52 - Pain, Jwayyed, Active [place] unspecified / [facility] R52(ICD-10) Hospital Repository 01/27/2018 Unknown M51.36 - Other Richard, Nelson Active [place]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, lumbar Hospital region / Repository M51.36(ICD-10) 01/07/2018 Unknown E11.9 - Type 2 Oleghe, Active [place] diabetes mellitus [facility] without complications Hospital / E11.9(ICD-10) Repository 01/07/2018 Unknown E03.9 - Oleghe, Active [place] Hypothyroidism, [facility] unspecified / Hospital E03.9(ICD-10) Repository 01/07/2018 Unknown I10 - Essential Oleghe, Active [place] (primary) hypertension [facility] / I10(ICD-10) Hospital Repository 01/07/2018 Unknown M16.0 - Bilateral Oleghe, Active [place] primary osteoarthritis [facility] of hip / M16.0(ICD-10) Hospital Repository 10/16/2017 Unknown M19.90 - Unspecified Oleghe, Active [place] osteoarthritis, [facility] unspecified site / Hospital M19.90(ICD-10) Repository 10/09/2017 Unknown E78.5 - Oleghe, Active [place] Hyperlipidemia, [place] Community unspecified / Hospital E78.5(ICD-10) Repository 09/03/2017 Unknown Z85.3 - Personal Shu Garcia Active [place] history of malignant Community neoplasm of breast / Hospital Z85.3(ICD-10) Repository 08/28/2017 Unknown Z12.31 - Encounter for Shu Garcia Active [place] screening mammogram Community for malignant neoplasm Hospital of breast / Repository Z12.31(ICD-10) 04/25/2017 Unknown G47.10 - Hypersomnia, Oleghe, Active [place] unspecified / [place] Community G47.10(ICD-10) Hospital Repository PROCEDURES PROCEDURES No Procedure Records FoundRESULTS RESULTS BEDSIDE GLUCOSE Collected: 04/07/2018 Status: F Source: [place] 6:17 AM [facility] REPOSITORY TYPE CODE TESTS RESULT OUT OF RANGE REFERENCE UNITS LAB L501.080 70-110 mg/dL Normal BEDSIDE GLU 105 Result Comment: MANAGEMENT OF PATIENT CARE PER NURSING PROTOCOL Performed By: #### L501.080 #### [facility] Laboratory Point of Care [address] [place] [address] BEDSIDE GLUCOSE Collected: 04/06/2018 Status: F Source: [place] 6:17 AM [facility] REPOSITORY TYPE CODE TESTS RESULT OUT OF RANGE REFERENCE UNITS LAB L501.080 70-110 mg/dL Normal BEDSIDE GLU 102 Result Comment: MANAGEMENT OF PATIENT CARE PER NURSING PROTOCOL Performed By: #### L501.080 #### [facility] Laboratory Point of Care [address] [place] [address] BEDSIDE GLUCOSE Collected: 04/05/2018 Status: F Source: [place] 6:27 AM [facility] REPOSITORY TYPE CODE TESTS RESULT OUT OF REFERENCE UNITS RANGE LAB L501.080 70-110 mg/dL High BEDSIDE GLU 125 Result Comment: MANAGEMENT OF PATIENT CARE PER NURSING PROTOCOL Performed By: #### L501.080 #### [facility] Point of Care [address] [place] [address] DISCHARGE SUMMARY Observed: 04/04/2018 Status: F Source: [place] 2:30 PM [facility] REPOSITORY [facility] Medical Records Department [address] [place] [address] Discharge Summary 04/04/18 1428 MR#: [id number] Acct: [id number] Name: SUSAN SEGURA Rep #: [id number] : 1945 73 From: Rafiq Galdamez MD PCP: Tommy Everett MD Status: ADM IN Y Location: [place] [address] 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 (Acute) Localized edema (Acute) Fracture of ankle, bimalleolar, right, closed (Acute) - Secondary Discharge Diagnosis Chronic Problems (Last Reviewed 01/07/18 @ 13:51 by Anna Gómez) Diverticulosis (Chronic) Anxiety (Chronic) Depression (Chronic) Hyperlipidemia (Chronic) History of colon polyps (Chronic) Gastroesophageal reflux disease (Chronic) Glaucoma (Chronic) Obesity (Chronic) History of breast cancer (Chronic) Hip pain, bilateral (Chronic) Hypersomnolence (Chronic) Hypothyroidism (Chronic) Hypertension (Chronic) Type 2 diabetes mellitus (Chronic) Osteoarthritis (Chronic) Hospital Course and Treatment Imaging Results: 03/25/18 11:31 Diet: Cardiac: Calorie-Controlled Type of Dietary Supplement:: Glucerna Shake Is pt able to select menu?: Yes Diet Comments: no added salt How many daily calories?: 1800 calorie Clinical Impression(s) from Imaging Studies Shoulder X-Ray 03/28/18 14:55 IMPRESSION: Degenerative changes. Electronically Signed: Kilo Curtis MD at 15:28 EST Tel [phone], Service support , Labs (Last 48 Hours) POC Glucose 106 136 H 112 H Operations: None, - - ORIF Right Ankle Procedures: None Summary of Care Provided: The patient is a 73 year old Female with below past medical history status post ORIF right ankle bimalleolar fracture, admitted to TCU with debility, here for rehabilitation, strengthening, prior to discharge home alone. Discharge home alone. 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 (Acute) Localized edema (Acute) Fracture of ankle, bimalleolar, right, closed (Acute) - Physical Exam Vital Signs Temp Pulse Resp BP Pulse Ox 97.3 F L 78 18 137/73 H 97 04/03/18 16:00 04/04/18 06:46 04/03/18 16:00 04/03/18 17:28 04/03/18 16:00 Oxygen Delivery Method Room Air Weight: 84.822 kg Body Mass Index (BMI) 34.8 Finger Stick Blood Glucose 168 Intake and Output for Last 24 Hours Intake Total 1260 / 1260 720 / 720 480 / 480 Balance 1260 / 1260 720 / 720 480 / 480 POC Glucose POC Glucose 112 H Discharge Diet: No Restrictions Discharge Activity: Return to Normal Activity Weight Bearing Status: No weight bearing - Right lower extremity. Call your doctor if you observe: Fever of 101 or Higher, Inability to urinate, Inability to have a bowel movement, Shortness of breath, Chest pain, Uncontrolled pain Home Medications: Medications to take at Discharge Cholecalciferol (Vitamin D3) [Decara] 50,000 unit PO QMONTH 07/23/16 Latanoprost 0.005% [Xalatan Opthalmic] 1 drp EACH EYE QHS 07/23/16 brimonidine 0.1 % eye drops 1 drp OPHTHALMIC BID@1000,2200 04/10/17 coenzyme Q10 200 mg capsule 200 mg PO DAILY 04/10/17 dorzolamide 22.3 mg-timolol 6.8 mg/mL eye drops 1 drp OPHTHALMIC BID@1000,2200 04/10/17 Aspirin [Aspirin, Baby] 81 mg PO DAILY@0800 03/17/18 Atorvastatin Calcium [Lipitor] 40 mg PO QHS 03/17/18 Metformin(XR) [Glucophage Xr] 1,000 mg PO DAILY@1800 03/17/18 Fluoxetine [Prozac] 20 mg PO DAILY 03/24/18 Glimepiride [Amaryl] 2 mg PO DAILY@0800 03/24/18 Levothyroxine [Synthroid] 25 mcg PO DAILY 03/24/18 Losartan/Hydrochlorothiazide [Hyzaar 100-12.5 Tablet] 1 tab PO DAILY 03/24/18 Metoprolol Tartrate [Lopressor (beta devante)] 50 mg PO BID 03/24/18 Baclofen [Lioresal] 10 mg PO TID PRN #30 tablet 04/04/18 Hydrocodone Bitart/Apap 5-325 [Pheba 5/325] 2 tab PO Q4H PRN PRN 5 Days #30 tab 04/04/18 Hydrocortisone 2.5% Crm [Hytone] 1 applic TOPICAL BID PRN #1 tube 04/04/18 Menthol/Lanolin/Calamine/Znox [Calmoseptine Ointment] 1 applic TOPICAL 0600,2200 tube 04/04/18 Mineral Oil/Petrolatum,White [Eucerin] 1 applic TOPICAL 2200 jar 04/04/18 Nystatin Powder [Mycostatin Powder] 1 applic TOPICAL 0600,2200 bottle 04/04/18 Polyethylene Glycol 3350 [Miralax] 17 gm PO DAILY #30 packet 04/04/18 Senna/Docusate Sodium [Senokot-S] 2 tablet PO BID #60 tablet 04/04/18 Following Prescrptions Were Given to Patient: Hydrocodone Bitart/Apap 5-325 [Pheba 5/325] 2 tab PO Q4H PRN PRN 5 Days #30 tab PRN Reason: Mild Pain (1-3/10) Hydrocortisone 2.5% Crm [Hytone] 1 applic TOPICAL BID PRN #1 tube Polyethylene Glycol 3350 [Miralax] 17 gm PO DAILY #30 packet Senna/Docusate Sodium [Senokot-S] 2 tablet PO BID #60 tablet Baclofen [Lioresal] 10 mg PO TID PRN #30 tablet PRN Reason: SPASMS Primary Care Physician: Tommy Everett MD [Primary Care Provider] - Please follow up with your Primary Care Physician in: 1 week. Please Follow Up With: Janae Pierce DPM When: 1 week. Disposition: Home Minutes spent on discharge:: 30 Patient Condition:: Stable Medical Necessity - Tobacco Use Smoking Status: Former smoker Tobacco Use: Non-smoker Meaningful Use Info Meaningful Use Diagnoses (Choose all that apply): None applicable 04/04/18 1430 <Electronically signed by Rafiq Galdamez MD> Date Rafiq Galdamez MD Cosigner Signature (if applicable): Date CC: Tommy Everett MD; Rafiq Galdamez MD Signed DISCHARGE INSTRUCTION Observed: 04/04/2018 Status: F Source: [place] 2:28 PM [facility] REPOSITORY [facility] Medical Records Department [address] [place] [address] Instructions for Home/Discharge Instructions 04/04/18 1424 MR#: [id number] Acct: [id number] Name: SUSAN SEGURA Rep #: [id number] : 1945 73 From: Rafiq Galdamez MD PCP: Tommy Everett MD Status: ADM IN - Discharge Diagnoses Current Active Problems: Current Active and Chronic Problems (Last Reviewed 01/07/18 @ 13:51 by Anna Gómez) Other specified noninfective disorders of lymphatic vessels and lymph nodes (Acute) Localized edema (Acute) Fracture of ankle, bimalleolar, right, closed (Acute) You will use the following diet at home:: No restrictions, Regular Your food should be the consistency of: Regular Your liquids should be the consistency of: Regular/Thin Discharge Activity: Return to Normal Activity Weight Bearing Status: No weight bearing - Right lower extremity. Call your doctor if you observe: Fever of 101 or Higher, Inability to urinate, Inability to have a bowel movement, Shortness of breath, Chest pain, Uncontrolled pain Allergies/Adverse Reactions: Allergies adhesive Adverse Reaction (Severe, Verified 03/17/18 10:07) Rash sidra Allergy (Severe, Uncoded 03/17/18 10:08) Rash,itching,blisters Medications to take at Discharge Cholecalciferol (Vitamin D3) [Decara] 50,000 unit PO QMONTH 07/23/16 Latanoprost 0.005% [Xalatan Opthalmic] 1 drp EACH EYE QHS 07/23/16 brimonidine 0.1 % eye drops 1 drp OPHTHALMIC BID@1000,2200 04/10/17 coenzyme Q10 200 mg capsule 200 mg PO DAILY 04/10/17 dorzolamide 22.3 mg-timolol 6.8 mg/mL eye drops 1 drp OPHTHALMIC BID@1000,2200 04/10/17 Aspirin [Aspirin, Baby] 81 mg PO DAILY@0800 03/17/18 Atorvastatin Calcium [Lipitor] 40 mg PO QHS 03/17/18 Metformin(XR) [Glucophage Xr] 1,000 mg PO DAILY@1800 03/17/18 Fluoxetine [Prozac] 20 mg PO DAILY 03/24/18 Glimepiride [Amaryl] 2 mg PO DAILY@0800 03/24/18 Levothyroxine [Synthroid] 25 mcg PO DAILY 03/24/18 Losartan/Hydrochlorothiazide [Hyzaar 100-12.5 Tablet] 1 tab PO DAILY 03/24/18 Metoprolol Tartrate [Lopressor (beta devante)] 50 mg PO BID 03/24/18 Baclofen [Lioresal] 10 mg PO TID PRN #30 tablet 04/04/18 Hydrocodone Bitart/Apap 5-325 [Pheba 5/325] 2 tab PO Q4H PRN PRN 5 Days #30 tab 04/04/18 Hydrocortisone 2.5% Crm [Hytone] 1 applic TOPICAL BID PRN #1 tube 04/04/18 Menthol/Lanolin/Calamine/Znox [Calmoseptine Ointment] 1 applic TOPICAL 0600,2200 tube 04/04/18 Mineral Oil/Petrolatum,White [Eucerin] 1 applic TOPICAL 2200 jar 04/04/18 Nystatin Powder [Mycostatin Powder] 1 applic TOPICAL 0600,2200 bottle 04/04/18 Polyethylene Glycol 3350 [Miralax] 17 gm PO DAILY #30 packet 04/04/18 Senna/Docusate Sodium [Senokot-S] 2 tablet PO BID #60 tablet 04/04/18 The following prescriptions were given: Hydrocodone Bitart/Apap 5-325 [Pheba 5/325] 2 tab PO Q4H PRN PRN 5 Days #30 tab PRN Reason: Mild Pain (-07/06) Hydrocortisone 2.5% Crm [Hytone] 1 applic TOPICAL BID PRN #1 tube Polyethylene Glycol 3350 [Miralax] 17 gm PO DAILY #30 packet Senna/Docusate Sodium [Senokot-S] 2 tablet PO BID #60 tablet Baclofen [Lioresal] 10 mg PO TID PRN #30 tablet PRN Reason: SPASMS Primary Care Physician: Tommy Everett MD [Primary Care Provider] - Please follow up with your Primary Care Physician in: 1 week. Test Results: Test results from this visit will be discussed in further detail at your follow-up appointment, if applicable. Please Follow Up With: Janae Pierce DPM When: 1 week. Proposed Discharge Date: 04/07/18 04/04/18 1428 <Electronically signed by Rafiq Galdamez MD> Date Rafiq Galdamez MD CC: VAHID Pierce; Tommy Everett MD BEDSIDE GLUCOSE Collected: 04/04/2018 Status: F Source: [place] 6:44 AM [facility] REPOSITORY TYPE CODE TESTS RESULT OUT OF REFERENCE UNITS RANGE LAB L501.080 70-110 mg/dL High BEDSIDE GLU 112 Result Comment: MANAGEMENT OF PATIENT CARE PER NURSING PROTOCOL Performed By: #### L501.080 #### [facility] Laboratory Point of Care [address] [place], [place] [address] BEDSIDE GLUCOSE Collected: 04/03/2018 Status: F Source: [place] 6:24 AM [facility] REPOSITORY TYPE CODE TESTS RESULT OUT OF REFERENCE UNITS RANGE LAB L501.080 70-110 mg/dL High BEDSIDE GLU 136 Result Comment: MANAGEMENT OF PATIENT CARE PER NURSING PROTOCOL Performed By: #### L501.080 #### [facility] Point of Care [address] [place] [address] BEDSIDE GLUCOSE Collected: 04/02/2018 Status: F Source: [place] 4:46 PM [facility] REPOSITORY TYPE CODE TESTS RESULT OUT OF RANGE REFERENCE UNITS LAB L501.080 70-110 mg/dL Normal BEDSIDE GLU 106 Result Comment: MANAGEMENT OF PATIENT CARE PER NURSING PROTOCOL Performed By: #### L501.080 #### [facility] Point of Care [address] [place] [address] BEDSIDE GLUCOSE Collected: 04/02/2018 Status: F Source: [place] 11:22 AM [facility] REPOSITORY TYPE CODE TESTS RESULT OUT OF RANGE REFERENCE UNITS LAB L501.080 70-110 mg/dL Normal BEDSIDE GLU 87 Result Comment: MANAGEMENT OF PATIENT CARE PER NURSING PROTOCOL Performed By: #### L501.080 #### [facility] Point of Care [address] [place] [address] BEDSIDE GLUCOSE Collected: 04/02/2018 Status: F Source: [place] 6:42 AM [facility] REPOSITORY TYPE CODE TESTS RESULT OUT OF REFERENCE UNITS RANGE LAB L501.080 70-110 mg/dL High BEDSIDE GLU 115 Result Comment: MANAGEMENT OF PATIENT CARE PER NURSING PROTOCOL Performed By: #### L501.080 #### [facility] Point of Care [address] [place] [address] BEDSIDE GLUCOSE Collected: 04/01/2018 Status: F Source: [place] 8:35 PM [facility] REPOSITORY TYPE CODE TESTS RESULT OUT OF REFERENCE UNITS RANGE LAB L501.080 70-110 mg/dL High BEDSIDE GLU 122 Result Comment: MANAGEMENT OF PATIENT CARE PER NURSING PROTOCOL Performed By: #### L501.080 #### [facility] Point of Care [address] [place] [address] BEDSIDE GLUCOSE Collected: 04/01/2018 Status: F Source: [place] 4:36 PM [facility] REPOSITORY TYPE CODE TESTS RESULT OUT OF RANGE REFERENCE UNITS LAB L501.080 70-110 mg/dL Normal BEDSIDE GLU 90 Result Comment: MANAGEMENT OF PATIENT CARE PER NURSING PROTOCOL Performed By: #### L501.080 #### [facility] Point of Care [address] [place] [address] BEDSIDE GLUCOSE Collected: 04/01/2018 Status: F Source: [place] 11:34 AM [facility] REPOSITORY TYPE CODE TESTS RESULT OUT OF RANGE REFERENCE UNITS LAB L501.080 70-110 mg/dL Normal BEDSIDE GLU 94 Result Comment: MANAGEMENT OF PATIENT CARE PER NURSING PROTOCOL Performed By: #### L501.080 #### [facility] Point of Care [address] [place] [address] BEDSIDE GLUCOSE Collected: 04/01/2018 Status: F Source: [place] 6:20 AM [facility] REPOSITORY TYPE CODE TESTS RESULT OUT OF REFERENCE UNITS RANGE LAB L501.080 70-110 mg/dL High BEDSIDE GLU 129 Result Comment: MANAGEMENT OF PATIENT CARE PER NURSING PROTOCOL Performed By: #### L501.080 #### [place] [facility] Point of Care [address] [place] [address] BASIC METABOLIC Collected: 04/01/2018 Status: F Source: [place] PROFILE (BMP) 5:05 AM [facility] REPOSITORY TYPE CODE TESTS RESULT OUT OF RANGE REFERENCE UNITS LAB L501.0100 74-106 mg/dL High GLU 108 Result Comment: Fasting Glucose result from 100 to 125 mg/dL suggests IMPAIRED HOMEOSTASIS per A.D.A. criteria. Please note revised GLUCOSE reference range effective 2017. LAB L501.1000 7-18 mg/dL High BUN 24 LAB L501.1100 0.55-1.02 mg/dL Normal CREAT,SERUM 0.91 Result Comment: The validity of the calculated GFR AND GFRAA in patients over 70 years has not been determined. Clinical correlation is essential. LAB L501.1110 >60 mL/min Normal EST GFR 64 Result Comment: Non- GFR Calc LAB L501.1115 >60 mL/min Normal EST GFR - AA 77 Result Comment: GFR Calc LAB L501.1255 ml/min Normal Estimated CRCL 42.90 LAB L501.1300 10-20 RATIO High BUN/CRE 26.3 LAB L501.2200 8.5-10 mg/dL Normal .1 CA 9.3 LAB L501.5300 136-14 mmol/L Normal 5 NA 139 LAB L501.5600 3.5-5. mmol/L Normal 1 K 4.4 LAB L501.5900 98-107 mmol/L Normal CL 104 LAB L501.6100 21.0-3 mmol/L Normal 2.0 CO2 24.0 LAB L501.6200 5-15 Normal GAP 11 Performed By: #### L500.2500 #### [facility] [address]ian [address] [place], [place], [id number] CBC W/DIFF, AUTOMATED Collected: 04/01/2018 Status: F Source: [place] 5:05 AM [facility] REPOSITORY TYPE CODE TESTS RESULT OUT OF RANGE REFERENCE UNITS LAB L100.1000 4.4-11.0 K/mm3 Normal WBC 5.4 LAB L100.1200 4.2-5.4 M/mm3 Low RBC 3.68 LAB L100.1300 12.0-15.0 g/dl Low HGB 10.8 LAB L100.1400 37-47 % Low HCT 32.0 LAB L100.1500 81-99 fL Normal MCV 87.0 LAB L100.1600 27.0-32.0 pg Normal MCH 29.3 LAB L100.1700 32-36 g/gl Normal MCHC 33.8 LAB L100.1810 11.6-14.6 % Normal RDW CV 12.2 LAB L100.1820 35.1-43.9 fl Normal RDW SD 37.3 LAB L100.1900 150-450 K/mm3 Normal PLT 383 LAB L100.2000 6.2-12.0 fl Normal MPV 10.8 LAB L100.2100 47-70 % Normal NEUT% 49.5 LAB L100.2200 19-41 % Normal LY% 36.4 LAB L100.2300 0-10 % High MONO% 11.1 LAB L100.2400 0-5 % Normal EO% 2.4 LAB L100.2500 0-1 % Normal BASO% 0.6 LAB L100.2550 0.0-0.9 % Normal IM GRAN % 0.000 Result Comment: IG% - Immature Granulocytes (promyelocytes, myelocytes and metamyelocytes) > 1% indicates that a LEFT SHIFT is Present. LAB L100.2620 2.0-7.7 X10 3/uL Normal Absolute Neut 2.7 LAB L100.2720 0.83-4.51 X10 3/ul Normal Absolute Lymph 1.96 Performed By: #### L100.0100 #### [facility] [address] [place], [address] BEDSIDE GLUCOSE Collected: 03/31/2018 Status: F Source: [place] 9:04 PM [facility] REPOSITORY TYPE CODE TESTS RESULT OUT OF REFERENCE UNITS RANGE LAB L501.080 70-110 mg/dL High BEDSIDE GLU 134 Result Comment: MANAGEMENT OF PATIENT CARE PER NURSING PROTOCOL Performed By: #### L501.080 #### [facility] Point of Care [address] [place] [address] BEDSIDE GLUCOSE Collected: 03/31/2018 Status: F Source: [place] 5:01 PM [facility] REPOSITORY TYPE CODE TESTS RESULT OUT OF RANGE REFERENCE UNITS LAB L501.080 70-110 mg/dL Normal BEDSIDE GLU 103 Result Comment: Dr Young Followed MANAGEMENT OF PATIENT CARE PER NURSING PROTOCOL Performed By: #### L501.080 #### [facility] Point of Care [address] [place] [address] BEDSIDE GLUCOSE Collected: 03/31/2018 Status: F Source: [place] 10:41 AM [facility] REPOSITORY TYPE CODE TESTS RESULT OUT OF REFERENCE UNITS RANGE LAB L501.080 70-110 mg/dL High BEDSIDE GLU 137 Result Comment: MANAGEMENT OF PATIENT CARE PER NURSING PROTOCOL Performed By: #### L501.080 #### [facility] Point of Care [address] [place] [address] BEDSIDE GLUCOSE Collected: 03/31/2018 Status: F Source: [place] 6:17 AM [facility] REPOSITORY TYPE CODE TESTS RESULT OUT OF REFERENCE UNITS RANGE LAB L501.080 70-110 mg/dL High BEDSIDE GLU 128 Result Comment: MANAGEMENT OF PATIENT CARE PER NURSING PROTOCOL Performed By: #### L501.080 #### [facility] Point of Care [address] [place] [address] BEDSIDE GLUCOSE Collected: 03/30/2018 Status: F Source: [place] 9:07 PM [facility] REPOSITORY TYPE CODE TESTS RESULT OUT OF REFERENCE UNITS RANGE LAB L501.080 70-110 mg/dL High BEDSIDE GLU 163 Result Comment: Dr Orders Followed MANAGEMENT OF PATIENT CARE PER NURSING PROTOCOL Performed By: #### L501.080 #### [facility] Point of Care [address] [place] [address] BEDSIDE GLUCOSE Collected: 03/30/2018 Status: F Source: [place] 4:39 PM [facility] REPOSITORY TYPE CODE TESTS RESULT OUT OF RANGE REFERENCE UNITS LAB L501.080 70-110 mg/dL Normal BEDSIDE GLU 73 Result Comment: MANAGEMENT OF PATIENT CARE PER NURSING PROTOCOL Performed By: #### L501.080 #### [facility] Point of Care [address] [place] [address] BEDSIDE GLUCOSE Collected: 03/30/2018 Status: F Source: [place] 11:38 AM [facility] REPOSITORY TYPE CODE TESTS RESULT OUT OF REFERENCE UNITS RANGE LAB L501.080 70-110 mg/dL High BEDSIDE GLU 122 Result Comment: Dr Orders Followed MANAGEMENT OF PATIENT CARE PER NURSING PROTOCOL Performed By: #### L501.080 #### [facility] Point of Care [address] [place] [address] BEDSIDE GLUCOSE Collected: 03/30/2018 Status: F Source: [place] 7:18 AM [facility] REPOSITORY TYPE CODE TESTS RESULT OUT OF REFERENCE UNITS RANGE LAB L501.080 70-110 mg/dL High BEDSIDE GLU 143 Result Comment: MANAGEMENT OF PATIENT CARE PER NURSING PROTOCOL Performed By: #### L501.080 #### [facility] Point of Care [address] [place] [address] BEDSIDE GLUCOSE Collected: 03/29/2018 Status: F Source: [place] 9:10 PM [facility] REPOSITORY TYPE CODE TESTS RESULT OUT OF REFERENCE UNITS RANGE LAB L501.080 70-110 mg/dL High BEDSIDE GLU 128 Result Comment: MANAGEMENT OF PATIENT CARE PER NURSING PROTOCOL Performed By: #### L501.080 #### [facility] Point of Care [address] [place] [address] BEDSIDE GLUCOSE Collected: 03/29/2018 Status: F Source: [place] 4:57 PM [facility] REPOSITORY TYPE CODE TESTS RESULT OUT OF RANGE REFERENCE UNITS LAB L501.080 70-110 mg/dL Normal BEDSIDE GLU 75 Result Comment: MANAGEMENT OF PATIENT CARE PER NURSING PROTOCOL Performed By: #### L501.080 #### [facility] Point of Care [address] [place] [address] BEDSIDE GLUCOSE Collected: 03/29/2018 Status: F Source: [place] 11:52 AM [facility] REPOSITORY TYPE CODE TESTS RESULT OUT OF RANGE REFERENCE UNITS LAB L501.080 70-110 mg/dL Normal BEDSIDE GLU 74 Result Comment: MANAGEMENT OF PATIENT CARE PER NURSING PROTOCOL Performed By: #### L501.080 #### [facility] Point of Care [address] [place] [address] BEDSIDE GLUCOSE Collected: 03/29/2018 Status: F Source: [place] 6:38 AM [facility] REPOSITORY TYPE CODE TESTS RESULT OUT OF REFERENCE UNITS RANGE LAB L501.080 70-110 mg/dL High BEDSIDE GLU 111 Result Comment: MANAGEMENT OF PATIENT CARE PER NURSING PROTOCOL Performed By: #### L501.080 #### [facility] Point of Care [address] [place] [address] BEDSIDE GLUCOSE Collected: 03/28/2018 Status: F Source: [place] 8:42 PM [facility] REPOSITORY TYPE CODE TESTS RESULT OUT OF REFERENCE UNITS RANGE LAB L501.080 70-110 mg/dL High BEDSIDE GLU 122 Result Comment: MANAGEMENT OF PATIENT CARE PER NURSING PROTOCOL Performed By: #### L501.080 #### [facility] Point of Care [address] [place] [address] BEDSIDE GLUCOSE Collected: 03/28/2018 Status: F Source: [place] 5:38 PM [facility] REPOSITORY TYPE CODE TESTS RESULT OUT OF RANGE REFERENCE UNITS LAB L501.080 70-110 mg/dL Normal BEDSIDE GLU 93 Result Comment: MANAGEMENT OF PATIENT CARE PER NURSING PROTOCOL Performed By: #### L501.080 #### [facility] Point of Care [address] [place] [address] BEDSIDE GLUCOSE Collected: 03/28/2018 Status: F Source: [place] 4:44 PM [facility] REPOSITORY TYPE CODE TESTS RESULT OUT OF REFERENCE UNITS RANGE LAB L501.080 70-110 mg/dL Low BEDSIDE GLU 65 Result Comment: MANAGEMENT OF PATIENT CARE PER NURSING PROTOCOL Performed By: #### L501.080 #### [facility] Point of Care [address] [place] [address] SHOULDER MIN 2 VIEWS Observed: 03/28/2018 Status: F Source: [place] 2:16 PM [facility] REPOSITORY [facility] Imaging Services [address] [place] [address] Shoulder min 2 Views MR#: [id number] Acct: [id number] Name: SUSAN SEGURA Rep #: [id number] : 1945 F 73 From: Kilo Curtis MD PCP: Tommy Everett MD Status: ADM IN Study: Shoulder min 2 Views Date of Exam: 03/28/18 Exam# [id number] Ordering Dr: Rafiq Galdamez MD STUDY: X-RAY - RIGHT SHOULDER REASON FOR EXAM: Female, 73 years old. Pain. TECHNIQUE: 3 view(s) of the shoulder. COMPARISON: None. FINDINGS: There is moderate degenerative arthrosis of the glenohumeral articulation. There is hypertrophic osteoarthrosis of the acromioclavicular joint with inferior osseous spur formation. Normal acromion. Normal humeral head and visualized proximal humerus. The soft tissue structures are unremarkable. Normal visualized pulmonary apex. RAD/Shoulder min 2 Views IMPRESSION: Degenerative changes. Electronically Signed: Kilo Curtis MD at 15:28 EST Tel [phone], Service support , CC: Tommy Everett MD; Rafiq Galdamez MD Heading And Priming Operator: Signed BEDSIDE GLUCOSE Collected: 03/28/2018 Status: F Source: [place] 6:35 AM [facility] REPOSITORY TYPE CODE TESTS RESULT OUT OF REFERENCE UNITS RANGE LAB L501.080 70-110 mg/dL High BEDSIDE GLU 127 Result Comment: MANAGEMENT OF PATIENT CARE PER NURSING PROTOCOL Performed By: #### L501.080 #### [facility] Point of Care [address] [place] [address] BEDSIDE GLUCOSE Collected: 03/27/2018 Status: F Source: [place] 9:03 PM [facility] REPOSITORY TYPE CODE TESTS RESULT OUT OF REFERENCE UNITS RANGE LAB L501.080 70-110 mg/dL High BEDSIDE GLU 131 Result Comment: MANAGEMENT OF PATIENT CARE PER NURSING PROTOCOL Performed By: #### L501.080 #### [facility] Point of Care [address] [place] [address] BEDSIDE GLUCOSE Collected: 03/27/2018 Status: F Source: [place] 4:39 PM [facility] REPOSITORY TYPE CODE TESTS RESULT OUT OF RANGE REFERENCE UNITS LAB L501.080 70-110 mg/dL Normal BEDSIDE GLU 95 Result Comment: MANAGEMENT OF PATIENT CARE PER NURSING PROTOCOL Performed By: #### L501.080 #### [facility] Point of Care [address] [place] [address] BEDSIDE GLUCOSE Collected: 03/27/2018 Status: F Source: [place] 10:42 AM [facility] REPOSITORY TYPE CODE TESTS RESULT OUT OF RANGE REFERENCE UNITS LAB L501.080 70-110 mg/dL Normal BEDSIDE GLU 101 Result Comment: MANAGEMENT OF PATIENT CARE PER NURSING PROTOCOL Performed By: #### L501.080 #### [facility] Point of Care [address] [place] [address] BEDSIDE GLUCOSE Collected: 03/27/2018 Status: F Source: [place] 6:44 AM [facility] REPOSITORY TYPE CODE TESTS RESULT OUT OF REFERENCE UNITS RANGE LAB L501.080 70-110 mg/dL High BEDSIDE GLU 117 Result Comment: MANAGEMENT OF PATIENT CARE PER NURSING PROTOCOL Performed By: #### L501.080 #### [facility] Point of Care [address] [place] [address] BEDSIDE GLUCOSE Collected: 03/26/2018 Status: F Source: [place] 9:10 PM [facility] REPOSITORY TYPE CODE TESTS RESULT OUT OF REFERENCE UNITS RANGE LAB L501.080 70-110 mg/dL High BEDSIDE GLU 130 Result Comment: MANAGEMENT OF PATIENT CARE PER NURSING PROTOCOL Performed By: #### L501.080 #### [facility] Point of Care [address] [place] [address] BEDSIDE GLUCOSE Collected: 03/26/2018 Status: F Source: [place] 4:59 PM [facility] REPOSITORY TYPE CODE TESTS RESULT OUT OF RANGE REFERENCE UNITS LAB L501.080 70-110 mg/dL Normal BEDSIDE GLU 79 Result Comment: MANAGEMENT OF PATIENT CARE PER NURSING PROTOCOL Performed By: #### L501.080 #### [facility] Point of Care [address] [place] [address] BEDSIDE GLUCOSE Collected: 03/26/2018 Status: F Source: [place] 11:37 AM [facility] REPOSITORY TYPE CODE TESTS RESULT OUT OF RANGE REFERENCE UNITS LAB L501.080 70-110 mg/dL Normal BEDSIDE GLU 80 Result Comment: MANAGEMENT OF PATIENT CARE PER NURSING PROTOCOL Performed By: #### L501.080 #### [facility] Point of Care [address] [place] [address] BEDSIDE GLUCOSE Collected: 03/26/2018 Status: F Source: [place] 6:42 AM [facility] REPOSITORY TYPE CODE TESTS RESULT OUT OF REFERENCE UNITS RANGE LAB L501.080 70-110 mg/dL High BEDSIDE GLU 128 Result Comment: MANAGEMENT OF PATIENT CARE PER NURSING PROTOCOL Performed By: #### L501.080 #### [facility] Point of Care [address] [place] [address] BEDSIDE GLUCOSE Collected: 03/25/2018 Status: F Source: [place] 8:48 PM [facility] REPOSITORY TYPE CODE TESTS RESULT OUT OF RANGE REFERENCE UNITS LAB L501.080 70-110 mg/dL Normal BEDSIDE GLU 104 Result Comment: MANAGEMENT OF PATIENT CARE PER NURSING PROTOCOL Performed By: #### L501.080 #### [facility] Point of Care [address] [place] [address] HISTORY AND PHYSICAL Observed: 03/25/2018 Status: F Source: [place] EXAM 5:30 PM [facility] REPOSITORY [facility] Medical Records Department [address] [place] [address] History and Physical 03/24/182027 MR#: [id number] Acct: [id number] Name: SUSAN SEGURA Rep #: [id number] : 1945 73 From: Rafiq Galdamez MD PCP: Tommy Everett MD Status: ADM IN Location: [id number] ADDENDUM by Rafiq Galdamez MD on 03/25/18 at 1730 Code Visit Right ankle bimalleolar fracture - Resident fractured right ankle after slipping on ice, and striking right ankle on step. 03/25/18 1730 <Electronically signed by Rafiq Galdamez MD> Date Rafiq Galdamez MD cc: Tommy Everett MD; Rafiq Galdamez MD * Signed Problem List (1) Fracture of ankle, bimalleolar, right, closed Status: Acute (2) Diverticulosis Status: Chronic (3) Anxiety Status: Chronic (4) Depression Status: Chronic (5) Hyperlipidemia Status: Chronic (6) Gastroesophageal reflux disease Status: Chronic (7) Glaucoma Status: Chronic (8) Hypothyroidism Status: Chronic (9) Hypertension Status: Chronic (10) Type 2 diabetes mellitus Status: Chronic (11) Osteoarthritis Status: Chronic History of Present Illness Date of Admission: 03/24/18 Chief Complaint: Here for rehabilitation, strengthening, prior to discharge home alone. The patient is a 73 year old Female with below past medical history with followin03/21/2018 Admit to Hospital. 03/21/2018 Dr. Pierce performed right ankle ORIF bimalleolar fracture. 03/21/2018 X-ray right ankle status post ORIF distal fibula with medial malleolar fracture. Good alignment. 03/21/2018 Admit to Hospital. IV hydralazine PRN uncontrolled hypertension. SCD, DVT prophylaxis. Narcotics for pain control. Bowel regiment for presumptive constipation. Blood pressure improved. 03/24/2018 Admit to TCU with debility, here for rehabilitation, strengthening, prior to discharge home alone. Past Medical History Past Medical History (Chronic Problems): Chronic Problems (Last Reviewed 01/07/18 @ 13:51 by Anna Gómez) Diverticulosis (Chronic) Anxiety (Chronic) Depression (Chronic) Hyperlipidemia (Chronic) History of colon polyps (Chronic) Gastroesophageal reflux disease (Chronic) Glaucoma (Chronic) Obesity (Chronic) History of breast cancer (Chronic) Hip pain, bilateral (Chronic) Hypersomnolence (Chronic) Hypothyroidism (Chronic) Hypertension (Chronic) Type 2 diabetes mellitus (Chronic) Osteoarthritis (Chronic) Medical History: Medical History (Last Reviewed 01/07/18 @ 13:51 by Anna Gómez) Osteoarthritis (Chronic) M19.90 Anemia D64.9 Breast cancer C50.919 Diabetes mellitus E11.9 Hearing loss H91.90 Hypothyroidism E03.9 IBS (irritable bowel syndrome) K58.9 Allergies adhesive Adverse Reaction (Severe, Verified 03/17/18 10:07) Rash sidra Allergy (Severe, Uncoded 03/17/18 10:08) Rash,itching,blisters Home Medications: Ambulatory Orders Medication Instructions Recorded Surgical History: Surgical History (Last Reviewed 01/07/18 @ 13:51 by Anna Gómez) H/O cervical biopsy Z98.890 H/O right mastectomy Z98.890, Z90.11 H/O tubal ligation Z98.51 History of D AND C Z98.890 History of appendectomy Z98.890, Z90.49 History of carpal tunnel release Z98.890 History of carpal tunnel surgery Z92.89 History of reconstruction of right breast Z98.890 Normal colonoscopy 2013 dental implants fibroadenoma removed L breast left breast reconstruction with mastopexy right nipple reconstruction Surgical History: appendectomy, mastectomy - Right., - - Right ankle ORIF bimalleolar fracture, Tubal ligation, dilation AND currettage, carpal tunnel release. Psychiatric History: Anxiety, Depression [employer] History: No pertinent [employer] history Lives: Alone Smoking Status: Former smoker Tobacco Use: Non-smoker Alcohol: Occasional Drugs: None - *Family History Maternal Family History: Family History (Last Reviewed 01/07/18 @ 13:51 by Anna Gómez) Mother Heart disease Hypertension Sister Cancer History Items: High Cholesterol, Hypertension Review of Systems Constitutional: Denies: Chills, Fever, Weight Change HEENT: Denies: Head Aches, Sinus Congestion, Sinus Drainage Cardiovascular: Denies: Chest Pain, Palpitations Respiratory: Denies: Cough, Shortness of breath at rest, Sputum production Gastrointestinal: Denies: Abdominal Pain, Nausea, Vomiting Genitourinary: Denies: Dysuria Musculoskeletal: Denies: Joint Pain, Joint Tenderness Skin: Denies: Rash, Wounds Neurological: Denies: Numbness, Tingling, Focal weakness Psychiatric: Denies: Anxiety, Depression, Homicidal Ideations, Suicidal Ideations Hematologic/ Lymphatic: Denies: Easy Bruising, Easy Bleeding VTE Information - Inpt Only VTE Present on Admission: No VTE Mechan Device Prophylaxis: Knee High DANIELLE Hose VTE Pharm Prophylaxis ordered?: Yes Patient Problems: Active and Suspected Problems (Last Reviewed 01/07/18 @ 13:51 by Anna Gómez) Fracture of ankle, bimalleolar, right, closed (Acute) - Physical Exam General: Alert, Oriented x3, Cooperative HEENT: Atraumatic, PERRLA, EOMI, Normocephalic Neck: Supple, No JVD, Negative Carotid Bruits Lungs: Clear to auscultation, Normal air movement Cardiovascular: Regular rate, No murmurs Abdomen: Bowel Sounds Present, Soft, Non Tender Extremities: No edema, Capillary Refill Less than 3 Seconds, - - Right lower extremity dressed. Skin: No rashes, No breakdown Musculoskeletal: No Tenderness to Palpation of Joints or Extremities Neurological: Cranial nerves II-XII grossly intact Psych/Mental Status: Normal Affect, Appropriate Vital Signs Temp Pulse Resp BP Pulse Ox 97.7 F L 64 20 H 157/78 H 98 03/24/18 20:03 03/24/18 20:03 03/24/18 20:03 03/24/18 20:03 03/24/18 20:03 Oxygen Delivery Method Room Air Weight: 86.319 kg Body Mass Index (BMI) 34.8 Finger Stick Blood Glucose 168 Assessment/Plan All Active Problems (Last Reviewed 01/07/18 @ 13:51 by Anna Gómez) Hypertensive urgency (Acute) Arm paresthesia, left (Acute) Hypokalemia (Acute) Breast cancer, right (Resolved) Chronic pain (Acute) Skin lesion (Acute) Fracture of ankle, bimalleolar, right, closed (Acute) History of breast cancer (Resolved) 73 year old female with below past medical history status post ORIF right ankle bimalleolar fracture, admitted to TCU with debility, here for rehabilitation, strengthening, prior to discharge home alone. * Debility - PT/OT. * Pain - Pheba 5/325MG 2 tablets Q4H PRN moderate pain. * Bowel - Miralax 17GM daily, Senna/colace 2 tablets BID, Dulcolax 10MG PO daily PRN. * Pneumonia vaccination - Administer Prevnar 13 and/or Pneumovax 23 as necessary. * DVT prophylaxis - Lovenox 40MG SC daily. * CV prophylaxis - Aspirin 81MG daily. * Hyperlipidemia - Atorvastatin 40MG QHS. * Glaucoma - Brimonidine 1GTT OU BID, Cosopt 1GTT OU BID, Xalatan 1GTT OU BID. * Vitamin D deficiency - D2 50,000 units per month. * Depression - Fluoxetine 20MG daily, doing well with chronic terminal gauger use, GDR clinically contraindicated. * Diabetes Mellitus II - Glimepiride 2MG daily, Metformin XR 1000MG daily. * Hypothyroidism - Levothyroxine 25MCG daily. * Hypertension - Metoprolol 50MG BID, Losartan HCT 100/12.5MG daily. * Post-operative anemia - Ferrex 150MG daily. 03/25/18 0826 <Electronically signed by Rafiq Galdamez MD> Date Rafiq Galdamez MD Cosign Signature: Date (if applicable) CC: Tommy Everett MD; Rafiq Galdamez MD Signed BEDSIDE GLUCOSE Collected: 03/25/2018 Status: F Source: [place] 4:57 PM [facility] REPOSITORY TYPE CODE TESTS RESULT OUT OF REFERENCE UNITS RANGE LAB L501.080 70-110 mg/dL Low BEDSIDE GLU 66 Result Comment: Dr Orders Followed MANAGEMENT OF PATIENT CARE PER NURSING PROTOCOL Performed By: #### L501.080 #### [facility] Laboratory Point of Care [address] [place] [address] BEDSIDE GLUCOSE Collected: 03/25/2018 Status: F Source: [place] 11:17 AM [facility] REPOSITORY TYPE CODE TESTS RESULT OUT OF RANGE REFERENCE UNITS LAB L501.080 70-110 mg/dL Normal BEDSIDE GLU 102 Result Comment: MANAGEMENT OF PATIENT CARE PER NURSING PROTOCOL Performed By: #### L501.080 #### [facility] Point of Care [address] [place] [address] BEDSIDE GLUCOSE Collected: 03/25/2018 Status: F Source: [place] 6:27 AM [facility] REPOSITORY TYPE CODE TESTS RESULT OUT OF REFERENCE UNITS RANGE LAB L501.080 70-110 mg/dL High BEDSIDE GLU 128 Result Comment: MANAGEMENT OF PATIENT CARE PER NURSING PROTOCOL Performed By: #### L501.080 #### [facility] Point of Care [address] [place] [address] CBC W/DIFF, AUTOMATED Collected: 03/25/2018 Status: F Source: [place] 5:05 AM [facility] REPOSITORY TYPE CODE TESTS RESULT OUT OF RANGE REFERENCE UNITS LAB L100.1000 4.4-11.0 K/mm3 Normal WBC 5.6 LAB L100.1200 4.2-5.4 M/mm3 Low RBC 3.57 LAB L100.1300 12.0-15.0 g/dl Low HGB 10.5 LAB L100.1400 37-47 % Low HCT 30.8 LAB L100.1500 81-99 fL Normal MCV 86.3 LAB L100.1600 27.0-32.0 pg Normal MCH 29.4 LAB L100.1700 32-36 g/gl Normal MCHC 34.1 LAB L100.1810 11.6-14.6 % Normal RDW CV 12.1 LAB L100.1820 35.1-43.9 fl Normal RDW SD 36.6 LAB L100.1900 150-450 K/mm3 Normal PLT 303 LAB L100.2000 6.2-12.0 fl Normal MPV 11.3 LAB L100.2100 47-70 % Normal NEUT% 53.2 LAB L100.2200 19-41 % Normal LY% 33.9 LAB L100.2300 0-10 % High MONO% 10.1 LAB L100.2400 0-5 % Normal EO% 2.2 LAB L100.2500 0-1 % Normal BASO% 0.4 LAB L100.2550 0.0-0.9 % Normal IM GRAN % 0.200 Result Comment: IG% - Immature Granulocytes (promyelocytes, myelocytes and metamyelocytes) > 1% indicates that a LEFT SHIFT is Present. LAB L100.2620 2.0-7.7 X10 3/uL Normal Absolute Neut 3.0 LAB L100.2720 0.83-4.51 X10 3/ul Normal Absolute Lymph 1.89 Performed By: #### L100.0100 #### [facility] [address] [place], [address] BEDSIDE GLUCOSE Collected: 03/24/2018 Status: F Source: [place] 9:13 PM [facility] REPOSITORY TYPE CODE TESTS RESULT OUT OF RANGE REFERENCE UNITS LAB L501.080 70-110 mg/dL Normal BEDSIDE GLU 95 Result Comment: Dr Young Followed MANAGEMENT OF PATIENT CARE PER NURSING PROTOCOL Performed By: #### L501.080 #### [facility] Laboratory Point of Care [address] [facility] [place] [address] DISCHARGE SUMMARY Observed: 03/24/2018 Status: F Source: [place] 3:09 PM [facility] REPOSITORY [facility] Medical Records Department [address] [place] [address] Discharge Summary 03/24/18 1447 MR#: [id number] Acct: [id number] Name: SUSAN SEGURA Rep #: [id number] : 1945 73 From: Trenton Del Rio MD PCP: Tommy Everett MD Status: ADM IN Y Location: [facility] [id number] Discharge Date and Diagnosis Date of Admission: 03/21/18 Date of Discharge: 03/24/18 - Secondary Discharge Diagnosis Chronic Problems (Last Reviewed 01/07/18 @ 13:51 by Anna Gómez) Diverticulosis (Chronic) Anxiety (Chronic) Depression (Chronic) Hyperlipidemia (Chronic) History of colon polyps (Chronic) Gastroesophageal reflux disease (Chronic) Glaucoma (Chronic) Obesity (Chronic) History of breast cancer (Chronic) Hip pain, bilateral (Chronic) Hypersomnolence (Chronic) Hypothyroidism (Chronic) Hypertension (Chronic) Type 2 diabetes mellitus (Chronic) Osteoarthritis (Chronic) Hospital Course and Treatment Imaging Results: CXR: IMPRESSION: No acute cardiopulmonary disease. Ankle Xray: IMPRESSION: Satisfactory open reduction internal fixation of the fibular and tibial fractures. Consults: Podiatry Operations: - - ORIF Right Ankle Procedures: None Summary of Care Provided: Per HPI: The patient is a 73 year old F past medical history as listed below. She was admitted on 03/21/2018 from PACU after she came in for an elective right ankle fracture repair. She fractured her ankle about 3 weeks ago when she was out walking her dog and came in for elective surgery by podiatry. . She was admitted to be admitted to the TCU afterwards but could not be admitted there is was is been a few days on the floor before being admitted there. Hospitalist service was therefore asked to admit her for podiatry. Patient seen and examined she had no complaints and felt well. She denied any fever or chills, any cough or chest pain, any shortness of breath, abdominal pain, any diarrhea vomiting. Pain in right ankle is well controlled. Labs and vitals reviewed. Medications reviewed and reconciled. Vital Signs - 24 hr 03/24/18 14:57 97.7 F L 63 18 154/61 H 99 03/24/18 09:47 66 03/24/18 09:45 97.7 F L 66 18 130/39 H 97 03/24/18 02:20 98.0 F 72 18 152/67 H 96 General: Alert, Oriented x3, Cooperative, No apparent distress HEENT: Atraumatic, PERRLA, EOMI, Normocephalic Oral: Moist Mucosa Neck: Supple, No JVD Lungs: Clear to auscultation, Normal air movement, No rhonchi, No wheeze, No rales Cardiovascular: Regular rate, Regular Rhythm, Normal S1, Normal S2, No murmurs Abdomen: Soft, Non Tender, Non-Distended, No Hepato-splenomegaly Extremities: No edema, Capillary Refill Less than 3 Seconds Skin: No rashes, No breakdown Musculoskeletal: Right Ankle in cast and wrapped Hospital Course: 1. Right Ankle fracture POD 3 ORIF/HTN - She fell down the stairs at her trailer which led to this fracture. The fall was mechanical. She is continuing to have pain, but the narcotics help. Will continue her on narcotics as well as a bowel regimen. She is stable for discharge to TCU for further therapy. While here she had some difficulty with her blood pressure being high which is felt to be d/t her pain after surgery. On discharge her SBP was in the 130's. She is to continue her home medications of HCTZ/Losartan and metoprolol. 2. Her other diagnoses were evaluated and her home medications were continued where appropriate - Physical Exam Vital Signs Temp Pulse Resp BP Pulse Ox 97.7 F L 66 18 130/39 H 97 03/24/18 09:45 03/24/18 09:47 03/24/18 09:45 03/24/18 09:45 03/24/18 09:45 Oxygen Delivery Method Room Air Weight: 186 lb 11.704 oz Body Mass Index (BMI) 34.1 Finger Stick Blood Glucose 168 Intake and Output for Last 24 Hours Intake Total 1515.8 / 1515.8 470 / 470 Output Total 1450 / 1450 600 / 600 1500 / 1500 Balance 65.8 / 65.8 -130 / -130 -1500 / -1500 Laboratory Tests Past 24 Hrs WBC 7.0 RBC 3.96 L Hgb 11.2 L Hct 33.7 L MCV 85.1 MCH 28.3 MCHC 33.2 Call your doctor if your incision/area has: Sudden Increased Bleeding, Increased Pain/ Swelling, Increased Redness, Foul Smelling Discharge, Swelling at the incision site Call your doctor if you observe: Fever of 101 or Higher, Numbness or Tingling, Shortness of breath, Chest pain Home Medications: Medications to take at Discharge Cholecalciferol (Vitamin D3) [Decara] 50,000 unit PO QMONTH 07/23/16 Latanoprost 0.005% [Xalatan Opthalmic] 1 drp EACH EYE QHS 07/23/16 brimonidine 0.1 % eye drops 1 drp OPHTHALMIC BID 04/10/17 coenzyme Q10 200 mg capsule 200 mg PO DAILY 04/10/17 dorzolamide 22.3 mg-timolol 6.8 mg/mL eye drops 1 drp OPHTHALMIC BID 04/10/17 fluoxetine 20 mg capsule 20 mg PO DAILY #90 cap 05/15/17 levothyroxine 25 mcg tablet 25 mcg PO DAILY #90 tab 05/15/17 metoprolol tartrate 50 mg tablet 50 mg PO BID #180 tab 07/01/17 glimepiride 2 mg tablet 2 mg PO QAM #90 tab 10/16/17 losartan 100 mg-hydrochlorothiazide 12.5 mg tablet 1 tab PO DAILY #90 tab 01/07/18 Aspirin [Aspirin, Baby] 81 mg PO DAILY@0800 03/17/18 Atorvastatin Calcium [Lipitor] 40 mg PO QHS 03/17/18 Metformin(XR) [Glucophage Xr] 1,000 mg PO QHS 03/17/18 Docusate Sodium [Colace] 100 mg PO BID capsule 03/24/18 Hydrocodone Bitart/Apap 5-325 [Pheba 5/325] 1 - 2 tablet PO Q4H PRN PRN 3 Days #15 tablet 03/24/18 Other Amb Orders: Thyroid Stim Hormone (TSH) Time Frame: 03/17/18, Location: Laboratory Primary Care Physician: Tommy Everett MD [Primary Care Provider] - Please follow up with your Primary Care Physician in: [place] 3- 5 Days Please Follow Up With: Janae Pierce DPM When: in 3-5 days Disposition: Correction facility Minutes spent on discharge:: 35 Patient Condition:: Good Medical Necessity - Tobacco Use Smoking Status: Former smoker Tobacco Use: Non-smoker Meaningful Use Info Meaningful Use Diagnoses (Choose all that apply): None applicable Code Visit Inpatient E AND M: 42509 Disch Hosp 03/24/18 1509 <Electronically signed by Trenton Del Rio MD> Date Trenton Del Rio MD Cosigner Signature (if applicable): Date CC: Tommy Everett MD; Trenton Del Rio MD Signed TRANSFER TO [facility] Observed: 03/24/2018 Status: F Source: [facility] 2:47 PM [facility] REPOSITORY [facility] Medical Records Department [address] [place] [address] Transfer to Extended Care MR#: [id number] Acct: [id number] Name: SUSAN SEGURA Rep #: [id number] : 1945 73 From: Trenton Del Rio MD PCP: Tommy Everett MD Status: ADM IN SUSAN SEGURA (Patient) (Health Ins. Claim No.) (Day of Discharge to Facility) Certification of patient admission REQUIRED AT TIME OF ADMISSION. I CERTIFY THAT POST-HOSPITAL ECF SERVICES ARE REQUIRED TO BE GIVEN ON AN IN-PATIENT BASIS BECAUSE OF THE ABOVE NAMED PATIENT'S NEED FOR USP CARE ON A CONTINUING BASIS FOR THE CONDITION(S) FOR WHICH HE/SHE WAS RECEIVING IN-PATIENT HOSPITAL SERVICES PRIOR TO HIS/HER TRANSFER TO THE F. 03/24/18 1447 <Electronically signed by Trenton Del Rio MD> Date Trenton Del Rio MD - Diet 03/21/18 12:46 Diet: Cardiac/Low Cholesterol Food consistency:: Regular Liquid Consistency:: Regular/Thin Type of Dietary Supplement:: Glucerna Shake Is pt able to select menu?: Yes - Wound(s) RIGHT ANKLE Wound Type: Surgical Incision Dressing Change: Dry Sterile Dressing - Therapies Weight Bearing: Non weight bearing - Allergies/Procedures Done in Hospital Allergies/Adverse Reactions: Allergies adhesive Adverse Reaction (Severe, Verified 03/17/18 10:07) Rash sidra Allergy (Severe, Uncoded 03/17/18 10:08) Rash,itching,blisters - Type of Care/Length of Stay Estimated LOS: Convalescent Care Less Than 30 days Type of Care Needed: Skilled Rehab Potential: Good Prognosis: Good - Additional Orders/Day of Discharge Day of Discharge: 03/24/18 - Dietary and Speech Recommendations Dietitian Recommendations/Changes: Suggest diet change to 1800 calorie/cardiac/no added salt. Suggest d/c glucerna shake with meals as ordered due to good PO at meals AND BMI 34.2. - Follow Up Care Primary Care Physician: Tommy Everett MD [Primary Care Provider] - Please follow up with your Primary Care Physician in: [place] 3- 5 Days 03/24/18 1447 <Electronically signed by Trenton Del Rio MD> Date Trenton Del Rio MD CC: VAHID Pierce; Tommy Everett MD; Soto Ann NP Signed CBC W/DIFF, AUTOMATED Collected: 03/24/2018 Status: F Source: [place] 5:42 AM [facility] REPOSITORY TYPE CODE TESTS RESULT OUT OF RANGE REFERENCE UNITS LAB L100.1000 4.4-11.0 K/mm3 Normal WBC 7.0 LAB L100.1200 4.2-5.4 M/mm3 Low RBC 3.96 LAB L100.1300 12.0-15.0 g/dl Low HGB 11.2 LAB L100.1400 37-47 % Low HCT 33.7 LAB L100.1500 81-99 fL Normal MCV 85.1 LAB L100.1600 27.0-32.0 pg Normal MCH 28.3 LAB L100.1700 32-36 g/gl Normal MCHC 33.2 LAB L100.1810 11.6-14.6 % Normal RDW CV 12.4 LAB L100.1820 35.1-43.9 fl Normal RDW SD 38.4 LAB L100.1900 150-450 K/mm3 Normal PLT 277 LAB L100.2000 6.2-12.0 fl Normal MPV 10.9 LAB L100.2100 47-70 % Normal NEUT% 56.0 LAB L100.2200 19-41 % Normal LY% 30.2 LAB L100.2300 0-10 % High MONO% 11.1 LAB L100.2400 0-5 % Normal EO% 2.0 LAB L100.2500 0-1 % Normal BASO% 0.6 LAB L100.2550 0.0-0.9 % Normal IM GRAN % 0.100 Result Comment: IG% - Immature Granulocytes (promyelocytes, myelocytes and metamyelocytes) > 1% indicates that a LEFT SHIFT is Present. LAB L100.2620 2.0-7.7 X10 3/uL Normal Absolute Neut 3.9 LAB L100.2720 0.83-4.51 X10 3/ul Normal Absolute Lymph 2.12 Performed By: #### L100.0100 #### [facility] [address] [place], [address] BASIC METABOLIC Collected: 03/24/2018 Status: F Source: [place] PROFILE ([facility]) 5:42 AM [facility] REPOSITORY TYPE CODE TESTS RESULT OUT OF RANGE REFERENCE UNITS LAB L501.0100 74-106 mg/dL High GLU 118 Result Comment: Fasting Glucose result from 100 to 125 mg/dL suggests IMPAIRED HOMEOSTASIS per A.D.A. criteria. Please note revised GLUCOSE reference range effective 2017. LAB L501.1000 7-18 mg/dL High BUN 21 LAB L501.1100 0.55-1.02 mg/dL Normal CREAT,SERUM 0.75 Result Comment: The validity of the calculated GFR AND GFRAA in patients over 70 years has not been determined. Clinical correlation is essential. LAB L501.1110 >60 mL/min Normal EST GFR 80 Result Comment: Non- GFR Calc LAB L501.1115 >60 mL/min Normal EST GFR - AA 97 Result Comment: GFR Calc LAB L501.1255 ml/min Normal Estimated CRCL 39.04 LAB L501.1300 10-20 RATIO High BUN/CRE 27.9 LAB L501.2200 8.5-10 mg/dL Normal .1 CA 8.9 LAB L501.5300 136-14 mmol/L Low 5 NA 135 LAB L501.5600 3.5-5. mmol/L Normal 1 K 4.5 LAB L501.5900 98-107 mmol/L Normal CL 104 LAB L501.6100 21.0-3 mmol/L Normal 2.0 CO2 22.0 LAB L501.6200 5-15 Normal GAP 9 Performed By: #### L500.2500 #### [facility] [address] [place], [address] OPERATIVE REPORT Observed: 03/23/2018 Status: F Source: [place] 12:53 PM [facility] REPOSITORY [facility] Medical Records Department [address] [place] [address] Operative Report 03/23/18 1229 MR#: [id number] Acct: [id number] Name: SUSAN SEGURA Rep #: [id number] : 1945 73 From: Janae Pierce DPM PCP: Tommy Everett MD Status: ADM IN Y Location: [place] [address] Report of Operation Date of Procedure: 03/21/18 Pre-Operative Diagnosis: Right ankle bimalleolar fx Post-Operative Diagnosis: same Surgery/Procedure Performed:: Right ankle ORIF bimalleolar fx Description of Surgical Findings:: see dictation agriculturist: Michelle Pandey Type of Anesthesia:: Spinal/Supplemental Specimen's removed: none Drains: none Estimated Blood Loss (mL): minimal Description of Procedure: Indications: Pt is a 73 yo F who fell on the ice on 03/13/2018. She was seen in the [facility] ER that day and radiographs revealed a Right bimalleolar ankle fracture. She presented the next day to my clinic for evaluation. Her daughter was present for that appointment. Given the instability of her fracture I recommended ORIF of the Right ankle. She had concerns about being able to stay NWB RLE prior to and after surgery. we discussed that she may need physical therapy and placement post operatively for her well being and safety. All risks, complications, and alternatives were discussed with the patient, and the patient signed an informed consent. No guarantees were given. Procedure: On 03/21/2018, Susan Segura was visually and verbally identified in the preoperative holding area. The consent form was again reviewed with the patient, as were all risks, complications, and alternatives and the patient wished to proceed with the proposed surgery. The right ankle was marked as the correct operative extremity. The patient was brought to the operating room. Spinal anesthesia was administered by the anesthesia team. She was then positioned on the operating room table in the normal lazy lateral position. A time out was performed and present were in agreement. a pneumatic thigh tourniquet was then placed. At this time the right lower extremity was prepped and draped in the usual sterile fashion. after exsanguination with an esmarch the tourniquet was inflated to 300 mmHg. At this time attention was directed to the right lateral distal ankle. Edema was noted to be largely resolved about the ankle from the clinical appointment. Ecchymosis was still visible with an abrasion noted proximal and anterior to the medial malleolus. Using intraoperative fluoroscopy, the distal fibula fracture was identified. Using a #15 blade a curvilinear incision was made over the the distal fibula fracture. The incision was bluntly carried deep through the subcutaneous tissues with careful attention paid to all bleeders, which were clamped and tied or bovied as necessary. All vital neurovascular structures were retracted. The peroneal tendons were retracted. The fracture of the distal fibula was noted to be oblique with a fracture fragment in the anterior medial portion of the fibula at the level of the ankle joint. Using a curette and #15 blade the fracture was debrided and all soft tissue impingements were removed. Using a series of bone reduction clamps and a 0.062 k wire the distal fibula fracture was reduced. This was confirmed both with intraoperative fluoroscopy and direct visualization. The anterior fracture fragment was reduced and a 0.045 k wire was placed to secure this piece. The 0.045 k wire was bent and cut with no sharp prominence noted. Utilizing AO technique and intraoperative fluoroscopy, an interfragmentary screw was placed nearly perpendicular to the fracture. The bone was noted to be brittle as this screw was placed. The temporary 0.062 k wire was removed. A Catharpin Variax lateral distal fibula plate was then placed utilizing a combination of locking and nonlocking screws for stabilization. Plate placement and screw placement and length was confirmed by intraoperative fluoroscopy. The external rotation and cotton hook tests were then performed under intraoperative fluoroscopy to examine the syndesmosis and medial clear space. They appeared stable, with no increased widening, and no syndesmotic screw fixation was placed. Attention was then turned to the medial malleolus which had an avulsion fracture. Under intraoperative fluoroscopic guidance two guide wires were placed percutaneously. Two 4.0 cannulated screws, per AO technique, were then placed percutaneously with reduction of the medial malleolar fracture noted on intraoperative fluoroscopy. Appropriate screw length and placement were confirmed on fluoroscopy. The incisions were flushed with copious amounts of normal sterile saline. Closure was initiated with 2.0 vicryl for deep layers, 3.0 vicryl for subcutaneous layers and 3.0 prolene for skin. Betadine soaked adaptic and dry sterile dressings were applied. A multi layer compression dressing and well padded posterior splint were then applied. Total tourniquet time was 120 minutes with immediate capillary refill noted to all digits upon deflation. Intra operative fluoroscopy was utilized throughout the case, > 1 hour, to aid in visualization and confirmation of fracture reduction and screw and plate fixations. Interpretation of the images was vital to my decision making process. The patient tolerated the procedure and anesthesia well. The patient was then transported to the postanesthesia care unit by a member of the anesthesia team and myself with all vital signs stable and neurovascular status of the right lower extremity equal to pre-operative levels. Anesthesia will perform a RLE lower sciatic block in the PACU. Pt will be admitted to inpatient services for physical therapy evaluation, fall risk and s/p ORIF R ankle fracture. At the end of the case all sponge, needle and instrument counts were found to be correct. Grafts/Implants Used: Mellissa Variax plate and screws - Complications none - Admit VTE Documentation VTE Present on Admission: No VTE Mechan Device Prophylaxis: SCD's, Knee High DANIELLE Hose VTE Pharm Prophylaxis ordered?: Yes 03/23/18 1253 <Electronically signed by Janae Pierce DPM> Date Janae Pierce DPM CC: VAHID Pierce; Tommy Everett MD; Soto Ann NP Signed BEDSIDE GLUCOSE Collected: 03/22/2018 Status: F Source: [place] 4:34 PM [facility] REPOSITORY TYPE CODE TESTS RESULT OUT OF REFERENCE UNITS RANGE LAB L501.080 70-110 mg/dL High BEDSIDE GLU 113 Result Comment: MANAGEMENT OF PATIENT CARE PER NURSING PROTOCOL Performed By: #### L501.080 #### [facility] [place] [address] CBC W/DIFF, AUTOMATED Collected: 03/22/2018 Status: F Source: [place] 7:42 AM [facility] REPOSITORY TYPE CODE TESTS RESULT OUT OF RANGE REFERENCE UNITS LAB L100.1000 4.4-11.0 K/mm3 Normal WBC 7.6 LAB L100.1200 4.2-5.4 M/mm3 Low RBC 3.51 LAB L100.1300 12.0-15.0 g/dl Low HGB 10.2 LAB L100.1400 37-47 % Low HCT 30.5 LAB L100.1500 81-99 fL Normal MCV 86.9 LAB L100.1600 27.0-32.0 pg Normal MCH 29.1 LAB L100.1700 32-36 g/gl Normal MCHC 33.4 LAB L100.1810 11.6-14.6 % Normal RDW CV 12.0 LAB L100.1820 35.1-43.9 fl Normal RDW SD 36.9 LAB L100.1900 150-450 K/mm3 Normal PLT 266 LAB L100.2000 6.2-12.0 fl Normal MPV 11.3 LAB L100.2100 47-70 % Normal NEUT% 63.0 LAB L100.2200 19-41 % Normal LY% 26.1 LAB L100.2300 0-10 % High MONO% 10.4 LAB L100.2400 0-5 % Normal EO% 0.3 LAB L100.2500 0-1 % Normal BASO% 0.1 LAB L100.2550 0.0-0.9 % Normal IM GRAN % 0.100 Result Comment: IG% - Immature Granulocytes (promyelocytes, myelocytes and metamyelocytes) > 1% indicates that a LEFT SHIFT is Present. LAB L100.2620 2.0-7.7 X10 3/uL Normal Absolute Neut 4.8 LAB L100.2720 0.83-4.51 X10 3/ul Normal Absolute Lymph 1.99 Performed By: #### L100.0100 #### [facility] [address] [place], [address] BASIC METABOLIC Collected: 03/22/2018 Status: F Source: [place] PROFILE ([place]) 7:42 AM [facility] REPOSITORY TYPE CODE TESTS RESULT OUT OF RANGE REFERENCE UNITS LAB L501.0100 74-106 mg/dL High GLU 134 Result Comment: Fasting Glucose result greater than or equal to 126 mg/dL suggests DIABETES MELLITUS per A.D.A. criteria. Please note revised GLUCOSE reference range effective 2017. LAB L501.1000 7-18 mg/dL High BUN 32 LAB L501.1100 0.55-1.02 mg/dL Normal CREAT,SERUM 1.00 Result Comment: The validity of the calculated GFR AND GFRAA in patients over 70 years has not been determined. Clinical correlation is essential. LAB L501.1110 >60 mL/min Low EST GFR 58 Result Comment: Non- GFR Calc LAB L501.1115 >60 mL/min Normal EST GFR - AA 70 Result Comment: GFR Calc LAB L501.1255 ml/min Normal Estimated CRCL 39.04 LAB L501.1300 10-20 RATIO High BUN/CRE 32.1 LAB L501.2200 8.5-10 mg/dL Normal .1 CA 8.8 LAB L501.5300 136-14 mmol/L Normal 5 NA 136 LAB L501.5600 3.5-5. mmol/L Normal 1 K 4.2 LAB L501.5900 98-107 mmol/L Normal CL 102 LAB L501.6100 21.0-3 mmol/L Normal 2.0 CO2 26.0 LAB L501.6200 5-15 Normal GAP 8 Performed By: #### L500.2500 #### [facility] [address] [place], [address] HISTORY AND PHYSICAL Observed: 03/21/2018 Status: F Source: [place] EXAM 2:46 PM [facility] REPOSITORY [facility] Medical Records Department [address] [place] [address] History and Physical 03/21/18 1243 MR#: [id number] Acct: [id number] Name: SUSAN SEGURA J Rep #: [id number] : 1945 73 From: Rachel Mendes MD PCP: Tommy Everett MD Status: ADM IN Y Location: [facility]3 [id number] History of Present Illness Date of Admission: 03/21/18 Chief Complaint: right ankle fracture The patient is a 73 year old F past medical history as listed below. She was admitted on 03/21/2018 from PACU after she came in for an elective right ankle fracture repair. She fractured her ankle about 3 weeks ago when she was out walking her dog and came in for elective surgery by podiatry. . She was admitted to be admitted to the TCU afterwards but could not be admitted there is was is been a few days on the floor before being admitted there. Hospitalist service was therefore asked to admit her for podiatry. Patient seen and examined she had no complaints and felt well. She denied any fever or chills, any cough or chest pain, any shortness of breath, abdominal pain, any diarrhea vomiting. Pain in right ankle is well controlled. Labs and vitals reviewed. Medications reviewed and reconciled. [] Past Medical History Past Medical History (Chronic Problems): Chronic Problems (Last Reviewed 01/07/18 @ 13:51 by Anna Gómez) Diverticulosis (Chronic) Anxiety (Chronic) Depression (Chronic) Hyperlipidemia (Chronic) History of colon polyps (Chronic) Gastroesophageal reflux disease (Chronic) Glaucoma (Chronic) Obesity (Chronic) History of breast cancer (Chronic) Hip pain, bilateral (Chronic) Hypersomnolence (Chronic) Hypothyroidism (Chronic) Hypertension (Chronic) Type 2 diabetes mellitus (Chronic) Osteoarthritis (Chronic) Medical History: Medical History (Last Reviewed 01/07/18 @ 13:51 by Anna Gómez) Osteoarthritis (Chronic) M19.90 Anemia D64.9 Breast cancer C50.919 Diabetes mellitus E11.9 Hearing loss H91.90 Hypothyroidism E03.9 IBS (irritable bowel syndrome) K58.9 Allergies adhesive Adverse Reaction (Severe, Verified 03/17/18 10:07) Rash sidra Allergy (Severe, Uncoded 03/17/18 10:08) Rash,itching,blisters Home Medications: Ambulatory Orders Medication Instructions Recorded Cholecalciferol (Vitamin D3) 50,000 unit PO QMONTH 07/23/16 Surgical History: Surgical History (Last Reviewed 01/07/18 @ 13:51 by Anna Gómez) H/O cervical biopsy Z98.890 H/O right mastectomy Z98.890, Z90.11 H/O tubal ligation Z98.51 History of D AND C Z98.890 History of appendectomy Z98.890, Z90.49 History of carpal tunnel release Z98.890 History of carpal tunnel surgery Z92.89 History of reconstruction of right breast Z98.890 Normal colonoscopy 2013 dental implants fibroadenoma removed L breast left breast reconstruction with mastopexy right nipple reconstruction Surgical History: mastectomy, - Psychiatric History: Anxiety, Depression [employer] History: No pertinent [employer] history Smoking Status: Former smoker Tobacco Use: Non-smoker Alcohol: Occasional - *Family History Maternal Family History: Family History (Last Reviewed 01/07/18 @ 13:51 by Anna Gómez) Mother Heart disease Hypertension Sister Cancer History Items: High Cholesterol, Hypertension Review of Systems Constitutional: Denies: Chills, Fever, Weight Change Eyes: Denies: Blurred vision HEENT: Denies: Head Aches, Sinus Congestion, Sinus Drainage Cardiovascular: Denies: Chest Pain, Chest Pressure, Chest Tightness, Orthopnea, Palpitations, Paroxysmal Noc. Dyspnea Respiratory: Denies: Cough, Shortness of Breath, Shortness of breath at rest, Shortness of breath upon exertion, Sputum production Gastrointestinal: Denies: Abdominal Pain, Nausea, Vomiting Genitourinary: Denies: Dysuria Musculoskeletal: Denies: Joint Pain, Joint Tenderness Skin: Denies: Rash, Wounds Neurological: Denies: Numbness, Tingling, Focal weakness Psychiatric: Denies: Anxiety, Depression, Homicidal Ideations, Suicidal Ideations Hematologic/ Lymphatic: Denies: Easy Bruising, Easy Bleeding VTE Information - Inpt Only VTE Present on Admission: No VTE Pharm Prophylaxis ordered?: Yes - Physical Exam General: Alert, Oriented x3, Cooperative, No apparent distress HEENT: Atraumatic, PERRLA, EOMI, Normocephalic Oral: Moist Mucosa Neck: Supple, No JVD, Negative Carotid Bruits Lungs: Clear to auscultation, Normal air movement, No rhonchi, No wheeze, No rales Cardiovascular: Regular rate, Regular Rhythm, Normal S1, Normal S2, No murmurs Abdomen: Bowel Sounds Present, Soft, Non Tender Extremities: - - RLE wrapped in JARRED bandage after surgery. Skin: No rashes Musculoskeletal: No Tenderness to Palpation of Joints or Extremities Lymphatic: No Cervical, Supraclavicular, or Inguinal Adenopathy Neurological: Cranial nerves II-XII grossly intact, Neuro grossly intact Psych/Mental Status: Normal Affect, Appropriate, Alert and oriented to time, place, person, mood and affect Vital Signs Temp Pulse Resp BP Pulse Ox 97.1 F L 70 18 156/55 H 96 03/21/18 12:09 03/21/18 12:09 03/21/18 12:09 03/21/18 12:09 03/21/18 12:09 Oxygen Delivery Method Room Air Weight: 186 lb 11.704 oz Body Mass Index (BMI) 34.1 Finger Stick Blood Glucose 168 Intake and Output for Last 24 Hours Intake Total 1200 / 1200 Balance 1200 / 1200 POC Glucose POC Glucose 168 H 161 H Assessment/Plan All Active Problems (Last Reviewed 01/07/18 @ 13:51 by Anna Gómez) Hypertensive urgency (Acute) Arm paresthesia, left (Acute) Hypokalemia (Acute) Breast cancer, right (Resolved) Chronic pain (Acute) Skin lesion (Acute) History of breast cancer (Resolved) 1. Right ankle fracture s/p ORIF of bimalleolar fracture * today is POD 1 * admitted by hospitalist service because she needs to be in the hospital for a few days before she can be admitted to the TCU * pain currently well controlled * Pain management as per podiatry * will consult podiatry. * consult case management for placement * 2. hypertension * on losartan and metoprolol. Will resume. IV hydralazine prn * 3. Diabetes mellitus: on glimepiride 2mg daily and metformin 1000mg bid. Accuchecks ACHS. ISS 4. Hypothyroidism: On Synthroid. 5. Depression: On fluoxetine DVT prophylaxis: as per podiatry. SCDs for today, and to start DVT prophylaxis tomorrow, as discussed with Dr Pierce. Code Visit Inpatient E AND M: 18377 Subs Hosp L2 03/21/18 3094 <Electronically signed by Rachel Mendes MD> Date [facility] Signature: Date (if applicable) CC: Tommy Everett MD; Rachel Mendes MD Signed ANKLE MIN 3 VIEWS Observed: 03/21/2018 Status: F Source: [place] 11:05 AM [facility] REPOSITORY [facility] Imaging Services [address] [place] [address] Ankle min 3 Views MR#: [id number] Acct: [id number] Name: SUSAN SEGURA Rep #: [id number] : 1945 F 73 From: Kilo Curtis MD PCP: Tommy Everett MD Status: [facility] [place] Study: Ankle min 3 Views Date of Exam: 03/21/18 Exam# [id number] Ordering Dr: Janae Pierce DPM STUDY: X-RAY - RIGHT ANKLE REASON FOR EXAM: Female, 73 years old. Status post open reduction internal fixation. TECHNIQUE: 3 view(s) of the ankle. COMPARISON: Comparison is made with prior examination done earlier today. FINDINGS: There is satisfactory open reduction and internal fixation of the distal fibular fracture and the medial malleolar fracture. Normal tibiotalar articulation and ankle mortise. Normal visualized talus and calcaneus. The visualized subtalar, talonavicular, calcaneocuboid and tarsal articulations are normal. Postoperative soft tissue changes. RAD/Ankle min 3 Views IMPRESSION: Status post open reduction and internal fixation of distal fibula and medial malleolar fracture. There is good alignment. Postoperative soft tissue changes. Electronically Signed: Kilo Curtis MD at 11:59 EST Tel [phone], Service support , CC: VAHID Pierce; Tommy Everett MD Heading And Priming Operator: Signed BEDSIDE GLUCOSE Collected: 03/21/2018 Status: F Source: [place] 11:04 AM [facility] REPOSITORY TYPE CODE TESTS RESULT OUT OF REFERENCE UNITS RANGE LAB L501.080 70-110 mg/dL High BEDSIDE GLU 168 Result Comment: MANAGEMENT OF PATIENT CARE PER NURSING PROTOCOL Performed By: #### L501.080 #### [facility] Point of Care Rian Enciso [place], [place] [address] COMPREHENSIVE METABOLIC Collected: 03/21/2018 Status: F Source: [place] [facility] 10:30 AM [facility] REPOSITORY Order Comment: PLEASE ADD TSH TO BLOOD FROM 03-14-18 FG4 2 L Has Patient had X-rays with Contrast this admission? N TYPE CODE TESTS RESULT OUT OF RANGE REFERENCE UNITS LAB L501.0100 74-106 mg/dL High GLU 109 Result Comment: Fasting Glucose result from 100 to 125 mg/dL suggests IMPAIRED HOMEOSTASIS per A.D.A. criteria. Please note revised GLUCOSE reference range effective 2017. LAB L501.1000 7-18 mg/dL High BUN 23 LAB L501.1100 0.55-1.02 mg/dL High CREAT,SERUM 1.15 Result Comment: The validity of the calculated GFR AND GFRAA in patients over 70 years has not been determined. Clinical correlation is essential. LAB L501.1110 >60 mL/min Low EST GFR 49 Result Comment: Non- GFR Calc LAB L501.1115 >60 mL/min Low EST GFR - AA 59 Result Comment: GFR Calc LAB L501.1300 10-20 RATIO Normal BUN/CRE 20.0 LAB L501.1500 6.4-8.2 g/dL T Normal PROT 7.4 LAB L501.1800 3.2-5.0 g/dL Normal ALB 3.9 LAB L501.1950 2.2-4.2 g/dL Normal GLOB 3.5 LAB L501.2000 0.9-2.4 RATIO Normal A/G 1.1 LAB L501.2200 8.5-10.1 mg/dL CA Normal 9.0 LAB L501.4100 15-37 U/L Normal AST 23 LAB L501.4305 45-117 U/L Normal ALK P 97 LAB L501.4405 13-56 U/L Normal ALT 40 LAB L501.4600 0.20-1.00 mg/dL T Normal BILI 0.50 LAB L501.5300 136-145 mmol/L NA Normal 137 LAB L501.5600 3.5-5.1 mmol/L K Normal 3.5 LAB L501.5900 98-107 mmol/L CL Normal 102 LAB L501.6100 21.0-32.0 mmol/L Normal CO2 27.0 LAB L501.6200 5-15 Normal GAP 8 Performed By: #### L500.4050, L501.9520, L506.0400 #### [facility] [address] [place], [place], [id number] THYROID STIM HORMONE Collected: 03/21/2018 Status: F Source: [place] (TSH) 10:30 AM [facility] REPOSITORY Order Comment: PLEASE ADD TSH TO BLOOD FROM 03-14-18 FG4 2 L Has Patient had X-rays with Contrast this admission? N TYPE CODE TESTS RESULT OUT OF RANGE REFERENCE UNITS LAB L501.9520 0.358-3.74 uIU/mL High TSH 3.78 Performed By: #### L500.4050, L501.9520, L506.0400 #### [facility] [address] [place], [place], [address] T4 FREE DIRECT Collected: 03/21/2018 Status: F Source: [place] 10:30 AM [facility] REPOSITORY Order Comment: PLEASE ADD TSH TO BLOOD FROM 03-14-18 FG4 2 L Has Patient had X-rays with Contrast this admission? N TYPE CODE TESTS RESULT OUT OF RANGE REFERENCE UNITS LAB L506.0400 0.76-1.46 ng/dL Normal T4 FREE 1.10 DIRECT Performed By: #### L500.4050, L501.9520, L506.0400 #### [facility] [address] [place], [address] CBC W/DIFF, AUTOMATED Collected: 03/21/2018 Status: F Source: [place] 10:30 AM [facility] REPOSITORY TYPE CODE TESTS RESULT OUT OF RANGE REFERENCE UNITS LAB L100.1000 4.4-11.0 K/mm3 Normal WBC 7.8 LAB L100.1200 4.2-5.4 M/mm3 Low RBC 4.12 LAB L100.1300 12.0-15.0 g/dl Normal HGB 12.1 LAB L100.1400 37-47 % Low HCT 35.7 LAB L100.1500 81-99 fL Normal MCV 86.7 LAB L100.1600 27.0-32.0 pg Normal MCH 29.4 LAB L100.1700 32-36 g/gl Normal MCHC 33.9 LAB L100.1810 11.6-14.6 % Normal RDW CV 12.3 LAB L100.1820 35.1-43.9 fl Normal RDW SD 38.2 LAB L100.1900 150-450 K/mm3 Normal PLT 295 LAB L100.2000 6.2-12.0 fl Normal MPV 11.2 LAB L100.2100 47-70 % Normal NEUT% 55.5 LAB L100.2200 19-41 % Normal LY% 32.4 LAB L100.2300 0-10 % High MONO% 10.7 LAB L100.2400 0-5 % Normal EO% 0.9 LAB L100.2500 0-1 % Normal BASO% 0.4 LAB L100.2550 0.0-0.9 % Normal IM GRAN % 0.100 Result Comment: IG% - Immature Granulocytes (promyelocytes, myelocytes and metamyelocytes) > 1% indicates that a LEFT SHIFT is Present. LAB L100.2620 2.0-7.7 X10 3/uL Normal Absolute Neut 4.3 LAB L100.2720 0.83-4.51 X10 3/ul Normal Absolute Lymph 2.51 Performed By: #### L100.0100 #### [facility] [place], [address] BEDSIDE GLUCOSE Collected: 03/21/2018 Status: F Source: [place] 6:13 AM [facility] REPOSITORY TYPE CODE TESTS RESULT OUT OF REFERENCE UNITS RANGE LAB L501.080 70-110 mg/dL High BEDSIDE GLU 161 Result Comment: MANAGEMENT OF PATIENT CARE PER NURSING PROTOCOL Performed By: #### L501.080 #### [facility] Point of Care [address] [place] [address] ANKLE 2 VIEWS Observed: 03/21/2018 Status: F Source: [place] 1:33 AM [facility] REPOSITORY [facility] Imaging Services [address] [place] [address] Ankle 2 Views MR#: [id number] Acct: [id number] Name: SUSAN SEGURA Rep #: [id number] : 1945 F 73 From: Kilo Curtis MD PCP: Tommy Everett MD Status: [place] [facility] [place] Study: Ankle 2 Views Date of Exam: 03/21/18 Exam# [id number] Ordering Dr: Janae Pierce DPIsabel STUDY: X-RAY - RIGHT ANKLE REASON FOR EXAM: Female, 73 years old. [And anatomic fixation of the fibular and tibial fractures. TECHNIQUE: 2 view(s) of the ankle were obtained intraoperatively. COMPARISON: Comparison is made with prior study dated March 13, 2018. FINDINGS: The patient is status post open reduction and internal fixation of the distal fibular fracture with screw and sideplate fixation device. There is good alignment. There is evidence of screw fixation of the medial malleolar fracture. Normal tibiotalar articulation and ankle mortise. Normal visualized talus and calcaneus. The visualized subtalar, talonavicular, calcaneocuboid and tarsal articulations are normal. The soft tissue structures are unremarkable. RAD/Ankle 2 Views IMPRESSION: Satisfactory open reduction internal fixation of the fibular and tibial fractures. Electronically Signed: Kilo Curtis MD at 10:39 EST Tel [phone], Service support , CC: VAHID Pierce; Tommy Everett MD Heading And Priming Operator: Signed INTERNAL MEDICINE Observed: 03/17/2018 Status: F Source: [place] OFFICE VISIT 4:01 PM [facility] [address] [place] [address] OFFICE VISIT Date of Service: 03/14/18 MR#: [id number] Acct: [id number] Name: SUSAN SEGURA Rep #: [id number] : 1945 Provider: Soto Ann NP Age/Sex: 73/F Location: [facility] [place] Status: Signed Intake Intake Visit Reasons: SURGERY CLEARANCE Chief Complaint: presurgical clearance Allergies adhesive Adverse Reaction (Severe, Verified 03/17/18 10:07) Rash sidra Allergy (Severe, Uncoded 03/17/18 10:08) Rash,itching,blisters Medications Cholecalciferol (Vitamin D3) [Decara] 50,000 unit PO QMONTH 07/23/16 [History Confirmed 03/17/18] Latanoprost 0.005% [Xalatan Opthalmic] 1 drp EACH EYE QHS 07/23/16 [History Confirmed 03/17/18] brimonidine 0.1 % eye drops 1 drp OPHTHALMIC BID 04/10/17 [History Confirmed 03/17/18] coenzyme Q10 200 mg capsule 200 mg PO DAILY 04/10/17 [History Confirmed 03/17/18] dorzolamide 22.3 mg-timolol 6.8 mg/mL eye drops 1 drp OPHTHALMIC BID 04/10/17 [History Confirmed 03/17/18] fluoxetine 20 mg capsule 20 mg PO DAILY #90 cap 05/15/17 [Rx Confirmed 03/17/18] levothyroxine 25 mcg tablet 25 mcg PO DAILY #90 tab 05/15/17 [Rx Confirmed 03/17/18] metoprolol tartrate 50 mg tablet 50 mg PO BID #180 tab 07/01/17 [Rx Confirmed 03/17/18] glimepiride 2 mg tablet 2 mg PO QAM #90 tab 10/16/17 [Rx Confirmed 03/17/18] losartan 100 mg-hydrochlorothiazide 12.5 mg tablet 1 tab PO DAILY #90 tab 01/07/18 [Rx Confirmed 03/17/18] Aspirin [Aspirin, Baby] 81 mg PO DAILY@0800 03/17/18 [History Confirmed 03/17/18] Atorvastatin Calcium [Lipitor] 40 mg PO QHS 03/17/18 [History Confirmed 03/17/18] Metformin(XR) [Glucophage Xr] 1,000 mg PO QHS 03/17/18 [History Confirmed 03/17/18] PFSH Medical History Osteoarthritis (Chronic) Anemia (Acute) Breast cancer (Acute) Diabetes mellitus (Acute) Hearing loss (Acute) Hypothyroidism (Chronic) IBS (irritable bowel syndrome) (Chronic) Surgical History H/O cervical biopsy (Acute) H/O right mastectomy (Acute) H/O tubal ligation (Acute) History of D AND C (Acute) History of appendectomy (Acute) History of carpal tunnel release (Acute) History of carpal tunnel surgery (Acute) History of reconstruction of right breast (Acute) Normal colonoscopy (Acute) dental implants (Acute) fibroadenoma removed L breast (Acute) left breast reconstruction with mastopexy (Acute) right nipple reconstruction (Acute) Family History Mother Heart disease Hypertension Sister Cancer leukemia Social History Smoking Status: Former smoker alcohol intake: current alcohol intake frequency: a few times a month Alcohol type: hard liquor, beer substance use type: does not use what type of physical activity do you participate in: none HPI HPI Chief Complaint: presurgical clearance Details: See attached scanned nursing documentation SUSAN SEGURA, is a 73 F who presents to the office today for medical clearance for surgery. On 03/13/2018 she was walking downstairs slipped and felt for pop in her right ankle with swelling and unable to bear weight. She states she had to crawl back into her house and someone help to go to the emergency department. There, an x-ray was performed which showed a bimalleolar fracture to the right ankle. She to [facility] and was seen by Dr. Pierce and agreed to undergo an open reduction internal fixation of the right ankle due to the displacement of her fracture . Regarding the right ankle presently she is using wheelchair and is unable to bear weight on that extremity and at this time it is splinted. She denies any numbness or tingling to the affected extremity. The patient otherwise denies any fever, chills, nausea, vomiting, shortness of breath, chest pain or pressure, palpitations, orthopnea, lower extremity edema, syncope or presyncopal episodes. ROS Const Constitutional: No fever(s), chills, weakness, change in appetite, sleep problems, fatigue, malaise or frequent falls Eyes Eyes: No blurry vision, change in vision, double vision or discharge ENT ENT: No abnormal hearing, ear pain, ear pressure or dizziness/vertigo Resp Respiratory: No cough, wheezing or shortness of breath Cardio Cardiology: No chest pain at rest, chest pain with exertion, shortness of breath, dyspnea on exertion, lightheadedness, irregular heart rhythm, fast heart rate, palpitations, orthopnea or generalized swelling Gastro GI: No abdominal pain, change in bowel habits, constipation, diarrhea, vomiting or nausea/dyspepsia Musc Musculoskeletal: Positive for other (Right ankle pain see HPI); no joint pain, back pain, limited range of motion, joint swelling, muscle weakness, tingling or numbness Skin Skin: No change in skin color, wounds, rash or itching Neuro Neurology: No weakness, frequent falls, abnormal hearing, tingling, numbness, unsteady gait/balance, dizziness, loss of vision or memory loss Psych Psychiatric: No change in appetite, No memory loss, No anxiety, No depression, No Thoughts of harming yourself/Others Endo Endocrine: No fatigue, increased thirst/drinking, increased urination, increased hunger or heat intolerance Aller/Imm Allergy/Immunologic: No wheezing, itchy eyes or seasonal allergy symptoms Will/Lymp Hematologic/Lymphatic: No easy bleeding, easy bruising or enlarged lymph nodes Exam Const General: cooperative, comfortable, no acute distress Nutritional Appearance: average body habitus, well nourished Orientation: alert, oriented x3 Limitations: mental status not altered [facility] Head: normal to inspection Ears: hearing grossly normal bilaterally Nose: external nose normal Eyes General: appearance normal, both eyes and all related structures Resp Effort AND Inspection: normal respiratory effort, able to speak in complete sentences, normal respiratory pattern, symmetric chest movement, no audible wheezes, no cough Auscultation: Bilateral: Clear to Auscultation Cardio Palpation: normal PMI Rate: regular rate Heart Sounds: S1 normal, S2 normal, normal S1 and S2, no click, no gallops, no murmurs, no rubs GI Inspection: normal to inspection Auscultation: normal bowel sounds, no hyperactive bowel sounds, no hypoactive bowel sounds Palpation: soft, no hepatosplenomegaly Musc Musculoskeletal: Yes joint tenderness; no muscle weakness Cervical Spine: normal cervical lordosis Thoracic/Lumbar Spine: thoracic and lumbar spine normal to inspection Skin General: no rashes or lesions noted, elasticity normal, turgor normal Lesions: no lesions Rashes: no rashes Neuro General: alert, awake, oriented x3, CN's II-XI intact bilaterally Speech: speech normal Gait: normal gait Motor: muscle tone normal throughout Extrem General: normal exam except as noted (Right ankle fracture) Other: Right ankle unable to be examined, is currently in splint, distal sensation to the right toes are intact at this time, toes are warm to touch with full sensation. No swelling noted. Psych Appearance: grossly normal Mental Status: mental status grossly normal Affect: normal affect Attitude: cooperative Thought Process: normal Assessment AND Plan Problems 1. Closed bimalleolar fracture of right ankle, initial encounter S82.281Q 2. Preoperative clearance Z01.818 Plan Patient presents the office today for surgical clearance for bimalleolar fracture of the right ankle ORIF. She admits to pain in right lower extremity unable to bear weight and is using a wheelchair for movement. She is under the impression that this is going to be done under general anesthesia and states that she has tolerated general anesthesia in the past before for a right shoulder surgery. Will send for blood chemistries CBC, CMP, EKG and chest x-ray. Pending these results, will clear for surgery which she has scheduled on 03/19/2018 Orders Orders: Medications Discontinued: atorvastatin Discontinued Reason: Order edited - Dis40 mg PO QHS #90 3RF Lo Chadwick continuing original order Plan Detail Follow Up As scheduled or sooner if needed Coding Level of Care Code Off vis,est,level 3 Diagnoses Closed bimalleolar fracture of right ankle, initial encounter S82.437F Encounter type: initial encounter Laterality: right Preoperative clearance Z01.818 03/17/18 1601 <Electronically signed by Soto ARTEAGA> Date Soto Ann MEDICAL DOCTOR MD/MEDICAL DIRECTOR-C Cosigner Signature: Date (if applicable) CC: CHEST PA AND LATERAL Observed: 03/14/2018 Status: F Source: [place] 3:52 PM [facility] REPOSITORY [facility] Imaging Services [address] [place] [address] Chest PA and Lateral MR#: [id number] Acct: [id number] Name: SUSAN SEGURA Rep #: [id number] : 1945 F 73 From: Angel Osborne MD PCP: Tommy Everett MD Status: [facility] [place] Study: Chest PA and Lateral Date of Exam: 03/14/18 Exam# [id number] Ordering Dr: Soto Ann STUDY: X-RAY CHEST REASON FOR EXAM: Female, 73 years old. Preoperative clearance. TECHNIQUE: PA and lateral views of the chest. COMPARISON: [facility] upright chest x-ray May 06, 2014. FINDINGS: The lungs are clear and expanded. There is no demonstrated pleural abnormality. Normal size heart. Normal mediastinum and jeremiah. Normal visualized pulmonary arteries. There is atherosclerotic calcification of the aortic arch and descending thoracic aorta. There are stable multilevel degenerative changes of the visualized thoracic spine. There is interval mild degenerative osteoarthritis of the bilateral shoulders and acromioclavicular joints. There is no demonstrated abnormality of the visualized soft tissue structures of the upper abdomen. RAD/Chest PA and Lateral IMPRESSION: No acute cardiopulmonary disease. Electronically Signed: Juan Carlos Osborne MD at 16:31 EST , Service support , CC: Tommy Everett MD; Soto Ann NP Heading And Priming Operator: Signed EMERGENCY DEPARTMENT Observed: 03/13/2018 Status: F Source: [place] SUMMARY 4:17 PM [facility] REPOSITORY [facility] Medical Records Department [address] [place] [address] Emergency Department Summary 03/13/18 1031 MR#: [id number] Acct: [id number] Name: SUSAN SEGURA Rep #: [id number] : 1945 73 From: Sita Webster MD PCP: Tommy Everett MD Status: DEP ER - ER Visit Summary Date of Service: 03/13/18 Chief Complaint: [] Slipped on ice right ankle injury History of Present Illness: The patient is a 73 F [] reports diabetes other health conditions are all stable she indicates she simply slipped on some ice today twisted her right ankle struck it against the tip of the stair has a contusion there and pain, unable to walk no other complaints specifically no head neck chest back upper or lower extremity other complaints Physical Examination: [] 160/67 General, no distress resting comfortably HEENT is generally unremarkable The neck is supple no adenopathy Cardiovascular, regular rate and rhythm Lungs, clear bilateral Abdomen, soft nontender Extremities, no clubbing cyanosis or edema, she does have a contusion over the distal right ankle, this does not appear to break the skin, she has pain and discomfort any type of dorsi or plantar flexion there is no obvious instability, the foot is not tender the toes are intact the left lower extremities unremarkable, the right tib-fib knee and hip are not tender the pelvis is stable the backs unremarkable neurologically unremarkable as below Neurologic, awake alert answering questions appropriately moving all 4 extremities Test Results: [] Emergency Department Course and Treatment: [] X-ray pain management, the x-ray shows per radiology a bimalleolar ankle fracture nondisplaced, discussed the case with the patient's orthopedic surgeon Dr. Sheriff, he has the patient placed in a long posterior splint will follow-up in his office tomorrow discussed all above with patient her family they agree, posterior splint applied a nonadherent dressing was applied over the contusion again the contusion was closely examined and again did not appear to break the skin and there is nothing to suggest this is an open fracture she understood the need to follow-up Dr. Sheriff need for surgery and other outpatient management to be determined once he seen her, Percocet for pain and she will return for change in symptoms Treatment Plan: [] Disposition: [] Home stable Impression: [] Bimalleolar right ankle fracture This note was generated with [employer] dictation software. It may contain incorrect words, spelling, and punctuation that were not noted in review of the chart prior to signing ED Disposition - Plan for ED Patient: Chief Complaint: Fall Instructions: ED Mechanical Fall Referrals: Tommy Everett MD [Primary Care Provider] - What to do if you have Problems For any increased pain, shortness of breath, bleeding, nausea or vomiting, chest pain, or any unexpected problems, contact your Primary Care Provider. Call [facility] ([phone]) or report to the closest Emergency Room. Call 911 if necessary. 03/13/18 1617 <Electronically signed by Sita Webster MD> Date Sita Webster MD Cosigner Signature (If Indicated): Date CC: Tommy Everett MD DISCHARGE INSTRUCTION Observed: 03/13/2018 Status: F Source: [place] 11:55 AM [facility] Medical Records Department [address] [place] [address] Discharge Instruction 03/13/18 1153 MR#: [id number] Acct: [id number] Name: SUSAN SEGURA Rep #: [id number] : 1945 73 From: Sita Webster MD PCP: Tommy Everett MD Status: REG ER ED Disposition - Plan for ED Patient: Chief Complaint: Fall Instructions: ED Mechanical Fall, ED Fx Ankle General Prescriptions: Oxycodone HCl/Acetaminophen [Percocet 5/325] 1 tab PO Q6H PRN PRN 3 Days #12 tab PRN Reason: Pain Referrals: Tommy Everett MD [Primary Care Provider] - Jose Francisco Sheriff DO [STAFF PHYSICIAN] - What to do if you have Problems For any increased pain, shortness of breath, bleeding, nausea or vomiting, chest pain, or any unexpected problems, contact your Primary Care Provider. Call [facility] ([phone]) or report to the closest Emergency Room. Call 911 if necessary. 03/13/18 1155 <Electronically signed by Sita Webster MD> Date Sita Webster MD Cosigner Signature (If Indicated): Date CC: Tommy Everett MD DISCHARGE INSTRUCTION Observed: 03/13/2018 Status: F Source: [place] 10:35 AM [facility] REPOSITORY [facility] Medical Records Department [address] [place] [address] Discharge Instruction 03/13/18 103 MR#: [id number] Acct: [id number] Name: SUSAN SEGURA Rep #: [id number] : 1945 73 From: Sita Webster MD PCP: Tommy Everett MD Status: PRE ER ED Disposition - Plan for ED Patient: Chief Complaint: Fall Instructions: ED Mechanical Fall Referrals: Tommy Everett MD [Primary Care Provider] - What to do if you have Problems For any increased pain, shortness of breath, bleeding, nausea or vomiting, chest pain, or any unexpected problems, contact your Primary Care Provider. Call [facility] ([phone]) or report to the closest Emergency Room. Call 911 if necessary. 03/13/18 1035 <Electronically signed by Sita Webster MD> Date Sita Webster MD Cosigner Signature (If Indicated): Date CC: Tommy Everett MD FOOT MIN 3 VIEWS Observed: 03/13/2018 Status: F Source: [place] 10:33 AM [facility] REPOSITORY [facility] Imaging Services [address] [place] [address] Foot min 3 Views MR#: [id number] Acct: [id number] Name: SUSAN SEGURA Rep #: [id number] : 1945 F 73 From: Kilo Curtis MD PCP: Tommy Everett MD Status: REG ER Study: Foot min 3 Views Date of Exam: 03/13/18 Exam# [id number] Ordering Dr: Sita Webster MD STUDY: X-RAY - RIGHT FOOT CLINICAL: Female, 73 years old. Pain and swelling following a fall. TECHNIQUE: 3 view(s) of the foot. COMPARISON: None. FINDINGS: Nondisplaced fracture of the distal fibula with extension to the lateral malleolus as well as an avulsion fracture of the medial malleolus. There is disruption of the ankle mortise. Normal talus, calcaneus, and tarsal bones. Normal visualized subtalar, talonavicular, calcaneocuboid, tarsal and tarsometatarsal articulations. Normal metatarsi. Normal metatarsophalangeal joint of the great toe. Normal tibial and fibular sesamoid bones. Normal interphalangeal joint of the great toe. Normal phalanges of the great toe. Normal second through fifth metatarsophalangeal joints. Normal interphalangeal joints and phalanges of the lesser toes. Soft tissue swelling. RAD/Foot min 3 Views IMPRESSION: Nondisplaced avulsion fracture of the medial malleolus as well as oblique fracture of the distal fibula and lateral malleolus. Soft tissue swelling. Electronically Signed: Kilo Curtis MD at 11:13 EST Tel [phone], Service support , CC: MD Elsa Webster; Tommy Everett MD Heading And Priming Operator: Signed ANKLE MIN 3 VIEWS Observed: 03/13/2018 Status: F Source: [place] 10:30 AM [facility] REPOSITORY [facility] Imaging Services [address] [place] [address] Ankle min 3 Views MR#: [id number] Acct: [id number] Name: SUSAN SEGURA Rep #: [id number] : 1945 F 73 From: Kilo Curtis MD PCP: Tommy Everett MD Status: REG ER Study: Ankle min 3 Views Date of Exam: 03/13/18 Exam# [id number] Ordering Dr: Sita Webster MD STUDY: X-RAY - RIGHT ANKLE REASON FOR EXAM: Female, 73 years old. Pain and swelling following a fall. TECHNIQUE: 3 view(s) of the ankle. COMPARISON: None. FINDINGS: Nondisplaced oblique fracture of the distal fibula. Avulsion fracture of the medial malleolus. Asymmetry of the ankle mortise. Normal visualized talus and calcaneus. The visualized subtalar, talonavicular, calcaneocuboid and tarsal articulations are normal. Soft tissue swelling. RAD/Ankle min 3 Views IMPRESSION: Nondisplaced oblique fracture of the distal fibula as well as a nondisplaced avulsion fracture of the medial malleolus of the distal tibia with overlying soft tissue swelling. Electronically Signed: Kilo Curtis MD at 11:11 EST Tel [phone], Service support , CC: MD Elas Webster; Tommy Everett MD Heading And Priming Operator: Signed L/S SPINE MIN 4 Observed: 01/27/2018 Status: F Source: [place] VIEWS 3:34 PM [facility] REPOSITORY [facility] Imaging Services [address] [place] [id number] L/S Spine Min 4 Views MR#: [id number] Acct: [id number] Name: SUSAN SEGURA Rep #: [id number] : 1945 F 72 From: Kassandra Boone MD PCP: Tommy Everett MD Status: REG CLI Study: L/S Spine Min 4 Views Date of Exam: 01/27/18 Exam# [id number] Ordering Dr: Neslon Ramos STUDY: X-RAY - LUMBAR SPINE REASON FOR EXAM: Female, 72 years old. Lower back pain. TECHNIQUE: 5 view(s) of the lumbar spine were obtained. COMPARISON: None FINDINGS: Normal lumbar lordosis. There is no substantial scoliosis. There is a normal alignment of the vertebrae. There is diffuse demineralization with multi-level endplate spondylosis. There is multi-level degenerative disc disease with multi- level disc space narrowing. There is atherosclerotic calcification of the abdominal aorta without a demonstrated aneurysm. RAD/L/S Spine Min 4 Views IMPRESSION: Degenerative changes of the spine, as detailed above. Atherosclerosis. Electronically Signed: Kassandra Boone MD at 16:16 EDT Tel , Service support , CC: Nelson Ramos; Tommy Everett MD Heading And Priming Operator: Signed INTERNAL MEDICINE Observed: 01/07/2018 Status: F Source: [place] OFFICE VISIT 3:56 PM [facility] REPOSITORY [facility] [address] [place] [address] OFFICE VISIT Date of Service: 01/07/18 MR#: [id number] Acct: [id number] Name: SUSAN SEGURA Rep #: [id number] : 1945 Provider: Tommy Everett MD Age/Sex: 72/F Location: [facility] Status: Signed Intake Vital Signs01/07/18 Height 5 ft 2 in Intake Visit Reasons: 3 MO FU Chief Complaint: 3 mo F/U Is patient in pain?: Yes (Rt. hip) Allergies adhesive Adverse Reaction (Severe, Verified 10/09/17 16:53) Rash sidra Adverse Reaction (Severe, Uncoded 10/09/17 16:53) Rash Medications Vitamin E Mixed [Vitamin E] 400 unit PO DAILY 05/06/14 [History Confirmed 10/09/17] Aspirin [Aspirin, Baby] 81 mg PO DAILY@0800 #30 tab.chew 05/07/14 [Rx Confirmed 10/09/17] Cholecalciferol (Vitamin D3) [Decara] 50,000 unit PO QMONTH 07/23/16 [History Confirmed 10/09/17] Latanoprost 0.005% [Xalatan Opthalmic] 1 drp EACH EYE QHS 07/23/16 [History Confirmed 10/09/17] brimonidine 0.1 % eye drops 1 drp OPHTHALMIC ONCE 04/10/17 [History Confirmed 10/09/17] coenzyme Q10 200 mg capsule 200 mg PO ONCE 04/10/17 [History Confirmed 10/09/17] dorzolamide 22.3 mg-timolol 6.8 mg/mL eye drops 1 drp OPHTHALMIC BID 04/10/17 [History Confirmed 10/09/17] omeprazole 40 mg capsule,delayed release 20 mg PO DAILY cap 04/10/17 [History Confirmed 10/09/17] atorvastatin 40 mg tablet 40 mg PO QHS #90 tab 01/17/18 [Rx Confirmed 10/09/17] fluoxetine 20 mg capsule 20 mg PO DAILY #90 cap 05/15/17 [Rx Confirmed 10/09/17] levothyroxine 25 mcg tablet 25 mcg PO DAILY #90 tab 05/15/17 [Rx Confirmed 10/09/17] metoprolol tartrate 50 mg tablet 50 mg PO BID #180 tab 07/01/17 [Rx Confirmed 10/09/17] blood sugar diagnostic strips See Dose Instructions .ROUTE .MEDSUPPLY #100 ea 07/09/17 [Rx Confirmed 10/09/17] metformin ER 500 mg tablet,extended release 24 hr 1,000 mg PO QPM #180 tab 07/09/17 [Rx Confirmed 10/09/17] omega 3 PO 07/09/17 [History Confirmed 10/09/17] glimepiride 2 mg tablet 2 mg PO QAM #90 tab 10/16/17 [Rx] Handicap Placard #1 ea 01/07/18 [Rx Confirmed 01/07/18] losartan 100 mg-hydrochlorothiazide 12.5 mg tablet 1 tab PO DAILY #90 tab 01/07/18 [Rx Confirmed 01/07/18] Post menopausal: Yes PFSH Medical History Osteoarthritis (Chronic) Anemia (Acute) Breast cancer (Acute) Diabetes mellitus (Acute) Hearing loss (Acute) Hypothyroidism (Chronic) IBS (irritable bowel syndrome) (Chronic) Surgical History H/O cervical biopsy (Acute) H/O right mastectomy (Acute) H/O tubal ligation (Acute) History of D AND C (Acute) History of appendectomy (Acute) History of carpal tunnel release (Acute) History of carpal tunnel surgery (Acute) History of reconstruction of right breast (Acute) Normal colonoscopy (Acute) dental implants (Acute) fibroadenoma removed L breast (Acute) left breast reconstruction with mastopexy (Acute) right nipple reconstruction (Acute) Family History Mother Heart disease Hypertension Sister Cancer leukemia Social History Smoking Status: Former smoker alcohol intake: current alcohol intake frequency: a few times a month Alcohol type: hard liquor, beer substance use type: does not use what type of physical activity do you participate in: none HPI HPI Chief Complaint: 3 mo F/U Details: SUSAN SEGURA, is a 72yo F who presents to the office today for follow-up of her chronic medical conditions. She has no acute complaints at this time. Blood pressure noted to be elevated at this time. Repeat blood pressure also elevated. Patient reports compliance with her medications and dietary modifications. A1c down from 7.2-6.6. Recently had her medications adjusted. ROS Const Constitutional: No weight change, body ache, chills, fatigue, sleep problems, fever(s), change in appetite, snoring, weakness, frequent falls, headache(s) or excessive sweating Eyes Eyes: No change in vision, eye pain, light sensitivity or blurry vision ENT ENT: No headache(s), abnormal hearing, ear pain, tinnitus, nasal congestion, sore throat or neck pain Resp Respiratory: No snoring, cough, shortness of breath or wheezing Cardio Cardiology: No excessive sweating, chest pain at rest, chest pain with exertion, shortness of breath, dyspnea on exertion, palpitations, orthopnea or lightheadedness Gastro GI: No abdominal pain, change in bowel habits, constipation, diarrhea, vomiting, nausea/dyspepsia or cramping Genitourinary-Female: No burning urination, painful urination, urinary incontinence, urinary frequency, abnormal vaginal bleeding, pelvic pain or other Musc Musculoskeletal: Positive for other (Rt. hip pain ); no neck pain, abnormal walking, joint pain, back pain, limited range of motion, numbness or tingling Skin Skin: No redness, dry skin, itching, lesions, wounds or rash Neuro Neurology: No weakness, frequent falls, headache(s), abnormal hearing, abnormal walking, numbness, tingling, abnormal speech, dizziness or memory loss Psych Psychiatric: No change in appetite, No memory loss, No anxiety, No depression, No Thoughts of harming yourself/Others Endo Endocrine: No fatigue, excessive sweating, cold intolerance, increased thirst/drinking, heat intolerance, flushing or increased hunger Aller/Imm Allergy/Immunologic: No wheezing, itchy eyes, hives or seasonal allergy symptoms Will/Lymp Hematologic/Lymphatic: No easy bleeding, easy bruising or enlarged lymph nodes Exam Const General: cooperative, comfortable, no acute distress Orientation: alert, awake, oriented x3 HENMT Head: normocephalic, atraumatic Eyes EOM: EOM intact bilaterally, No nystagmus Resp Effort AND Inspection: normal respiratory effort, able to speak in complete sentences Auscultation: Bilateral: Clear to Auscultation Cardio Rate: regular rate Rhythm: regular rhythm Heart Sounds: S1 normal GI Palpation: soft, no hepatosplenomegaly Neuro General: CN's II-XI intact bilaterally, moves all extremities, no focal motor deficits, alert, awake, oriented x3 Cranial Nerves: no nystagmus Cognition: normal cognition Speech: speech normal Extrem General: no clubbing, cyanosis or edema Psych Mood: congruent mood Attitude: cooperative Assessment AND Plan 1. Hypertension I10 Plan Still not optimally controlled. Increase losartan to 100 mg daily. Continue hydrochlorothiazide 12.5 mg daily. Continue dietary and lifestyle modifications. Follow-up in 3 months. Orders Orders: 2. Type 2 diabetes mellitus E11.9 Plan Better controlled. A1c down from 7.2-6.6. Continue current medication and lifestyle modifications. Repeat A1c and urine microalbumin test in 3 months. Orders Orders: 3. Hypothyroidism E03.9 Plan Stable. No concerns for over or under correction at this time. Thyroid function studies ordered. Continue current medications. Orders Orders: 4. History of breast cancer Z85.3 Plan Stable. Continues to follow-up with oncology on a yearly basis. Will follow 5. Osteoarthritis M19.90 Plan Osteoarthritis/degenerative disease. Predominantly of the hips. Referred to Ortho however patient is here to. Advised to schedule her appointment. 6. Healthcare maintenance Z00.00 Plan No further colon cancer screening recommended. Last mammogram within normal. Next due next year. Discuss shingles vaccine at her next visit. This note was generated with [employer] dictation software. It may contain incorrect words, spelling, and punctuation that were not noted in checking the note before signing. Plan Detail Other Medications New: Discontinued: losartan-hydrochlorothiazide 50-12.5 mg Discontinued Reason: Order Chan1 tab PO QDAY ged Coding Level of Care Code Off vis,est,level 4 Diagnoses Hypertension I10 Hypertension type: essential hypertension Type 2 diabetes mellitus E11.9 Hypothyroidism E03.9 History of breast cancer Z85.3 Osteoarthritis M19.90 Healthcare maintenance Z00.00 01/07/18 0496 <Electronically signed by Tommy Everett MD> Date Tommy Everett MD Cosigner Signature: Date (if applicable) CC: HEMOGLOBIN A1C Collected: 01/06/2018 Status: F Source: [place] 10:43 AM [facility] REPOSITORY TYPE CODE TESTS RESULT OUT OF RANGE REFERENCE UNITS LAB L501.9985 4.2-6.3 % High HGB A1C 6.6 Performed By: #### L501.9985 #### [facility] [address] [place], [place], [address] COMPREHENSIVE METABOLIC Collected: 01/06/2018 Status: F Source: [facility] 10:43 AM [facility] REPOSITORY TYPE CODE TESTS RESULT OUT OF RANGE REFERENCE UNITS LAB L501.0100 74-106 mg/dL High GLU 197 Result Comment: Fasting Glucose result greater than or equal to 126 mg/dL suggests DIABETES MELLITUS per A.D.A. criteria. Please note revised GLUCOSE reference range effective 2017. LAB L501.1000 7-18 mg/dL High BUN 21 LAB L501.1100 0.55-1.02 mg/dL High CREAT,SERUM 1.04 Result Comment: The validity of the calculated GFR AND GFRAA in patients over 70 years has not been determined. Clinical correlation is essential. LAB L501.1110 >60 mL/min Low EST GFR 55 Result Comment: Non- GFR Calc LAB L501.1115 >60 mL/min Normal EST GFR - AA 67 Result Comment: GFR Calc LAB L501.1300 10-20 RATIO High BUN/CRE 20.2 LAB L501.1500 6.4-8.2 g/dL T Normal PROT 7.2 LAB L501.1800 3.2-5.0 g/dL Normal ALB 3.6 LAB L501.1950 2.2-4.2 g/dL Normal GLOB 3.6 LAB L501.2000 0.9-2.4 RATIO Normal A/G 1.0 LAB L501.2200 8.5-10.1 mg/dL CA Normal 9.1 LAB L501.4100 15-37 U/L Normal AST 33 LAB L501.4305 45-117 U/L Normal ALK P 106 LAB L501.4405 13-56 U/L High ALT 59 LAB L501.4600 0.20-1.00 mg/dL T Normal BILI 0.30 LAB L501.5300 136-145 mmol/L NA Normal 137 LAB L501.5600 3.5-5.1 mmol/L K Normal 4.1 LAB L501.5900 98-107 mmol/L CL Normal 104 LAB L501.6100 21.0-32.0 mmol/L Normal CO2 22.0 LAB L501.6200 5-15 Normal GAP 11 Performed By: #### L500.4050, L500.4100 #### [facility] [address] [place], [place], [address] LIPID PROFILE Collected: 01/06/2018 Status: F Source: [place] 10:43 AM [facility] REPOSITORY TYPE CODE TESTS RESULT OUT OF RANGE REFERENCE UNITS LAB L501.4900 200 mg/dL Normal CHOL 137 Result Comment: <200 mg/dL Desirable 200-240 mg/dL Borderline >240 mg/dL High Risk LAB L501.5000 mg/dL Normal TRIG 131 Result Comment: The drugs N-Acetylcysteine and Metamizole may falsely depress this assay. Serum Triglycerides Reference Interval Normal <150 mg/dL Borderline high 150 - 199 mg/dL High 200 - 499 mg/dL Very High > or = 500 mg/dL LAB L501.6400 mg/dL Normal HDL 43 Result Comment: The drugs N-Acetylcysteine and Metamizole may falsely depress this assay. Reference Range HDL <40 mg/dL Low HDL Cholesterol HDL >or= 60 mg/dL High HDL Cholesterol LAB L501.6500 0-130 mg/dL Normal LDL 68 LAB L501.6600 5-40 mg/dL Normal VLDL 26 Performed By: #### L500.4050, L500.4100 #### [facility] [address] [place], [address] HEMOGLOBIN A1C Collected: 10/16/2017 Status: F Source: [place] 12:37 PM [facility] REPOSITORY TYPE CODE TESTS RESULT OUT OF RANGE REFERENCE UNITS LAB L501.9985 4.2-6.3 % High HGB A1C 7.2 Performed By: #### L501.9985 #### [facility] [address] [place], [address] RHEUMATOID FACTOR Collected: 10/16/2017 Status: F Source: [place] 12:37 PM [facility] REPOSITORY TYPE CODE TESTS RESULT OUT OF RANGE REFERENCE UNITS LAB L505.7010 <15 IU/mL Normal RHEUMATOID FAC < 10.0 Performed By: #### L505.7010 #### [place] [facility] [address] [place], [address] INTERNAL MEDICINE Observed: 10/10/2017 Status: F Source: [place] OFFICE VISIT 7:03 PM [facility] REPOSITORY [facility] [address] [place] [address] [place] [address] OFFICE VISIT Date of Service: 10/09/17 MR#: [id number] Acct: [id number] Name: SUSAN SEGURA Rep #: [id number] : 1945 Provider: Tommy Everett MD Age/Sex: 72/F Location: [facility] Status: Signed Intake Vital Signs10/09/17 Height 5 ft 2 in 10/09/17 Weight: 194 lb 10/09/17 Body Mass Index (BMI) 35.4 10/09/17 Blood Pressure 155/78 Intake Visit Reasons: 3 mo f/u Chief Complaint: 3 mo F/U Diabetes Is patient in pain?: No Allergies adhesive Adverse Reaction (Severe, Verified 10/09/17 16:53) Rash sidra Adverse Reaction (Severe, Uncoded 10/09/17 16:53) Rash Medications Vitamin E Mixed [Vitamin E] 400 unit PO DAILY 05/06/14 [History Confirmed 10/09/17] Aspirin [Aspirin, Baby] 81 mg PO DAILY@0800 #30 tab.chew 05/07/14 [Rx Confirmed 10/09/17] Cholecalciferol (Vitamin D3) [Decara] 50,000 unit PO QMONTH 07/23/16 [History Confirmed 10/09/17] Latanoprost 0.005% [Xalatan Opthalmic] 1 drp EACH EYE QHS 07/23/16 [History Confirmed 10/09/17] brimonidine 0.1 % eye drops 1 drp OPHTHALMIC ONCE 04/10/17 [History Confirmed 10/09/17] coenzyme Q10 200 mg capsule 200 mg PO ONCE 04/10/17 [History Confirmed 10/09/17] dorzolamide 22.3 mg-timolol 6.8 mg/mL eye drops 1 drp OPHTHALMIC BID 04/10/17 [History Confirmed 10/09/17] omeprazole 40 mg capsule,delayed release 20 mg PO DAILY cap 04/10/17 [History Confirmed 10/09/17] atorvastatin 40 mg tablet 40 mg PO QHS #90 tab 05/15/17 [Rx Confirmed 10/09/17] fluoxetine 20 mg capsule 20 mg PO DAILY #90 cap 05/15/17 [Rx Confirmed 10/09/17] levothyroxine 25 mcg tablet 25 mcg PO DAILY #90 tab 05/15/17 [Rx Confirmed 10/09/17] losartan 50 mg-hydrochlorothiazide 12.5 mg tablet 1 tab PO QDAY #90 tab 05/15/17 [Rx Confirmed 10/09/17] glimepiride 1 mg tablet 1 mg PO QAM #90 tab 06/28/17 [Rx Confirmed 10/09/17] metoprolol tartrate 50 mg tablet 50 mg PO BID #180 tab 07/01/17 [Rx Confirmed 10/09/17] blood sugar diagnostic strips See Dose Instructions .ROUTE .MEDSUPPLY #100 ea 07/09/17 [Rx Confirmed 10/09/17] metformin ER 500 mg tablet,extended release 24 hr 1,000 mg PO QPM #180 tab 07/09/17 [Rx Confirmed 10/09/17] omega 3 PO 07/09/17 [History Confirmed 10/09/17] [facility] Medical History Osteoarthritis (Chronic) Anemia (Acute) Breast cancer (Acute) Diabetes mellitus (Acute) Hearing loss (Acute) Hypothyroidism (Chronic) IBS (irritable bowel syndrome) (Chronic) Surgical History H/O cervical biopsy (Acute) H/O right mastectomy (Acute) H/O tubal ligation (Acute) History of D AND C (Acute) History of appendectomy (Acute) History of carpal tunnel release (Acute) History of carpal tunnel surgery (Acute) History of reconstruction of right breast (Acute) Normal colonoscopy (Acute) dental implants (Acute) fibroadenoma removed L breast (Acute) left breast reconstruction with mastopexy (Acute) right nipple reconstruction (Acute) Family History Mother Heart disease Hypertension Sister Cancer leukemia Social History Smoking Status: Former smoker alcohol intake: current alcohol intake frequency: a few times a month Alcohol type: hard liquor, beer substance use type: does not use what type of physical activity do you participate in: none HPI HPI Chief Complaint: 3 mo F/U Diabetes Details: SUSAN SEGURA, is a 72yo F who presents to the office today for follow-up of her chronic medical conditions. She brings along a blood sugar log which is not very well controlled blood sugars. Is currently on metformin and glimepiride which she reports compliance with. Blood pressure also mildly elevated. Patient states that she has a low salt however does not completely watch her total sodium intake. She is also concerned about bilateral hip pain. Recent x- ray done by her oncologist the patient was suggestive of osteoarthritis. She is open to an Ortho referral ROS Const Constitutional: No chills, fatigue, fever(s), frequent falls, malaise, weakness, sleep problems or change in appetite Eyes Eyes: No blurry vision, change in vision, double vision, discharge or visual disturbances ENT ENT: No abnormal hearing, ear pain, ear pressure, tinnitus or dizziness/vertigo Resp Respiratory: No cough, shortness of breath or wheezing Cardio Cardiology: No chest pain at rest, chest pain with exertion, shortness of breath, dyspnea on exertion, generalized swelling, irregular heart rhythm, lightheadedness, orthopnea, fast heart rate or palpitations Gastro GI: No abdominal pain, change in bowel habits, constipation, diarrhea, nausea/dyspepsia or vomiting Genitourinary-Female: No difficulty urinating, burning urination, painful urination, urinary incontinence, urinary frequency, urinary urgency, urinary hesitancy, urinary retention, Frequent nighttime urination/ nocturia, sexual problems, genital lesions, abnormal vaginal bleeding, pelvic pain, vaginal dryness, vaginal odor or Vaginal Itching Musc Musculoskeletal: Positive for joint pain (Rt hip); no back pain, joint swelling, limited range of motion, numbness or tingling Skin Skin: No change in skin color, itching or wounds Breast Breast: No breast lump or breast pain Neuro Neurology: No frequent falls, weakness, abnormal hearing, numbness, tingling, unsteady gait/balance, dizziness, loss of vision, memory loss or visual disturbances Psych Psychiatric: No memory loss, No anxiety, No change in appetite, No depression, No Thoughts of harming yourself/Others Endo Endocrine: No fatigue, heat intolerance, increased thirst/drinking, increased hunger or increased urination Aller/Imm Allergy/Immunologic: No wheezing, itchy eyes or seasonal allergy symptoms Will/Lymp Hematologic/Lymphatic: No easy bleeding, easy bruising or enlarged lymph nodes Exam Const General: cooperative, comfortable, no acute distress Orientation: alert, awake, oriented x3 [facility] Head: normocephalic, atraumatic Eyes EOM: EOM intact bilaterally, No nystagmus Resp Effort AND Inspection: normal respiratory effort, able to speak in complete sentences Auscultation: Bilateral: Clear to Auscultation Cardio Rate: regular rate Rhythm: regular rhythm Heart Sounds: S1 normal GI Palpation: soft, no hepatosplenomegaly Neuro General: CN's II-XI intact bilaterally, moves all extremities, no focal motor deficits, alert, awake, oriented x3 Cranial Nerves: no nystagmus Cognition: normal cognition Speech: speech normal Extrem General: no clubbing, cyanosis or edema Psych Mood: congruent mood Attitude: cooperative Assessment AND Plan 1. Type 2 diabetes mellitus E11.9 Plan Blood sugar log show not very good control. A1c ordered. Possibly increase glimepiride after review. Follow-up with results. Orders Orders: 2. Hypertension I10 Plan Not optimally controlled. Lifestyle modifications discussed including strict sodium restriction. Continue current medications. Advised to keep a blood pressure log. Follow-up at next visit. 3. Osteoarthritis M19.90 Plan Patient not open to NSAIDs or joint injections. Referred to orthopedics surgery. This note was generated with [employer] software. It may contain incorrect words, spelling, and punctuation that were not noted in checking the note before signing. Orders Orders: Referrals: Plan Detail Other Orders Orders: Coding Level of Care Code Off vis,est,level 3 Diagnoses Type 2 diabetes mellitus E11.9 Hypertension I10 Osteoarthritis M19.90 10/10/17 1903 <Electronically signed by Tommy Everett MD> Date Tommy Everett MD Cosigner Signature: Date (if applicable) CC: ONCOLOGY VISIT REPORT Observed: 09/03/2017 Status: F Source: [place] 2:26 PM [facility] REPOSITORY [facility] [address] [place], [place] [address] [address] OFFICE VISIT Date of Service: 09/03/17 1311 MR#: [id number] Acct: [id number] Name: SUSAN SEGURA Rep #: [id number] : 1945 From: Shu ARTEAGA Age/Sex: 72/F Location: OMD Status: Signed Subjective - Date of Service Date of Service:: 09/03/17 - Chief Complaint Follow up- breast cancer - History of Present Illness Ms. 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 S/P right modified radical mastectomy and breast implant. CMF chemotherapy x6 months, completed 01/20/1998, followed by tamoxifen x5 years completed January 2003 and Femara 07/28/2003-07/25/2004. - Interval History The patient is presenting to clinic for routine annual follow up. Underwent yearly mammogram 08/28/17. States I don't and I will not when asked if she performs breast self examinations but denies any lumps/bumps or skin abnormalities she may have noticed while bathing. Further denies headaches, weight loss, SOB, cough, abd pain, changes in her bowel habits, swelling pain of extremities. Chronic back, shoulder, bilateral hip and feet pain continue to the same degree. Patient underwent bone scan 09/2016 witch revealed wide spread degenerative arthritis in the aforementioned locations. - Past Medical/Social History Past Medical History Past Medical History: Anemia,Diabetes mellitus,Glaucoma,Hyperlipidemia ,Hypertension Cancer: Breast cancer Past Surgical History Surgical: Appendectomy,Breast,Carpal tunnel,Mastectomy Other Surgical History: D AND C CERVISAL BIPOPSY TUBAL LIGATION DENTAL IMPLANTS Family History Paternal Past Medical History: Unknown Maternal Past Medical History: Heart disease,Hypertension Social History Social History: No changes Smoking Status Former smoker Review of Systems Constitutional:: Denies: Fever, Sweats, Weight loss, Appetite change, Chills Cardiovascular:: Denies: Chest pain, Palpitations, Dyspnea on exertion, Orthopnea, PND, Shortness of breath Respiratory: Denies: Cough, Hemoptysis, Shortness of Breath, Wheezing Gastrointestinal:: Denies: Abdominal pain, Nausea, Vomiting, Diarrhea, Constipation, Hematochezia Genitourinary: Denies: Dysuria, Hematuria, 15, Flank pain Musculoskeletal:: Reports: Back pain, Arthralgia. Denies: Myalgia Skin: Denies: Rash, Skin Changes, Wounds Neurological:: Denies: Headache, Dizziness, Numbness, Tingling, Frequent falls, Visual changes, Tinnitus, Hearing loss Psychiatric: Denies: Anxiety, Depression, Homicidal Ideations, Suicidal Ideations Vital Signs Height 5 ft 2 in Weight: 195 lb Weight in Pounds 195.0 lbs Pulse Ox 96 - Physical Exam General: Alert, Oriented x3, No apparent distress HEENT: Atraumatic, Normocephalic Oropharynx:: Negative for: Dry mucosa, Ulcerated lesions Neck:: Supple, Trachea midline. Negative for: JVD, bilateral Cardiac:: Regular rate, Regular rhythm, Normal S1, Normal S2. Negative for: Murmur Lungs: Clear to auscultation, Excusion symmetrical. Negative for: Rhonchi, Wheezes Abdomen:: Bowel sounds x 4, Soft, Non-tender, Non-distended. Negative for: Hepatosplenomegaly Extremities:: Negative for: Cyanosis, Edema Neurological: Neuro grossly intact Skin:: - - Pin point area of dark integument left medial knee, flush with the skin. surrounding integument intact. Appears as small foreign body.. Negative for: Lesions, Rash, Petechiae, Nevus, Ecchymosis Psychiatric:: Agitated, Appropriate affect Lymphatics:: Negative for: Cervical lymphadenopathy, Supraclavicular lymphadenopathy, Axillary lymphadenopathy Breast:: - - Left breast shows well healed scar, no palpable masses, skin abnormalities, nippe discharge/retraction. Right breast implant in place, no palpable masses, skin abnormalities. No axillary lymphadenopathy bilat. Diagnostic Data: 08/28/17 Unilateral left screening mammogram reviewed, stable. BI RADS Category 2: Benign. Assessment and Plan 1. H/o stage IIB right breast cancer- Now 19 yrs out from her original date of diagnosis. Left breast mammogram from 08/28/17 reviewed, BI RADS category 2. Clinical breast exam unchanged. Blood work was not complete. Will get CBC/CMP today and patient will be called with those results. Otherwise she is not endorsing any signs or symptoms of recurrence or late effects from chemotherapy. Left breast screening mammogram due August 2018. Patient educated on importance of breast self exam monthly. 2. Chronic pain unrelated to cancer- Chronic back, shoulder, bilateral hip and feet pain continue to the same degree. Patient underwent bone scan 09/2016 which revealed wide spread degenerative arthritis in the aforementioned locations. Recommended follow up with pcp. 3. Skin lesion-left lateral knee. Appears to be small foreign body, flush with skin. Regardless patient has family history positive for melanoma and given she herself is cancer survivor recommend full body dermatologic evaluation at least annually. Offered patient referral to two different local biomathematician, patient declined. Patient is encouraged to begin monthly breast self exams and encouraged to promptly report any changes. Otherwise may return to office in 1 year 1 week after mammogram to review results, CBC and CMP prior. Shu Garcia, MSN, CARDIOLOGY PHYSICIAN ASSISTANT-C, AOCNP Medications: Prescriptions This Visit Medication Instructions Recorded Cholecalciferol (Vitamin D3) 50,000 unit PO QMONTH 07/23/16 [Decara] Latanoprost 0.005% [Xalatan 1 drp EACH EYE QHS 07/23/16 Opthalmic] Primary Care Provider: Tommy Everett MD Referring Provider: Rafiq Galdamez - Problem List (1) History of breast cancer Status: Chronic (2) Chronic pain Status: Acute Qualifiers: Chronic pain type: other chronic pain Qualified Code(s): G89.29 - Other chronic pain (3) Skin lesion Status: Acute 09/03/17 1426 <Electronically signed by Shu ARTEAGA> Date Shu ARTEAGA Cosigner Signature: Date (if applicable) CC: CBC W/DIFF, AUTOMATED Collected: 09/03/2017 Status: F Source: [place] 2:03 PM [facility] REPOSITORY Order Comment: Reason for Laboratory Test . TYPE CODE TESTS RESULT OUT OF RANGE REFERENCE UNITS LAB L100.1000 4.4-11.0 K/mm3 Normal WBC 6.0 LAB L100.1200 4.2-5.4 M/mm3 Normal RBC 4.53 LAB L100.1300 12.0-15.0 g/dl Normal HGB 12.7 LAB L100.1400 37-47 % Normal HCT 37.1 LAB L100.1500 81-99 fL Normal MCV 81.9 LAB L100.1600 27.0-32.0 pg Normal MCH 28.0 LAB L100.1700 32-36 g/gl Normal MCHC 34.2 LAB L100.1810 11.6-14.6 % Normal RDW CV 13.3 LAB L100.1820 35.1-43.9 fl Normal RDW SD 39.9 LAB L100.1900 150-450 K/mm3 Normal PLT 330 LAB L100.2000 6.2-12.0 fl Normal MPV 10.6 LAB L100.2100 47-70 % Low NEUT% 42.7 LAB L100.2200 19-41 % High LY% 46.8 LAB L100.2300 0-10 % Normal MONO% 6.8 LAB L100.2400 0-5 % Normal EO% 3.0 LAB L100.2500 0-1 % Normal BASO% 0.5 LAB L100.2550 0.0-0.9 % Normal IM GRAN % 0.200 Result Comment: IG% - Immature Granulocytes (promyelocytes, myelocytes and metamyelocytes) > 1% indicates that a LEFT SHIFT is Present. LAB L100.2620 2.0-7.7 X10 3/uL Normal Absolute Neut 2.6 LAB L100.2720 0.83-4.51 X10 3/ul Normal Absolute Lymph 2.82 Performed By: #### L100.0100, L500.4050 #### [facility] [address] [place], [address] COMPREHENSIVE METABOLIC Collected: 09/03/2017 Status: F Source: [facility] 2:03 PM [facility] REPOSITORY Order Comment: Reason for Laboratory Test . TYPE CODE TESTS RESULT OUT OF RANGE REFERENCE UNITS LAB L501.0100 74-106 mg/dL High GLU 117 Result Comment: Fasting Glucose result from 100 to 125 mg/dL suggests IMPAIRED HOMEOSTASIS per A.D.A. criteria. Please note revised GLUCOSE reference range effective 2017. LAB L501.1000 7-18 mg/dL High BUN 22 LAB L501.1100 0.55-1.02 mg/dL Normal CREAT,SERUM 1.00 Result Comment: The validity of the calculated GFR AND GFRAA in patients over 70 years has not been determined. Clinical correlation is essential. LAB L501.1110 >60 mL/min Low EST GFR 58 Result Comment: Non- GFR Calc LAB L501.1115 >60 mL/min Normal EST GFR - AA 70 Result Comment: GFR Calc LAB L501.1255 ml/min Normal Estimated CRCL 39.63 LAB L501.1300 10-20 RATIO High BUN/CRE 22.0 LAB L501.1500 6.4-8. g/dL Normal 2 T PROT 7.7 LAB L501.1800 3.2-5. g/dL Normal 0 ALB 3.9 LAB L501.1950 2.2-4. g/dL Normal 2 GLOB 3.8 LAB L501.2000 0.9-2. RATIO Normal 4 A/G 1.0 LAB L501.2200 8.5-10 mg/dL Normal .1 CA 9.2 LAB L501.4100 15-37 U/L Normal AST 31 LAB L501.4305 45-117 U/L Normal ALK P 106 LAB L501.4405 13-56 U/L High ALT 65 LAB L501.4600 0.20-1 mg/dL Normal .00 T BILI 0.40 LAB L501.5300 136-14 mmol/L Normal 5 NA 137 LAB L501.5600 3.5-5. mmol/L Normal 1 K 4.1 LAB L501.5900 98-107 mmol/L Normal CL 104 LAB L501.6100 21.0-3 mmol/L Normal 2.0 CO2 24.0 LAB L501.6200 5-15 Normal GAP 9 Performed By: #### L100.0100, L500.4050 #### [facility] [address] [place], [address] UNILAT LT SCRN Observed: 08/28/2017 Status: F Source: [place] W/CAD 11:58 AM [facility] REPOSITORY [facility] Imaging Services [address] [place] [address] UNILAT LT SCRN W/CAD MR#: [id number] Acct: [id number] Name: SUSAN SEGURA Rep #: [id number] : 1945 F 72 From: Galina Cordon MD PCP: Tommy Everett MD Status: REG CLI Study: UNILAT LT SCRN W/CAD Date of Exam: 08/28/17 Exam# [id number] Ordering Dr: Shu Garcia MEDICAL DOCTOR MD/MEDICAL DIRECTOR-C MAMMOGRAPHY - UNILATERAL SCREENING: LEFT BREAST REASON FOR EXAM: Female, 72 years old. Routine annual screening examination (unilateral). PERTINENT HISTORY: LT STEREO BX 2006, RT MASTECTOMY 1997 WITH CHEMO TX, LT REDUCTION AND RT HX TOMOXIFEN X 5 YRS RECONSTRUCTION 7 YRS AFTER MASTECTOMY PT TO TOLERATE MUCH COMPRESSION TECHNIQUE: Digital unilateral breast leela (3D mammographic acquisition) in the CC and MLO projections. 2-D mediolateral oblique (MLO) and craniocaudad (CC) views of both breasts were obtained. CAD: Full Field Digital Mammography with Computer Added Detection was performed. COMPARISON: Aug 28 2016 1:10pm. Aug 22 2015 10:11am FINDINGS: Breast Composition: There are scattered areas of fibroglandular density. There are no dominant masses or suspicious calcifications. No other significant abnormalities are identified. BI/UNILAT LT SCRN W/CAD IMPRESSION: Stable unilateral screening mammogram. Yearly follow-up mammogram recommended. (A) ASSESSMENT CATEGORY: BIRADS Category 2: Benign. A letter regarding these results will be sent to the patient by the facility within 30 days. Approximately 10% of breast cancers are not detected by mammography. A normal mammogram should not delay biopsy of a clinically suspicious abnormality. [id number] Electronically Signed: Galina Cordon MD at 17:16 EDT Tel , Service support , CC: Tommy Everett MD; Shu Garcia NP Heading And Priming Operator: Signed INTERNAL MEDICINE Observed: 07/12/2017 Status: F Source: [place] OFFICE VISIT 4:58 PM [facility] [address] [place] [address] [place] [address] OFFICE VISIT Date of Service: 07/09/17 MR#: [id number] Acct: [id number] Name: SUSAN SEGURA Rep #: [id number] : 1945 Provider: Tommy Everett MD Age/Sex: 72/F Location: [facility] Status: Signed Intake Vital Signs07/09/17 Height 5 ft 2 in Intake Visit Reasons: 3 MO Chief Complaint: follow-up visit Is patient in pain?: No Allergies adhesive Adverse Reaction (Severe, Verified 10/31/16 13:20) Rash sidra Adverse Reaction (Uncoded 10/31/16 13:20) Unknown Medications Vitamin E Mixed [Vitamin E] 400 unit PO DAILY 05/06/14 [History Confirmed 10/31/16] Aspirin [Aspirin, Baby] 81 mg PO DAILY@0800 #30 tab.chew 05/07/14 [Rx Confirmed 04/10/17] Cholecalciferol (Vitamin D3) [Decara] 50,000 unit PO QMONTH 07/23/16 [History Confirmed 04/10/17] Latanoprost 0.005% [Xalatan Opthalmic] 1 drp EACH EYE QHS 07/23/16 [History Confirmed 04/10/17] brimonidine 0.1 % eye drops 1 drp OPHTHALMIC ONCE 04/10/17 [History Confirmed 04/10/17] coenzyme Q10 200 mg capsule 200 mg PO ONCE 04/10/17 [History Confirmed 04/10/17] dorzolamide 22.3 mg-timolol 6.8 mg/mL eye drops 1 drp OPHTHALMIC BID 04/10/17 [History Confirmed 04/10/17] fexofenadine 180 mg tablet 180 mg PO Q24H 04/10/17 [History Confirmed 04/10/17] omeprazole 40 mg capsule,delayed release 20 mg PO DAILY cap 04/10/17 [History Confirmed 04/10/17] atorvastatin 40 mg tablet 40 mg PO QHS #90 tab 05/15/17 [Rx] fluoxetine 20 mg capsule 20 mg PO DAILY #90 cap 05/15/17 [Rx] levothyroxine 25 mcg tablet 25 mcg PO DAILY #90 tab 05/15/17 [Rx] losartan 50 mg-hydrochlorothiazide 12.5 mg tablet 1 tab PO QDAY #90 tab 05/15/17 [Rx] glimepiride 1 mg tablet 1 mg PO QAM #90 tab 06/28/17 [Rx] metoprolol tartrate 50 mg tablet 50 mg PO BID #180 tab 07/01/17 [Rx] blood sugar diagnostic strips See Dose Instructions .ROUTE .MEDSUPPLY #100 ea 07/09/17 [Rx Confirmed 07/09/17] metformin ER 500 mg tablet,extended release 24 hr 1,000 mg PO QPM #180 tab 07/09/17 [Rx Confirmed 07/09/17] omega 3 PO 07/09/17 [History Confirmed 07/09/17] PFSH Medical History Osteoarthritis (Chronic) Hearing loss (Acute) Hypothyroidism (Chronic) IBS (irritable bowel syndrome) (Chronic) Surgical History H/O cervical biopsy (Acute) H/O right mastectomy (Acute) H/O tubal ligation (Acute) History of D AND C (Acute) History of appendectomy (Acute) History of carpal tunnel release (Acute) History of reconstruction of right breast (Acute) Normal colonoscopy (Acute) dental implants (Acute) fibroadenoma removed L breast (Acute) left breast reconstruction with mastopexy (Acute) right nipple reconstruction (Acute) Family History Mother Heart disease Sister Cancer leukemia Social History Smoking Status: Former smoker alcohol intake: current alcohol intake frequency: a few times a month Alcohol type: hard liquor, beer substance use type: does not use what type of physical activity do you participate in: none HPI HPI Chief Complaint: follow-up visit Details: SUSAN SEGURA, is a 72yo F who presents to the office today for follow up. She has no acute complaints at this time. She was restarted on glimepiride however on the low-dose due to concerns about cost of Januvia. She is currently taking 1 mg of glimepiride twice daily. She reports compliance with her medication and states that her blood sugars have been stable. Last A1c done was down to 6.8 from 6.9. At her last visit she was referred for sleep study due to a history of fatigue and hypersomnolence. Patient however is yet to get this done due to concerns about study itself. She has a 1 and incentive sleep study due concerns over care of her dogs and she is concerned about having it done at home. She otherwise feels well denies chest pain, shortness of breath or leg swelling. ROS Const Constitutional: No body ache, chills, headache(s), weakness, fever(s), change in appetite, fatigue or excessive sweating Eyes Eyes: No blurry vision, change in vision, eye pain or discharge ENT ENT: No headache(s), abnormal hearing, ear pain, ear pressure, tinnitus, dizziness/vertigo, balance problems or neck pain Resp Respiratory: No cough, shortness of breath or wheezing Cardio Cardiology: No chest pain at rest, shortness of breath, dyspnea on exertion, palpitations or excessive sweating Gastro GI: No abdominal pain or bloating Musc Musculoskeletal: Positive for other (right hip pain. Chronic); no abnormal walking, joint pain, back pain, limited range of motion, neck pain, numbness or tingling Skin Skin: No redness, dry skin, itching, lesions, wounds or rash Neuro Neurology: No headache(s), weakness, abnormal hearing, abnormal walking, numbness, tingling or memory loss Psych Psychiatric: No change in appetite, No anxiety, No depression, No memory loss, No Thoughts of harming yourself/Others Endo Endocrine: No fatigue, cold intolerance, excessive sweating, increased thirst/drinking, heat intolerance, flushing or increased hunger Aller/Imm Allergy/Immunologic: No wheezing or itchy eyes Will/Lymp Hematologic/Lymphatic: No easy bleeding, easy bruising or enlarged lymph nodes Exam Const General: cooperative, comfortable, no acute distress Nutritional Appearance: not malnourished Orientation: alert, awake, oriented x3 HENNY Head: normocephalic, atraumatic Nose: no nasal discharge, external nose normal Mouth: oral mucosae normal, tongue normal, moist mucous membranes Eyes EOM: EOM intact bilaterally, No nystagmus Resp Effort AND Inspection: normal respiratory effort, able to speak in complete sentences Auscultation: Bilateral: Clear to Auscultation Cardio Rate: regular rate Rhythm: regular rhythm Heart Sounds: S1 normal, no gallops, no murmurs, no rubs GI Palpation: soft, no hepatosplenomegaly Neuro General: CN's II-XI intact bilaterally, moves all extremities, no focal motor deficits, alert, awake, oriented x3 Cranial Nerves: no nystagmus Cognition: normal cognition Speech: speech normal Extrem General: no clubbing, cyanosis or edema Psych Mood: congruent mood Attitude: cooperative Assessment AND Plan 1. Diabetes mellitus, type II E11.9 Plan Stable. Continue current medications. Continue lifestyle modifications. Follow-up in 3 months. Repeat A1c in 3 months. 2. Hypersomnolence G47.10 Plan Persistent. Also associated with fatigue. Patient is concerned about in-home sleep study. Advised patient to call sleep lab to have her questions answered. Follow-up at next visit. 3. Essential hypertension I10 Plan Optimally controlled. Continue current medications. Continue lifestyle modifications. Follow-up at next visit. 4. Hyperlipidemia E78.5 Plan Stable. Last lipid profile in December was within normal. Lifestyle modifications discussed including dietary management. Repeat lipid profile at next visit. This note was generated with Dragon dictation software. It may contain incorrect words, spelling, and punctuation that were not noted in checking the note before signing. Plan Detail Other Medications New: blood sugar diagnostic strips (True Metrix Glucose Test StripAs directed ) Discontinued: metformin ER administer with evening meal Discontinued 1,000 mg (2 x 500 mg) PO QPM Reason: Order Changed Coding Level of Care Code Off vis,est,level 3 Diagnoses Diabetes mellitus, type II E11.9 Hypersomnolence G47.10 Essential hypertension I10 Hypertension type: essential hypertension Hyperlipidemia E78.5 07/12/17 1658 <Electronically signed by Tommy Everett MD> Date Tommy Everett MD Cosigner Signature: Date (if applicable) CC: HEMOGLOBIN A1C Collected: 07/08/2017 Status: F Source: [place] 10:18 AM [facility] REPOSITORY TYPE CODE TESTS RESULT OUT OF RANGE REFERENCE UNITS LAB L501.9985 4.2-6.3 % High HGB A1C 6.8 Performed By: #### L501.9985, L500.2500 #### [facility] [address] [place], [address] BASIC METABOLIC Collected: 07/08/2017 Status: F Source: [place] PROFILE (BMP) 10:18 AM [facility] REPOSITORY TYPE CODE TESTS RESULT OUT OF RANGE REFERENCE UNITS LAB L501.0100 74-106 mg/dL High GLU 141 Result Comment: Fasting Glucose result greater than or equal to 126 mg/dL suggests DIABETES MELLITUS per A.D.A. criteria. Please note revised GLUCOSE reference range effective 2017. LAB L501.1000 7-18 mg/dL High BUN 21 LAB L501.1100 0.55-1.02 mg/dL High CREAT,SERUM 1.06 Result Comment: The validity of the calculated GFR AND GFRAA in patients over 70 years has not been determined. Clinical correlation is essential. LAB L501.1110 >60 mL/min Low EST GFR 54 Result Comment: Non- GFR Calc LAB L501.1115 >60 mL/min Normal EST GFR - AA 65 Result Comment: GFR Calc LAB L501.1300 10-20 RATIO Normal BUN/CRE 19.8 LAB L501.2200 8.5-10.1 mg/dL CA Normal 8.9 LAB L501.5300 136-145 mmol/L NA Normal 137 LAB L501.5600 3.5-5.1 mmol/L K Normal 3.8 LAB L501.5900 98-107 mmol/L CL Normal 102 LAB L501.6100 21.0-32.0 mmol/L Normal CO2 27.0 LAB L501.6200 5-15 Normal GAP 8 Performed By: #### L501.9985, L500.2500 #### [facility] [address] [facility]. [place], [place], [address] ALLERGIES ALLERGIES DATE TYPE / CODE NAME / CODE REACTION SEVERITY SOURCE 03/17/2018 Drug adhesive/F00 Rash [place] Allergy/[id number](S [id number]([facility]) ) Hospital Repository 03/17/2018 Miscellaneous sidra Rash,itching,b SV [place] Allergy/[id number](S [facility]) Hospital Repository ENCOUNTERS ENCOUNTERS ADMIT/DISCHARGE ACCOUNT ADMITTING ENCOUNTER LOCATION SOURCE NUMBER CLASS 03/24/2018/ [id number] Rudolph, Rafiq Chi Inpatient [place] 5 Encounter [facility] ing:TCURoom: Repository [id number]: 1 03/21/2018/ [id number] Rachel Mendes Inpatient [place] 5 Jean[place] Encounter [facility] ing:LE3Acfo: Repository [id number]: 1 03/21/2018 [id number] Mychak, Ambulatory BMSBuilding:B [place] 9 Janae MS.[facility] Repository 03/21/2018 [id number] Rachel Mendes Ambulatory BMSBuilding:B [place] 6 Jeanette MS.[facility] Repository 03/21/2018 [id number] Rachel Mendes Ambulatory BMSBuilding:B [place] 4 Jeanette MS.WIP [facility] Hospital Repository 03/14/2018/ [id number] Ambulatory BMSBuilding:B [place] 8 2 MS.BIM [facility] Repository 03/14/2018 [id number] Ambulatory BMSBuilding:W [place] 6 [facility] Hospital Repository 03/13/2018/ [id number] Emergency [place] 8 7 [facility] Hospital ing:ED Repository 01/27/2018 [id number] Ambulatory Andrea [place] 2 [facility] Hospital ing:RAD Repository 01/07/2018/ [id number] Ambulatory BMSBuilding:B [place] 8 6 MS.BIM [facility] Repository 01/06/2018 [id number] Ambulatory Andrea [place] 7 [facility] Hospital ing:MTLAB Repository 12/10/2017 [id number] Ambulatory BMSBuilding:B Andrea 6 MS.SMO [facility] Repository 11/01/2017 [id number] Ambulatory BMSBuilding:B [place] 3 MS.BIM [facility] Repository 10/16/2017 [id number] Ambulatory Andrea Andrea 4 [facility] ing:LAB Repository 10/09/2017/ [id number] Ambulatory BMSBuilding:B [place] 8 2 MS.BIM [facility] Repository 09/03/2017 [id number] Ambulatory [place] 9 [facility] ing:OMD Repository 09/03/2017 [id number] Ambulatory BMSBuilding:B Andrea 7 MS.WMO [facility] Repository 08/28/2017 [id number] Ambulatory Andrea Andrea 3 [facility] ing:OPBI Repository 07/09/2017/ [id number] Ambulatory BMSBuilding:B [place] 8 8 MS.BIM [facility] Repository 07/08/2017 [id number] Ambulatory [place] 0 [facility] ing:LAB Repository 05/15/2017 [id number] Ambulatory BMSBuilding:B [place] 6 MS.PMW [facility] Repository 04/30/2017 [id number] Ambulatory [place] 5 [facility] ing[facility]SL Repository PAYERS PAYERS ENCOUNTER GUARANTOR PAYER SUBSCRIBER SOURCE 03/24/2018 MARCELLO Primary MARCELLO [place] [id number] Insurance:MEDICARE KITTINGERDOB: [place] [id number] Number: Repository [id number]: 330 [id number] [phone] (HP) Date:2018-03-24 03/24/2018 Secondary MAR[place]LLO [place] Insurance:ANTHEMPolic KITTINGERDOB: Community y Number: [id number] [id number] Repository Date:[id number] [address] [place] [address]LB: 03/24/2018 Tertiary NOT GIVENUNK [place] Insurance:SELF PAY [facility] Number: Effective Repository Date:2018-03-24 03/21/2018 MARCELLO Primary MARCELLO [place] [id number] Insurance:MEDICARE KITTINGERDOB: [place] [id number] Number: Repository [id number]: 330 [id number] [phone] () Date:2018-03-14 03/21/2018 Secondary MARCELLO [place] Insurance:ANTHEMPolic KITTINGERDOB: Community y Number: [id number] [id number] Repository Date:3897-40-02[address], [place] [address]CR: 03/21/2018 Tertiary NOT GIVENUNK [place] Insurance:SELF PAY [facility] Number: Effective Repository Date:2018-03-14 03/21/2018 MARCELLO Primary MARCELLO [place] [id number] Insurance:MEDICARE KITTINGERDOB: [place] [id number] Number: Repository [id number]: 330 [id number] [phone] (HP) Date:2018-03-14 03/21/2018 Secondary MARCELLO [place] Insurance:ANTHEMPolic KITTINGERDOB: Community y Number: [id number] [id number] Repository Date:5293-91-21[address], [place] [address]GK: 03/21/2018 Tertiary NOT GIVENUNK [place] Insurance:SELF PAY [facility] Number: Effective Repository Date:2018-03-21 03/21/2018 MARCELLO Primary MARCELLO [place] [id number] Insurance:MEDICARE KITTINGERDOB: [facility] [id number] Number: Repository [id number]: 330 [id number] [phone] () Date:2018-03-14 03/21/2018 Secondary MARCELLO [place] Insurance:ANTHEMPolic KITTINGERDOB: Community [place] Number: [id number] [id number] Repository Date:8410-10-15[address], [place] [address]KL: 03/21/2018 Tertiary NOT GIVENUNK [place] Insurance:SELF PAY [facility] Number: Effective Repository Date:2018-03-21 03/21/2018 MARCELLO Primary MARCELLO [place] [id number] Insurance:MEDICARE KITTINGERDOB: [place] [id number] Number: Repository [id number]: 330 [id number] [phone] () Date:2018-03-14 03/21/2018 Secondary MARCELLO [place] Insurance:ANTHEMPolic KITTINGERDOB: Community [place] Number: [id number] [id number] Repository Date:7851-73-66[address], [place] [address]OW: 03/21/2018 Tertiary NOT GIVENUNK [place] Insurance:SELF PAY [facility] Number: Effective Repository Date:2018-03-21 03/14/2018 MARCELLO Primary MARCELLO [place] [id number] Insurance:MEDICARE KITTINGERDOB: [place] [id number] Number: Repository [id number]: 330 [id number] [phone] (HP) Date:2018-03-14 03/14/2018 Secondary MARCELLO [place] Insurance:ANTHEMPolic KITTINGERDOB: [place] Number: [id number] [id number] Repository Date:7485-06-61[address] [place] [address]HV: 03/14/2018 Tertiary NOT GIVENUNK [place] Insurance:SELF PAY [facility] Number: Effective Repository Date:2018-03-14 03/14/2018 MARCELLO Primary MARCELLO [place] [id number] Insurance:MEDICARE KITTINGERDOB: [facility] [id number] Number: Repository [id number]: 330 [id number] [phone] () Date:2018-03-14 03/14/2018 Secondary MARCELLO [place] Insurance:ANTHEMPolic KITTINGERDOB: [place] Number: [id number] [id number] Repository Date:6267-25-14Jg [address] [place] [address]RN: 03/14/2018 Tertiary NOT GIVENUNK [place] Insurance:SELF PAY [facility] Number: Effective Repository Date:2018-03-14 03/13/2018 MARCELLO Primary MARCELLO [place] [id number] Insurance:MEDICARE KITTINGERDOB: [facility] [id number] Number: Repository [id number]: 330 [id number] [phone] () Date:2018-03-13 03/13/2018 Secondary MARCELLO [place] Insurance:ANTHEMPolic KITTINGERDOB: [place] Number: [id number] St. [facility] [id number] Repository Date:4728-45-33[address], [place] [address]TL: 03/13/2018 Tertiary NOT GIVENUNK [place] Insurance:SELF PAY [facility] Number: Effective Repository Date:2018-03-13 01/27/2018 MARCELLO Primary MARCELLO [place] [id number] Insurance:MEDICARE KITTINGERDOB: [facility] [id number] Number: Repository [address]Jbf: 330 [id number] [phone] (HP) Date:2018-01-27 01/27/2018 Secondary MARCELLO [place] Insurance:ANTHEMPolic KITTINGERDOB: [place] Number: [id number] St. [facility] Medical [id number] Repository Date:7687-10-43Wm [address] [place] [address]AP: 01/27/2018 Tertiary NOT GIVENUNK [place] Insurance:SELF PAY [facility] Number: Effective Repository Date:2018-01-27 01/07/2018 MARCELLO Primary MARCELLO [place] [id number] Insurance:MEDICARE KITTINGERDOB: [facility] [id number] Number: Repository [address]Djm: 330 [id number] [phone] (HP) Date:2017-10-09 01/07/2018 Secondary MARCELLO [place] Insurance:ANTHEMPolic KITTINGERDOB: [place] Number: [id number] [id number] Repository Date:1285-25-59[address], [place] [address]TF: 01/07/2018 Tertiary NOT GIVENUNK [place] Insurance:SELF PAY [facility] Number: Effective Repository Date:2018-01-07 01/06/2018 MARCELLO Primary MARCELLO [place] [id number] Insurance:MEDICARE KITTINGERDOB: [facility] [id number] Number: Repository [address]Kwg: 330 [id number] [phone] (HP) Date:2018-01-06 01/06/2018 Secondary MARCELLO [place] Insurance:ANTHEMPolic KITTINGERDOB: [place] Number: [id number] [facility] [id number] Repository Date:0032-43-97[address], [place] [address]MT: 01/06/2018 Tertiary NOT GIVENUNK [place] Insurance:SELF PAY [facility] Number: Effective Repository Date:2018-01-06 12/10/2017 MARCELLO Primary MARCELLO [place] [id number] Insurance:MEDICARE KITTINGERDOB: [facility] [id number] Number: Repository [address]Amb: 330 [id number] [phone] () Date:2017-11-13 12/10/2017 Secondary MARCELLO [place] Insurance:ANTHEMPolic KITTINGERDOB: [place] Number: [id number] [id number] Repository Date:4347-94-66[address], [place] [address]UL: 12/10/2017 Tertiary NOT GIVENUNK [place] Insurance:SELF PAY [facility] Number: Effective Repository Date:2017-11-13 11/01/2017 MARCELLO Primary MARCELLO [place] [id number] Insurance:MEDICARE KITTINGERDOB: [facility] [id number] Number: Repository [address]Saj: 330 [id number] [phone] () Date:2017-07-09 11/01/2017 Secondary MARCELLO [place] Insurance:ANTHEMPolic KITTINGERDOB: [place] Number: [id number] [facility] [id number] Repository Date:4332-68-40[address], [place] [address]TH: 11/01/2017 Tertiary NOT GIVENUNK [place] Insurance:SELF PAY [facility] Number: Effective Repository Date:2017-07-09 10/16/2017 MARCELLO Primary MARCELLO [place] [id number] Insurance:MEDICARE KITTINGERDOB: [facility] [id number] [place] [address] Number: Repository [id number]: [phone] [id number] [phone] () Date:2017-10-16 10/16/2017 Secondary MARCELLO [place] Insurance:ANTHEMPolic KITTINGERDOB: [place] Number: [id number] [facility] [id number] Repository Date:7240-93-61[address], [place] [address]QW: 10/16/2017 Tertiary NOT GIVENUNK [place] Insurance:SELF PAY [facility] Effective Repository Date:2017-10-16 10/09/2017 MARCELLO Primary MARCELLO [place] [id number] Insurance:MEDICARE KITTINGERDOB: [facility] [id number] Number: Repository [address]Oet: [phone] [id number] [phone] () Date:2017-09-27 10/09/2017 Secondary MARCELLO [place] Insurance:ANTHEMPolic KITTINGERDOB: Community [place] Number: [id number] [id number] Repository Date:6883-11-01Y[address], [place] [address]YW: 10/09/2017 Tertiary NOT GIVENUNK [place] Insurance:SELF PAY [facility] Number: Effective Repository Date:2017-09-27 09/03/2017 MARCELLO Primary MARCELLO [place] [id number] Insurance:MEDICARE KITTINGERDOB: [facility] [id number] Number: Repository [address]Orj: 330 [id number] [phone] () Date:2009-01-27 09/03/2017 Secondary MARCELLO [place] Insurance:ANTHEMPolic KITTINGERDOB: [place] Number: [id number] [id number] Repository Date:3116-66-15[address], [place] [address]SJ: 09/03/2017 Tertiary NOT GIVENUNK [place] Insurance:SELF PAY [facility] Number: Effective Repository Date:2016-07-17 09/03/2017 MARCELLO Primary MARCELLO [place] [id number] Insurance:MEDICARE KITTINGERDOB: [facility] [id number] Number: Repository [address]Onu: 330 [id number] [phone] () Date:2009-01-27 09/03/2017 Secondary MARCELLO [place] Insurance:ANTHEMPolic KITTINGERDOB: [place] Number: [id number] St. [facility] [id number] Repository Date:8223-46-53Nr [address] [place] [address]EN: 09/03/2017 Tertiary NOT GIVENUNK [place] Insurance:SELF PAY [facility] Number: Effective Repository Date:2017-09-03 08/28/2017 MARCELLO Primary MARCELLO [place] [id number] Insurance:MEDICARE KITTINGERDOB: [facility] [id number] [place] [facility] [place] Number[place] Repository [address]Khy: 330 [id number] [phone] () Date:2009-01-27 08/28/2017 Secondary MARCELLO [place] Insurance:ANTHEMPolic KITTINGERDOB: [place] Number: [id number] [id number] Repository Date:7925-91-91[address], [place] [address]MT: 08/28/2017 Tertiary NOT GIVENUNK [place] Insurance:SELF PAY [facility] Number: Effective Repository Date:2016-10-31 07/09/2017 MARCELLO Primary MARCELLO [place] [id number] Insurance:MEDICARE KITTINGERDOB: [id number] Number: Repository [address]Ozv: 330 [id number] [phone] () Date:2017-04-10 07/09/2017 Secondary MARCELLO [place] Insurance:ANTHEMPolic KITTINGERDOB: Community [place] Number: [id number] [id number] Repository Date:4385-83-07LP [address] [place] [address]ZR: 07/09/2017 Tertiary NOT GIVENUNK [place] Insurance:SELF PAY [facility] Number: Effective Repository Date:2017-04-10 07/08/2017 MARCELLO Primary MARCELLO [place] [id number] Insurance:MEDICARE KITTINGERDOB: [facility] [id number] Number: Repository [address]Upi: [phone]) [id number] [phone] () Date:2017-07-08 07/08/2017 Secondary MARCELLO [place] Insurance:ANTHEMPolic KITTINGERDOB: [place] Number: [id number] [facility] [id number] Repository Date:1697-00-11[address], [place] [address]LU: 07/08/2017 Tertiary NOT GIVENUNK [place] Insurance:SELF PAY [facility] Number: Effective Repository Date:2017-07-08 05/15/2017 MARCELLO Primary MARCELLO [place] [id number] Insurance:MEDICARE KITTINGERDOB: [facility] [id number] Number: Repository [address]Ubh: 330 [id number] [phone] () Date:2017-04-18 05/15/2017 Secondary MARCELLO [place] Insurance:ANTHEMPolic KITTINGERDOB: Community [place] Number: [id number] [facility] [id number] Repository Date:6295-91-75CE [address] [place] [address]NI: 05/15/2017 Tertiary NOT GIVENUNK [place] Insurance:SELF PAY [facility] Number: Effective Repository Date:2017-04-18 04/30/2017 MARCELLO Primary MARCELLO [place] [id number] Insurance:MEDICARE KITTINGERDOB: [facility] [id number] Number: Repository [address]Wfg: [phone]) [id number] [phone] () Date:2017-04-10 04/30/2017 Secondary MARCELLOVonnie Mendez Insurance:ANTHEMPolic KITTINGERDOB: [place] Number: [id number] [id number] Repository Date:8890-19-66[address], [place] [address]CA: 04/30/2017 Tertiary NOT GIVENUNK [place] Insurance:SELF PAY [facility] Number: Effective Repository Date:2017-04-10
== END 2018-04-07 10:45 | disposition home or self-care (01) | DRG 561 ==
PROVIDERS: Admitting Provider Family Medicine Geriatric Medicine; Family Provider Internal Medicine; PCP Internal Medicine; Visit Provider Family Medicine Geriatric Medicine
DX: S82.841D Displaced bimalleolar fracture of right lower leg, subsequent encounter for closed fracture with routine healing (principal); E78.5 Hyperlipidemia, unspecified; E03.9 Hypothyroidism, unspecified; E11.9 Type 2 diabetes mellitus without complications; F32.9 Major depressive disorder, single episode, unspecified; E55.9 Vitamin D deficiency, unspecified; H40.9 Unspecified glaucoma; I10 Essential (primary) hypertension; F41.9 Anxiety disorder, unspecified; K21.9 Gastro-esophageal reflux disease without esophagitis; M19.90 Unspecified osteoarthritis, unspecified site; Z85.3 Personal history of malignant neoplasm of breast; E66.9 Obesity, unspecified; K58.9 Irritable bowel syndrome, unspecified; Z68.34 Body mass index [BMI] 34.0-34.9, adult; Z71.3 Dietary counseling and surveillance; Z87.891 Personal history of nicotine dependence; G89.29 Other chronic pain; W00.1XXD Fall from stairs and steps due to ice and snow, subsequent encounter; D64.9 Anemia, unspecified
CPT/HCPCS: 36415; 73030; 80048; 82962; 85025; 97110; 97116; 97163; 97166; 97530; 97535; 97802

== ENCOUNTER → 2018-08-29 13:05 | Outpatient (CLI) | payer MEDICARE, BC, SELFPAY ==
[2018-07-04 10:05] VITALS: BMI 33.6
--- NOTE | 2018-08-29 13:11 | BI_ITS ---
MAMMOGRAPHY - UNILATERAL SCREENING: LEFT BREAST REASON FOR EXAM: Female, 73 years old. Routine annual screening examination (unilateral). PERTINENT HISTORY: Personal history of breast cancer. Status post right mastectomy. TECHNIQUE: Digital examination. Mediolateral oblique (MLO) and craniocaudad (CC) views of the breast were obtained. CAD: CAD was performed on this study. COMPARISON: August 28, 2017. FINDINGS: Breast Composition: There are scattered areas of fibroglandular density. There are no dominant masses or suspicious calcifications. Multiple, small and tiny, subcentimeter, well-circumscribed nodules within the predominantly anterior left breast appear completely stable. There are stable typically benign appearing calcifications. No other significant abnormalities are identified. BI/UNILAT LT SCRN W/CAD IMPRESSION: Stable bilateral screening mammogram. ASSESSMENT CATEGORY: BIRADS Category 2: Benign. A letter regarding these results will be sent to the patient by the facility within 30 days. FOLLOW UP RECOMMENDATION: Yearly follow up mammogram recommended. (A) [id number] Approximately 10% of breast cancers are not detected by mammography. A normal mammogram should not delay biopsy of a clinically suspicious abnormality. [id number] Electronically Signed: Rafita Dexter MD at 16:27 EDT , Service support ,
== END ==
PROVIDERS: Family Provider Internal Medicine; PCP Internal Medicine; Referring Provider Nurse Practitioner Family; Visit Provider Nurse Practitioner Family
DX: Z12.31 Encounter for screening mammogram for malignant neoplasm of breast (principal)
CPT/HCPCS: 77061; 77067; G0279

== ENCOUNTER → 2018-09-12 12:55 | Outpatient (CLI) | payer MEDICARE, BC, SELFPAY ==
[2018-07-04 10:05] VITALS: BMI 33.6
[2018-09-03 13:38] VITALS: BMI 34.5
--- NOTE | 2018-09-12 12:58 | CDU_ITS ---
Reason For Study: Carotid steonosis Rt. Velocities/BP Lt. Velocities/BP Prox CCA 60.4/10.8 cm/sec. Prox CCA 83.9/13.9 cm/sec. Mid CCA 90.4/12.1 cm/sec. Mid CCA 48.5/12.6 cm/sec. Dist CCA 78.6/12.1 cm/sec. Dist CCA 61.7.15.3 cm/sec. Prox ICA 101/11.5 cm/sec. Prox ICA 285.4/39.8 cm/sec. Mid ICA 104.7/11.5 cm/sec. Mid ICA 123.5/16 cm/sec. Dist ICA 99.2/18.8 cm/sec. Dist ICA 77/18.5 cm/sec. Rt. ICA/CCA = 1.3. Lt. ICA/CCA = 4.6. Prox ECA 462.8/32.7 cm/sec. Prox ECA 147/5 cm/sec. Rt. Vert. 40/6 cm/sec. Lt. Vert. 59.7/8 cm/sec. Right Extracranial There is heterogeneous, smooth atherosclerotic plaque noted in the right common carotid artery. There is heterogeneous, irregular atherosclerotic plaque noted in the right internal carotid artery. There is heterogeneous, irregular atherosclerotic plaque noted in the right external carotid artery. Antegrade flow is noted in the right vertebral artery. Left Extracranial There is heterogeneous, smooth atherosclerotic plaque noted in the left common carotid artery. There is heterogeneous, irregular atherosclerotic plaque noted in the left internal carotid artery. There is heterogeneous, irregular atherosclerotic plaque noted in the left external carotid artery. The left external carotid artery is not well visualized. Velocity may be underestimated. Biphasic flow is noted in the left vertebral artery. Procedure Carotid Duplex [id number]. Exam performed in department. Interpretation Summary Irregular plague at the proximal right internal carotid with <50% stenosis. 50-99% stenosis right external carotid Irregular calcific plague at the proximal left internal carotid with >70% stenosis. <50% stenosis left external carotid Patent and antegrade vertebrals bilaterally Comparable to 05/07/14 Ordering Physician: Joaquim Hutchinson Referring Physician: Tommy Everett Performed By: Mercedes Iglesias RVT
== END ==
PROVIDERS: Family Provider Internal Medicine; PCP Internal Medicine; Referring Provider Surgery; Visit Provider Surgery
DX: I65.23 Occlusion and stenosis of bilateral carotid arteries (principal)
CPT/HCPCS: 93880

== ENCOUNTER → 2019-03-03 10:37 | Outpatient (CLI) | payer MEDICARE, BC, SELFPAY ==
[2019-01-13 16:10] VITALS: BMI 35.9
--- NOTE | 2019-03-03 10:39 | CDU_ITS ---
Reason For Study: carotid stenosis Rt. Velocities/BP Lt. Velocities/BP Prox CCA 76.0/6.9 cm/sec. Prox CCA 77.7/10.2 cm/sec. Mid CCA 70.8/9.5 cm/sec. Mid CCA 67.9/11.4 cm/sec. Dist CCA 66.9/10.8 cm/sec. Dist CCA 44.3/10.2 cm/sec. Prox ICA 51.3/9.7 cm/sec. Prox ICA 259.5/36.5 cm/sec. Mid ICA 82.8/16.8 cm/sec. Mid ICA 143.3/16.0 cm/sec. Dist ICA 112.1/21.2 cm/sec. Dist ICA 120.0/31.2 cm/sec. Rt. ICA/CCA = 1.6. Lt. ICA/CCA = 3.8. Prox ECA 303.2/24.7 cm/sec. Prox ECA 56.4/8.0 cm/sec. Rt. Vert. 47.0/7.7 cm/sec. Lt. Vert. 69.1/10.2 cm/sec. Right Extracranial There is heterogeneous, irregular atherosclerotic plaque noted in the right common carotid artery. There is heterogeneous, irregular atherosclerotic plaque noted in the right internal carotid artery. There is heterogeneous, irregular atherosclerotic plaque noted in the right external carotid artery. Antegrade flow is noted in the right vertebral artery. Left Extracranial There is heterogeneous, smooth atherosclerotic plaque noted in the left common carotid artery. There is heterogeneous, irregular atherosclerotic plaque noted in the left internal carotid artery. There is heterogeneous, irregular atherosclerotic plaque noted in the left external carotid artery. Antegrade flow is noted in the left vertebral artery. Procedure Carotid Duplex [id number]. The exam was diagnostic. Exam performed in department. Interpretation Summary Calcific irregular plague at the proximal right internal and external carotids <50% stenosis right internal carotid >50% stenosis right external carotid Calcific irregular plague at the proximal left internal and external carotids >70% stenosis left proximal internal carotid <50% stenosis left external carotid Patent, antegrade, <50% stenosis bilateral vertebrals No disease progression since 09/12/18 Ordering Physician: Joaquim Hutchinson Performed By: Martell Dc RVT
== END ==
PROVIDERS: Family Provider Internal Medicine; PCP Internal Medicine; Referring Provider Surgery; Visit Provider Surgery
DX: I65.23 Occlusion and stenosis of bilateral carotid arteries (principal)
CPT/HCPCS: 93880

== ENCOUNTER → 2019-03-10 14:10 | Outpatient (CLI) | payer MEDICARE, BC, SELFPAY ==
[2019-03-10 13:24] VITALS: BMI 35.9
[2019-03-10 14:27] LABS: Hematocrit 37.4 % (37-47); Hemoglobin 12.7 g/dL (12.0-15.0); Mean Corpuscular Hgb 28.9 pg (27.0-32.0); Mean Platelet Vol. 10.8 fl (6.2-12.0); Platelet Count 322 K/mm3 (150-450); RBC Distribution Width CV 12.2 % (11.6-14.6); RBC Distribution Width SD 37.3 fl (35.1-43.9)
== END ==
PROVIDERS: Family Provider Internal Medicine; PCP Internal Medicine; Referring Provider Surgery; Visit Provider Surgery
DX: R23.1 Pallor (principal)
CPT/HCPCS: 36415; 85027

== ENCOUNTER 2019-03-12 12:10 | Outpatient (RCR) | payer MEDICARE, BC, SELFPAY ==
[2019-01-13 16:10] VITALS: BMI 35.9
[2019-03-10 13:24] VITALS: BMI 35.9
== END 2019-03-12 23:59 | disposition home or self-care (01) ==
LOC: DC 12:10
PROVIDERS: Family Provider Internal Medicine; PCP Internal Medicine; Visit Provider Internal Medicine
DX: Z71.3 Dietary counseling and surveillance (principal); E11.9 Type 2 diabetes mellitus without complications
CPT/HCPCS: 97802

== ENCOUNTER → 2019-04-14 12:32 | Outpatient (CLI) | payer MEDICARE, BC, SELFPAY ==
[2019-03-10 13:24] VITALS: BMI 35.9
--- NOTE | 2019-04-14 12:34 | EKG12_ITS ---
Test Reason : HTN Blood Pressure : / mmHG Vent. Rate : 058 BPM Atrial Rate : 058 BPM P-R Int : 184 ms QRS Dur : 104 ms QT Int : 410 ms P-R-T Axes : 064 -43 089 degrees QTc Int : 402 ms Sinus bradycardia Left axis deviation Left ventricular hypertrophy with repolarization abnormality Abnormal ECG Confirmed by CHRIS GONZALEZ, AGUSTIN ([id number]), food expeditor JULY HUGHES ([id number]) on 04/15/2019 12:57:16 PM Referred By: Tommy Everett Confirmed By:AGUSTIN PEREZ MD
== END ==
PROVIDERS: Family Provider Internal Medicine; PCP Internal Medicine; Referring Provider Internal Medicine; Visit Provider Internal Medicine
DX: I10 Essential (primary) hypertension (principal)
CPT/HCPCS: 93005

== ENCOUNTER → 2019-04-16 15:15 | Outpatient (CLI) | payer MEDICARE, BC, SELFPAY ==
[2019-04-16 13:37] VITALS: BMI 35.9
[2019-04-16 17:48] LABS: ALB/GLOB Ratio 1.1 RATIO (0.9-2.4); AST(SGOT) 20 U/L (15-37); Alanine Aminotransfer ALT/SGPT 43 U/L (13-56); Albumin, Serum 3.8 g/dL (3.2-5.0); Alkaline Phosphatase 108 U/L (45-117); Anion Gap 9 (5-15); BUN 19 mg/dL (7-18); BUN/Creat Ratio 18.3 RATIO (10-20); Calcium,Total 9.2 mg/dL (8.5-10.1); Chloride 106 mmol/L (98-107); Creatinine, Serum 1.04 mg/dL (0.55-1.02); EST Glomerular Filtration Rate 55 mL/min (>60); Est Glom Filt Rate - Afr Amer 66 mL/min (>60); Globulin 3.5 g/dL (2.2-4.2); Glucose 91 mg/dL (74-106); Potassium 3.7 mmol/L (3.5-5.1); Protein, Total 7.3 g/dL (6.4-8.2); Sodium Level 140 mmol/L (136-145); Thyroid Stim Hormone (TSH) 1.96 uIU/mL (0.358-3.74)
== END ==
PROVIDERS: Family Provider Internal Medicine; PCP Internal Medicine; Referring Provider Internal Medicine; Visit Provider Internal Medicine
DX: E03.9 Hypothyroidism, unspecified (principal); I10 Essential (primary) hypertension
CPT/HCPCS: 36415; 80053; 84443

== ENCOUNTER → 2019-06-08 11:26 | Outpatient (CLI) | payer MEDICARE, BC, SELFPAY ==
[2019-05-21 19:00] VITALS: BMI 35.9
[2019-06-08 14:22] LABS: Anion Gap 8 (5-15); BUN 27 mg/dL (7-18); BUN/Creat Ratio 23.5 RATIO (10-20); Calcium,Total 9.3 mg/dL (8.5-10.1); Chloride 105 mmol/L (98-107); Creatinine, Serum 1.15 mg/dL (0.55-1.02); EST Glomerular Filtration Rate 49 mL/min (>60); Est Glom Filt Rate - Afr Amer 59 mL/min (>60); Glucose 166 mg/dL (74-106); Potassium 3.9 mmol/L (3.5-5.1); Sodium Level 138 mmol/L (136-145)
== END ==
PROVIDERS: PCP Internal Medicine; Referring Provider Internal Medicine; Visit Provider Internal Medicine
DX: I10 Essential (primary) hypertension (principal)
CPT/HCPCS: 36415; 80048

== ENCOUNTER → 2019-07-16 13:00 | Outpatient (CLI) | payer MEDICARE, BC, SELFPAY ==
[2019-05-21 19:00] VITALS: BMI 35.9
[2019-07-16 16:01] LABS: Anion Gap 7 (5-15); BUN 18 mg/dL (7-18); BUN/Creat Ratio 18.3 RATIO (10-20); Calcium,Total 9.2 mg/dL (8.5-10.1); Chloride 103 mmol/L (98-107); Creatinine, Serum 0.98 mg/dL (0.55-1.02); EST Glomerular Filtration Rate 59 mL/min (>60); Est Glom Filt Rate - Afr Amer 71 mL/min (>60); Glucose 163 mg/dL (74-106); Potassium 3.6 mmol/L (3.5-5.1); Sodium Level 136 mmol/L (136-145)
== END ==
PROVIDERS: PCP Internal Medicine; Referring Provider Internal Medicine; Visit Provider Internal Medicine
DX: E11.9 Type 2 diabetes mellitus without complications (principal)
CPT/HCPCS: 36415; 80048

== ENCOUNTER → 2019-10-07 14:30 | Outpatient (CLI) | payer MEDICARE, BC, SELFPAY ==
[2019-10-07 13:33] VITALS: BMI 35.9
[2019-10-07 16:07] LABS: Anion Gap 9 (5-15); BUN 26 mg/dL (7-18); BUN/Creat Ratio 21.8 RATIO (10-20); Calcium,Total 9.6 mg/dL (8.5-10.1); Chloride 102 mmol/L (98-107); Creatinine, Serum 1.19 mg/dL (0.55-1.02); EST Glomerular Filtration Rate 47 mL/min (>60); Est Glom Filt Rate - Afr Amer 57 mL/min (>60); Glucose 139 mg/dL (74-106); Potassium 3.6 mmol/L (3.5-5.1); Sodium Level 136 mmol/L (136-145)
[2019-10-07 17:45] LABS: Hemoglobin A1c 6.5 % (3.8-5.6)
== END ==
PROVIDERS: PCP Internal Medicine; Referring Provider Internal Medicine; Visit Provider Internal Medicine
DX: E11.9 Type 2 diabetes mellitus without complications (principal); I10 Essential (primary) hypertension
CPT/HCPCS: 36415; 80048; 83036

== ENCOUNTER → 2019-11-19 13:45 | Outpatient (CLI) | payer MEDICARE, BC, SELFPAY ==
[2019-10-07 14:37] VITALS: BMI 35.9
--- NOTE | 2019-11-19 13:50 | US_ITS ---
STUDY: RENAL ULTRASOUND - COMPLETE REASON FOR EXAM: Female, 74 years old. Elevated BUN/creatinine TECHNIQUE: Ultrasound evaluation of the kidneys was performed with real-time and static magaña-scale imaging. COMPARISON: None. FINDINGS: RIGHT KIDNEY: Normal location of the right kidney, which is normal in size. The right kidney measures 10.1 x 4.9 x 4.5 cm. There is a normal cortex of the right kidney. The renal cortex measures 1.3 cm. There is no right renal mass or cyst. There are no right renal calculi. There is no right hydronephrosis. DISTAL RIGHT URETER: There is non-visualization of the distal right ureter. There is no demonstrated right ureterovesical junction calculus. There is a visualized right ureteral jet. LEFT KIDNEY: Normal location of the left kidney, which is normal in size. The left kidney measures 10.7 x 5.0 x 5.4 cm. There is a normal cortex of the left kidney. The renal cortex measures 1.4 cm. There is no left renal mass or cyst. There are no left renal calculi. There is no left hydronephrosis. DISTAL LEFT URETER: There is non-visualization of the distal left ureter. There is no demonstrated left ureterovesical junction calculus. There is a visualized left ureteral jet. AORTA: There is no elongation or tortuosity of the abdominal aorta. I.V.C.: The IVC is patent. BLADDER: The bladder is incompletely distended US/Kidney and Bladder IMPRESSION: No suspicious sonographic findings Electronically Signed: Juan Carlos Watson MD at 14:40 EDT , Service support ,
[2019-11-19 15:06] LABS: Hematocrit 30.8 % (37-47); Hemoglobin 10.2 g/dL (12.0-15.0); Mean Corp Hgb Conc 33.1 g/dL (32-36); Mean Corpuscular Hgb 28.6 pg (27.0-32.0); Mean Corpuscular Volume 86.3 fL (81-99); Mean Platelet Vol. 11.2 fl (6.2-12.0); Platelet Count 299 K/mm3 (150-450); RBC Distribution Width CV 12.3 % (11.6-14.6); RBC Distribution Width SD 38.4 fl (35.1-43.9); Red Blood Count 3.57 M/mm3 (4.2-5.4); White Blood Count 5.1 K/mm3 (4.4-11.0)
[2019-11-19 15:29] LABS: Albumin, Serum 3.7 g/dL (3.2-5.0); BUN 22 mg/dL (7-18); BUN/Creat Ratio 18.6 RATIO (10-20); Calcium,Total 8.7 mg/dL (8.5-10.1); Chloride 108 mmol/L (98-107); Creatinine, Serum 1.18 mg/dL (0.55-1.02); EST Glomerular Filtration Rate 47 mL/min (>60); Est Glom Filt Rate - Afr Amer 57 mL/min (>60); Glucose 96 mg/dL (74-106); Phosphorus 2.7 mg/dL (2.5-4.9); Potassium 3.7 mmol/L (3.5-5.1); Sodium Level 139 mmol/L (136-145)
[2019-11-19 15:38] LABS: PTHIN 90.3 pg/mL (18.4-80.1)
== END ==
PROVIDERS: PCP Internal Medicine; Referring Provider Internal Medicine Nephrology; Visit Provider Internal Medicine Nephrology
DX: E11.22 Type 2 diabetes mellitus with diabetic chronic kidney disease (principal); N18.3 Chronic kidney disease, stage 3 (moderate)
CPT/HCPCS: 36415; 76770; 80069; 83970; 85027

== ENCOUNTER → 2020-01-13 13:20 | Outpatient (CLI) | payer MEDICARE, BC, SELFPAY ==
[2020-01-07 13:33] VITALS: BMI 35.9
[2020-01-13 13:26] LABS: Mucous, Urine 0 SEEN /hpf (<or=2+); Red Blood Cells-Urine 0 SEEN /hpf (0-5); Squamous Epithelial Cells - UA 0 SEEN /hpf (5-10)
[2020-01-13 16:23] LABS: Hematocrit 32.3 % (37-47); Hemoglobin 10.4 g/dL (12.0-15.0); Mean Corp Hgb Conc 32.2 g/dL (32-36); Mean Corpuscular Hgb 27.2 pg (27.0-32.0); Mean Corpuscular Volume 84.6 fL (81-99); Mean Platelet Vol. 11.3 fl (6.2-12.0); Platelet Count 370 K/mm3 (150-450); RBC Distribution Width CV 12.3 % (11.6-14.6); RBC Distribution Width SD 37.1 fl (35.1-43.9); Red Blood Count 3.82 M/mm3 (4.2-5.4); White Blood Count 4.6 K/mm3 (4.4-11.0)
[2020-01-13 16:39] LABS: Albumin, Serum 3.6 g/dL (3.2-5.0); BUN 28 mg/dL (7-18); BUN/Creat Ratio 23.9 RATIO (10-20); Calcium,Total 8.9 mg/dL (8.5-10.1); Chloride 105 mmol/L (98-107); Creatinine, Serum 1.17 mg/dL (0.55-1.02); EST Glomerular Filtration Rate 48 mL/min (>60); Est Glom Filt Rate - Afr Amer 58 mL/min (>60); Glucose 115 mg/dL (74-106); Phosphorus 3.1 mg/dL (2.5-4.9); Sodium Level 138 mmol/L (136-145)
[2020-01-13 17:01] LABS: Microalbumin,Random Urine 5.9 mg/L (NO RANGE EST.)
[2020-01-13 17:27] LABS: Color, Urine Yellow (Yellow); Glucose, Dipstick Normal (Normal); Ketone-Dipstick Negative (Negative); Leukocyte Esterase-Dipstick 25 /ul (Negative); Nitrite-Dipstick Negative (Negative); Occult Blood-Urine Negative /ul (Negative); Protein-Dipstick Negative (Negative); Specific Gravity, Urine 1.015 (1.002-1.030); Urine Bilirubin Dipstick Negative (Negative); Urine Clarity Clear (Clear); Urine Urobilinogen Normal (Normal)
[2020-01-13 17:59] LABS: Bacteria 1+ /hpf (None Seen); White Blood Cells 0-5 SEEN /hpf (0-5)
[2020-01-14 10:40] LABS: PTHIN 70.4 pg/mL (18.4-80.1)
== END ==
PROVIDERS: PCP Internal Medicine; Visit Provider Internal Medicine Nephrology
DX: E11.22 Type 2 diabetes mellitus with diabetic chronic kidney disease (principal); N18.3 Chronic kidney disease, stage 3 (moderate)
CPT/HCPCS: 36415; 80069; 81001; 82043; 82570; 83970; 85027

== ENCOUNTER → 2020-04-20 12:32 | Outpatient (CLI) | payer MEDICARE, BC, SELFPAY ==
[2020-01-07 13:33] VITALS: BMI 35.9
[2020-04-05 13:17] VITALS: BMI 34.5
--- NOTE | 2020-04-20 12:38 | BI_ITS ---
MAMMOGRAPHY - UNILATERAL SCREENING: LEFT BREAST REASON FOR EXAM: Female, 75 years old. Routine annual screening examination (unilateral). PERTINENT HISTORY: Personal history of breast cancer. Prior right mastectomy and chemotherapy. History of prior left breast reduction surgery. TECHNIQUE: Digital unilateral breast natalie (3D mammographic acquisition) in the CC and MLO projections. 2-D mediolateral oblique (MLO) and craniocaudad (CC) views of both breasts were obtained. CAD: Full Field Digital Mammography with Computer Added Detection was performed. COMPARISON: Comparison is made with prior examination dated 08/29/2018 and 08/28/2017. FINDINGS: Breast Composition: The breasts are almost entirely fatty. There are no dominant masses or suspicious calcifications. No other significant abnormalities are identified. There has been no significant change since the prior study. BI/SCREEN MAMM (CAD) W/NATALIE UNI L IMPRESSION: Stable unilateral screening mammogram. Yearly follow-up mammogram recommended. (A) ASSESSMENT CATEGORY: BIRADS Category 1: Negative. A letter regarding these results will be sent to the patient by the facility within 30 days. Approximately 10% of breast cancers are not detected by mammography. A normal mammogram should not delay biopsy of a clinically suspicious abnormality. [id number] Electronically Signed: Kilo Curtis, at 13:19 EST , Service support ,
== END ==
PROVIDERS: PCP Internal Medicine; Referring Provider Internal Medicine; Visit Provider Internal Medicine
DX: Z12.31 Encounter for screening mammogram for malignant neoplasm of breast (principal)
CPT/HCPCS: 77063; 77067

== ENCOUNTER → 2020-07-12 12:35 | Outpatient (CLI) | payer MEDICARE, BC, SELFPAY ==
[2020-04-05 13:17] VITALS: BMI 34.5
[2020-07-12 15:28] LABS: Absolute Neutrophil Count 2.5 X10^3/uL (2.0-7.7); Basophil# 0.05 X10^3/uL; Basophil% 1.1 % (0-1); Eosinophil# 0.12 X10^3/uL; Eosinophils% 2.7 % (0-5); Hemoglobin 9.7 g/dL (12.0-15.0); Lymphocyte % 31.7 % (19-41); Mean Corp Hgb Conc 31.3 g/dL (32-36); Mean Corpuscular Hgb 26.3 pg (27.0-32.0); Mean Platelet Vol. 11.8 fl (6.2-12.0); Monocyte# 0.34 X10^3/uL; Monocyte% 7.7 % (0-10); NRBC Flagged by Analyzer 0 % (0-5); Neutrophil % 56.6 % (47-70); Platelet Count 334 K/mm3 (150-450); RBC Distribution Width CV 13.4 % (11.6-14.6); RBC Distribution Width SD 40.7 fl (35.1-43.9); Red Blood Count 3.69 M/mm3 (4.2-5.4); White Blood Count 4.4 K/mm3 (4.4-11.0)
[2020-07-12 15:58] LABS: ALB/GLOB Ratio 1.1 RATIO (0.9-2.4); AST(SGOT) 20 U/L (15-37); Alanine Aminotransfer ALT/SGPT 43 U/L (13-56); Albumin, Serum 3.5 g/dL (3.2-5.0); Alkaline Phosphatase 97 U/L (45-117); Anion Gap 6 (5-15); BUN 32 mg/dL (7-18); BUN/Creat Ratio 23.9 RATIO (10-20); Chloride 107 mmol/L (98-107); Creatinine, Serum 1.34 mg/dL (0.55-1.02); EST Glomerular Filtration Rate 41 mL/min (>60); Est Glom Filt Rate - Afr Amer 49 mL/min (>60); Globulin 3.3 g/dL (2.2-4.2); Glucose 188 mg/dL (74-106); Potassium 3.9 mmol/L (3.5-5.1); Protein, Total 6.8 g/dL (6.4-8.2); Sodium Level 140 mmol/L (136-145)
[2020-07-13 09:02] LABS: Ferritin 7 ng/mL (8-252); Iron 27 ug/dL (50-170); Iron Binding Capacity,Total 353 ug/dL (250-450)
[2020-07-13 11:52] LABS: Hemoglobin A1c 6.2 % (3.8-5.6)
== END ==
PROVIDERS: PCP Internal Medicine; Referring Provider Internal Medicine; Visit Provider Internal Medicine
DX: E11.9 Type 2 diabetes mellitus without complications (principal); I10 Essential (primary) hypertension; D64.9 Anemia, unspecified
CPT/HCPCS: 36415; 80053; 82728; 83036; 83540; 83550; 85025

== ENCOUNTER → 2020-09-01 12:20 | Outpatient (CLI) | payer MEDICARE, BC, SELFPAY ==
[2020-07-14 14:55] VITALS: BMI 34.5
[2020-09-01 15:24] LABS: Absolute Lymphocyte Count 1.44 X10^3/uL (0.83-4.51); Absolute Neutrophil Count 3.3 X10^3/uL (2.0-7.7); Basophil# 0.06 X10^3/uL; Basophil% 1.1 % (0-1); Eosinophil# 0.13 X10^3/uL; Eosinophils% 2.4 % (0-5); Hematocrit 33.9 % (37-47); Hemoglobin 10.6 g/dL (12.0-15.0); Lymphocyte # 1.44 X10^3/ul (0.83-4.51); Lymphocyte % 26.9 % (19-41); Mean Corp Hgb Conc 31.3 g/dL (32-36); Mean Corpuscular Hgb 25.8 pg (27.0-32.0); Mean Corpuscular Volume 82.5 fL (81-99); Mean Platelet Vol. 11.6 fl (6.2-12.0); Monocyte# 0.41 X10^3/uL; Monocyte% 7.6 % (0-10); NRBC Flagged by Analyzer 0 % (0-5); Neutrophil % 61.6 % (47-70); Platelet Count 334 K/mm3 (150-450); RBC Distribution Width CV 13.4 % (11.6-14.6); RBC Distribution Width SD 40.5 fl (35.1-43.9); Red Blood Count 4.11 M/mm3 (4.2-5.4); White Blood Count 5.4 K/mm3 (4.4-11.0)
[2020-09-01 16:36] LABS: Hemoglobin A1c 5.9 % (3.8-5.6)
[2020-09-01 18:25] LABS: Thyroid Stim Hormone (TSH) 2.05 uIU/mL (0.358-3.74)
== END ==
PROVIDERS: PCP Internal Medicine; Referring Provider Internal Medicine; Visit Provider Internal Medicine
DX: D64.9 Anemia, unspecified (principal); E11.9 Type 2 diabetes mellitus without complications; E03.9 Hypothyroidism, unspecified
CPT/HCPCS: 36415; 83036; 84443; 85025

== ENCOUNTER → 2021-01-12 15:40 | Outpatient (CLI) | payer MEDICARE, BC, SELFPAY ==
[2021-01-12 16:38] LABS: Absolute Lymphocyte Count 1.63 X10^3/uL (0.83-4.51); Absolute Neutrophil Count 2.8 X10^3/uL (2.0-7.7); Basophil# 0.06 X10^3/uL; Basophil% 1.2 % (0-1); Hematocrit 31.6 % (37-47); Hemoglobin 10.5 g/dL (12.0-15.0); Lymphocyte # 1.63 X10^3/ul (0.83-4.51); Lymphocyte % 32.3 % (19-41); Mean Corp Hgb Conc 33.2 g/dL (32-36); Mean Corpuscular Hgb 27.8 pg (27.0-32.0); Mean Corpuscular Volume 83.6 fL (81-99); Mean Platelet Vol. 11.3 fl (6.2-12.0); Monocyte# 0.43 X10^3/uL; Monocyte% 8.5 % (0-10); NRBC Flagged by Analyzer 0 % (0-5); Neutrophil # 2.81 X10^3/uL (2.7-7.7); Neutrophil % 55.8 % (47-70); Platelet Count 335 K/mm3 (150-450); RBC Distribution Width CV 12.7 % (11.6-14.6); RBC Distribution Width SD 38.5 fl (35.1-43.9); Red Blood Count 3.78 M/mm3 (4.2-5.4)
[2021-01-12 17:15] LABS: ALB/GLOB Ratio 0.9 RATIO (0.9-2.4); AST(SGOT) 18 U/L (15-37); Alanine Aminotransfer ALT/SGPT 37 U/L (13-56); Albumin, Serum 3.5 g/dL (3.2-5.0); Alkaline Phosphatase 98 U/L (45-117); Anion Gap 7 (5-15); BUN 28 mg/dL (7-18); BUN/Creat Ratio 21.5 RATIO (10-20); Calcium,Total 9.4 mg/dL (8.5-10.1); Chloride 104 mmol/L (98-107); Cholesterol 154 mg/dL (200); EST Glomerular Filtration Rate 42 mL/min (>60); Est Glom Filt Rate - Afr Amer 51 mL/min (>60); Globulin 3.8 g/dL (2.2-4.2); Glucose 139 mg/dL (74-106); High Density Lipoprotein 46 mg/dL; Potassium 3.8 mmol/L (3.5-5.1); Protein, Total 7.3 g/dL (6.4-8.2); Sodium Level 137 mmol/L (136-145); Triglycerides 98 mg/dL; Very Low Density Lipoprotein 20 mg/dL (5-40)
== END ==
PROVIDERS: PCP Internal Medicine; Referring Provider Internal Medicine; Visit Provider Internal Medicine
DX: D64.9 Anemia, unspecified (principal); E11.9 Type 2 diabetes mellitus without complications
CPT/HCPCS: 36415; 80053; 80061; 85025

== ENCOUNTER 2021-05-01 15:10 | Outpatient (CLI) | payer MEDICARE, SELFPAY ==
[2021-05-01 16:06] LABS: Absolute Lymphocyte Count 1.48 X10^3/uL (0.83-4.51); Absolute Neutrophil Count 2.9 X10^3/uL (2.0-7.7); Basophil# 0.05 X10^3/uL; Hematocrit 32.1 % (37-47); Hemoglobin 10.5 g/dL (12.0-15.0); Lymphocyte # 1.48 X10^3/ul (0.83-4.51); Lymphocyte % 29.9 % (19-41); Mean Corp Hgb Conc 32.7 g/dL (32-36); Mean Corpuscular Hgb 26.5 pg (27.0-32.0); Mean Corpuscular Volume 81.1 fL (81-99); Mean Platelet Vol. 11.1 fl (6.2-12.0); Monocyte# 0.43 X10^3/uL; Monocyte% 8.7 % (0-10); NRBC Flagged by Analyzer 0 % (0-5); Neutrophil # 2.88 X10^3/uL (2.7-7.7); Neutrophil % 58.2 % (47-70); Platelet Count 338 K/mm3 (150-450); RBC Distribution Width CV 12.6 % (11.6-14.6); RBC Distribution Width SD 37.1 fl (35.1-43.9); Red Blood Count 3.96 M/mm3 (4.2-5.4)
[2021-05-01 16:38] LABS: ALB/GLOB Ratio 0.9 RATIO (0.9-2.4); AST(SGOT) 18 U/L (15-37); Alanine Aminotransfer ALT/SGPT 36 U/L (13-56); Albumin, Serum 3.5 g/dL (3.2-5.0); Alkaline Phosphatase 98 U/L (45-117); Anion Gap 10 (5-15); BUN 26 mg/dL (7-18); BUN/Creat Ratio 20.5 RATIO (10-20); Calcium,Total 9.5 mg/dL (8.5-10.1); Chloride 107 mmol/L (98-107); Creatinine, Serum 1.27 mg/dL (0.55-1.02); EST Glomerular Filtration Rate 43 mL/min (>60); Est Glom Filt Rate - Afr Amer 52 mL/min (>60); Globulin 3.9 g/dL (2.2-4.2); Glucose 113 mg/dL (74-106); Potassium 3.7 mmol/L (3.5-5.1); Protein, Total 7.4 g/dL (6.4-8.2); Sodium Level 140 mmol/L (136-145); Thyroid Stim Hormone (TSH) 2.42 uIU/mL (0.358-3.74)
== END 2021-05-01 23:59 | disposition short-term general hospital (02) ==
LOC: MTLAB 15:16
PROVIDERS: PCP Internal Medicine; Referring Provider Internal Medicine; Visit Provider Internal Medicine
DX: E11.69 Type 2 diabetes mellitus with other specified complication (principal); C50.911 Malignant neoplasm of unspecified site of right female breast
CPT/HCPCS: 36415; 80053; 84443; 85025

== ENCOUNTER 2021-08-07 13:05 | Outpatient (CLI) | payer MEDICARE, SELFPAY ==
--- NOTE | 2021-08-07 13:14 | CDU_ITS ---
Reason For Study: carotid stenosis Rt. Velocities/BP Lt. Velocities/BP Prox CCA 72.1/10.8 cm/sec. Prox CCA 91.5/11.3 cm/sec. Mid CCA 91.7/12.1 cm/sec. Mid CCA 65.1/13.5 cm/sec. Dist CCA 78.3/12.4 cm/sec. Dist CCA 56.4/12.4 cm/sec. Prox ICA 91.9/9.7 cm/sec. Prox ICA 307.1/44.3 cm/sec. Mid ICA 132.1/24.3 cm/sec. Mid ICA 125.7/20.4 cm/sec. Dist ICA 112.0/24.3 cm/sec. Dist ICA 117.0/22.6 cm/sec. Rt. ICA/CCA = 1.4. Lt. ICA/CCA = 4.7. Prox ECA 486.1/51.0 cm/sec. Prox ECA 39.9/5.8 cm/sec. Rt. Vert. 55.3/9.1 cm/sec. Lt. Vert. 63.0/12.4 cm/sec. Right Extracranial There is heterogeneous, irregular atherosclerotic plaque noted in the right common carotid artery. There is heterogeneous, irregular atherosclerotic plaque noted in the right internal carotid artery. There is heterogeneous, irregular atherosclerotic plaque noted in the right external carotid artery. Antegrade flow is noted in the right vertebral artery. Left Extracranial There is heterogeneous, irregular atherosclerotic plaque noted in the left common carotid artery. There is heterogeneous, irregular atherosclerotic plaque noted in the left internal carotid artery. There is heterogeneous, irregular atherosclerotic plaque noted in the left external carotid artery. Antegrade flow is noted in the left vertebral artery. Procedure Carotid Duplex 30112. This is a Carotid Duplex examination using B-mode, color flow and specral Doppler. The exam was diagnostic. Exam performed in department. VL/Carotid Duplex Ultrasound Interpretation Summary Irregular calcific plaque at the proximal right internal carotid artery with 50 to 69% stenosis. Greater than 50% stenosis right external carotid artery Irregular calcific plaque with shadowing at the proximal left internal carotid artery with greater than 70% stenosis Less than 50% stenosis of the left external carotid artery Patent and antegrade bilateral vertebrals Previous examination of March 03, 2019 also demonstrated greater than 70% nataliia nosis of the left internal carotid artery Ordering Physician: Tommy Everett Performed By: Martell Dc RVT
== END 2021-08-07 23:59 | disposition home or self-care (01) ==
LOC: CVS 13:12
PROVIDERS: PCP Internal Medicine; Referring Provider Internal Medicine; Visit Provider Internal Medicine
DX: R20.2 Paresthesia of skin (principal); I65.29 Occlusion and stenosis of unspecified carotid artery
CPT/HCPCS: 93880

== ENCOUNTER → 2021-11-03 | Outpatient (CLI) | payer MEDICARE, SELFPAY ==
[2021-11-03 17:32] LABS: Absolute Lymphocyte Count 1.55 X10^3/uL (0.83-4.51); Absolute Neutrophil Count 3.2 X10^3/uL (2.0-7.7); Basophil# 0.04 X10^3/uL; Basophil% 0.7 % (0-1); Eosinophil# 0.11 X10^3/uL; Hematocrit 32.6 % (37-47); Hemoglobin 10.2 g/dL (12.0-15.0); Lymphocyte # 1.55 X10^3/ul (0.83-4.51); Lymphocyte % 28.9 % (19-41); Mean Corp Hgb Conc 31.3 g/dL (32-36); Mean Corpuscular Hgb 26.2 pg (27.0-32.0); Mean Corpuscular Volume 83.6 fL (81-99); Mean Platelet Vol. 11.8 fl (6.2-12.0); Monocyte# 0.43 X10^3/uL; NRBC Flagged by Analyzer 0 % (0-5); Neutrophil # 3.22 X10^3/uL (2.7-7.7); Platelet Count 342 K/mm3 (150-450); RBC Distribution Width CV 12.9 % (11.6-14.6); RBC Distribution Width SD 38.9 fl (35.1-43.9); White Blood Count 5.4 K/mm3 (4.4-11.0)
[2021-11-03 17:52] LABS: Anion Gap 8 (5-15); BUN 29 mg/dL (7-18); BUN/Creat Ratio 19.7 RATIO (10-20); Calcium,Total 9.6 mg/dL (8.5-10.1); Chloride 106 mmol/L (98-107); Creatinine, Serum 1.47 mg/dL (0.55-1.02); EST Glomerular Filtration Rate 37 mL/min (>60); Est Glom Filt Rate - Afr Amer 44 mL/min (>60); Glucose 205 mg/dL (74-106); Potassium 4.3 mmol/L (3.5-5.1); Sodium Level 140 mmol/L (136-145)
[2021-11-03 18:06] LABS: Hemoglobin A1c 6.8 % (3.8-5.6)
== END | disposition home or self-care (01) ==
LOC: MTLAB 15:37
PROVIDERS: PCP Internal Medicine; Referring Provider Internal Medicine; Visit Provider Internal Medicine
DX: E11.69 Type 2 diabetes mellitus with other specified complication (principal)
CPT/HCPCS: 36415; 80048; 83036; 85025

== ENCOUNTER → 2022-05-22 | Outpatient (CLI) | payer MEDICARE, SELFPAY ==
[2022-05-22 12:17] LABS: Absolute Lymphocyte Count 1.12 X10^3/uL (0.83-4.51); Absolute Neutrophil Count 3.8 X10^3/uL (2.0-7.7); Basophil# 0.05 X10^3/uL; Basophil% 0.9 % (0-1); Eosinophil# 0.17 X10^3/uL; Eosinophils% 3.1 % (0-5); Hemoglobin 10.3 g/dL (12.0-15.0); Lymphocyte # 1.12 X10^3/ul (0.83-4.51); Lymphocyte % 20.2 % (19-41); Mean Corp Hgb Conc 31.2 g/dL (32-36); Mean Corpuscular Hgb 25.1 pg (27.0-32.0); Mean Corpuscular Volume 80.5 fL (81-99); Mean Platelet Vol. 11.5 fl (6.2-12.0); Monocyte# 0.38 X10^3/uL; Monocyte% 6.8 % (0-10); NRBC Flagged by Analyzer 0 % (0-5); Neutrophil # 3.82 X10^3/uL (2.7-7.7); Neutrophil % 68.8 % (47-70); Platelet Count 358 K/mm3 (150-450); RBC Distribution Width CV 13.6 % (11.6-14.6); RBC Distribution Width SD 39.5 fl (35.1-43.9); White Blood Count 5.6 K/mm3 (4.4-11.0)
[2022-05-22 13:04] LABS: Hemoglobin A1c 6.7 % (3.8-5.6)
[2022-05-22 13:22] LABS: ALB/GLOB Ratio 0.9 RATIO (0.9-2.4); AST(SGOT) 14 U/L (15-37); Alanine Aminotransfer ALT/SGPT 26 U/L (13-56); Albumin, Serum 3.6 g/dL (3.2-5.0); Alkaline Phosphatase 94 U/L (45-117); Anion Gap 12 (5-15); BUN 32 mg/dL (7-18); BUN/Creat Ratio 21.8 RATIO (10-20); Calcium,Total 8.9 mg/dL (8.5-10.1); Chloride 105 mmol/L (98-107); Cholesterol 139 mg/dL (200); Creatinine, Serum 1.47 mg/dL (0.55-1.02); EST Glomerular Filtration Rate 37 mL/min (>60); Est Glom Filt Rate - Afr Amer 44 mL/min (>60); Globulin 3.8 g/dL (2.2-4.2); Glucose 218 mg/dL (74-106); High Density Lipoprotein 47 mg/dL; Potassium 3.9 mmol/L (3.5-5.1); Protein, Total 7.4 g/dL (6.4-8.2); Sodium Level 137 mmol/L (136-145); Thyroid Stim Hormone (TSH) 2.03 uIU/mL (0.358-3.74); Triglycerides 114 mg/dL; Very Low Density Lipoprotein 23 mg/dL (5-40)
== END | disposition home or self-care (01) ==
LOC: BIMLAB 11:36
PROVIDERS: PCP Internal Medicine; Referring Provider Internal Medicine; Visit Provider Internal Medicine
DX: I16.0 Hypertensive urgency (principal); E11.9 Type 2 diabetes mellitus without complications; E03.9 Hypothyroidism, unspecified
CPT/HCPCS: 36415; 80053; 80061; 83036; 84443; 85025

== ENCOUNTER → 2022-05-24 | Outpatient (CLI) | payer MEDICARE, SELFPAY ==
[2022-05-24 16:22] LABS: Microalbumin,Random Urine < 5.0 mg/L (NO RANGE EST.)
== END | disposition home or self-care (01) ==
LOC: LABSPEC 13:09
PROVIDERS: PCP Internal Medicine; Referring Provider Internal Medicine; Visit Provider Internal Medicine
DX: E11.9 Type 2 diabetes mellitus without complications (principal)
CPT/HCPCS: 82043; 82570

== ENCOUNTER → 2022-08-28 | Outpatient (CLI) | payer MEDICARE, SELFPAY ==
[2022-08-28 15:37] LABS: Absolute Lymphocyte Count 1.69 X10^3/uL (0.83-4.51); Basophil# 0.06 X10^3/uL; Basophil% 0.9 % (0-1); Eosinophil# 0.17 X10^3/uL; Eosinophils% 2.6 % (0-5); Hematocrit 34.1 % (37-47); Hemoglobin 10.7 g/dL (12.0-15.0); Lymphocyte # 1.69 X10^3/ul (0.83-4.51); Lymphocyte % 25.7 % (19-41); Mean Corp Hgb Conc 31.4 g/dL (32-36); Mean Corpuscular Hgb 25.8 pg (27.0-32.0); Mean Corpuscular Volume 82.2 fL (81-99); Mean Platelet Vol. 11.8 fl (6.2-12.0); Monocyte# 0.61 X10^3/uL; Monocyte% 9.3 % (0-10); NRBC Flagged by Analyzer 0 % (0-5); Neutrophil # 3.96 X10^3/uL (2.7-7.7); Neutrophil % 60.1 % (47-70); Platelet Count 361 K/mm3 (150-450); RBC Distribution Width SD 41.3 fl (35.1-43.9); Red Blood Count 4.15 M/mm3 (4.2-5.4); White Blood Count 6.6 K/mm3 (4.4-11.0)
[2022-08-28 15:57] LABS: Anion Gap 10 (5-15); BUN 18 mg/dL (7-18); BUN/Creat Ratio 16.5 RATIO (10-20); Calcium,Total 9.1 mg/dL (8.5-10.1); Chloride 108 mmol/L (98-107); Creatinine, Serum 1.09 mg/dL (0.55-1.02); EST Glomerular Filtration Rate 52 mL/min (>60); Est Glom Filt Rate - Afr Amer 62 mL/min (>60); Glucose 163 mg/dL (74-106); Potassium 3.9 mmol/L (3.5-5.1); Sodium Level 142 mmol/L (136-145)
[2022-08-28 16:19] LABS: Hemoglobin A1c 6.9 % (3.8-5.6)
== END | disposition home or self-care (01) ==
LOC: BIMLAB 13:23
PROVIDERS: PCP Internal Medicine; Referring Provider Internal Medicine; Visit Provider Internal Medicine
DX: E11.69 Type 2 diabetes mellitus with other specified complication (principal)
CPT/HCPCS: 36415; 80048; 83036; 85025

== ENCOUNTER → 2022-12-05 | Outpatient (CLI) | payer MEDICARE, SELFPAY ==
[2022-12-05 16:11] LABS: Hemoglobin A1c 7.2 % (3.8-5.6)
== END | disposition home or self-care (01) ==
LOC: BIMLAB 14:04
PROVIDERS: PCP Internal Medicine; Referring Provider Internal Medicine; Visit Provider Internal Medicine
DX: E11.69 Type 2 diabetes mellitus with other specified complication (principal)
CPT/HCPCS: 36415; 83036

== ENCOUNTER → 2022-12-25 | Outpatient (CLI) | payer MEDICARE, SELFPAY ==
--- NOTE | 2022-12-25 13:57 | BD_ITS ---
STUDY: DUAL ENERGY X-RAY ABSORPTIOMETRY / DXA REASON FOR EXAM: Female, 77 years old. Post menopausal TECHNIQUE: Bone Mineral Density (BMD) measurements of lumbar spine and bilateral hips were obtained. COMPARISON: Comparison is made with prior study dated August 30, 2015. FINDINGS: Lumbar Spine (L1-L4): g/cm2 (0.981) / T-score (-0.6) / Z-score (2.0) Findings are suggestive of normal bone density with a low fracture risk. Left Femur Total: g/cm2 (0.914) / T-score (-0.2) / Z-score (1.8) Left Femoral Neck: g/cm2 (0.657) / T-score (-1.7) / Z-score (0.5) Right Femur Total: g/cm2 (0.869) / T-score (-0.6) / Z-score (1.4) Right Femoral Neck: g/cm2 (0.756) / T-score (-0.8) / Z-score (1.4) The T-Scores on the most recent prior examination were: Lumbar Spine (L1-L4): There has been worsening of bone density since the previous examination. Left Femur Total: which represents a worsening of 5.2%. Right Femur Total: which represents a worsening of 8.1%. BD/Dexa Bone Density Study IMPRESSION: The patient is considered osteopenic as outlined below according to World Aamir Organization (WHO) criteria with a moderate fracture risk. There has been worsening of bone density since the previous examination. Reference Information: The T-score is the number of standard deviations above or below the standard which is normal for young adults at their peak bone mineral density. The World Health Organization (WHO) interprets the T-scores as follows: Above -1 Normal bone density Between -1 and -2.5 Osteopenia Equal to / or below -2.5 Osteoporosis As a practical clinical guideline, osteopenia may be graded as follows: Mild -1 through -1.5 Moderate -1.6 through -2.0 Severe -2.1 through -2.4 The Z-score is the number of standard deviations above or below age-matched controls. A Z-score of less than -1.5 would be considered abnormal. References: 1. NIH Osteoporosis and Related Bone Diseases www osteo.org 2. International Society for Clinical Densitometry www iscd.org 3. National Osteoporosis Foundation www nof.org Electronically Signed: Kilo Curtis MD at 14:54 EDT ,
== END | disposition home or self-care (01) ==
LOC: OPBD 13:51
PROVIDERS: PCP Internal Medicine; Referring Provider Internal Medicine; Visit Provider Internal Medicine
DX: Z78.0 Asymptomatic menopausal state (principal)
CPT/HCPCS: 77080

== ENCOUNTER → 2023-03-12 | Outpatient (CLI) | payer MEDICARE, SELFPAY ==
[2023-03-12 12:40] LABS: Absolute Lymphocyte Count 1.64 X10^3/uL (0.83-4.51); Absolute Neutrophil Count 3.9 X10^3/uL (2.0-7.7); Basophil# 0.09 X10^3/uL; Basophil% 1.4 % (0-1); Eosinophil# 0.22 X10^3/uL; Eosinophils% 3.5 % (0-5); Hematocrit 36.2 % (37-47); Hemoglobin 11.5 g/dL (12.0-15.0); Lymphocyte # 1.64 X10^3/ul (0.83-4.51); Lymphocyte % 25.7 % (19-41); Mean Corp Hgb Conc 31.8 g/dL (32-36); Mean Corpuscular Hgb 26.9 pg (27.0-32.0); Mean Corpuscular Volume 84.8 fL (81-99); Monocyte# 0.48 X10^3/uL; Monocyte% 7.5 % (0-10); NRBC Flagged by Analyzer 0 % (0-5); Neutrophil # 3.92 X10^3/uL (2.7-7.7); Neutrophil % 61.6 % (47-70); Platelet Count 396 K/mm3 (150-450); RBC Distribution Width SD 39.7 fl (35.1-43.9); Red Blood Count 4.27 M/mm3 (4.2-5.4); White Blood Count 6.4 K/mm3 (4.4-11.0)
[2023-03-12 12:56] LABS: AST(SGOT) 17 U/L (15-37); Alanine Aminotransfer ALT/SGPT 29 U/L (13-56); Albumin, Serum 3.7 g/dL (3.2-5.0); Alkaline Phosphatase 114 U/L (45-117); Anion Gap 8 (5-15); BUN 33 mg/dL (7-18); BUN/Creat Ratio 17.1 RATIO (10-20); Calcium,Total 9.2 mg/dL (8.5-10.1); Chloride 105 mmol/L (98-107); Cholesterol 131 mg/dL (200); Creatinine, Serum 1.93 mg/dL (0.55-1.02); EST Glomerular Filtration Rate 27 mL/min (>60); Est Glom Filt Rate - Afr Amer 32 mL/min (>60); Globulin 3.7 g/dL (2.2-4.2); Glucose 236 mg/dL (74-106); High Density Lipoprotein 42 mg/dL; Protein, Total 7.4 g/dL (6.4-8.2); Sodium Level 139 mmol/L (136-145); Thyroid Stim Hormone (TSH) 2.25 uIU/mL (0.358-3.74); Triglycerides 172 mg/dL; Very Low Density Lipoprotein 34 mg/dL (5-40)
[2023-03-12 14:01] LABS: Hemoglobin A1c 7.2 % (3.8-5.6)
== END | disposition home or self-care (01) ==
LOC: BIMLAB 10:45
PROVIDERS: PCP Internal Medicine; Visit Provider Internal Medicine
DX: E03.9 Hypothyroidism, unspecified (principal); E11.69 Type 2 diabetes mellitus with other specified complication
CPT/HCPCS: 36415; 80053; 80061; 83036; 84443; 85025

== ENCOUNTER → 2023-04-15 | Outpatient (CLI) | payer MEDICARE, SELFPAY ==
[2023-04-15 16:28] LABS: Anion Gap 6 (5-15); BUN 31 mg/dL (7-18); BUN/Creat Ratio 20.7 RATIO (10-20); Chloride 107 mmol/L (98-107); EST Glomerular Filtration Rate 36 mL/min (>60); Est Glom Filt Rate - Afr Amer 43 mL/min (>60); Glucose 147 mg/dL (74-106); Potassium 4.5 mmol/L (3.5-5.1); Sodium Level 138 mmol/L (136-145)
== END | disposition home or self-care (01) ==
LOC: BIMLAB 13:19
PROVIDERS: PCP Internal Medicine; Referring Provider Internal Medicine; Visit Provider Internal Medicine
DX: N18.30 Chronic kidney disease, stage 3 unspecified (principal)
CPT/HCPCS: 36415; 80048

== ENCOUNTER → 2023-04-24 | Outpatient (CLI) | payer MEDICARE, SELFPAY ==
--- NOTE | 2023-04-24 14:08 | RAD_ITS ---
STUDY: X-RAY - PELVIS AND RIGHT HIP REASON FOR EXAM: Female, 78 years old. Pain. TECHNIQUE: 3 views of the pelvis and hip. COMPARISON: August 30, 2015 FINDINGS: There is a non-specific bowel gas pattern. Normal visualized soft tissue structures. Osteopenia with mild arthrosis of the right sacroiliac joint. Moderate arthrosis of the right hip which has slightly progressed since the prior study. Mixed lucency and sclerosis in the humeral heads bilaterally which may represent changes of avascular necrosis. No femoral head collapse. RAD/HIP, UNI W/ Pelvis 2-3 Views IMPRESSION: Osteopenia with progression of right hip arthrosis. Mixed sclerosis and lucency in both femoral heads which may represent avascular necrosis. MRI imaging of the hips without contrast would be the best way to confirm this, if clinically thought to be worthwhile/upper. Electronically Signed: Louis Larsen MD at 15:04 EST ,
== END | disposition home or self-care (01) ==
LOC: RAD 14:00
PROVIDERS: PCP Internal Medicine; Referring Provider Physician Assistant; Visit Provider Physician Assistant
DX: M25.551 Pain in right hip (principal)
CPT/HCPCS: 73502

== ENCOUNTER → 2023-06-20 | Outpatient (CLI) | payer MEDICARE, SELFPAY ==
--- OUTSIDE RECORDS SUMMARY | 2023-06-20 14:55 | XMS RPT_ITS | CCD ---
Author Name Unknown Address [address] [place] [address] Organization [facility] Care Team Providers Care Fiction And Nonfiction Writer Prose Name Role Phone Marguerite GONZALEZ, Tommy Rondon Unavailable [phone] Ann PSYCHOLOGIST EDUCATIONAL-C, Soto A Unavailable Unavailable Ann PSYCHOLOGIST EDUCATIONAL-C, Soto A Unavailable Unavailable Anna Gómez Unavailable Unavailable CEBUL, ALISHA Amador Unavailable Unavailable CEBUL, ALISHA Amador Unavailable Unavailable CEBUL, ALISHA Amador Unavailable Unavailable Tommy Everett MD Unavailable [phone] Allergies Allergy Classification Reported Allergen(s) Allergy Type Date of Onset Reaction(s) Facility (8 sources) Adhesive Tape; Translations: [TAPE] allergy to substance [facility] (8 sources) SENTHIL drug allergy 3 [facility] (1 source) nickel; Translations: [NICKEL] Drug Allergy 5 [facility] (1 source) OTHER; Translations: [OTHER] Propensity to adverse reactions (disorder) 7 [facility] Medications Completed/Discontinued Medications Medication Drug Class(es) Dates Sig (Normalized) Sig (Original) aspirin 81 mg oral strip (8 sources) Nonsteroidal Anti-inflammatory Drug take 1 tablet by mouth once daily ASPIRIN 81 MG ORAL TABS One tablet by mouth daily ASPIRIN [id number] Lakisha Gray Problems Active Problems Problem Classification Problem Date Documented Da te Episodic/Chronic Cancer of breast (8 sources) Carcinoma of breast ; Translations: [Malignant neoplasm of unspecified site of right female breast] Onset: 06-16-1997 07-09-2012 Chronic Diabetes mellitus without complication (7 sources) Type 2 diabetes mellitus; Translations: [Type 2 diabetes mellitus without complications] Onset: 11-21-2016 11-21-2016 Chronic Disorders of lipid metabolism (7 sources) Hyperlipidemia; Translations: [Hyperlipidemia, unspecified] Onset: 11-21-2016 11-21-2016 Chronic Essential hypertension (7 sources) Hypertensive disorder; Translations: [Essential (primary) hypertension] Onset: 11-21-2016 11-21-2016 Chronic Occlusion or stenosis of precerebral arteries (1 source) Occlusion and stenosis of bilateral carotid arteries; Translations: [Occlusion and stenosis of bilateral carotid arteries] Onset: 10-26-2016 Chronic Other nutritional; endocrine; and metabolic disorders (7 sources) Body mass index (BMI) 35.0-35.9, adult; Translations: [Body mass index (BMI) 35.0-35.9, adult] Onset: 11-21-2016 11-21-2016 Chronic Thyroid disorders (2 sources) Hypothyroidism; Translations: [Hypothyroidism, unspecified] Onset: 01-11-2017 01-11-2017 Chronic Unclassified (6 sources) Screening mammography ; Translations: [Encounter for screening mammogram for malignant neoplasm of breast] Onset: 06-28-2016 06-28-2016 Unclassified (8 sources) Iron deficiency anemias; Translations: [Iron deficiency anemias] Onset: 02-09-2014 08-18-2014 Past or Other Problems Problem Classification Problem Date Documented Date Episodic/Chronic Cancer of breast (8 sources) Personal history of malignant neoplasm of breast; Translations: [Personal history of malignant neoplasm of breast] Onset: 10-21-2012 03-16-2013 Episodic Nonmalignant breast conditions (16 sources) Other specified disorders of breast; Translations: [Disproportion of reconstructed breast] Onset: 10-21-2012 03-16-2013 Episodic Other non-traumatic joint disorders (8 sources) Hip pain; Translations: [Pain in right hip] Onset: 08-24-2015 08-24-2015 Episodic Unclassified (8 sources) Acquired absence of unspecified breast and nipple; Translations: [Acquired absence of unspecified breast and nipple] Onset: 10-21-2012 03-16-2013 Episodic Results Test Name Value Interpretation Reference Range Facil ity Vital Signs Date Time Vital Sign Value Performing Clinician Facility 01-11-2017 11:34-0400 BMI (Body Mass Index) 35.69 kg/m2 Tommy Everett MD [facility] Work Phone: 01-11-2017 11:34-0400 Body Temperature 96 [degF] Tommy Everett MD [facility] Work Phone: 01-11-2017 11:34-0400 BP Diastolic 77 mm[Hg] Tommy Everett MD [facility] Work Phone: 01-11-2017 11:34-0400 BP Systolic 145 mm[Hg] Tommy Everett MD [facility] Work Phone: 01-11-2017 11:34-0400 Height 157.48 cm Tommy Everett MD [facility] Work Phone: 01-11-2017 11:34-0400 Pulse (Heart Rate) 72 /min [facility] Work Phone: 01-11-2017 11:34-0400 Weight 88.51 kg Tommy Everett MD [facility] Work Phone: 11-21-2016 13:04-0400 BMI (Body Mass Index) 35.52 kg/m2 Tommy Everett MD [facility] Work Phone: 11-21-2016 13:04-0400 Body Temperature 96 [degF] Tommy Everett MD [facility] Work Phone: 11-21-2016 13:04-0400 BP Diastolic 69 mm[Hg] Tommy Everett MD [facility] Work Phone: 11-21-2016 13:04-0400 BP Systolic 175 mm[Hg] Tommy Everett MD [facility] Work Phone: 11-21-2016 13:04-0400 Height 157.48 cm Tommy Everett MD [facility] Work Phone: 11-21-2016 13:04-0400 Pulse (Heart Rate) 61 /min [facility] Work Phone: 11-21-2016 13:04-0400 Weight 88.11 kg Tommy Everett MD [facility] Work Phone: 08-24-2015 13:07-0400 BMI (Body Mass Index) 33.65 kg/m2 [facility] 08-24-2015 13:07-0400 Body Temperature 98.2 [degF] [facility] 08-24-2015 13:07-0400 BP Diastolic 64 mm[Hg] [facility] 08-24-2015 13:07-0400 BP Systolic 133 mm[Hg] [facility] 08-24-2015 13:07-0400 BSA (Body Surface Area) 1.92 m2 [facility] 08-24-2015 13:07-0400 Height 161.29 cm [facility] rnal [facility] 08-24-2015 13:07-0400 Pulse (Heart Rate) 58 /min [facility] 08-24-2015 13:07-0400 Respiratory Rate 18 /min [facility] 08-24-2015 13:07-0400 Weight 87.73 kg Soto Ann PSYCHOLOGIST EDUCATIONAL-C [facility] Work Phone: 08-24-2015 13:07-0400 Weight 87.54 kg [facility] rnal [facility] 10-21-2012 14:28-0400 Height 161.29 cm [facility] Encounters Encounter Date Encounter Type Care Provider Facility Start: 11-05-2016 End: 11-05-2016 Ambulatory ALISHA NATION [facility] Start: 10-26-2016 End: 10-26-2016 [facility] Date Procedure Procedure Detail Performing Clinician Start: 11-21-2016 End: 01-09-2017 Follow Up Appt 3 months Tommy lopez MD Work Phone: Start: 06-28-2016 Screening mammography Mammogra m yearly screening Tommy Everett MD Start: 08-24-2015 End: 08-24-2015 *CMP Complete Metabolic Panel Lakisha Gray Work Phone: Start: 08-24-2015 End: 08-24-2015 Lactate dehydrogenase (LDH) Lakisha Gray Work Phone: Start: 08-24-2015 End: 08-24-2015 Urate Lakisha Gray Work Phone: Start: 08-24-2014 End: 09-02-2014 *CBC with Differential Lakisha Gray Work Phone: Start: 08-24-2014 End: 08-24-2014 Ferritin Lakisha Gray Work Phone: Plan of Treatment Date Care Activity Detail Author Start: 04-10-2017 End: 01-11-2017 *BMP *BMP [facility] Work Phone: Start: 04-10-2017 End: 01-11-2017 *Microalbumin, Creatine Ratio, rand urine *Microalbumin, Creatine Ratio, rand urine [facility] Work Phone: Start: 04-10-2017 End: 01-11-2017 HbA1c *HgA1C [facility] Work Phone: Start: 02-11-2017 End: 11-21-2016 HbA1c *HgA1C [facility] Work Phone: Start: 02-11-2017 End: 11-21-2016 Lipid panel [AGGREGATE] *[facility] Work Phone: Start: 01-11-2017 End: 01-11-2017 Appointment Appointment [facility] Work Phone: Start: 01-11-2017 End: 01-11-2017 Follow Up Appt 3 months Follow Up Appt 3 months [facility] Work Phone: Start: 01-11-2017 End: 01-11-2017 Thyroid stimulating hormone (TSH) *TSH [facility] Work Phone: Start: 01-11-2017 End: 01-11-2017 Thyroxine (T4) free *T4 free [facility] Work Phone: Start: 11-21-2016 End: 11-21-2016 Appointment Appointment [facility] Start: 11-21-2016 End: 01-09-2017 Follow Up Appt 3 months Follow Up Appt 3 months [facility] Work Phone: Start: 09-04-2016 End: 07-06-2016 *CBC w/Diff - oncology ONLY *CBC w/Diff - oncology ONLY [facility] Start: 09-04-2016 End: 07-06-2016 *CMP Complete Metabolic Panel *CMP Complete Metabolic Panel [facility] Start: 08-28-2016 End: 06-28-2016 Mammogram, one breast Mammography; unilateral [facility] Start: 08-24-2015 End: 08-05-2015 *CBC with Differential *CBC with Differential [facility] Start: 08-24-2015 End: 08-24-2015 *CMP Complete Metabolic Panel *CMP Complete Metabolic Panel [facility] Start: 08-24-2015 End: 08-24-2015 Lactate dehydrogenase (LDH) *LDH -LDH (Lactate Dehydrogenase) [facility] Start: 08-24-2015 End: 08-24-2015 Urate *Uric Acid Blood [facility] Start: 08-22-2015 End: 08-05-2015 Mammogram, one breast Mammogram, Unilateral [facility] Start: 11-01-2014 End: 09-02-2014 *CBC with Differential *CBC with Differential [facility] Start: 11-01-2014 End: 09-02-2014 Electrolytes 1998 panel - Serum or Plasma *Electrolyte Panel [facility] Start: 11-01-2014 End: 09-02-2014 Ferritin *Ferritin [facility] Start: 11-01-2014 End: 09-02-2014 Iron *Iron [facility] Start: 11-01-2014 End: 09-02-2014 Iron binding capacity [Mass/volume] in Serum or Plasma *TIBC [facility] Start: 08-24-2014 End: 09-02-2014 *CBC with Differential *CBC with Differential [facility] Start: 08-24-2014 End: 08-24-2014 Ferritin *Ferritin [facility] Summary Purpose Family History No Family History Records Found Advance Directives No Advanced Directives Records Found Additional Source Comments INFORMATION SOURCE (unrecogn ized section and content) FOR RECORDS PERTAINING TO PATIENTS WHO ARE OR HAVE BEEN ENROLLED IN A CHEMICAL DEPENDENCY/SUBSTANCEABUSE PROGRAM, SOME INFORMATION MAY BE OMITTED. This clinical summary was aggregated from multiple sources. Caution should be exercised in using it in the provision of clinical care. This summary normalizes information from multiple sources, and as a consequence, information in this document may materially change the coding, format and clinical context of patient data. In addition, data may be omitted in some cases. CLINICAL DECISIONS SHOULD BE BASED ON THE PRIMARY CLINICAL RECORDS. [facility] [employer] [facility]. provides no warranty or guarantee of the accuracy or completeness of information in this document.
[2023-06-20 15:31] LABS: Microalbumin,Random Urine 8.4 mg/L (NO RANGE EST.); Microalbumin:Creatinine Ratio 5.8 mg/g CRE (<30 mg/g CRE)
[2023-06-20 16:58] LABS: Anion Gap 7 (5-15); BUN 26 mg/dL (7-18); Calcium,Total 9.5 mg/dL (8.5-10.1); Chloride 108 mmol/L (98-107); Creatinine, Serum 1.63 mg/dL (0.55-1.02); EST Glomerular Filtration Rate 32 mL/min (>60); Est Glom Filt Rate - Afr Amer 39 mL/min (>60); Glucose 222 mg/dL (74-106); Potassium 4.4 mmol/L (3.5-5.1); Sodium Level 139 mmol/L (136-145)
== END | disposition home or self-care (01) ==
LOC: LABSPEC 13:28 → BIMLAB 14:48
PROVIDERS: PCP Internal Medicine; Visit Provider Internal Medicine
DX: E11.22 Type 2 diabetes mellitus with diabetic chronic kidney disease (principal); N18.30 Chronic kidney disease, stage 3 unspecified
CPT/HCPCS: 36415; 80048; 82043; 82570

== ENCOUNTER → 2023-12-26 | Outpatient (CLI) | payer MEDICARE, SELFPAY ==
[2023-12-26 15:16] LABS: Absolute Lymphocyte Count 2.12 X10^3/uL (0.83-4.51); Absolute Neutrophil Count 3.2 X10^3/uL (2.0-7.7); Basophil# 0.08 X10^3/uL; Basophil% 1.3 % (0-1); Eosinophil# 0.18 X10^3/uL; Eosinophils% 2.9 % (0-5); Hematocrit 36.3 % (37-47); Hemoglobin 11.5 g/dL (12.0-15.0); Lymphocyte # 2.12 X10^3/ul (0.83-4.51); Lymphocyte % 34.6 % (19-41); Mean Corp Hgb Conc 31.7 g/dL (32-36); Mean Corpuscular Hgb 26.3 pg (27.0-32.0); Mean Corpuscular Volume 82.9 fL (81-99); Mean Platelet Vol. 11.6 fl (6.2-12.0); Monocyte% 8.2 % (0-10); NRBC Flagged by Analyzer 0 % (0-5); Neutrophil # 3.23 X10^3/uL (2.7-7.7); Neutrophil % 52.8 % (47-70); Platelet Count 396 K/mm3 (150-450); RBC Distribution Width CV 13.2 % (11.6-14.6); RBC Distribution Width SD 39.8 fl (35.1-43.9); Red Blood Count 4.38 M/mm3 (4.2-5.4); White Blood Count 6.1 K/mm3 (4.4-11.0)
[2023-12-26 16:10] LABS: Hemoglobin A1c 7.3 % (3.8-5.6)
[2023-12-26 16:12] LABS: ALB/GLOB Ratio 0.9 RATIO (0.9-2.4); AST(SGOT) 21 U/L (15-37); Alanine Aminotransfer ALT/SGPT 35 U/L (13-56); Albumin, Serum 3.6 g/dL (3.2-5.0); Alkaline Phosphatase 102 U/L (45-117); Anion Gap 6 (5-15); BUN 18 mg/dL (7-18); BUN/Creat Ratio 12.2 RATIO (10-20); Calcium,Total 9.7 mg/dL (8.5-10.1); Chloride 105 mmol/L (98-107); Cholesterol 139 mg/dL (200); Creatinine, Serum 1.48 mg/dL (0.55-1.02); EST Glomerular Filtration Rate 36 mL/min (>60); Est Glom Filt Rate - Afr Amer 44 mL/min (>60); Globulin 3.8 g/dL (2.2-4.2); Glucose 241 mg/dL (74-106); High Density Lipoprotein 40 mg/dL; Potassium 4.5 mmol/L (3.5-5.1); Protein, Total 7.4 g/dL (6.4-8.2); Sodium Level 135 mmol/L (136-145); Triglycerides 159 mg/dL; Very Low Density Lipoprotein 32 mg/dL (5-40)
[2023-12-26 17:10] LABS: Microalbumin,Random Urine 5.5 mg/L (NO RANGE EST.); Microalbumin:Creatinine Ratio 9.2 mg/g CRE (<30 mg/g CRE)
== END | disposition home or self-care (01) ==
LOC: BIMLAB 13:56
PROVIDERS: PCP Internal Medicine; Referring Provider Internal Medicine; Visit Provider Internal Medicine
DX: I10 Essential (primary) hypertension (principal); E11.9 Type 2 diabetes mellitus without complications
CPT/HCPCS: 36415; 80053; 80061; 82043; 82570; 83036; 85025

== ENCOUNTER 2024-03-12 15:10 | Observation (INO) | payer MEDICARE, SELFPAY ==
[2024-03-12] VITALS (11 sets, daily range): BP systolic 154–231; BP diastolic 43–87; PULSE 54–75; RESP 12–20; TEMP 36.1–37.1; O2SAT 95–100; BMI 32.1; BMI 30.2
--- NOTE | 2024-03-12 15:21 | EKG12_ITS ---
Test Reason : NEURO Blood Pressure : */* mmHG Vent. Rate : 57 BPM Atrial Rate : 57 BPM P-R Int : 192 ms QRS Dur : 110 ms QT Int : 442 ms P-R-T Axes : 61 -45 69 degrees QTcB Int : 430 ms Sinus bradycardia Left anterior fascicular block Left ventricular hypertrophy with repolarization abnormality ( R in aVL , Putnam product , Romhilt-E stes ) Abnormal ECG Confirmed by CASS GONZALEZ, PATRICIA ([id number]), marketing editor LORENZO BACA ([id number]) on 03/17/2024 7:49:31 AM Referred By: [place] Confirmed By: PATRICIA ODELL MD
--- NOTE | 2024-03-12 15:45 | RAD_ITS ---
STUDY: X-RAY CHEST REASON FOR EXAM: Female, 79 years old. Neuro deficit, acute, stroke suspected TECHNIQUE: Single AP portable view of the chest. COMPARISON: Comparison is made with prior study dated March 14, 2018. FINDINGS: EKG electrodes are seen. The lungs are clear and expanded. There is no demonstrated pleural abnormality. Normal size heart. Normal mediastinum and jeremiah. Normal visualized pulmonary arteries. There is atherosclerotic calcification of the aortic arch with tortuosity. There are diffuse degenerative changes of the visualized thoracic spine. Normal visualized ribs, clavicles, and shoulders. There is no demonstrated abnormality of the visualized soft tissue structures of the upper abdomen. RAD/Chest 1 View IMPRESSION: No acute abnormality is seen. Electronically Signed: Kilo Curtis MD at 16:04 EST ,
[2024-03-12 15:46] LABS: Absolute Lymphocyte Count 1.89 X10^3/uL (0.83-4.51); Absolute Neutrophil Count 4.5 X10^3/uL (2.0-7.7); Basophil# 0.05 X10^3/uL; Basophil% 0.7 % (0-1); Eosinophils% 1.4 % (0-5); Hematocrit 36.9 % (37-47); Hemoglobin 11.9 g/dL (12.0-15.0); Lymphocyte # 1.89 X10^3/ul (0.83-4.51); Lymphocyte % 26.8 % (19-41); Mean Corp Hgb Conc 32.2 g/dL (32-36); Mean Corpuscular Volume 80.7 fL (81-99); Mean Platelet Vol. 11.5 fl (6.2-12.0); Monocyte# 0.45 X10^3/uL; Monocyte% 6.4 % (0-10); NRBC Flagged by Analyzer 0 % (0-5); Neutrophil # 4.52 X10^3/uL (2.7-7.7); Neutrophil % 64.3 % (47-70); Platelet Count 363 K/mm3 (150-450); RBC Distribution Width CV 13.2 % (11.6-14.6); RBC Distribution Width SD 38.2 fl (35.1-43.9); Red Blood Count 4.57 M/mm3 (4.2-5.4)
[2024-03-12 16:06] LABS: Prothrombin Time (Protime)PT. 12.8 SECONDS (11.7-14.9)
[2024-03-12 16:07] LABS: Partial Thromboplast Time 28.6 Seconds (24.1-36.2)
--- NOTE | 2024-03-12 16:11 | ED.VIS.STROK ---
HPI History of Present Illness Chief Complaint: Neuro S/Sx Detail of Chief Complaint: Patient developed an expressive aphasia during H&P by Dr. Everett Informant: patient and PCP Onset/Context/Timing Onset: Today (1430 and lasted for 10 minutes) Context: Sudden Onset Timing: Intermittent Quality and Location: Positive for Expressive Aphasia Onset: 1430 and resolved within 10 to 15 minutes. Current Severity: Gone Maximum Severity: Severe Worsened by: Not applicable Relieved by: Not applicable Associated Symptoms Associated Symptoms: Positive for Headache (Patient has been experiencing intermittent headaches for the past several days. She denies having a headache today); Negative for Nausea, Vomiting or Chest Pain Narrative Narrative: Patient is a 79-year-old woman. She has history of hypertension diabetes. She was at Dr. Everett's office when she developed an expressive aphasia that lasted 10 to 15 minutes. I received a call from her doctor. When patient arrived she had no symptoms. Patient minimizes her symptoms. She denied double vision, blurred vision loss of vision. She denied cardiac or respiratory symptoms. She denies paresthesia, anesthesia or motor weakness upper or lower extremities. She denied problems with coordination or balance. She denied difficulty swallowing. Prior similar symptoms: No Recent Illness/Hospitalization: No PFSH PFSH Medical History Change in mental status Confusion Expressive aphasia Left ear pain Flu vaccine need Psoriasis Anxiety and depression LLQ abdominal pain Carotid artery stenosis GI bleed Diarrhea Insomnia Health care maintenance Carotid stenosis, bilateral SURGERY RIGHT ANKLE Fracture of right ankle Diabetes mellitus Anemia Breast cancer Hearing loss IBS (irritable bowel syndrome) Hypothyroidism Osteoarthritis Home Medications ?Medication ?Instructions ?Recorded ?Last Taken ?Type brimonidine 0.1 % eye drops 1 drp ophthalmic (eye) 04/10/17 03/24/18 09:47 History (Alphagan P) BID@1000,2200 Eye health aspirin 81 mg chewable tablet 81 mg PO DAILY@0800 heart health 03/17/18 03/24/18 08:01 History blood-glucose meter (True Metrix #1 ea 01/26/21 Unknown Rx Glucose Meter) coenzyme Q10 200 mg capsule (Co 200 mg PO DAILY 07/20/21 Unknown History Q-10) Handicap Placard #1 ea 05/24/22 Unknown Rx Handicap Placard #1 ea 12/25/22 Unknown Rx atorvastatin 40 mg tablet 40 mg PO QHS cholesterol #90 tabs 03/15/23 Unknown Rx glimepiride 2 mg tablet 2 mg PO QAM #90 tabs 03/15/23 Unknown Rx blood sugar diagnostic (OneTouch #100 ea 03/20/23 Unknown Rx Verio test strips) losartan 100 1 tab PO DAILY #90 tabs 05/07/23 Unknown Rx mg-hydrochlorothiazide 25 mg tablet flash glucose scanning reader #1 ea 06/20/23 Unknown Rx (FreeStyle Josephine 14 Day [place]) flash glucose sensor (FreeStyle #1 ea 06/20/23 Unknown Rx Josephine 14 Day Sensor kit) blood-glucose meter,continuous #1 ea 09/19/23 Unknown Rx (Dexcom G7 Senior [employer] Development [employer]ist) blood-glucose sensor (Dexcom G7 #1 ea 09/19/23 Unknown Rx Sensor device) fluoxetine 20 mg capsule 20 mg PO DAILY Mood #90 caps 09/19/23 Unknown Rx dapagliflozin propanediol 10 mg 10 mg PO DAILY #90 tabs 12/26/23 Unknown Rx tablet hydralazine 100 mg tablet See Rx Instructions .Route 12/26/23 Unknown Rx .COMPLEX #270 tabs latanoprost 0.005 % eye drops 1 drp EACH EYE [facility] eye health 03/12/24 Unknown History levothyroxine 25 mcg tablet 25 mcg PO DAILY 03/12/24 Unknown History (Synthroid) metoprolol tartrate 50 mg tablet 50 mg PO BID 03/12/24 Unknown History omeprazole 10 mg capsule,delayed 10 mg PO QODAY 03/12/24 Unknown History release timolol maleate 0.5 % eye drops 1 drp ophthalmic (eye) BID 03/12/24 Unknown History Allergy/AdvReac Type Severity Reaction Status Date / Time nickel Allergy Severe Rash Verified 03/12/24 15:12 adhesive AdvReac Severe Rash Verified 03/12/24 15:12 Family History Mother Heart disease Hypertension Sister Cancer leukemia Surgical History History of carpal tunnel surgery Normal colonoscopy right nipple reconstruction left breast reconstruction with mastopexy History of reconstruction of right breast H/O right mastectomy dental implants History of carpal tunnel release fibroadenoma removed L breast H/O tubal ligation H/O cervical biopsy History of D&C History of appendectomy Social History Smoking Status: Former smoker alcohol intake: current alcohol intake frequency: a few times a month Alcohol type: beer and hard liquor substance use type: does not use what type of physical activity do you participate in: none ROS ROS ED Constitutional Constitutional ED: Denies chills, fever(s), subjective or sweats Eyes Eyes: Denies blurry vision, change in vision or diplopia ENT ENT ED: Denies ear pain, rhinorrhea or sore throat Cardiovascular Cardiovascular: Denies chest pain, palpitations or racing heartbeat Respiratory/Chest Respiratory/Chest: Denies cough, dyspnea or dyspnea on exertion Gastrointestinal Gastrointestinal: Denies abdominal pain, nausea or vomiting Genitourinary Genitourinary ED: Denies dysuria, hematuria or urinary frequency Musculoskeletal Musculoskeletal: Denies arthralgias or myalgias Neurologic Neurologic: Reports headache(s); Denies paresthesias or weakness Psychiatric Psychiatric: Denies anxiety or depression Hematologic/Lymphatic Hematologic/Lymphatic: Denies easy bleeding or easy bruising EXAM Physical Exam Const Vital Signs: 03/12/24 15:12 03/12/24 15:21 03/12/24 15:30 Temperature 97 F L Temperature Source Temporal Pulse Rate 59 L 59 L Respiratory Rate 13 13 Blood Pressure 178/87 H 178/87 H Blood Pressure Mean 117 117 Pulse Ox 95 95 Oxygen Delivery Method Room Air Room Air Room Air 03/12/24 15:51 03/12/24 16:15 03/12/24 17:00 Temperature Temperature Source Pulse Rate 55 L 54 L 56 L Respiratory Rate 12 15 15 Blood Pressure 154/61 H 154/61 H 186/43 H Blood Pressure Mean 92 92 90 Pulse Ox 97 98 100 Oxygen Delivery Method Room Air Room Air Room Air 03/12/24 18:15 Temperature Temperature Source Pulse Rate 75 Respiratory Rate 20 H Blood Pressure 198/61 H Blood Pressure Mean 106 Pulse Ox 96 Oxygen Delivery Method Room Air Positive well nourished and well developed Constitutional Narrative: BMI is 32.2. General Appearance ED: well developed HEENT Reports TM's clear and moist mucous membranes atraumatic Tympanic Membrane ED: Yes TM's clear Eyes PERRL and EOMs intact bilaterally Eyes Narrative: There is no nystagmus. There is no visual field cut. General Eye ED: Negative for pale conjunctiva or scleral icterus Neck no lymphadenopathy, supple and no JVD Chest Wall inspection of chest normal and palpation of chest normal Resp normal respiratory effort and clear to auscultation bilaterally Cardio no murmurs Rhythm: regular rhythm Heart Sounds: S1 normal and S2 normal GI normal to inspection, nondistended, normoactive bowel sounds, soft to palpation, non-tender, non-distended and no masses Back/Spine no CVA tenderness Extremity normal to inspection General Extremety ED: Negative for deformity, edema or tenderness General Extremity: Negative for deformity or edema Neuro oriented x3, CN's II-XII intact bilaterally and no sensory deficits noted Neuro Narrative: There is no dysmetria. There is no clonus or Babinski sign noted. Lee Coma Scale: document GCS findings Spontaneous Obeys Commands Oriented 15 Sensorium / Orientation: alert Speech: speech normal Gait (Neuro): normal gait Sensory Exam: No sensory level loss detected Psych mental status grossly normal Skin General Skin Exam: Negative for jaundice Lesions: no lesions Rashes: no rashes NIHSS NIHSS Initial: 1a Level of Consciousness: 0 1b LOC Questions (Score 2 if aphasic/stupor): 0 1c LOC Commands (Only score 1st attempt): 0 2 Best Gaze (If aphasic, use reflexive mvmts.): 0 3 Visual: 0 4 Facial Palsy: 0 5 Motor Arm Right (UN = amputation/fusion): 0 5 Motor Arm Left: 0 6 Motor Leg Right: 0 6 Motor Leg Left: 0 7 Limb ataxia (Only + if out of proportion): 0 8 Sensory (Aphasia/stupor=0 or 1, coma=2): 0 9 Best Language: 0 10 Dysarthria (mute, coma=2, intubated=UN): 0 11 Extinction and Inattention (only scored if +): 0 Total Score: 0 MDM MDM MDM Narrative Medical decision making narrative: Patient presents from physicians office with expressive aphasia that has resolved. Stroke order set was initiated. Because she has history of renal disease the CT was delayed because I was informed by radiology that the patient will be charged twice if the CT was done first and then she went back after her BMP returned. For this reason the CAT scan was not obtained immediately and the fact that she has a NIH is 0 and her symptoms have totally resolved. Since her NIH is 0 she is not a thrombolytic candidate. Lab Data Attestation: I reviewed the patient's lab results. Lab results narrative: CBC reveals mild microcytic anemia. Coags are normal. Basic metabolic panel shows an elevated BUN/creatinine of 25 1.18. This is improved from prior. Blood sugars elevated 151. Patient does have history diabetes. Troponin is normal. Labs: Laboratory Results - last 24 hr 03/12/24 15:27 WBC 7.0 RBC 4.57 Hgb 11.9 L Hct 36.9 L MCV 80.7 L MCH 26.0 L MCHC 32.2 RDW Std Deviation 38.2 RDW Coeff of Helen 13.2 Plt Count 363 MPV 11.5 Immature Gran % (Auto) 0.400 Neut % (Auto) 64.3 Lymph % (Auto) 26.8 [place] % (Auto) 6.4 Eos % (Auto) 1.4 Baso % (Auto) 0.7 Absolute Neuts (auto) 4.5 Absolute Lymphs (auto) 1.89 Nucleated RBC % 0 PT 12.8 INR 1.0 APTT 28.6 Sodium 135 L Potassium 4.2 Chloride 106 Carbon Dioxide 23.0 Anion Gap 6 BUN 25 H Creatinine 1.18 H Estim Creat Clear Calc 37.21 Est GFR (MDRD) Af Amer 57 L Est GFR (MDRD) Non-Af 47 L BUN/Creatinine Ratio 21.2 H Glucose 151 H Calcium 9.7 Troponin I High Sens 10 Radiography Chest X-Ray - ED: 1 View, Read by ED Physician, Unchanged, Normal, Heart, Mediastinum, No Acute Disease and Chronic Changes Diagnostic Testing: Clinical Impression(s) from Imaging Studies Chest X-Ray 03/12/24 15:45 IMPRESSION: No acute abnormality is seen. Electronically Signed: Kilo Curtis MD at 16:04 EST , Head/Neck CTA 03/12/24 16:35 IMPRESSION: Normal unenhanced CT scan of the brain. Electronically Signed: Andrew Sierra MD at 17:44 EST , EKG Initial EKG: Attestation: I personally reviewed and interpreted this EKG as follows: Interpretation: Sinus Rhythm (Rate is 57. [place] is to the left. There is evidence of LVH with repolarization changes. VT interval is 192 ms. Cures duration slightly prolonged at 110 ms. QT is 442 ms. There is no acute ischemic changes noted.) Management Discussion w/another healthcare provider: Hospitalist Discharge Plan Dx/Rx/DC Orders Clinical Impression: Brain TIA, Hypertension, Expressive aphasia, Renal insufficiency, Type 2 diabetes mellitus with hyperglycemia Disposition Disposition: Acute Care Hospital [facility]
[2024-03-12 16:12] LABS: Anion Gap 6 (5-15); BUN 25 mg/dL (7-18); BUN/Creat Ratio 21.2 RATIO (10-20); Calcium,Total 9.7 mg/dL (8.5-10.1); Chloride 106 mmol/L (98-107); Creatinine, Serum 1.18 mg/dL (0.55-1.02); EST Glomerular Filtration Rate 47 mL/min (>60); Est Glom Filt Rate - Afr Amer 57 mL/min (>60); Estimated Creatinine Clearance 37.21 ml/min; Glucose 151 mg/dL (74-106); Potassium 4.2 mmol/L (3.5-5.1); Sodium Level 135 mmol/L (136-145); Troponin-I HS 10 pg/mL (3.0-54.0)
--- NOTE | 2024-03-12 16:17 | ED.RN ---
NIH assessment changed to q2 hrs per Dr. Alejandro GONZALEZ
--- NOTE | 2024-03-12 16:35 | CT_ITS ---
STUDY: CTA HEAD AND NECK WITH CONTRAST REASON FOR EXAM: Female, 79 years old. Neuro deficit, acute, stroke suspected -- Expressive aphasia that lasted 10 minutes RADIATION DOSAGE (If Supplied By Facility): CTDIvol = ( 29.99 ) mGy, DLP = ( 1484.77 ) mGycm TECHNIQUE: CT angiography was performed with a multi-detector CT scanner. Data acquisition was obtained from the skull base through the vertex following intravenous administration of IV 100mL [id number]-[id number]. MIP images were reconstructed from the axial data set. Post-processing of the angiographic images was performed, with multiplanar reformation and 3D reconstruction. Individualized dose optimization techniques were used for this CT. The protocol utilizes one or more of the following dose reduction techniques: automated exposure control, adjustment of mA and/or kV according to patient size,and/or use of iterative reconstruction technique. COMPARISON: MR brain May 07, 2014. CT brain May 07, 2014. CTA head and neck October 26, 2015. FINDINGS: Normal bilateral petrous carotid arteries. There is calcified plaque formation of the right cavernous carotid artery, with a mild stenosis (less than 50%). There is calcified plaque formation of the left cavernous carotid artery, with a mild stenosis (less than 50%). Normal right A1 segments of the anterior cerebral artery. Normal left A1 segments of the anterior cerebral artery. There is non-visualization of the anterior communicating artery (ACOM). Normal bilateral A2 segments of the anterior cerebral arteries. Normal right M1 and M2 segments of the middle cerebral arteries, with a normal M1 bifurcation. Normal left M1 and M2 segments of the middle cerebral arteries, with a normal M1 bifurcation. There is non-visualization of the right posterior communicating artery (PCOM). There is non-visualization of the left posterior communicating artery (PCOM). Normal bilateral vertebral arteries. Normal basilar artery with a normal basilar bifurcation. The visualized bilateral superior cerebellar (SCA) arteries are normal. Normal bilateral P1, P2 and visualized P3 segments of the posterior cerebral arteries. There is no demonstrated aneurysm of the [place] of [place]. There is no demonstrated abnormality of the visualized brain. AORTIC ARCH: Normal visualized aortic arch. Normal origins of the brachiocephalic, left common carotid, and left subclavian arteries. RIGHT CAROTID ARTERIES: Normal right common carotid artery (CCA). There is moderate atherosclerotic plaque formation with moderate narrowing of the right carotid bulb. There is moderate atherosclerotic plaque formation of the origin of the right internal carotid artery with an estimated stenosis of 50-69% stenosis. Normal visualized cervical portion of the right internal carotid artery. Normal origin of the right external carotid artery (ECA). LEFT CAROTID ARTERIES: Normal left common carotid artery (CCA). There is moderate atherosclerotic plaque formation with moderate narrowing of the carotid bulb. There is moderate atherosclerotic plaque formation of the origin of the left internal carotid artery with an estimated stenosis of 50-69% stenosis. Normal visualized cervical portion of the left internal carotid artery. Normal origin of the left external carotid artery (ECA). VERTEBRAL ARTERIES: Left vertebral artery is dominant. Moderate plaque noted at the origin and proximal left vertebral artery. Right vertebral artery patent. IMPRESSION: Moderate stenosis proximal ICAs bilaterally. This appears unchanged. Moderate plaque noted at the origin of the left vertebral artery. STUDY: CT BRAIN WITHOUT CONTRAST REASON FOR EXAM: Female, 79 years old. Neuro deficit, acute, stroke suspected -- Expressive aphasia that lasted 10 minutes RADIATION DOSAGE (If Supplied By Facility): CTDIvol = ( 29.99 ) mGy, DLP = ( 1484.77 ) mGycm TECHNIQUE: Transaxial CT imaging of the brain was performed without administration of intravenous contrast material. Individualized dose optimization techniques were used for this CT. The protocol utilizes one or more of the following dose reduction techniques: automated exposure control, adjustment of mA and/or kV according to patient size,and/or use of iterative reconstruction technique. COMPARISON: No relevant priors. FINDINGS: Normal soft tissue structures. Normal calvarium. Normal size ventricles and extra-axial spaces for the patient''s age. Normal white matter tracts of the cerebral hemispheres. Normal basal ganglia and thalami. Normal brainstem. Normal cerebellum. There is no intracranial hemorrhage. There are no findings of an acute ischemic infarction. Normal visualized paranasal sinuses. CT/CTA Head AND Neck W/ Contrast IMPRESSION: Normal unenhanced CT scan of the brain. Electronically Signed: Andrew Sierra MD at 17:44 EST ,
--- NOTE | 2024-03-12 18:46 | PCM.HP.STD ---
HPI - General General Date of Admission: 03/12/24 Date of Service: 03/12/24 Chief Complaint: Episode of expressive aphasia HPI Narrative ROSANNA SEGURA, is a 79 F who presented to [facility] ED on 03/12/2024 from her PCP office after an episode of expressive aphasia in the office. Patient sees Dr. Everett as her PCP. During her office visit today he noticed that she abruptly developed significant word finding difficulty and expressive difficulty. She also appeared somewhat confused. This episode lasted 3 to 5 minutes. She slowly returned to her baseline in the office and after much coaxing from family she was willing to come to the ED for further evaluation. Her symptoms had completely resolved on arrival here. She was hypertensive to the 180s to 190s in the ED but otherwise hemodynamically stable. CTA head/neck showed moderate stenosis and proximal ICAs bilaterally that appears unchanged from previous and moderate plaque noted at origin of left vertebral artery but otherwise no other acute findings. NIHSS score was 0. Given concern for TIA, teleneurology recommended admission for stroke workup and hospitalist was contacted for admission. I saw the patient at bedside in the ED, daughter was present. Patient was laying back comfortably in bed, conversing normally, in no acute distress. She was able to recount the episode in the office today and noted she simply had onset difficulty finding her words for a period of time. This is never happened to her before. She denied any upper or lower extremity weakness or any numbness and tingling with this episode. Denies any recent infectious symptoms or fevers or chills. Denies any other acute concerns currently. Will be admitted for further management. [facility] Medical History Change in mental status Confusion Expressive aphasia Left ear pain Flu vaccine need Psoriasis Anxiety and depression LLQ abdominal pain Carotid artery stenosis GI bleed Diarrhea Insomnia Health care maintenance Carotid stenosis, bilateral SURGERY RIGHT ANKLE Fracture of right ankle Diabetes mellitus Anemia Breast cancer Hearing loss IBS (irritable bowel syndrome) Hypothyroidism Osteoarthritis Home Medications ?Medication ?Instructions ?Recorded ?Last Taken ?Type brimonidine 0.1 % eye drops 1 drp ophthalmic (eye) 04/10/17 03/24/18 09:47 History (Alphagan P) BID@1000,2200 Eye health aspirin 81 mg chewable tablet 81 mg PO DAILY@0800 [facility] 03/17/18 03/24/18 08:01 History blood-glucose meter (True Metrix #1 ea 01/26/21 Unknown Rx Glucose Meter) coenzyme Q10 200 mg capsule (Co 200 mg PO DAILY 07/20/21 Unknown History Q-10) Handicap Placard #1 ea 05/24/22 Unknown Rx Handicap Placard #1 ea 12/25/22 Unknown Rx atorvastatin 40 mg tablet 40 mg PO QHS cholesterol #90 tabs 03/15/23 Unknown Rx glimepiride 2 mg tablet 2 mg PO QAM #90 tabs 03/15/23 Unknown Rx blood sugar diagnostic (OneTouch #100 ea 03/20/23 Unknown Rx Verio test strips) losartan 100 1 tab PO DAILY #90 tabs 05/07/23 Unknown Rx mg-hydrochlorothiazide 25 mg tablet flash glucose scanning reader #1 ea 06/20/23 Unknown Rx (FreeStyle Jospehine 14 Day [place]) flash glucose sensor (FreeStyle #1 ea 06/20/23 Unknown Rx Josephine 14 Day Sensor kit) blood-glucose meter,continuous #1 ea 09/19/23 Unknown Rx (Dexcom G7 Radio Electrician) blood-glucose sensor (Dexcom G7 #1 ea 09/19/23 Unknown Rx Sensor device) fluoxetine 20 mg capsule 20 mg PO DAILY Mood #90 caps 09/19/23 Unknown Rx dapagliflozin propanediol 10 mg 10 mg PO DAILY #90 tabs 12/26/23 Unknown Rx tablet hydralazine 100 mg tablet See Rx Instructions .Route 12/26/23 Unknown Rx .COMPLEX #270 tabs latanoprost 0.005 % eye drops 1 drp EACH EYE [facility] eye health 03/12/24 Unknown History levothyroxine 25 mcg tablet 25 mcg PO DAILY 03/12/24 Unknown History (Synthroid) metoprolol tartrate 50 mg tablet 50 mg PO BID 03/12/24 Unknown History omeprazole 10 mg capsule,delayed 10 mg PO QODAY 03/12/24 Unknown History release timolol maleate 0.5 % eye drops 1 drp ophthalmic (eye) BID 03/12/24 Unknown History Allergy/AdvReac Type Severity Reaction Status Date / Time nickel Allergy Severe Rash Verified 03/12/24 23:26 adhesive AdvReac Severe Rash Verified 03/12/24 23:26 Family History Mother Heart disease Hypertension Sister Cancer leukemia Surgical History History of carpal tunnel surgery Normal colonoscopy right nipple reconstruction left breast reconstruction with mastopexy History of reconstruction of right breast H/O right mastectomy dental implants History of carpal tunnel release fibroadenoma removed L breast H/O tubal ligation H/O cervical biopsy History of D&C History of appendectomy Social History Smoking Status: Former smoker alcohol intake: current alcohol intake frequency: a few times a month Alcohol type: beer and hard liquor substance use type: does not use what type of physical activity do you participate in: none ROS Constitutional Constitutional: Denies chills, fatigue, fever(s) or weakness Eyes Eyes: Denies blurry vision or change in vision Cardiovascular Cardiovascular: Denies chest pain Respiratory/Chest Respiratory/Chest: Denies shortness of breath at rest Gastrointestinal Gastrointestinal: Denies abdominal pain Neurologic Neurologic: Reports abnormal speech; Denies confusion, dizziness, focal weakness, headache(s), numbness or paresthesias Vital Signs Vital Signs Vital Signs: 03/12/24 15:12 03/12/24 15:21 03/12/24 15:30 Temperature 97 F L Temperature Source Temporal Pulse Rate 59 L 59 L Respiratory Rate 13 13 Blood Pressure 178/87 H 178/87 H Blood Pressure Mean 117 117 Pulse Ox 95 95 Oxygen Delivery Method Room Air Room Air Room Air 03/12/24 15:51 03/12/24 16:15 03/12/24 17:00 Temperature Temperature Source Pulse Rate 55 L 54 L 56 L Respiratory Rate 12 15 15 Blood Pressure 154/61 H 154/61 H 186/43 H Blood Pressure Mean 92 92 90 Pulse Ox 97 98 100 Oxygen Delivery Method Room Air Room Air Room Air 03/12/24 18:15 Temperature Temperature Source Pulse Rate 75 Respiratory Rate 20 H Blood Pressure 198/61 H Blood Pressure Mean 106 Pulse Ox 96 Oxygen Delivery Method Room Air Weight Weight: 79.8 kg Body Mass Index (BMI) 32.1 Physical Exam Const alert, oriented x3, no apparent distress and average body habitus Constitutional Narrative: Notably female, obese, laying back comfortably in bed, conversing normally, in no acute distress. General Appearance: cooperative and comfortable HEENT normocephalic, head/scalp atraumatic, hearing grossly normal bilaterally, nasal mucous membranes and turbinates normal and moist oral mucous membranes Eyes PERRL, EOMs intact bilaterally and conjunctivae normal Neck full ROM Chest inspection of chest normal Resp normal respiratory effort, normal air movement, no use of accessory muscles and clear to auscultation bilaterally Cardio regular rate, regular rhythm, no murmurs and peripheral pulses 2+ throughout GI normal to inspection, nondistended, normoactive bowel sounds, soft to palpation, non-tender and non-distended Back/Spine normal ROM Extremity normal to inspection, full ROM and no pedal edema Skin no rashes or lesions noted Neuro oriented x3, CN's II-XII intact bilaterally, moves all extremities and no focal motor deficits Speech: speech normal Motor Exam: strength 5/5 throughout Psych mental status grossly normal Results Lab / Micro Data 03/12/24 15:27 03/12/24 15:27 Labs: Laboratory Results - last 24 hr 03/12/24 15:27: WBC 7.0, RBC 4.57, Hgb 11.9 L, Hct 36.9 L, MCV 80.7 L, MCH 26.0 L, MCHC 32.2, RDW Std Deviation 38.2, RDW Coeff of Helen 13.2, Plt Count 363, MPV 11.5, Immature Gran % (Auto) 0.400, Neut % (Auto) 64.3, Lymph % (Auto) 26.8, [place] % (Auto) 6.4, Eos % (Auto) 1.4, Baso % (Auto) 0.7, Absolute Neuts (auto) 4.5, Absolute Lymphs (auto) 1.89, Nucleated RBC % 0, PT 12.8, INR 1.0, APTT 28.6, Sodium 135 L, Potassium 4.2, Chloride 106, Carbon Dioxide 23.0, Anion Gap 6, BUN 25 H, Creatinine 1.18 H, Estim Creat Clear Calc 37.21, Est GFR (MDRD) Af Amer 57 L, Est GFR (MDRD) Non-Af 47 L, BUN/Creatinine Ratio 21.2 H, Glucose 151 H, Calcium 9.7, Troponin I High Sens 10 Imaging Radiology Impression Chest X-Ray 03/12/24 15:45 IMPRESSION: No acute abnormality is seen. Electronically Signed: Kilo Curtis MD at 16:04 EST , Head/Neck CTA 03/12/24 16:35 IMPRESSION: Normal unenhanced CT scan of the brain. Electronically Signed: Andrew Sierra MD at 17:44 EST , Assessment & Plan Assessment/Plan (1) Expressive aphasia: (2) Brain TIA: PLAN: Plan Patient is an 79-year-old female who presented [facility] ED on 03/12/2024 after an episode of expressive aphasia. 1. Episode of expressive aphasia concerning for TIA ? Admit under observation status to PCU. Teleneurology consulted. PT/OT/case management consulted. Event seems most consistent with a TIA. Orders placed on admit per stroke protocol order set. Lipid panel, A1c and TSH ordered. Continue home aspirin and high intensity statin. Holding home antihypertensives as noted below for permissive hypertension. CTA head/neck with moderate bilateral carotid stenosis noted, unchanged from previous and no other concerning findings. MRI brain ordered. Appreciate further neurology recommendations. 2. Hypertension ? Holding home losartan?hydrochlorothiazide, Lopressor and hydralazine for now for permissive hypertension, restart when able. Chronic medical conditions: ? Obesity: BMI 30 on admit. Complicates hospital course, care and prognosis. ? CKD stage III: Creatinine 1.18 on admit, at baseline. ? Hyperlipidemia: Continue home statin. ? Type 2 diabetes mellitus: Hold home glimepiride and dapagliflozin. Will treat with sliding scale insulin with meals while inpatient. ? Hypothyroidism: Continue home Synthroid. ? Mood disorder: Stable. Continue home fluoxetine. ? GERD: Continue home PPI. ? Mild chronic anemia: Hemoglobin 11.9 on admit, at baseline. DVT prophylaxis: SCDs CODE STATUS: Full code, verified Expected disposition: Home, 1 to 2 days Total clinical time spent by myself addressing the patient's medical issues, reviewing all the data, and collaborating with patient's care team: 55 minutes. Charges/Coding Visit Charges Inpatient E&M: 14311 Init Hosp L2
--- NOTE | 2024-03-12 18:51 | ECHOD_ITS ---
Reason For Study: TIA/STROKE Procedure This was a 2D Doppler, Color Flow transthoracic echocardiogram. Exam performed portable in patient room. Left Ventricle Normal LV size. The estimated ejection fraction is 75 %. Unable to assess diastolic dysfunction. No regional wall motion abnormalities noted. Right Ventricle Normal RV size. Normal systolic function. Atria The left atrium is mildly enlarged. Normal right atrium. No doppler evidence for ASD. Mitral Valve There is moderate mitral annular calcification. There is no mitral valve stenosis. Mild (1+) mitral valve insufficiency. Tricuspid Valve There is no tricuspid stenosis. Unable to estimate RV systolic pressure due to inadequate jet, pulmonary artery pressure probably normal. Aortic Valve Trisinus/trileaflet aortic valve. Aortic sclerosis, no stenosis. There is no aortic stenosis. No aortic valve insufficiency. Pulmonic Valve There is no pulmonic valvular stenosis. No pulmonic valve insufficiency. Great Vessels Normal aortic root. Pericardium/Pleural No pericardial effusion. MMode/2D Measurements & Calculations LVIDd: 3.7 cm IVSd: 1.7 cm LVOT diam: 2.0 cm LVIDs: 2.3 cm LVPWd: 1.2 cm LVOT area: 3.1 cm2 RVDd: 2.8 cm FS: 38.1 % Ao root diam: 2.9 cm LAV(MOD-bp): 39.8 ml LVAd ap4: 24.7 cm2 LAV(MOD-bp) Indexed: 22.0 ml/m2 LVLd ap4: 7.2 cm LAV(MOD-sp2): 41.4 ml EDV(MOD-sp4): 68.7 ml LAV(MOD-sp4): 37.5 ml EDV(sp4-el): 71.4 ml LVAs ap4: 12.0 cm2 LVLs ap4: 6.0 cm ESV(MOD-sp4): 21.9 ml ESV(sp4-el): 20.4 ml EF(MOD-sp4): 68.1 % EF(sp4-el): 71.5 % SV(MOD-sp4): 46.7 ml SV(sp4-el): 51.1 ml LA A4 area: 14.3 cm2 SI(MOD-sp4): 25.8 ml/m2 LA dimension(2D): 2.8 cm RA A4 area: 11.7 cm2 TAPSE: 2.0 cm Time Measurements MV dec time: 0.34 sec Doppler Measurements & Calculations MV A max girma: 78.6 cm/sec Lat Peak E' Girma: 9.4 cm/sec Med Peak E' Girma: 6.7 cm/sec MV V2 max: 105.6 cm/sec Ao V2 max: 186.5 cm/sec LV V1 max: 174.7 cm/sec MV max P.5 mmHg Ao max P.9 mmHg LV V1 max P.2 mmHg MV V2 mean: 58.3 cm/sec LV V1 mean P.6 mmHg MV mean P.6 mmHg KEILA(V,D): 2.9 cm2 LV V1 mean: 107.5 cm/sec MV V2 VTI: 35.1 cm LV V1 VTI: 34.4 cm MVA(VTI): 3.0 cm2 SV(LVOT): 105.6 ml PA V2 max: 91.3 cm/sec TR max girma: 277.8 cm/sec TR max P.9 mmHg ECHO/Echo Complete Interpretation Summary The estimated ejection fraction is 75 %. Unable to assess diastolic dysfunction. The left atrium is mildly enlarged. Mild (1+) mitral valve insufficiency. Ordering Physician: Nicko Birmingham Referring Physician: MADELINE OROPEZA Performed By: Janeth Garner RDCS
[2024-03-12] MEDS: Timolol 0.5% 5ML OPTH.BTL 1 DRP OPHTHALMIC (22:05)
[2024-03-12] MEDS: Atorvastatin Calcium 40 MG Tablet PO (22:05)
[2024-03-12] MEDS: Latanoprost 0.005% 1 Bottle 1 DRP EACH EYE (22:05)
[2024-03-13] VITALS (7 sets, daily range): BP systolic 144–203; BP diastolic 55–67; PULSE 58–63; RESP 16; TEMP 36.4–36.7; O2SAT 96–99; BMI 30.2
[2024-03-13 06:17] LABS: Hematocrit 35.5 % (37-47); Hemoglobin 11.6 g/dL (12.0-15.0); Mean Corp Hgb Conc 32.7 g/dL (32-36); Mean Corpuscular Volume 79.6 fL (81-99); Mean Platelet Vol. 11.6 fl (6.2-12.0); Platelet Count 343 K/mm3 (150-450); RBC Distribution Width CV 13.1 % (11.6-14.6); RBC Distribution Width SD 37.3 fl (35.1-43.9); Red Blood Count 4.46 M/mm3 (4.2-5.4); White Blood Count 6.4 K/mm3 (4.4-11.0)
[2024-03-13] MEDS: 0.9% Saline Lock 10 ML Syringe IV (06:25)
[2024-03-13] MEDS: Levothyroxine 25 MCG TABLET PO (06:25)
[2024-03-13 06:49] LABS: Anion Gap 8 (5-15); BUN 19 mg/dL (7-18); Calcium,Total 9.5 mg/dL (8.5-10.1); Chloride 106 mmol/L (98-107); Cholesterol 171 mg/dL (200); Creatinine, Serum 1.12 mg/dL (0.55-1.02); EST Glomerular Filtration Rate 50 mL/min (>60); Est Glom Filt Rate - Afr Amer 60 mL/min (>60); Estimated Creatinine Clearance 38.01 ml/min; Glucose 166 mg/dL (74-106); High Density Lipoprotein 37 mg/dL; Potassium 3.7 mmol/L (3.5-5.1); Sodium Level 135 mmol/L (136-145); Triglycerides 170 mg/dL; Very Low Density Lipoprotein 34 mg/dL (5-40)
--- NOTE | 2024-03-13 08:24 | CT_ITS ---
STUDY: CT BRAIN WITHOUT CONTRAST REASON FOR EXAM: Female, 79 years old. r/o stroke repeat ct no contrast -- no contrast RADIATION DOSAGE (If Supplied By Facility): CTDIvol = ( 44.99 ) mGy, DLP = ( 745.49 ) mGycm TECHNIQUE: Transaxial CT imaging of the brain was performed without administration of intravenous contrast material. Individualized dose optimization techniques were used for this CT. COMPARISON: Comparison is made with prior examination dated March 12, 2024. FINDINGS: Normal soft tissue structures. Normal calvarium. There is moderate cerebral atrophy with widening of the extra-axial spaces and ventricular dilatation. There are areas of decreased attenuation within the white matter tracts of the supratentorial brain, consistent with microvascular disease changes. Normal basal ganglia and thalami. Normal brainstem. Normal cerebellum. There is no intracranial hemorrhage. There are no findings of an acute ischemic infarction. Atherosclerotic calcification of the cavernous portions of the internal carotid arteries bilaterally. Nasal septal deviation towards the right side of the midline. Normal visualized paranasal sinuses. CT/Brain/Head without Contrast IMPRESSION: Chronic involutional changes of the brain. Electronically Signed: Kilo Curtis MD at 10:05 [facility] ,
--- NOTE | 2024-03-13 10:18 | PCM.DC ---
Discharge Instructions Diet Discharge Diet: Low fat / Low cholesterol and Carb Control Diet Activity Discharge Activity: Return to Normal Activity Dressing / Incision Call your doctor if you observe: Fever of 101 or Higher, Shortness of breath, Dizziness, Fainting spells, Swelling in the ankles, Chest pain and Increased palpitations (irregular heartbeat) Follow Up Care Test Results: Test results from this visit will be discussed in further detail at your follow-up appointment, if applicable. Discharge Plan Admission Admit Date/Time: 03/12/24 18:48 Attending Provider: Trenton Del Rio Primary Care Provider: Tommy Everett Consulting Providers: Nicko Birmingham Discharge Orders/Prescriptions Prescriptions: Continued brimonidine [Alphagan P] 0.1 % drops 1 drp OPHTHALMIC BID@1000,2200 coenzyme Q10 [Co Q-10] 200 mg capsule 200 mg PO DAILY (DME) Handicap Placard See Rx Instructions .ROUTE .MEDSUPPLY Qty: 1 0RF Rx Instructions: As directed, length of time 3 years (DME) Handicap Placard See Rx Instructions .ROUTE .MEDSUPPLY Qty: 1 0RF Rx Instructions: As directed, length of time 3 years glimepiride 2 mg tablet 2 mg PO QAM Qty: 90 3RF Rx Instructions: administer with breakfast atorvastatin 40 mg tablet 40 mg PO QHS Qty: 90 3RF (DME) FreeStyle Josephine 14 Day [place] Misc See Rx Instructions .Route Qty: 1 4RF Rx Instructions: As directed (DME) FreeStyle Josephine 14 Day Sensor Kit See Rx Instructions .Route Qty: 1 3RF Rx Instructions: As directed (DME) Dexcom G7 Jet Aircraft Servicer Misc See Rx Instructions .Route Qty: 1 3RF Rx Instructions: As directed (DME) Dexcom G7 Sensor Device See Rx Instructions .Route Qty: 1 3RF Rx Instructions: As directed fluoxetine 20 mg capsule 20 mg PO DAILY Qty: 90 3RF hydralazine 100 mg tablet See Rx Instructions .ROUTE .COMPLEX Qty: 270 3RF Dose Instruction: TAKE 1 TABLET 3 TIMES A DAY Rx Instructions: TAKE 1 TABLET 3 TIMES A DAY dapagliflozin propanediol 10 mg tablet 10 mg PO DAILY Qty: 90 1RF latanoprost 0.005 % drops 1 drp EACH EYE QHS aspirin 81 MG tablet,chewable 81 mg PO DAILY@0800 timolol maleate 0.5 % drops 1 drp ophthalmic (eye) BID levothyroxine [Synthroid] 25 mcg tablet 25 mcg PO DAILY omeprazole 10 mg capsule,delayed release(DR/EC) 10 mg PO QODAY metoprolol tartrate 50 mg tablet 50 mg PO BID (DME) blood-glucose meter [True Metrix Glucose Meter] Misc See Rx Instructions .ROUTE .MEDSUPPLY Qty: 1 0RF Rx Instructions: As directed up to qid (DME) OneTouch Verio test strips Strip See Rx Instructions .Route Qty: 100 3RF Rx Instructions: As directed up to QID losartan-hydrochlorothiazide 100-25 mg tablet 1 tab PO DAILY Qty: 90 3RF Referrals / Follow Up: Tommy Everett MD [Primary Care Provider] - Within 1 Week Disposition Disposition (needs filled in before D/C Order can be placed): Home, Self Care
[2024-03-13] MEDS: Glimepiride 2 MG Tablet PO (10:35)
[2024-03-13] MEDS: Metoprolol Tartrate 50 MG Tablet PO (10:36)
[2024-03-13] MEDS: hydroCHLOROthiazide 25 MG Tablet PO (10:36)
[2024-03-13] MEDS: Losartan Potassium 100 MG Tablet PO (10:36)
[2024-03-13] MEDS: Empagliflozin 25 MG Tablet PO (10:36)
[2024-03-13] MEDS: FLUoxetine 20 MG Capsule PO (10:37)
[2024-03-13] MEDS: Pantoprazole Sodium 20 MG Tablet PO (10:38)
--- NOTE | 2024-03-13 11:48 | CASEMGMT ---
Patient has order for discharge. RN CM in to discuss needs at discharge, daughter at bedside. Patient denies needs or help at discharge. Daughter inquired about services for meal planning for diabetes. RN CM provided information card for [facility] and encouraged to discuss with PCP for referral. Patient and daughter voiced understanding. Patient and daughter had no further questions or concerns.
--- NOTE | 2024-03-13 12:54 | CASEMGMT ---
SW completed a PHQ9 with patient as she may have had a TIA. Patient scored a 14 which is indicates moderate depression. Patient initially declined any counseling resources. However, patient did change her mind and agreed to taking a list. SW did provide patient with a list of counseling agencies. Jaqui Marcelo [employer]GER [employer]
[2024-03-13] MEDS: hydrALAZINE 50 MG Tablet 100 MG PO (13:40)
--- NOTE | 2024-03-13 13:54 | PCM.DC.SUM ---
Providers Date of Admission: 03/12/24 Primary Care Physician: Dr. Tommy Everett MD Reason For Visit: STROKE LIKE SYMPTOMS Diagnosis Discharge Diagnosis (1) Expressive aphasia: Status: Acute Code(s): R47.01 - Aphasia (2) Brain TIA: Status: Acute Code(s): G45.9 - Transient cerebral ischemic attack, unspecified Medications at Discharge Home Medications brimonidine 0.1 % eye drops (Alphagan P) 1 drp ophthalmic (eye) BID@1000,2200 Eye health 04/10/17 aspirin 81 mg chewable tablet 81 mg PO DAILY@0800 [facility] 03/17/18 blood-glucose meter (True Metrix Glucose Meter) #1 ea 01/26/21 coenzyme Q10 200 mg capsule (Co Q-10) 200 mg PO DAILY suppliment 07/20/21 Handicap Placard #1 ea 05/24/22 Handicap Placard #1 ea 12/25/22 atorvastatin 40 mg tablet 40 mg PO QHS cholesterol #90 tabs 03/15/23 glimepiride 2 mg tablet 2 mg PO QAM #90 tabs 03/15/23 blood sugar diagnostic (ClassWalletuch Verio test strips) #100 ea 03/20/23 losartan 100 mg-hydrochlorothiazide 25 mg tablet 1 tab PO DAILY #90 tabs 05/07/23 flash glucose scanning reader (FuturelyticsStyle Josephine 14 Day [place]) #1 ea 06/20/23 flash glucose sensor (FreeStyle Josephine 14 Day Sensor kit) #1 ea 06/20/23 blood-glucose meter,continuous (Dexcom G7 Wallcovering Hanger) #1 ea 09/19/23 blood-glucose sensor (Dexcom G7 Sensor device) #1 ea 09/19/23 fluoxetine 20 mg capsule 20 mg PO DAILY Mood #90 caps 09/19/23 dapagliflozin propanediol 10 mg tablet 10 mg PO DAILY diabetes #90 tabs 12/26/23 hydralazine 100 mg tablet See Rx Instructions .Route .COMPLEX #270 tabs 12/26/23 latanoprost 0.005 % eye drops 1 drp EACH EYE QHS eye health 03/12/24 levothyroxine 25 mcg tablet (Synthroid) 25 mcg PO DAILY 03/12/24 metoprolol tartrate 50 mg tablet 50 mg PO BID 03/12/24 omeprazole 10 mg capsule,delayed release 10 mg PO QODAY gerd 03/12/24 timolol maleate 0.5 % eye drops 1 drp ophthalmic (eye) BID 03/12/24 Hospital Course Operations None Procedures 2-D Echocardiogram Summary of Care Provided Minutes Spent on Discharge: 34 Hospital Course: Per HPI: ROSANNA SEGURA, is a 79 F who presented to [facility] ED on 03/12/2024 from her PCP office after an episode of expressive aphasia in the office. Patient sees Dr. Everett as her PCP. During her office visit today he noticed that she abruptly developed significant word finding difficulty and expressive difficulty. She also appeared somewhat confused. This episode lasted 3 to 5 minutes. She slowly returned to her baseline in the office and after much coaxing from family she was willing to come to the ED for further evaluation. Her symptoms had completely resolved on arrival here. She was hypertensive to the 180s to 190s in the ED but otherwise hemodynamically stable. CTA head/neck showed moderate stenosis and proximal ICAs bilaterally that appears unchanged from previous and moderate plaque noted at origin of left vertebral artery but otherwise no other acute findings. NIHSS score was 0. Given concern for TIA, teleneurology recommended admission for stroke workup and hospitalist was contacted for admission. I saw the patient at bedside in the ED, daughter was present. Patient was laying back comfortably in bed, conversing normally, in no acute distress. She was able to recount the episode in the office today and noted she simply had onset difficulty finding her words for a period of time. This is never happened to her before. She denied any upper or lower extremity weakness or any numbness and tingling with this episode. Denies any recent infectious symptoms or fevers or chills. Denies any other acute concerns currently. Will be admitted for further management. Hospital Course: 1. Hypertensive urgency with aphasia?79-year-old female presented to the hospital with initial symptoms concerning for stroke, she was found to have systolic blood pressures over 200 and she states that she stopped taking her medications because her skis sleep schedule has been abnormal and she just stopped taking them. I discussed with her the need to continue taking her blood pressure medications and I think that this is why she was having her symptoms. She refused MRI today, CT of the head and neck was unremarkable with no large vessel occlusions, repeat CT of the brain was also unremarkable did not show any signs of a stroke, NIH was 0. All of her blood pressure medications were restarted and she was educated on this issue, she is already on aspirin and Lipitor so I do not believe that any further workup at this time is necessary. She did have an echo which was also unremarkable with an EF of 75%. I recommend she follow-up with her PCP in 3 to 5 days after discharge in the restart her home medications. 2. CKD 3, hyperlipidemia, type 2 diabetes, hypothyroidism, anxiety, depression, GERD are all chronic medical conditions which complicate her care. Her home medications were continued where appropriate Physical Exam Narrative General: Alert, Oriented x3, Cooperative, No apparent distress HEENT: Atraumatic, PERRLA, EOMI, Normocephalic Oral: Moist Mucosa Neck: Supple, No JVD Lungs: Clear to auscultation, Normal air movement, No rhonchi, No wheeze, No rales Cardiovascular: Regular rate, Regular Rhythm, Normal S1, Normal S2, No murmurs Abdomen: Soft, Non Tender, Non-Distended, No Hepato-splenomegaly Extremities: No edema, Capillary Refill Less than 3 Seconds Skin: No rashes, No breakdown Musculoskeletal: No Tenderness to Palpation of Joints or Extremities Neurological: No focal neurological deficits, Motor Exam 5/5 strength throughout, Sensory exam intact to light touch and pain Psych/Mental Status: Normal Affect, Appropriate Weight / BMI Weight Weight: 165 lb 9.074 oz Body Mass Index (BMI) 30.2 ABG / Lab / Microbiology Data 03/13/24 06:01 03/13/24 06:01 Laboratory: Laboratory Results - last 24 hr 03/12/24 15:27: WBC 7.0, RBC 4.57, Hgb 11.9 L, Hct 36.9 L, MCV 80.7 L, MCH 26.0 L, MCHC 32.2, RDW Std Deviation 38.2, RDW Coeff of Helen 13.2, Plt Count 363, MPV 11.5, Immature Gran % (Auto) 0.400, Neut % (Auto) 64.3, Lymph % (Auto) 26.8, [place] % (Auto) 6.4, Eos % (Auto) 1.4, Baso % (Auto) 0.7, Absolute Neuts (auto) 4.5, Absolute Lymphs (auto) 1.89, Nucleated RBC % 0, PT 12.8, INR 1.0, APTT 28.6, Sodium 135 L, Potassium 4.2, Chloride 106, Carbon Dioxide 23.0, Anion Gap 6, BUN 25 H, Creatinine 1.18 H, Estim Creat Clear Calc 37.21, Est GFR (MDRD) Af Amer 57 L, Est GFR (MDRD) Non-Af 47 L, BUN/Creatinine Ratio 21.2 H, Glucose 151 H, Calcium 9.7, Troponin I High Sens 10, TSH 2.350 03/13/24 06:01: WBC 6.4, RBC 4.46, Hgb 11.6 L, Hct 35.5 L, MCV 79.6 L, MCH 26.0 L, MCHC 32.7, RDW Std Deviation 37.3, RDW Coeff of Helen 13.1, Plt Count 343, MPV 11.6, Sodium 135 L, Potassium 3.7, Chloride 106, Carbon Dioxide 21.0, Anion Gap 8, BUN 19 H, Creatinine 1.12 H, Estim Creat Clear Calc 38.01, Est GFR (MDRD) Af Amer 60, Est GFR (MDRD) Non-Af 50 L, BUN/Creatinine Ratio 17.0, Glucose 166 H, Calcium 9.5, Triglycerides 170, Cholesterol 171, LDL Cholesterol 100, VLDL Cholesterol 34, HDL Cholesterol 37 L Radiography Diagnostic Testing: Radiology Impression Chest X-Ray 03/12/24 15:45 IMPRESSION: No acute abnormality is seen. Electronically Signed: Kilo Curtis MD at 16:04 EST , Head/Neck CTA 03/12/24 16:35 IMPRESSION: Normal unenhanced CT scan of the brain. Electronically Signed: Andrew Sierra MD at 17:44 EST , Echocardiogram 03/12/24 18:51 Interpretation Summary The estimated ejection fraction is 75 %. Unable to assess diastolic dysfunction. The left atrium is mildly enlarged. Mild (1+) mitral valve insufficiency. Ordering Physician: Nicko Birmingham Referring Physician: MADELINE OROPEZA Performed By: Janeth Garner RDCS Brain CT 03/13/24 08:24 IMPRESSION: Chronic involutional changes of the brain. Electronically Signed: Kilo Curtis MD at 10:05 EST Reading Location ID and State: [address] [place] [address] , Service support , D/C Instructions Discharge Diet: Low fat / Low cholesterol and Carb Control Diet Call your doctor if you observe: Fever of 101 or Higher, Shortness of breath, Dizziness, Fainting spells, Swelling in the ankles, Chest pain and Increased palpitations (irregular heartbeat) Meaningful Use Info Meaningful Use Meaningful Use Diagnoses (Choose all that apply): None applicable Ischemic Stroke Statin Dosing Therapy Reference: STATIN DOSE THERAPY REFERENCE: * Patients > 75 years receive moderate or high dose statin therapy. * Patients 75 years or YOUNGER should receive HIGH intensity statin dose unless contraindicated. You will be required to document reason for non-treatment if statin daily dose does not meet guidelines. HIGH DOSE STATIN THERAPY DAILY Atorvastatin > than or = to 40 mg Rosuvastatin > than or = to 20 mg Amlodipine + Atorvastatin > than or = to 2.5/40 mg Ezetimibe + Simvastatin 10/80 mg Simvastatin 80mg Discharge Plan Admission Admit Date/Time: 03/12/24 18:48 Attending Provider: [place]on Del [place] Primary Care Provider: Tommy Everett Consulting Providers: Nicko Birmingham Discharge Orders/Prescriptions Prescriptions: Continued brimonidine [Alphagan P] 0.1 % drops 1 drp OPHTHALMIC BID@1000,2200 coenzyme Q10 [Co Q-10] 200 mg capsule 200 mg PO DAILY (DME) Handicap Placard See Rx Instructions .ROUTE .MEDSUPPLY Qty: 1 0RF Rx Instructions: As directed, length of time 3 years (DME) Handicap Placard See Rx Instructions .ROUTE .MEDSUPPLY Qty: 1 0RF Rx Instructions: As directed, length of time 3 years glimepiride 2 mg tablet 2 mg PO QAM Qty: 90 3RF Rx Instructions: administer with breakfast atorvastatin 40 mg tablet 40 mg PO QHS Qty: 90 3RF (DME) FreeStyle Josephine 14 Day [place] Misc See Rx Instructions .Route Qty: 1 4RF Rx Instructions: As directed (DME) FreeStyle Josephine 14 Day Sensor Kit See Rx Instructions .Route Qty: 1 3RF Rx Instructions: As directed (DME) Dexcom G7 Wallcovering Hanger Misc See Rx Instructions .Route Qty: 1 3RF Rx Instructions: As directed (DME) Dexcom G7 Sensor Device See Rx Instructions .Route Qty: 1 3RF Rx Instructions: As directed fluoxetine 20 mg capsule 20 mg PO DAILY Qty: 90 3RF hydralazine 100 mg tablet See Rx Instructions .ROUTE .COMPLEX Qty: 270 3RF Dose Instruction: TAKE 1 TABLET 3 TIMES A DAY Rx Instructions: TAKE 1 TABLET 3 TIMES A DAY dapagliflozin propanediol 10 mg tablet 10 mg PO DAILY Qty: 90 1RF latanoprost 0.005 % drops 1 drp EACH EYE QHS aspirin 81 MG tablet,chewable 81 mg PO DAILY@0800 timolol maleate 0.5 % drops 1 drp ophthalmic (eye) BID levothyroxine [Synthroid] 25 mcg tablet 25 mcg PO DAILY omeprazole 10 mg capsule,delayed release(DR/EC) 10 mg PO QODAY metoprolol tartrate 50 mg tablet 50 mg PO BID (DME) blood-glucose meter [True Metrix Glucose Meter] Misc See Rx Instructions .ROUTE .MEDSUPPLY Qty: 1 0RF Rx Instructions: As directed up to qid (DME) OneTouch Verio test strips Strip See Rx Instructions .Route Qty: 100 3RF Rx Instructions: As directed up to QID losartan-hydrochlorothiazide 100-25 mg tablet 1 tab PO DAILY Qty: 90 3RF Referrals / Follow Up: Tommy Everett MD [Primary Care Provider] - Within 1 Week Disposition Disposition (needs filled in before D/C Order can be placed): Home, Self Care Charges/Coding Visit Charges Inpatient E&M: 77957 Disch Hosp >30min
== END 2024-03-13 10:26 | disposition home or self-care (01) ==
LOC: ED 18:52 → PCU 19:02
PROVIDERS: Admitting Provider Hospitalist; Emergency Provider Emergency Medicine; PCP Internal Medicine; Referring Provider Emergency Medicine; Visit Provider Family Medicine
DX: I16.0 Hypertensive urgency (principal); E11.65 Type 2 diabetes mellitus with hyperglycemia; E11.22 Type 2 diabetes mellitus with diabetic chronic kidney disease; N18.30 Chronic kidney disease, stage 3 unspecified; R47.01 Aphasia; K21.9 Gastro-esophageal reflux disease without esophagitis; F41.8 Other specified anxiety disorders; E03.9 Hypothyroidism, unspecified; E78.5 Hyperlipidemia, unspecified; Z87.891 Personal history of nicotine dependence; F39 Unspecified mood [affective] disorder; Z68.32 Body mass index [BMI] 32.0-32.9, adult; I12.9 Hypertensive chronic kidney disease with stage 1 through stage 4 chronic kidney disease, or unspecified chronic kidney disease; E66.9 Obesity, unspecified; Z79.84 Long term (current) use of oral hypoglycemic drugs; D50.9 Iron deficiency anemia, unspecified; Z79.899 Other long term (current) drug therapy; Z79.82 Long term (current) use of aspirin; Z79.890 Hormone replacement therapy
CPT/HCPCS: 36415; 70450; 70496; 70498; 71045; 80048; 80061; 84443; 84484; 85025; 85027; 85610; 85730; 93005; 93306; 94762; 99221; 99285; A4216; G0378

== ENCOUNTER → 2024-07-16 | Outpatient (CLI) | payer MEDICARE, SELFPAY ==
[2024-07-16 17:09] LABS: Absolute Lymphocyte Count 2.11 X10^3/uL (0.83-4.51); Basophil# 0.06 X10^3/uL; Basophil% 0.8 % (0-1); Eosinophil# 0.08 X10^3/uL; Hematocrit 37.7 % (37-47); Hemoglobin 12.8 g/dL (12.0-15.0); Lymphocyte # 2.11 X10^3/ul (0.83-4.51); Lymphocyte % 26.7 % (19-41); Mean Corpuscular Hgb 27.4 pg (27.0-32.0); Mean Corpuscular Volume 80.6 fL (81-99); Mean Platelet Vol. 11.2 fl (6.2-12.0); Monocyte# 0.58 X10^3/uL; Monocyte% 7.4 % (0-10); NRBC Flagged by Analyzer 0 % (0-5); Neutrophil # 5.02 X10^3/uL (2.7-7.7); Neutrophil % 63.6 % (47-70); Platelet Count 354 K/mm3 (150-450); RBC Distribution Width CV 14.1 % (11.6-14.6); RBC Distribution Width SD 40.8 fl (35.1-43.9); Red Blood Count 4.68 M/mm3 (4.2-5.4); White Blood Count 7.9 K/mm3 (4.4-11.0)
[2024-07-16 21:16] LABS: ALB/GLOB Ratio 1.3 RATIO (0.9-2.4); AST(SGOT) 37 U/L (<=31); Alanine Aminotransfer ALT/SGPT 29 U/L (<=34); Albumin, Serum 4.4 g/dL (3.4-4.8); Alkaline Phosphatase 95 U/L (35-104); Anion Gap 15 (5-15); BUN 35 mg/dL (4-19); BUN/Creat Ratio 24.9 RATIO (10-20); Calcium,Total 10.2 mg/dL (7.6-11.0); Carbon Dioxide 18.4 mmol/L (21.0-32.0); Chloride 100 mmol/L (98-108); Cholesterol 186 mg/dL (<=200); EST Glomerular Filtration Rate 38 (>60); Globulin 3.3 g/dL (2.2-4.2); Glucose 242 mg/dL (70-99); High Density Lipoprotein 40 mg/dL; Low Density Lipoprotein Calc. 108 mg/dL; Potassium 4.3 mmol/L (3.3-5.1); Protein, Total 7.7 g/dL (5.9-8.4); Sodium Level 134 mmol/L (133-145); Triglycerides 190 mg/dL; Very Low Density Lipoprotein 38 mg/dL (5-40); Vitamin B12 358 pg/mL (180-914); cholesterol:hdl ratio screen 4.65
== END | disposition home or self-care (01) ==
PROVIDERS: PCP Internal Medicine; Referring Provider Internal Medicine; Visit Provider Internal Medicine
DX: I10 Essential (primary) hypertension (principal); F03.90 Unspecified dementia, unspecified severity, without behavioral disturbance, psychotic disturbance, mood disturbance, and anxiety; E11.9 Type 2 diabetes mellitus without complications; E03.9 Hypothyroidism, unspecified
CPT/HCPCS: 36415; 80053; 80061; 82607; 84443; 85025

== ENCOUNTER → 2024-07-17 | Outpatient (CLI) | payer MEDICARE, SELFPAY ==
[2024-07-17 14:59] LABS: Mucous, Urine 0 SEEN /hpf (<or=2+)
[2024-07-17 16:30] LABS: Color, Urine Yellow (Yellow); Glucose, Dipstick 1000 mg/dl (Normal); Ketone-Dipstick Negative (Negative); Leukocyte Esterase-Dipstick 100 /ul (Negative); Nitrite-Dipstick Negative (Negative); Occult Blood-Urine Negative /ul (Negative); Protein-Dipstick 15 mg/dl (Negative); Urine Bilirubin Dipstick Negative (Negative); Urine Clarity Clear (Clear); Urine Urobilinogen Normal (Normal)
[2024-07-17 16:55] LABS: Bacteria 1+ /hpf (None Seen); Red Blood Cells-Urine 0 SEEN /hpf (0-5); Squamous Epithelial Cells - UA 0-5 SEEN /hpf (5-10); White Blood Cells 0-5 SEEN /hpf (0-5)
== END | disposition home or self-care (01) ==
LOC: BIMLAB 14:17
PROVIDERS: PCP Internal Medicine; Referring Provider Internal Medicine; Visit Provider Internal Medicine
DX: F03.90 Unspecified dementia, unspecified severity, without behavioral disturbance, psychotic disturbance, mood disturbance, and anxiety (principal); R82.90 Unspecified abnormal findings in urine
CPT/HCPCS: 81001; 87086; 87088